=== PATIENT | male | born 1950 | race Caucasian/White ===

== ENCOUNTER 2017-10-16 08:56 | Inpatient (IN) | payer OTHER ==
[2017-10-16 10:03] VITALS: BMI 25.4
[2017-10-16 11:00] LABS: Absolute Monocytes 0.5 K/uL (0.1-1.3); Absolute Neutrophil 3.1 K/uL (1.8-8.0); Basophils % 0.5 % (0-1.3); Hematocrit 41.9 % (39.6-49.0); MCH 30.3 pg (27.0-35.0); MCV 94.4 fL (80-100); MPV 9.1 fL (7.6-11.3); Monocytes % 8.6 % (3.3-12.3); RBC Red Blood Cell Count 4.44 M/uL (4.33-5.43)
[2017-10-16 11:20] LABS: Potassium 3.4 mmol/L (3.5-5.1)
[2017-10-16] MEDS: ETHAMBUTOL HCL 400 MG TAB PO SCH ×3 (13:00→21:00)
[2017-10-16] MEDS ORDERED: PREGABALIN 50 MG CAP PO SCH (14:00)
[2017-10-16] MEDS: LYRICA 100 MG PO SCH ×2 (14:00→21:00)
[2017-10-16] MEDS: SOTALOL HCL 80 MG TAB PO SCH (17:00)
[2017-10-16] MEDS ORDERED: RIVAROXABAN 20 MG TABLET PO SCH (17:00)
[2017-10-16] MEDS: XARELTO 20 MG TABLET PO SCH (17:01)
--- NOTE | 2017-10-16 17:25 | EKG ---
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
[2017-10-16] MEDS: MONTELUKAST 10 MG TAB PO SCH (20:56)
[2017-10-16] MEDS: PREZISTA 600 MG PO SCH (20:57)
[2017-10-16] MEDS: ROZEREM 8 MG PO SCH (21:00)
--- NOTE | 2017-10-17 02:52 | HP ---
Date of Admission: 10/16/2017 History Of Present Illness: Mr. Espinoza is 67 and he is admitted to the hospital because of atrial fi brillation. Our plan is to have him start drug therapy with Betapace and then see if we can anticoag ulate him using Xarelto, and in a couple days if he is still in AFib, do a cardioversion. Mr. Espinoza has not had atrial fibrillation before. He has underlying heart disease. He has cardiomyopathy and he has severe pulmonary hypertension. 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 He has managed to do well with that. He is on erapy with multiple antiviral antibiotics. He also takes montelukast and Xarelto. His Xarelto dose is 20 mg daily. He has a drug allergy to abacavir and sulfa antibiotics. He uses no tobacco, no ill egal drugs. Physical Examination: General: He is 6 feet 3 inches, 203 pounds. HEENT: Unremarkable. Lungs: Clear. Heart: Irregularly irregular. No significant murmur. Abdomen: Soft. Extremities: Within normal limits. Abdomen: Normal. Genital: Not done. Rectal: Not done. Plan: My plan is for him to continue to take Xarelto, continue to take all of his home antibiotics, and will start therapy with Betapace 80 mg twice a day and plan on cardioversion on October 18 if he is still in AFib. HONG/GARY Voice ID: [id number]
[2017-10-17] MEDS: SOTALOL HCL 80 MG TAB PO SCH ×2 (05:47→17:23)
[2017-10-17] MEDS: GENVOYA PO SCH (08:00)
[2017-10-17] MEDS: TORSEMIDE 20 MG TABLET PO SCH (08:32)
[2017-10-17] MEDS: LETAIRIS 10 MG TABLET PO SCH (08:32)
[2017-10-17] MEDS: PREZISTA 600 MG PO SCH ×2 (08:33→21:00)
[2017-10-17] MEDS: ETHAMBUTOL HCL 400 MG TAB PO SCH ×4 (08:34→21:00)
[2017-10-17] MEDS ORDERED: TORSEMIDE 20 MG TAB PO SCH (09:00)
[2017-10-17] MEDS: LYRICA 100 MG PO SCH ×3 (09:00→21:00)
--- NOTE | 2017-10-17 13:49 | PN ---
Mr. Espinoza remains in AFib. He is tolerating Betapace. If he is in AFib tomorrow, we will do a card ioversion, remain on Xarelto. HONG/GARY Voice ID: [id number] Report ID: [id number]
[2017-10-17] MEDS ORDERED: RIVAROXABAN 20 MG TABLET PO SCH ×2 (17:00)
[2017-10-17] MEDS: XARELTO 20 MG TABLET PO SCH (17:24)
[2017-10-17] MEDS: ROZEREM 8 MG PO SCH (21:00)
[2017-10-17] MEDS: MONTELUKAST 10 MG TAB PO SCH (21:00)
[2017-10-18] MEDS: SOTALOL HCL 80 MG TAB PO SCH (05:49)
[2017-10-18] MEDS: GENVOYA PO SCH (08:00)
[2017-10-18] MEDS: PREZISTA 600 MG PO SCH (08:01)
[2017-10-18] MEDS: TORSEMIDE 20 MG TABLET PO SCH (08:02)
[2017-10-18] MEDS: LETAIRIS 10 MG TABLET PO SCH (08:02)
[2017-10-18] MEDS: LYRICA 100 MG PO SCH (08:02)
[2017-10-18] MEDS: ETHAMBUTOL HCL 400 MG TAB PO SCH (08:02)
[2017-10-18] MEDS ORDERED: MIDAZOLAM HCL 2 MG/2 ML INJ ONE (09:51)
[2017-10-18] MEDS ORDERED: FLUMAZENIL 0.1 MG/ML (5 mL VIAL) IV ONE (09:53)
[2017-10-18 10:15] VITALS: TEMP 98
[2017-10-18 12:19] VITALS: O2SAT 98
[2017-10-18 12:50] VITALS: BP 107/77
--- NOTE | 2017-10-18 16:03 | EKG ---
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: ROD MEASUREMENT RESULTS: Intervals: Rate: 45 [place]: 210 QRSD: 136 QT: 596 QTc: 515 [place]: P: 69 [place]: 210 QRS: -84 T: -84 INTERPRETIVE STATEMENTS: Marked sinus bradycardia with 1st degree AV block with premature atrial complexes Possible Left atrial enlargement Left axis deviation Right bundle branch block Inferior infarct, age undetermined Anteroseptal infarct, age undetermined T wave abnormality, consider lateral ischemia Abnormal ECG Compared to ECG 10/16/2017 10:46:22 Atrial premature complex(es) now present First degree AV block now present Atrial fibrillation no longer present Myocardial infarct finding still present Electronically Signed On 10-18-17 16:03:04 CDT by Osmin Bowen
--- NOTE | 2017-10-18 20:49 | OP ---
Surgeon: Osmin Bowen MD Procedure: Direct current cardioversion. Indication: Atrial fibrillation. Procedure In Detail: The patient was brought to the ICU fasting. He had been anticoagulated with Xa relto, loaded with Betapace 80 b.i.d., sedated with Versed. Anterior-posterior paddles were applied. A single 200 joule shock was delivered and synchronized with a QRS complex. He emerged from this r hythm in sinus bradycardia. No complications. He will be discharged from the hospital later today, taking Betapace 40 mg twice a day and Xarelto 20 mg once a day. HONG/GARY Voice ID: [id number] Report ID: [id number]
--- NOTE | 2017-10-19 06:34 | EKG ---
Test Date: 2017-10-18 Test Time: 20:55:33 Science Consultant: ARPIT MEASUREMENT RESULTS: Intervals: Rate: 54 AR: 192 QRSD: 134 QT: 530 QTc: 502 [place]: P: 68 AR: 192 QRS: -87 T: -26 INTERPRETIVE STATEMENTS: Sinus bradycardia Possible Left atrial enlargement Left axis deviation Right bundle branch block Inferior infarct, age undetermined Abnormal ECG Compared to ECG 10/18/2017 10:40:24 Atrial premature complex(es) no longer present First degree AV block no longer present Electronically Signed On 10-19-17 06:33:24 CDT by Osmin Bowen
--- NOTE | 2017-10-23 07:52 | DS ---
Date of Discharge: 10/18/2017 Discharge Diagnosis: Atrial fibrillation, resolved. Procedures In The Hospital: Direct current cardioversion loading with Betapace. The cardioversion w as on October 18, the day of discharge. Discharge Medications: He is on a list of medicines to treat HIV, ambrisentan. He will continue elv itegravir and valacyclovir and darunavir, all of which he will continue. He will continue Lyrica 100 t.i.d., torsemide 20. He will continue rivaroxaban 20 once a day, and in addition, he will be on Be tapace 80 mg twice a day. History Of Present Illness: Mr. Espinoza has longstanding paroxysmal atrial fib. He went into atrial fibrillation. We wanted to re-establish sinus rhythm if possible. He had been anticoagulated long e nough, so he was admitted to the hospital to initiate therapy with Betapace, seemed to tolerate it ok ay with minimal prolongation of QT. Establish sinus rhythm after cardioversion, and at the time of d ischarge, seemed to be stable. We will have followup with me in a week or if he feels like he is hav ing trouble, he will call us sooner. HONG/GARY Voice ID: [id number] Report ID: [id number]
== END 2017-10-18 12:55 | disposition home or self-care (01) | DRG 308 ==
LOC: 2ND 09:29 → 3RD-ICU 10-18 09:54
PROVIDERS: ADMIT Internal Medicine; ATTEND Internal Medicine
PROC: 5A2204Z Restoration of Cardiac Rhythm, Single (ICD-10-PCS; principal; 2017-10-18)
DX: I48.0 Paroxysmal atrial fibrillation (principal); B20 Human immunodeficiency virus [HIV] disease; I43 Cardiomyopathy in diseases classified elsewhere; I27.20 Pulmonary hypertension, unspecified
CPT/HCPCS: 36415; 80048; 85025; 93005; J2250

== ENCOUNTER 2017-10-18 20:46 | Emergency (ER) | payer OTHER ==
[2017-10-18 21:17] LABS: Absolute Lymphocytes (CBC) 2.1 K/uL (0.7-4.9); Absolute Monocytes 0.9 K/uL (0.1-1.3); Absolute Neutrophil 5.5 K/uL (1.8-8.0); Basophils % 0.6 % (0-1.3); Eosinophils % 1.2 % (0-4.4); Hematocrit 46.4 % (39.6-49.0); Lymphocytes % 24.4 % (15.3-44.8); MCH 31.7 pg (27.0-35.0); MPV 10.4 fL (7.6-11.3); Monocytes % 10.1 % (3.3-12.3); RBC Red Blood Cell Count 4.93 M/uL (4.33-5.43)
[2017-10-18 21:41] LABS: Protime INR 1.76
[2017-10-18 21:56] LABS: Albumin 3.5 g/dL (3.4-5.0); Bilirubin Direct 0.4 mg/dL (0-0.2); Bilirubin Total 0.8 mg/dL (0.2-1.0); CKMB Creatine Kinase MB 3.3 ng/mL (0.3-3.6); Magnesium 2.6 mg/dL (1.8-2.4); Protein, Total 6.9 g/dL (6.4-8.2)
--- NOTE | 2017-10-19 00:03 | EDPHYS ---
Physician Documentation [facility] Name: Arsen Espinoza Age: 67 yrs Sex: Male : 1950 Arrival Date: 10/18/2017 Time: 20:49 Bed 15 Private MD: Vikram Krueger R ED Physician Ok Casey HPI: 10/18 22:36 This 67 yrs old Male presents to ER via Ambulatory with complaints of jr8 Dizziness. 22:36 The patient presents with dizziness. Onset: The symptoms/episode began/occurred jr8 acutely, today. Context: occurred at home. Associated signs and symptoms: Pertinent positives: chest pain. Severity of symptoms: At their worst the symptoms were moderate in the emergency department the symptoms have improved mildly. Patient's baseline: Neuro: alert and fully oriented, Motor: no deficits, Ambulation: walks without assistance, Speech: normal. The patient has not experienced similar symptoms in the past. The patient has been recently seen by a physician:. Patient discharged from hospital today after having cardioversion procedure for atrial fibrillation. Had been started on Betapace and xarelto on Thursday prior to procedure. Stated that a while after he got home today started to have lightheaded feeling, weakness, and chest tightness . Historical: - Allergies: 21:06 ABACAVIR; ao 21:06 Sulfa (Sulfonamide Antibiotics); ao - Home Meds: 21:06 acyclovir 400 mg Oral tab 1 tab as needed [Active]; Genvoya [phone] mg Oral tab ao 1 tab once daily [Active]; Letairis 10 mg Oral tab 1 tab once daily [Active]; Lyrica Oral 1 cap 3 times per day [Active]; Prezista 800 mg Oral tab 1 tab once daily [Active]; Singulair 10 mg Oral tab 1 tab once daily [Active]; torsemide 20 mg Oral tab 1 tab once daily [Active]; Xarelto 20 mg Oral tab 1 tab once daily [Active]; valacyclovir 1 gram Oral tab 1 tab once daily [Active]; Betapace oral oral [Active]; - PMHx: 21:06 Atrial Fib; HIV; PULMONARY HYPERTENSION; ao - PSHx: 21:06 None; ao - Immunization history:: Adult Immunizations up to date, Last tetanus immunization: up to date. - Social history:: Smoking status: Patient/guardian denies using tobacco, Patient/guardian denies using alcohol, street drugs. - Ebola Screening: : Patient negative for fever greater than or equal to 101.5 degrees Fahrenheit, and additional compatible Ebola Virus Disease symptoms Patient denies exposure to infectious person Patient denies travel to an Ebola-affected area in the 21 days before illness onset. ROS: 22:36 Eyes: Negative for injury, pain, redness, and discharge, ENT: Negative for injury, jr8 pain, and discharge, Neck: Negative for injury, pain, and swelling, Respiratory: Negative for shortness of breath, cough, wheezing, and pleuritic chest pain, Abdomen/GI: Negative for abdominal pain, nausea, vomiting, diarrhea, and constipation, Back: Negative for injury and pain, MS/Extremity: Negative for injury and deformity, Skin: Negative for injury, rash, and discoloration. 22:36 Cardiovascular: Positive for chest pain, Negative for edema, orthopnea, palpitations, paroxysmal nocturnal dyspnea. 22:36 Neuro: Positive for dizziness, weakness. Exam: 22:36 Eyes: Pupils equal round and reactive to light, extra-ocular motions intact. Lids and jr8 lashes normal. Conjunctiva and sclera are non-icteric and not injected. Cornea within normal limits. Periorbital areas with no swelling, redness, or edema. ENT: Nares patent. No nasal discharge, no septal abnormalities noted. Tympanic membranes are normal and external auditory canals are clear. Oropharynx with no redness, swelling, or masses, exudates, or evidence of obstruction, uvula midline. Mucous membranes moist. Neck: Trachea midline, no thyromegaly or masses palpated, and no cervical lymphadenopathy. Supple, full range of motion without nuchal rigidity, or vertebral point tenderness. No Meningismus. Cardiovascular: Regular rate and rhythm with a normal S1 and S2. No gallops, murmurs, or rubs. Normal PMI, no JVD. No pulse deficits. Respiratory: Lungs have equal breath sounds bilaterally, clear to auscultation and percussion. No rales, rhonchi or wheezes noted. No increased work of breathing, no retractions or nasal flaring. Abdomen/GI: Soft, non-tender, with normal bowel sounds. No distension or tympany. No guarding or rebound. No evidence of tenderness throughout. Back: No spinal tenderness. No costovertebral tenderness. Full range of motion. Skin: Warm, dry with normal turgor. Normal color with no rashes, no lesions, and no evidence of cellulitis. MS/ Extremity: Pulses equal, no cyanosis. Neurovascular intact. Full, normal range of motion. Neuro: Awake and alert, GCS 15, oriented to person, place, time, and situation. Cranial nerves II-XII grossly intact. Motor strength 5/5 in all extremities. Sensory grossly intact. Cerebellar exam normal. Normal gait. Vital Signs: 21:02 BP 109 / 74; Pulse 54; Resp 18; Temp 97.6(T); Pulse Ox 97% on R/A; Weight 92.08 kg (R); ao Height 6 ft. 3 in. (190.50 cm) (R); Pain 0/10; 22:18 BP 100 / 62; Pulse 57; Resp 12; Pulse Ox 96% ; Pain 0/10; ao 22:35 BP 108 / 81 Supine; Pulse 51; ao 22:35 BP 99 / 75 Sitting; Pulse 60; ao 22:36 BP 112 / 80 Standing; Pulse 61; ao 23:19 BP 125 / 88; Pulse 56; Resp 18; Pulse Ox 97% on R/A; Pain 0/10; ao 10/19 00:20 BP 117 / 90; Pulse 62; Resp 18; Pulse Ox 98% ; ao 10/18 21:02 Body Mass Index 25.37 (92.08 kg, 190.50 cm) ao MDM: 10/18 21:11 Patient medically screened. [facility] 22:52 Data reviewed: vital signs, nurses notes, lab test result(s), EKG, radiologic studies, jr8 plain films. Data interpreted: Pulse oximetry: on room air is 96 %. Interpretation: normal. Counseling: I had a detailed discussion with the patient and/or guardian regarding: the historical points, exam findings, and any diagnostic results supporting the discharge/admit diagnosis, lab results, radiology results, the need for outpatient follow up, a space physicist, a family practitioner, to return to the emergency department if symptoms worsen or persist or if there are any questions or concerns that arise at home. ED course: Consulted Dr. Bowen. Wants patient to stop Betapace. To have him f/u in clinic. Patient good with this. Will draw another troponin. If negative will go home . 10/18 21:06 Order name: Basic Metabolic Panel; Complete Time: 22:10 [facility] 10/18 21:06 Order name: CBC with Diff; Complete Time: 21:20 nh10/18 21:06 Order name: Ckmb; Complete Time: 22:10 nh10/18 21:06 Order name: CPK; Complete Time: 22:10 [facility] 10/18 21:06 Order name: LFT's; Complete Time: 22:10 nh10/18 21:06 Order name: Magnesium; Complete Time: 22:10 nh10/18 21:06 Order name: NT PRO-BNP; Complete Time: 22:10 nh10/18 21:06 Order name: PT-INR; Complete Time: 21:52 nh10/18 21:06 Order name: Ptt, Activated; Complete Time: 21:52 [facility] 10/18 21:06 Order name: Troponin (emerg Dept Use Only); Complete Time: 22:10 nh10/18 21:06 Order name: XRAY Chest (1 view) 10/18 21:06 Order name: Cardiac monitoring; Complete Time: 21:14 nh10/18 22:54 Order name: Troponin (emerg Dept Use Only); Complete Time: 23:59 jr8 10/18 21:06 Order name: EKG - Nurse/Tech; Complete Time: 21:14 nh10/18 21:06 Order name: IV Saline Lock; Complete Time: 21:14 nh10/18 21:06 Order name: Labs collected and sent; Complete Time: 21:15 nh10/18 21:06 Order name: O2 Per Protocol; Complete Time: 21:15 nh10/18 21:06 Order name: O2 Sat Monitoring; Complete Time: 21:15 nh10/18 21:34 Order name: Orthostatics; Complete Time: 22:37 jr8 Administered Medications: No medications were administered Disposition: 10/19 08:55 Co-signature as Attending Physician, Ok Casey MD I agree with the assessment and jerilyn plan of care. Disposition: 10/19/17 00:02 Discharged to Home. Impression: Adverse effect of cardiac medication . - Condition is Stable. - Discharge Instructions: Atrial Fibrillation, Chest Pain Observation. - Medication Reconciliation Form, Thank You Letter, Antibiotic Education, Prescription Opioid Use form. - Follow up: Osmin Bowen MD; When: Tomorrow; Reason: Recheck today's complaints, Continuance of care, Re-evaluation by your physician. - Problem is new. - Symptoms have improved. Signatures: Dispatcher [employer] EDDC Ok Casey MD MD cha Roszak, Josh, PA PA jr8 Dottie Cook RN RN ak1 Margarito Ricks RN RN ao Corrections: (The following items were deleted from the chart) 00:21 00:02 10/19/2017 00:02 Discharged to Home. Impression: Adverse effect of cardiac ao medication . Condition is Stable. Forms are Medication Reconciliation Form, Thank You Letter, Antibiotic Education, Prescription Opioid Use. Follow up: Osmin Bowen; When: Tomorrow; Reason: Recheck today's complaints, Continuance of care, Re-evaluation by your physician. Problem is new. Symptoms have improved. jr8
--- NOTE | 2017-10-19 00:03 | ER ---
Nurse's Notes [facility] Name: Arsen Espinoza Age: 67 yrs Sex: Male : 1950 Arrival Date: 10/18/2017 Time: 20:49 Bed 15 Private MD: Vikram Krueger R Diagnosis: Adverse effect of cardiac medication Presentation: 10/18 20:59 Presenting complaint: Patient states: "This morning I had a cardioversion by Dr Andrés mary and this evening I been having this chest heaviness. I also feel lightheaded and dizzy. Patient denies pain and states it just the chest heaviness. Transition of care: patient was not received from another setting of care. Onset of symptoms was October 18, 2017 at 12:00. Risk Assessment: Do you want to hurt yourself or someone else? Patient reports no desire to harm self or others. Initial Sepsis Screen: Does the patient meet any 2 criteria? No. Patient's initial sepsis screen is negative. Does the patient have a suspected source of infection? No. Patient's initial sepsis screen is negative. Care prior to arrival: None. 20:59 Method Of Arrival: Ambulatory ao 20:59 Acuity: JAZMIN 2 ao Historical: - Allergies: 21:06 ABACAVIR; ao 21:06 Sulfa (Sulfonamide Antibiotics); ao - Home Meds: 21:06 acyclovir 400 mg Oral tab 1 tab as needed [Active]; Genvoya [phone] mg Oral tab ao 1 tab once daily [Active]; Letairis 10 mg Oral tab 1 tab once daily [Active]; Lyrica Oral 1 cap 3 times per day [Active]; Prezista 800 mg Oral tab 1 tab once daily [Active]; Singulair 10 mg Oral tab 1 tab once daily [Active]; torsemide 20 mg Oral tab 1 tab once daily [Active]; Xarelto 20 mg Oral tab 1 tab once daily [Active]; valacyclovir 1 gram Oral tab 1 tab once daily [Active]; Betapace oral oral [Active]; - PMHx: 21:06 Atrial Fib; HIV; PULMONARY HYPERTENSION; ao - PSHx: 21:06 None; ao - Immunization history:: Adult Immunizations up to date, Last tetanus immunization: up to date. - Social history:: Smoking status: Patient/guardian denies using tobacco, Patient/guardian denies using alcohol, street drugs. - Ebola Screening: : Patient negative for fever greater than or equal to 101.5 degrees Fahrenheit, and additional compatible Ebola Virus Disease symptoms Patient denies exposure to infectious person Patient denies travel to an Ebola-affected area in the 21 days before illness onset. Screenin:14 Abuse screen: Denies threats or abuse. Denies injuries from another. Nutritional ao screening: No deficits noted. Tuberculosis screening: No symptoms or risk factors identified. Fall Risk None identified. Assessment: 21:08 General: Appears in no apparent distress. comfortable, Behavior is calm, cooperative, ao appropriate for age. Pain: Complains of pain in chest pressure Pain does not radiate. Neuro: Level of Consciousness is awake, alert, obeys commands, Oriented to person, place, time, situation, Appropriate for age Moves all extremities. Speech is normal, Facial symmetry appears normal, Pupils are PERRLA. Cardiovascular: Heart tones S1 S2 Capillary refill < 3 seconds Patient's skin is warm and dry. Respiratory: Airway is patent Respiratory effort is even, unlabored, Respiratory pattern is regular, symmetrical. GI: Abdomen is non-distended. : No signs and/or symptoms were reported regarding the genitourinary system. EENT: No signs and/or symptoms were reported regarding the EENT system. Derm: Skin is pink, warm \\T\\ dry. Skin temperature is warm. Musculoskeletal: Circulation, motion, and sensation intact. Range of motion: intact in all extremities. 22:18 Reassessment: Patient appears in no apparent distress at this time. Patient and/or ao family updated on plan of care and expected duration. Pain level reassessed. Patient is alert, oriented x 3, equal unlabored respirations, skin warm/dry/pink. ANDREEA Rhodes at bedside talking to patient. 23:19 Reassessment: Patient appears in no apparent distress at this time. Patient and/or ao family updated on plan of care and expected duration. Pain level reassessed. Patient is alert, oriented x 3, equal unlabored respirations, skin warm/dry/pink. Waiting for second troponin. 10/19 00:19 Reassessment: Dc instructions given to patient. Patient agree with the POC and to ao follow up with DR Bowen this morning. Vital Signs: 10/18 21:02 BP 109 / 74; Pulse 54; Resp 18; Temp 97.6(T); Pulse Ox 97% on R/A; Weight 92.08 kg (R); ao Height 6 ft. 3 in. (190.50 cm) (R); Pain 0/10; 22:18 BP 100 / 62; Pulse 57; Resp 12; Pulse Ox 96% ; Pain 0/10; ao 22:35 BP 108 / 81 Supine; Pulse 51; ao 22:35 BP 99 / 75 Sitting; Pulse 60; ao 22:36 BP 112 / 80 Standing; Pulse 61; ao 23:19 BP 125 / 88; Pulse 56; Resp 18; Pulse Ox 97% on R/A; Pain 0/10; ao 10/19 00:20 BP 117 / 90; Pulse 62; Resp 18; Pulse Ox 98% ; ao 10/18 21:02 Body Mass Index 25.37 (92.08 kg, 190.50 cm) ao ED Course: 10/18 20:49 Patient arrived in ED. es 20:50 Vikram Krueger MD is Private Physician. es 20:59 Margarito Ricks RN is Primary Nurse. ao 21:02 Triage completed. ao 21:03 Arm band placed on right wrist. Patient placed in an exam room, on a stretcher, on ao oxygen, on equipment monitor phototypesetting, on pulse oximetry, Patient notified of wait time. 21:05 EKG done, by ED staff. jp3 21:07 Inserted saline lock: 20 gauge in right antecubital area, using aseptic technique. ao ,using aseptic technique. By CAMILO Sinclair Blood collected. 21:11 Carmelo Peralta PA is PHCP. jr8 21:11 Ok Casey MD is Attending Physician. jr8 21:14 Patient has correct armband on for positive identification. school lunch monitor on. Pulse ao ox on. NIBP on. 22:00 XRAY Chest (1 view) In Process Unspecified. EDMS 10/19 00:02 Osmin Bowen MD is Referral Physician. jr8 00:19 No provider procedures requiring assistance completed. IV discontinued, intact, ao bleeding controlled, No redness/swelling at site. Pressure dressing applied. Administered Medications: No medications were administered Outcome: 00:02 Discharge ordered by . jr8 00:19 Discharged to home ambulatory. ao 00:19 Condition: stable 00:19 Discharge instructions given to patient, Instructed on discharge instructions, follow up and referral plans. Demonstrated understanding of instructions, follow-up care, medications. 00:21 Patient left the ED. ao Signatures: Dispatcher [employer] Rocio Garcia Josh, PA PA jr8 Margarito Ricks, RN RN Jules Corcoran jp3
[2017-10-19 00:25] VITALS: TEMP 97.6
[2017-10-19 00:31] VITALS: BP 117/90; O2SAT 98
--- NOTE | 2017-10-19 06:43 | RAD REPORT ---
EXAM DESCRIPTION: RAD - Chest Single View - 10/18/2017 10:00 pm CLINICAL HISTORY: Chest pain, chest heaviness, recent cardioversion COMPARISON: May 31 TECHNIQUE: AP portable chest image was obtained 2155 hours . FINDINGS: Cardiomegaly is present. Enlarged pulmonary arteries are noted. Upper lobe vasculature is increased over the prior study. Patient has a mild baseline interstitial prominence that is accentuat ed by a slightly more shallow inspiration. Trachea is midline. Mild cardiac decompensation or volume overload can be masked. No measurable pleural effusion and no pneumothorax. No gross bony abnormality seen. No acute aortic findings suspected. IMPRESSION: Cardiomegaly similar or slightly increased from May examination. Stable bilateral hilar fullness believed to be pulmonary artery enlargement. Vasculature and lung markings are slightly increased. This is minimal change but could indicate earli est stages of cardiac decompensation or volume overload.
== END 2017-10-19 00:21 | disposition home or self-care (01) ==
LOC: ER 20:46
DX: R07.89 Other chest pain (principal); T44.7X5A Adverse effect of beta-adrenoreceptor antagonists, initial encounter; I48.91 Unspecified atrial fibrillation; I27.20 Pulmonary hypertension, unspecified; Z79.01 Long term (current) use of anticoagulants; Z21 Asymptomatic human immunodeficiency virus [HIV] infection status; Z88.2 Allergy status to sulfonamides; Z88.8 Allergy status to other drugs, medicaments and biological substances
CPT/HCPCS: 36415; 71045; 80048; 80076; 82550; 82553; 83735; 83880; 84484; 85025; 85610; 85730; 99285

== ENCOUNTER 2018-12-28 13:01 | Day surgery (SDC) | payer OTHER ==
--- OUTSIDE RECORDS SUMMARY | 2018-12-28 13:30 | XMS REPORT | Continuity of Care Document ---
:1950 Author Organization [employer] Care Team Providers Name Role Phone [facility] [employer] Unavailable Unavailable Problems Problem Status Onset Classification Date Comments Source Date Reported Persistent atrial 12/13/19 06/20/2018 [facility] fibrillation [address] [place] [address] ATRIAL FIB, Active 11/21/19 [facility] PALPATIONS [address] [place] [address] Chest pain Active 06/01/19 Finding 06/02/[address] [facility] Unstable angina Active 08/16/19 Finding 06/02/[address] [facility] Atrial fibrillation Active 08/16/19 Finding 06/02/[address] [facility] HIV Active 08/16/19 Finding 06/02/[address] [facility] Hypertension Active 08/16/19 Finding 06/02/[address] 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 [facility] virus [HIV] [place] infection status Herpesviral 06/20/2018 [facility] infection, Medical unspecified Center Allergic rhinitis, [facility] Polyneuropathy, 06/20/2018 [facility] Paroxysmal atrial 06/20/2018 [facility] fibrillation [facility] Medications Medication Details Route Status Patient Ordering Order Source Instructions Provider Date dofetilide 125 125 Active [facility] mcg oral capsule microgram=1 2017 Medical cap, PO, Q12H, Center # 60 cap, 2 Refill(s) dofetilide 125 125 Active [facility] mcg oral capsule microgram=1 2017 Medical cap, PO, BID, Center # 14 cap, 0 Refill(s) Ibuprofen 400 mg, 1 tab, No [facility] Route: PO, Longer 2017 Medical Drug form: Active Center TAB, ONCE, Dosing Weight 88.648, kg, PRN Headache 1-5, Start date: 11/30/17 18:02:00 CDTNotes: (Same as: Motrin) "Do Not Crush" Give with food. dofetilide 125 microgram, No [place] 1 cap, Route: Longer 2017 Medical PO, Drug form: Active Center CAP, Q12H, Dosing Weight 88.648, kg, Priority: STAT, Start date: 11/29/17 11:07:00 CDT, Duration: 30 day, Stop date: 12/29/17 9:00:00 CDTNotes: (Same as: Tikosyn) Providers should enter the orders via the "Dofetilide Initiation Orders MPP" to ensure compliance with the REMS program. Tylenol 650 mg, 2 tab, No [place] Route: PO, Longer 2017 Medical Drug form: Active Center TAB, Q6H, Dosing Weight 88.648, kg, PRN Pain Score 1-3, Start date: 11/28/17 21:33:00 CDT, Duration: 30 day, Stop date: 12/28/17 21:32:00 CDTNotes: Do not exceed 4 gm/day. (Same as: Tylenol) dofetilide 125 microgram, No [place] 1 cap, Route: Longer 2017 Medical PO, Drug form: Active Center CAP, Q12H, Dosing Weight 88.648, kg, Start date: 11/28/17 21:00:00 CDT, Duration: 30 day, Stop date: 12/28/17 9:00:00 CDTNotes: (Same as: Tikosyn) Providers should enter the orders via the "Dofetilide Initiation Orders MPP" to ensure compliance with the REMS program. ambrisentan 10 10 mg, 1 tab, No [place] MG Oral Tablet Route: PO, Longer 2017 Medical [Letairis] Drug form: Active Center TAB, Daily, Dosing Weight 88.648, kg, Start date: 11/28/17 9:00:00 CDT, Duration: 30 day, Stop date: 12/27/17 9:00:00 CDT Prezista 800 mg, 1 tab, No [place] Route: PO, Longer 2017 Medical Drug form: Active Center TAB, Daily, Dosing Weight 88.648, kg, Start date: 11/28/17 9:00:00 CDT, Duration: 30 day, Stop date: 12/27/17 9:00:00 CDTNotes: Same as: Prezista cobicistat 150 1 tab, Route: No [place] MG / PO, Drug Form: 2017 Medical elvitegravir 150 TAB, Dosing Active Center MG / Weight 88.648, emtricitabine kg, Daily, 200 MG / Start date: tenofovir 11/28/17 alafenamide 10 9:00:00 CDT, MG Oral Tablet Duration: 30 [Genvoya] day, Stop date: 12/27/17 9:00:00 CDTNotes: (Same as: Genvoya) - cobicistat/elv itegravir/emtr icitabine/teno fovir ALAFENAMIDE [phone] TAB Non-formulary torsemide 20 mg, 2 tab, No [place] Route: PO, Longer 2017 Medical Drug form: Active Center TAB, Daily, Dosing Weight 88.648, kg, Start date: 11/28/17 9:00:00 CDT, Duration: 30 day, Stop date: 12/27/17 9:00:00 CDTNotes: (Same As: Demadex) Acyclovir 400 mg, 1 tab, No [place] Route: PO, 2017 Medical Drug form: Active Center TAB, Q12H, Dosing Weight 88.648, kg, Start date: 11/27/17 21:00:00 CDT, Duration: 30 day, Stop date: 12/27/17 9:00:00 CDTNotes: (Same as: Zovirax) Lyrica 100 mg, 1 cap, No [place] Route: PO, Longer 2017 Medical Drug form: Active Center CAP, Q12H, Dosing Weight 88.648, kg, Start date: 11/27/17 21:00:00 CDT, Duration: 30 day, Stop date: 12/27/17 9:00:00 CDTNotes: (Same as: Lyrica) dofetilide 500 microgram, No [place] 1 cap, Route: Longer 2017 Medical PO, Drug form: Active Center CAP, Q12H, Dosing Weight 88.648, kg, Start date: 11/27/17 19:00:00 CDT, Duration: 30 day, Stop date: 12/27/17 9:00:00 CDTNotes: (Same as: Tikosyn) Providers should enter the orders via the "Dofetilide Initiation Orders MPP" to ensure compliance with the REMS program. Singulair 10 mg, 1 tab, No [place] Route: PO, 2017 Medical Drug form: Active Center TAB, QPM, Dosing Weight 88.648, kg, Start date: 11/27/17 17:00:00 CDT, Duration: 30 day, Stop date: 12/26/17 17:00:00 CDTNotes: (Same as:Singulair) Xarelto 20 mg, 1 tab, No [place] Route: PO, 2017 Medical Drug form: Active Center TAB, QPM, Dosing Weight 88.648, kg, Start date: 11/27/17 17:00:00 CDT, Duration: 30 day, Stop date: 12/26/17 17:00:00 CDTNotes: (Same as: Xarelto) Administer with food Calcium 2 gm, 20 mL, No [place] Gluconate Route: IVPB, 2017 Medical PRN, Dosing Active Center Weight 88.648, kg, PRN Abnormal Lab Result, For NON-ICU Patients Only., Start date: 11/27/17 17:00:00 CDT, Duration: 30 day, Stop date: 12/27/17 16:59:00 CDTNotes: WASTE: F/P - Sink; E - Municipal Trash Bin Potassium 20 mEq, 15 mL, No [place] Chloride Route: [place], 2017 Medical Drug form: Active Center LIQ, PRN, Dosing Weight 88.648, kg, PRN Abnormal Lab Result, For NON-ICU Patients Only, Start date: 11/27/17 17:00:00 CDT, Duration: 30 day, Stop date: 12/27/17 16:59:00 CDTNotes: (Same as: Potassium Chloride) potassium 2 pkt, Route: No [place] phosphate-sodium PO, Drug Form: 2017 Medical phosphate 250 PDR/REC, Active Center mg-280 mg-160 mg Dosing Weight oral powder for 88.648, kg, reconstitution PRN, PRN Abnormal Lab Result, For NON-ICU Patients Only, Start date: 11/27/17 17:00:00 CDT, Duration: 30 day, Stop date: 12/27/17 16:59:00 CDTNotes: (Same as: Phos-NaK) Each 1.5 gm pkt has 250mg phosphorous. Mix w/2.5oz water and stir. potassium 30 mmol, 10 No [place] phosphate mL, Route: Longer 2017 Medical IVPB, PRN, Active Center Dosing Weight 88.648, kg, PRN Abnormal Lab Result, For NON-ICU Patients Only., Start date: 11/27/17 17:00:00 CDT, Duration: 30 day, Stop date: 12/27/17 16:59:00 CDTNotes: (Same as: K Phosphate.) Do not infuse phosphorous concurrently in the same line as TPN or IVF that contains calcium. For double lumen central lines, phosphorous may be infused in a separate lumen from TPN. 1 mMol phoshate has 1.47 mEq potassium Infuse over 4 hours sodium phosphate 15 mmol, 5 mL, No [place] Route: IVPB, 2017 Medical PRN, Dosing Active Center Weight 88.648, kg, PRN Abnormal Lab Result, For NON-ICU Patients Only., Start date: 11/27/17 17:00:00 CDT, Duration: 30 day, Stop date: 12/27/17 16:59:00 CDTNotes: Infuse over 4 hour. Do not infuse phosphorous concurrently in the same line as TPN or IVF that contains calcium. For double lumen central lines, phosphorous may be infused in a separate lumen from TPN. Magnesium 1 gm, 100 mL, No [place] Sulfate Route: IVPB, 2017 Medical Drug form: Active Center INJ, PRN, Dosing Weight 88.648, kg, PRN Abnormal Lab Result, For NON-ICU Patients Only., Start date: 11/27/17 17:00:00 CDT, Duration: 30 day, Stop date: 12/27/17 16:59:00 CDTNotes: WASTE: F/P - Sink; E - Municipal Trash Bin Magnesium Oxide 800 mg, 2 tab, No [place] Route: PO, Longer 2018 Medical Drug form: Active Center TAB, PRN, Dosing Weight 88.648, kg, PRN Abnormal Lab Result, For NON-ICU Patients Only., Start date: 11/27/17 17:00:00 CDT, Duration: 30 day, Stop date: 12/27/17 16:59:00 CDTNotes: (Same as: Mag-Ox 400) Magnesium oxide [id number] elemental magnesium Dose=____mg magnesium oxide (___mg elemental magnesium) cobicistat 150 1 tab, PO, Active [place] MG / Daily, # 90 2018 Medical elvitegravir 150 tab, 0 Center MG / Refill(s) emtricitabine 200 MG / tenofovir alafenamide 10 MG Oral Tablet [Genvoya] rivaroxaban 20 20 mg=1 tab, Active [place] MG Oral Tablet PO, QPM, # 30 2018 Medical [Xarelto] tab, 3 Center Refill(s) ambrisentan 10 10 mg=1 tab, Active [facility] MG Oral Tablet PO, Daily, # 2018 Medical [Letairis] 30 tab, 0 Center Refill(s) darunavir 800 MG 800 mg=1 tab, Active [facility] Oral Tablet PO, Daily, 0 2018 Medical [Prezista] Refill(s) Center montelukast 10 10 mg=1 tab, Active [facility] MG Oral Tablet PO, Bedtime, # 2018 Medical [Singulair] 30 tab, 1 Center Refill(s) torsemide 20 mg 20 mg=1 tab, Active [facility] oral tablet PO, Daily, # 2018 Medical 30 tab, 1 Center Refill(s) pregabalin 100 100 mg=1 cap, Active [facility] MG Oral Capsule PO, BID, # 90 2018 Medical [Lyrica] cap, 1 Center Refill(s) acyclovir 400 mg 400 mg=1 tab, Active [place] oral tablet PO, Q12H, # 28 2018 Medical tab, 0 Center Refill(s) Darunavir DAILY Active St[facility] Ethanolate 2018 [facility] Torsemide DAILY Active [facility] 2018 [facility] Elviteg/Cob/Emtr DAILY Active St. i/Tenof Alafen 2018 [facility] Rivaroxaban DAILY Active [facility] 2018 [facility] Valacyclovir Hcl DAILY Active [facility] 2018 [facility] Acyclovir THREE TIMES Active [facility] DAILY 2015 [facility] NEEDED PRN For [place] outbreak Ambrisentan DAILY Active [facility] 2014 [facility] Pregabalin THREE TIMES A Active St. DAY 2014 [facility] Montelukast DAILY Active St. Sodium 2015 [facility] Allergies, Adverse Reactions, Alerts Substance Category Reaction Severity Reaction Status Date Comments Source type Reported abacavir Anaphylaxis Allergy to Active [facility] St[facility] Substance 8 [facility] Sulfa Hives Allergy to Active [facility] St. (Sulfonamid Substance 8 [facility] [place] Antibiotics t ) sulfa drugs Assertion Drug Active [facility] metoprolol Assertion Drug Active [facility] Betapace Assertion Drug Active [facility] Bactrim Assertion Drug Active [facility] Immunizations No Data Provided for This Section Results Order Name Results Value Reference Date Interpretation Comments Source Range CHEM PANEL Magnesium 2.5 1.8 - 2.4 12/01 [facility] CHEM PANEL Phosphorus 3.3 2.5 - 4.5 12/01 [facility] ELECTROLYT AGAP 13.2 10.0 - 12/01 [facility] ES 20.0 [facility] ELECTROLYT eGFR 64 12/01 Result [facility] Comment: The Medical eGFR is Center calculated using the CKD-EPI formula. In most young, healthy individuals the eGFR will be >90 mL/min/1.73m2 . The eGFR declines with age. An eGFR of 60-89 may be normal in some populations, particularly the elderly, for whom the CKD-EPI formula has not been extensively validated. Use of the eGFR is not recommended in the following populations:< br/>
Elodia viduals with unstable creatinine concentration s, including patients and those with serious co-morbid conditions.<b r/>
Patie nts with extremes in muscle mass or diet.

The data above are obtained from the National Kidney Disease Education Program (NKDEP) which additionally recommends that when the eGFR is used in patients with extremes of body mass index for purposes of drug dosing, the eGFR should be multiplied by the estimated BMI. ELECTROLYT Chloride Lvl 108 95 - 109 12/01 [facility] ELECTROLYT Potassium 4.2 3.5 - 5.1 12/01 [facility] Lvl [facility] ELECTROLYT Glucose Lvl 100 70 - 99 12/[address] ELECTROLYT Sodium Lvl 141 135 - 145 12/[address] ELECTROLYT Creatinine 1.16 0.50 - 12/01 [facility] Lvl 1.40 /2017 [facility] ELECTROLYT BUN 22 7 - 22 12/[address] ELECTROLYT Calcium Lvl 8.8 8.5 - 10.5 12/[address] ELECTROLYT CO2 24 24 - 32 12/[address] HEMATOLOGY MPV 8.8 7.4 - 10.4 12/[address] HEMATOLOGY RDW 16.2 11.5 - 12/01 14.5 [facility] HEMATOLOGY Platelet 147 133 - 450 12/[address] HEMATOLOGY Hgb 14.3 14.0 - 12/01 [place] 18.0 [facility] HEMATOLOGY RBC 4.36 4.70 - 12/01 [place] 6.10 [facility] HEMATOLOGY WBC 5.9 3.7 - 10.4 12/[address] HEMATOLOGY MCH 32.9 27.0 - 12/01 [place] 31.0 [facility] HEMATOLOGY MCHC 35.3 32.0 - 12/01 [place] 36.0 [facility] HEMATOLOGY MCV 93.3 80.0 - 12/01 [facility] 94.0 [facility] HEMATOLOGY Hct 40.7 42.0 - 12/01 [place] 54.0 [facility] HEMATOLOGY Monocytes 10.0 2.0 - 12.0 12/[address] HEMATOLOGY Monocytes # 0.6 0.0 - 0.8 12/[address] HEMATOLOGY Lymphocytes 2.3 1.0 - 5.5 12/01 [facility]2017 [facility] HEMATOLOGY Neutrophils 2.8 1.5 - 8.1 12/[address] HEMATOLOGY Basophils 0.7 0.0 - 1.0 12/[address] HEMATOLOGY Eosinophils 2.8 0.0 - 4.0 12/[address] HEMATOLOGY Eosinophils 0.2 0.0 - 0.5 12/01 [facility]2017 [facility] HEMATOLOGY Segs 47.1 45.0 - 12/01 [place] 75.0 [facility] HEMATOLOGY Lymphocytes 39.4 20.0 - 12/01 [facility] 40.0 [facility] CHEM PANEL Phosphorus 3.0 2.5 - 4.5 11/[address] CHEM PANEL Magnesium 2.3 1.8 - 2.4 11/29 [facility] CHEM PANEL BUN 19 7 - 22 11/[address] CHEM PANEL Glucose Lvl 103 70 - 99 11/[address] CHEM PANEL Sodium Lvl 143 135 - 145 11/[address] CHEM PANEL Creatinine 1.08 0.50 - 11/29 [facility] 1.40 [facility] CHEM PANEL AGAP 12.5 10.0 - 11/29 [facility] 20.0 [facility] CHEM PANEL Calcium Lvl 8.3 8.5 - 10.5 11/[address] CHEM PANEL Potassium 3.5 3.5 - 5.1 11/29 [facility] CHEM PANEL CO2 25 24 - 32 11/[address] CHEM PANEL Chloride Lvl 109 95 - 109 11/[address] CHEM PANEL eGFR 70 11/29 [facility] Comment: The Medical eGFR is Center calculated using the CKD-EPI formula. In most young, healthy individuals the eGFR will be >90 mL/min/1.73m2 . The eGFR declines with age. An eGFR of 60-89 may be normal in some populations, particularly the elderly, for whom the CKD-EPI formula has not been extensively validated. Use of the eGFR is not recommended in the following populations:< br/>
Elodia viduals with unstable creatinine concentration s, including patients and those with serious co-morbid conditions.<b r/>
Patie nts with extremes in muscle mass or diet.

The data above are obtained from the National Kidney Disease Education Program (NKDEP) which additionally recommends that when the eGFR is used in patients with extremes of body mass index for purposes of drug dosing, the eGFR should be multiplied by the estimated BMI. CHEM PANEL Magnesium 2.2 1.8 - 2.4 11/28 [facility] CHEM PANEL Phosphorus 3.3 2.5 - 4.5 11/28 [facility] CHEM PANEL Calcium Lvl 8.3 8.5 - 10.5 11/28 [facility] CHEM PANEL AGAP 12.4 10.0 - 11/28 [facility] 20.0 [facility] CHEM PANEL eGFR 79 11/28 [facility] Comment: The Medical eGFR is Center calculated using the CKD-EPI formula. In most young, healthy individuals the eGFR will be >90 mL/min/1.73m2 . The eGFR declines with age. An eGFR of 60-89 may be normal in some populations, particularly the elderly, for whom the CKD-EPI formula has not been extensively validated. Use of the eGFR is not recommended in the following populations:< br/>
Elodia viduals with unstable creatinine concentration s, including patients and those with serious co-morbid conditions.<b r/>
Patie nts with extremes in muscle mass or diet.

The data above are obtained from the National Kidney Disease Education Program (NKDEP) which additionally recommends that when the eGFR is used in patients with extremes of body mass index for purposes of drug dosing, the eGFR should be multiplied by the estimated BMI. CHEM PANEL CO2 24 24 - 32 11/28 [facility] CHEM PANEL Creatinine 0.97 0.50 - 11/28 [facility] 1.40 [facility] CHEM PANEL Sodium Lvl 141 135 - 145 11/28 [facility] CHEM PANEL Potassium 4.4 3.5 - 5.1 11/28 [facility] CHEM PANEL Chloride Lvl 109 95 - 109 11/28 [facility] /2018 Medical Center CHEM PANEL Glucose Lvl 114 70 - 99 11/28 [place] /2017 [facility] CHEM PANEL BUN 20 7 - 22 11/28 /2017 [facility] IMMUNOLOGY H/S Ratio 0.40 0.90 - 11/28 [place] 2.30 [facility] [place] IMMUNOLOGY Tot Lymph # 2241 11/28 [place] /2017 [facility] IMMUNOLOGY CD4 T [place] 525 410 - 1590 11/28 [place] # /2017 [facility] IMMUNOLOGY CD4 [place] % 23 31 - 61 11/28 [place] /2018 Medical Center IMMUNOLOGY CD19 B Cell 244 90 - 660 11/28 [place] # /2018 [facility] IMMUNOLOGY CD19 B Cell 11 6 - 25 11/28 [place] % /2017 Medical Center IMMUNOLOGY CD 16 56 NK 99 90 - 590 11/28 [facility] # /2017 [facility] IMMUNOLOGY CD16 56 NK % 4 5 - 27 11/28 [place] /2017 [facility] IMMUNOLOGY CD3 T Cell # 1877 810 - 3822 11/28 [place] /2017 [facility] IMMUNOLOGY CD3 T Cell % 83 55 - 84 11/28 /2017 [facility] IMMUNOLOGY CD8 Suppress 1329 190 - 1140 11/28 [place] # /2017 [facility] IMMUNOLOGY CD8 Suppress 58 13 - 41 11/28 /2017 [facility] ANEMIA TIBC 378 228 - 428 11/27 [facility] STUDY /2018 [facility] ANEMIA [place] 112 45 - 160 11/27 [facility] STUDY /2018 [facility] ANEMIA % [place] 30 12 - 57 11/27 [facility] STUDY /2018 [facility] ANEMIA UIBC 266 110 - 370 11/27 [facility] STUDY /2018 [facility] ANEMIA Ferritin Lvl 106 22 - 275 11/27 [facility] STUDY /2018 [facility] CHEM PANEL Albumin Lvl 4.2 3.5 - 5.0 11/27 [place] /2018 [facility] CHEM PANEL AST 44 0 - 37 11/27 [place] /2017 [facility] CHEM PANEL ALT 33 0 - 65 11/27 [place] /2018 [facility] CHEM PANEL Bili Total 0.8 0.2 - 1.3 11/27 [place] /2018 [facility] CHEM PANEL Alk Phos 76 39 - 136 11/27 [place] /2018 [facility] CHEM PANEL Bili Direct 0.1 0.0 - 0.3 11/27 [place] /2018 [facility] CHEM PANEL Bili 0.7 0.0 - 1.0 11/27 [place] Indirect /2017 [facility] CHEM PANEL Total 8.0 6.4 - 8.4 /10 [place] Protein /2017 [facility] CHEM PANEL A/G Ratio 1.1 0.7 - 1.6 / [place] /2018 [facility] CHEM PANEL Globulin 3.8 2.7 - 4.2 /10 [place] /2018 [facility] HEMATOLOGY PTT 39.2 22.9 - 08/10 [place] 35.8 /2018 [facility] HEMATOLOGY INR 1.31 0.85 - 10 [place] 1.17 /2017 [facility] HEMATOLOGY PT 16.4 12.0 - 0810 [place] 14.7 /2018 [facility] HEMATOLOGY MPV 9.5 7.4 - 10.4 / [place] /2017 [facility] HEMATOLOGY Platelet 164 133 - 450 /10 [place] /2017 [facility] HEMATOLOGY MCHC 34.0 32.0 - 0810 [place] 36.0 /2017 [facility] HEMATOLOGY RDW 16.4 11.5 - 08 [place] 14.5 /2018 [facility] HEMATOLOGY WBC 6.4 3.7 - 10.4 11/27 [place] /2017 [facility] HEMATOLOGY MCV 94.5 80.0 - 10 [place] 94.0 /2018 [facility] HEMATOLOGY Hct 45.8 42.0 - 0810 [place] 54.0 /2018 [facility] HEMATOLOGY MCH 32.1 27.0 - 0810 [place] 31.0 /2018 [facility] HEMATOLOGY RBC 4.85 4.70 - 10 [place] 6.10 /2018 [facility] HEMATOLOGY Hgb 15.6 14.0 - 10 [place] 18.0 /2018 [facility] HEMATOLOGY Monocytes # 0.4 0.0 - 0.8 /10 [place] /2018 [facility] HEMATOLOGY Eosinophils 0.2 0.0 - 0.5 /10 [place] # /2018 [facility] HEMATOLOGY Eosinophils 3.2 0.0 - 4.0 /10 [place] /2018 [facility] HEMATOLOGY Neutrophils 3.1 1.5 - 8.1 /10 [place] # /2018 [facility] HEMATOLOGY Basophils 0.7 0.0 - 1.0 /10 [place] /2018 [facility] HEMATOLOGY Lymphocytes 40.4 20.0 - 0810 [place] 40.0 /2018 [facility] HEMATOLOGY Segs 49.3 45.0 - 0810 [place] 75.0 /2018 [facility] HEMATOLOGY Monocytes 6.4 2.0 - 12.0 11/27 [facility] [place] /2018 [facility] HEMATOLOGY Lymphocytes 2.6 1.0 - 5.5 11/27 [facility] # [facility] HEMATOLOGY Retic Auto 1.6 0.5 - 1.5 11/27 [facility]2017 [facility] LIPIDS Trig 279 <=149 11/27 [facility] mg/dL [facility] LIPIDS HDL 35 >=61 mg/dL 11/27 [facility] [address] [place] [address] LIPIDS LDL 71 <=99 mg/dL 11/27 [facility] (Calculated) [facility] LIPIDS VLDL 56 11/27 [facility] LIPIDS Chol 162 <=199 11/27 [facility] mg/dL [facility] LIPIDS CHD Risk 4.63 4.00 - 11/27 [facility] 7.30 [facility] PARATHYROI Ca Ion WB 1.07 1.05 - 11/27 [facility] D PROFILE 1. [facility] PARATHYROI Ca Norm WB 1.03 1.05 - 11/27 [facility] D PROFILE 1. [facility] SPECIAL Hgb A1C 6.1 <=5.6 % 11/27 [facility] CHEMISTRY [facility] Laboratory Sodium Level 143 135 - 145 06/[address] [facility] [address] Studies /2018 [facility] Laboratory Potassium 3.9 3.6 - 5.0 06/[address] [facility] [address] Studies Level 2018 [facility] [place] Laboratory Glucose 118 65 - 120 06/[address] [facility] [address] Studies Level 2018 [facility] Laboratory Estimat 69 90 06/[address] [facility] [address] Studies Glomerular [facility] [place] Rate Laboratory Creatinine 1.06 0.61 - 06/[address] [facility] [address] Studies 1. [facility] [place] [facility] Chloride 111 101 - 111 06/[address] [facility] [address] Studies Level 2018 [facility] [place] Laboratory Carbon 27 21 - 31 06/[address] [facility] [address] Studies Dioxide [facility] [place] [facility] Calcium 10.1 8.5 - 10.5 06/[address] [facility] [address] Studies Level 2018 [facility] Laboratory Blood Urea 24 6 - 20 06/[address] [facility] [address] Studies Nitrogen [facility] [place] White Blood 8.2 4.3 - 10.9 06/[address] [facility] [address] Studies Count /2017 [facility] Red Cell 13.7 12.1 - [address] [facility] [address] Studies Distribution 15.2 /2017 [facility] Width [place] [facility] Red Blood 4.69 4.33 - 06/[address] [facility] [address] Studies Count 5.43 /2017 [facility] [place] Platelet 215 152 - 406 06/[address] [facility] [address] Studies Count /2017 [facility] [place] Neutrophils 48.1 41.7 - 06/[address] [facility] [address] Studies % 73.7 /2017 [facility] [place] Monocytes % 8.1 3.3 - 12.3 06/[address] [facility] [address] Studies /2017 [facility] [place] Mean 9.8 7.6 - 11.3 06/01 [facility] Studies Platelet /2017 [facility] [place] [facility] Mean 98.6 80 - 100 06/[address] [facility] [address] Studies Corpuscular /2017 [facility] [place] [facility] Mean 34.1 32.0 - 06/01 [facility] Studies Corpuscular 36.0 /2017 [facility] Hemoglobin [place] [facility] Mean 33.6 27.0 - 06/01 [facility] Studies Corpuscular 35.0 /2017 [facility] Hemoglobin [place] [facility] Lymphocytes 41.2 15.3 - 06/[address] [facility] [address] Studies % 44.8 /2017 [facility] [place] Hemoglobin 15.8 13.6 - 06/[address] [facility] [address] Studies 17.9 /2017 [facility] [place] Hematocrit 46.2 39.6 - 06/[address] [facility] [address] Studies 49.0 /2017 [facility] Eosinophils 2.0 0 - 4.4 06/[address] [facility] [address] Studies % /2017 [facility] Basophils % 0.6 0 - 1.3 06/[address] [facility] [address] Studies /2018 [facility] [place] Absolute 4.0 1.8 - 8.0 06/[address] [facility] [address] Studies Neutrophil /2017 [facility] [place] Absolute 0.7 0.1 - 1.3 06/[address] [facility] [address] Studies Monocytes /2017 [facility] (CBC[facility] [place] [facility] Absolute 3.4 0.7 - 4.9 06/[address] [facility] [address] Studies Lymphocytes /2017 [facility] (CBC[facility] [place] [facility] Absolute 0.2 0 - 0.5 06/[address] [facility] [address] Studies Eosinophils /2017 [facility] (CBC[facility] [place] [facility] Absolute 0.0 0 - 0.5 06/01 [facility] Studies Basophils /2017 [facility] (CBC[facility] [place] [facility] Troponin I 0.16 05/[address] [facility] [address] Studies /2017 [facility] [place] Urine pH 6.5 05/31 [facility] Studies /2017 [facility] [place] [facility] Urine Total Urine 05/31 [facility] Studies Protein Total /2017 [facility] Protein [place] [facility] Urine 1.015 05/31 [facility] Studies Specific /2017 [facility] [place] [facility] Urine Urine 05/31 [facility] Studies Nitrite Nitrite /2017 [facility] [place] Urine Urine 05/31 [facility] Studies Leukocyte Leukocyte /2017 [facility] Esterase Esterase [place] [facility] Urine Urine 05/31 [facility] Studies Ketones Ketones /2017 [facility] [place] [facility] Urine Urine 05/31 [facility] Studies Glucose Glucose /2017 [facility] [place] Urine Blood Urine 05/31 [facility] Studies Blood /2017 [facility] Total 1.0 0.3 - 1.2 05/31 [facility] Studies Bilirubin /2017 [facility] Serum Total 7.4 6.0 - 8.3 05/31 [facility] Studies Protein /2017 [facility] [place] [facility] Magnesium 2.3 1.8 - 2.5 05/31 [facility] Studies Level /2017 [facility] [place] Globulin 3.0 2.3 - 3.5 05/31 [facility] Studies /2017 [facility] [place] [facility] Direct 0.1 0 - 0.2 05/31 [facility] Studies Bilirubin /2017 [facility] [place] Creatine 6.1 0.3 - 4.0 05/31 [facility] Studies Kinase MB /2017 [facility] Creatine 187 22 - 269 05/31 [facility] Studies Kinase /2018 [facility] [place] [facility] Aspartate 30 10 - 42 05/31 [facility] Studies Amino Transf /2017 [facility] (AST/SGOT) [place] [facility] Alkaline 55 42 - 121 05/31 [facility] Studies Phosphatase /2017 [facility] [place] [facility] Albumin/Glob 1.5 1.1 - 1.8 05/31 [facility] Studies ulin Ratio /2017 [facility] [place] [facility] Albumin 4.4 3.2 - 5.5 05/[address] [facility] [address] Studies [facility] [place] [facility] Alanine 23 10 - 60 05/[address] [facility] [address] Studies Aminotransfe [facility] rase [place] (ALT/SGPT) Laboratory B-Type 238 05/[address] [facility] [address] Studies Natriuretic [facility] Peptide [place] [facility] Rapid 0.03 05/[address] [facility] [address] Studies Troponin I [facility] Prothrombin 17.8 9.5 - 12.5 05/[address] [facility] [address] Studies Time [facility] [place] [facility] INR 1.50 05/[address] [facility] [address] Studies Internationa [facility] l Normalized [place] Ratio Laboratory Activated 36.7 24.3 - 05/[address] [facility] [address] Studies Partial 36.9 2018 [facility] Thromboplast [place] Time Pathology Reports No Data Provided for This Section Diagnostic Reports No Data Provided for This Section Consultation Notes No Data Provided for This Section Discharge Summaries No Data Provided for This Section History and Physicals No Data Provided for This Section Vital Signs Vital Sign Value Date Comments Source Systolic (mm Hg) 120 12/01/2017 [facility] Diastolic (mm Hg) 69 12/01/2017 [facility] Temperature Oral (F) 97.8 F 12/01/2017 [facility] Respitory Rate 20 12/01/2017 [facility] Heart Rate 63 12/01/2017 [facility] Temperature Oral (F) 98 F 12/01/2017 [facility] Heart Rate 65 12/01/2017 [facility] Respitory Rate 18 12/01/2017 [facility] Systolic (mm Hg) 154 12/01/2017 [facility] Diastolic (mm Hg) 83 12/01/2017 [facility] Temperature Oral (F) 97.7 F 12/01/2017 [facility] Heart Rate 67 12/01/2017 [facility] Respitory Rate 18 12/01/2017 [facility] Systolic (mm Hg) 139 12/01/2017 [facility] Diastolic (mm Hg) 79 12/01/2017 [facility] BMI Calculated 24.43 11/27/2017 [facility] Weight 88.648 11/27/2017 [facility] Height 190.5 cm 11/27/2017 [facility] Temperature Oral (F) 98.1 F 06/01/2017 [facility] [place] Heart Rate 74 06/01/2017 [facility] [place] Respitory Rate 18 06/01/2017 [facility] [place] Systolic (mm Hg) 109 06/01/2017 [facility] [place] Diastolic (mm Hg) 88 06/01/2017 [facility] Height 75 05/31/2017 [facility] Weight 205.00 05/31/2017 [facility] [place] Encounters Location Location Encounter Encounter Reason Attending ADM DC Status Source Details Type Number For Provider Date Date Visit [facility] Registered [id number] 03/[address] [facility] Referred /2016 [facility] [place] [facility] St. Discharged [id number] 05/31 06/[address] [facility]patient [facility]2017 [facility] [place] [facility] Inpatient [id number] [place] 11/27 12/01 [facility] Kev /2017 [facility] Outpatient [id number] Kurtis 12/22 [facility] /2018 [place] [facility] [id number] Kurt[facility] 12/22 [facility] /2018 [facility] Procedures Procedure Code Date Perfomer Comments Source Chest Single [id number] 05/31/2017 [facility] Hip Right W Con [id number] 03/23/[address] [facility] [address] [facility] Alarcont Drainage<sup>1</ [id number] Drainage of [facility], sup> Right Knee [facility] Assessment and Plan Assessment and Plan Date Source Extracted from:Title: Electrophysiology Discharge Summary 12/01/2017 [facility] Author: Mack Gaitan MD Date: 12/08/17 Discharge Plan Follow-up with Dr. Angulo in 4 weeks after discharge. Extracted from:Title: Electrophysiology Progress Note Author: Mack Gaitan MD Date: 12/01/17 Basic Information Patient is a 67 year old male with PMH of atrial fibrillation (persistent), pulmonary hypertension, HIV here for Tikosyn initiation started on 11/27/2017. Subjective No acute events overnight. Health Status Allergies: Allergic Reactions (Selected) Severity Not Documented Bactrim- No reactions were documented. Betapace- No reactions were documented. Metoprolol- No reactions were documented. Sulfa drugs- No reactions were documented. Objective Meds Scheduled Meds (9):acyclovir, ambrisentan (Letairis 10 mg oral tablet), cobicistat/elvitegravir/emtricitabine/tenofov (Genvoya 150 mg-150 mg-200 mg-10 mg oral tablet), darunavir (Prezista), dofetilide, montelukast (Singulair), pregabalin (Lyrica), rivaroxaban (Xarelto), torsemide Unscheduled Meds: None PRN Meds (14):acetaminophen (Tylenol), calcium gluconate + Sodium Chloride 0.9 % IV 120 mL, calcium gluconate + Sodium Chloride 0.9% IV 80 mL, magnesium oxide , magnesium sulfate, magnesium sulfate, potas sium chloride, potassium chloride, potassium chloride, potassium phosphate + Sodium Chloride 0.9% IV 250 mL, potassium phosphate + Sodium Chloride 0.9% IV 250 mL, potassium phosphate-sodium phosphate (p otassium phosphate-sodium phosphate 250 mg-280 mg-160 mg oral powder for reconstitution), sodium phosphate + Sodium Chloride 0.9% IV 250 mL, sodium phosphate + Sodium Chloride 0.9% IV 250 mL One Time Meds: None Continuous Infusions: None I&O Input/Output Record In Out Bal 11/30 24hr Tot 725 0 725 11/29 24hr Tot 400 0 400 VS/Measurements Measurements from flowsheet : Measurements 12/01/2017 04:54 Weight Collection Method Measured Current Weight 90.455 kg Weight Difference Percent 0.442 % 11/30/2017 04:53 Weight Collection Method Measured Current Weight 90.057 kg Weight Difference Percent 1.02 % , Vital Signs (last 24 hrs) Last Charted Temp Oral L 87.8DegF (DEC 01 05:) Heart Rate Peripheral 67 bpm (DEC 01 05:03) Resp Rate 20 BRMIN (DEC 01:) SBP 115 mmHg (DEC 01:) DBP 62 mmHg (DEC 01 05:) SpO2 98 % (DEC 01:) General: Alert and oriented, No acute distress. Eye: Pupils are equal, round and reactive to light. HENT: Normocephalic. Neck: No jugular venous distention. Respiratory: Lungs are clear to auscultation. Cardiovascular: Normal rate, regular rhythm, Good pulses equal in all extremities, No edema. Gastrointestinal: Soft, Normal bowel sounds. Musculoskeletal Normal range of motion. Integumentary: Warm, Dry, Intact. Neurologic: No focal deficits. Cognition and Speech: Speech clear and coherent. Psychiatric: Cooperative. Review / Management Results review: Labs (Last four charted values) WBC 5.9 (DEC 01) 6.4 (NOV 27) Hgb 14.3 (DEC 01) 15.6 (NOV 27) Hct L 40.7 (DEC 01) 45.8 (NOV 27) Plt 147 (DEC 01) 164 (NOV 27) Na 141 (DEC 01) 143 (NOV 29) 141 (NOV 28) 141 (NOV 27) K 4.2 (DEC 01) 3.5 (NOV 29) 4.4 (NOV 28) 3.6 (NOV 27) CO2 24 (DEC 01) 25 (NOV 29) 24 (NOV 28) L 23 (NOV 27) Cl 108 (DEC 01) 109 (NOV 29) 109 (NOV 28) 107 (NOV 27) Cr 1.16 (DEC 01) 1.08 (NOV 29) 0.97 (NOV 28 ) 1.05 (NOV 27) BUN 22 (DEC 01) 19 (NOV 29) 20 (NOV 28) 14 (NOV 27) Glucose Random H 100 (DEC 01) H 103 (NOV 29) H 114 ( NOV 28) H 103 (NOV 27) Mg H 2.5 (DEC 01) 2.3 (NOV 29) 2.2 (NOV 28 ) 2.4 (NOV 27) Phos 3.3 (DEC 01) 3.0 (NOV 29) 3.3 (NOV 28) 2.9 (NOV 27) Ca 8.8 (DEC 01) L 8.3 (NOV 29) L 8.3 (NOV 28) 9.0 (NOV 27) PT H 16.4 (NOV 27) INR H 1.31 (NOV 27) PTT H 39.2 (NOV 27) . Impression and Plan 1. Paroxysmal atrial fibrillation - CHADS2-Vasc score of 3 - in NSR at this time - QTc stable around 510-520 (baseline) - on Tikosyn at 125 mcg PO q12 hours - continue Xarelto 20 mg PO daily 2. HIV - continue HAART therapy 3. HSV - continue Acyclovir 400 mg PO q12 hours 4. Pulmonary hypertension - continue Letairis 10 mg PO daily - continue Torsemide 20 mg PO daily 5. Allergic rhinitis - continue Singulair 10 mg PO daily 6. Neuropathy - continue Lyrica 100 mg PO q12 hours # Dispo: DC pending Tikosyn dosing; likely this morning Addendum by Indira Mcrae MD on 12/01/2017 18:56 ATTENDING NOTE The patient was seen and examined by me with the fellow at 1400 and I agree with the History/Exam documented. Stable QTc on this dose of tikosyn. May d/c to home with followup by Dr. Angulo in 3 weeks Indira Mcrae MD Extracted from:Title: Electrophysiology History and Physical Author: Mack Gaitan MD Date: 11/27/17 Basic Information Source of history: Self. History limitation: None. Chief Complaint Initiation of Tikosyn History of Present Illness Patient is a 67 year old male with PMH of atrial fibrillation (persistent), pulmonary hypertension, HIV here for Tikosyn initiation. He has no complaints of chest pain, orthopnea, PND, syncope, shortnes s of breath, palpitations, or lower extremity edema. Review of Systems Constitutional: No weakness. Eye: No blurring. Ear/Nose/Mouth/Throat: No sore throat. Respiratory: No shortness of breath. Cardiovascular: No chest pain, No palpitations, No peripheral edema, No syncope. Gastrointestinal: No nausea, No vomiting, No abdominal pain. Genitourinary: No dysuria. Hematology/Lymphatics: No bruising tendency. Endocrine: No excessive thirst. Immunologic: Immunocompromised. Musculoskeletal: No muscle pain. Integumentary: No rash. Neurologic: No numbness, No tingling. Psychiatric: No depression. Health Status Allergies: Allergic Reactions (Selected) Severity Not Documented Bactrim- No reactions were documented. Betapace- No reactions were documented. Metoprolol- No reactions were documented. Sulfa drugs- No reactions were documented. Current medications: Medications (8) Active Scheduled: (8) acyclovir 400 mg TAB 400 mg 1 tab, PO, Q12H ambrisentan 10 mg TAB 10 mg 1 tab, PO, Daily cobicistat/elvitegravir/emtricitabine/tenofov 1 tab, PO, Daily darunavir 800 mg tab 800 mg 1 tab, PO, Daily montelukast 10 mg TAB 10 mg 1 tab, PO, QPM pregabalin 100mg cap 100 mg 1 cap, PO, Q12H rivaroxaban 20 mg, PO, QPM torsemide 10 mg TAB 20 mg 2 tab, PO, Daily Continuous: (0) PRN: (0) Histories Past Medical History: No active or resolved past medical history items have been selected or recorded. Family History: Cancer Mother Myeloma Brother Stroke (CVA) Mother Procedure history: Drainage ([id number]). Comments: 11/27/2017 11:21 Bianca Stanford RN Drainage of Right Knee Social History Social and Psychosocial Habits Alcohol 11/27/2017 Use: Past Type: Beer Comment: "used to drink years ago very little; not anymore" - 11/27/2017 11: 22 - Bianca Solano RN Substance Abuse 11/27/2017 Use: None Tobacco 11/27/2017 Use: Never smoker Exposure to Tobacco Smoke None Cigarette Smoking Last 365 Days No Reg Smoking Cessation Counseling No . Physical Examination VS/Measurements Measurements from flowsheet : Measurements 11/27/2017 11:27 Heparin Dosing Weight (kg) 88.65 11/27/2017 11:26 Height 190.5 cm Height Collection Method Stated Weight 88.648 kg Dosing Weight Collection Method Measured Body Surface Area 2.1659 m2 Body Mass Index 24.43 m2 , Vital Signs (last 24 hrs) Last Charted Temp Oral 97.7 DegF (NOV 27:) Heart Rate Peripheral 64 bpm (NOV 27:) Resp Rate 19 BRMIN (NOV 27) SBP 139 mmHg (NOV 27) DBP 84 mmHg (NOV 27) SpO2 97 % (NOV 27) Weight 88.648 kg (NOV 27) Height 190.5 cm (NOV 27) BMI 24.43 (NOV 27) General: Alert and oriented, No acute distress. Eye: Pupils are equal, round and reactive to light. HENT: Normocephalic. Neck: No jugular venous distention. Respiratory: Lungs are clear to auscultation. Cardiovascular: Normal rate, Good pulses equal in all extremities, No edema, irregular rhythm. Gastrointestinal: Soft, Normal bowel sounds. Musculoskeletal Normal range of motion. Integumentary: Warm, Dry, Intact. Neurologic: No focal deficits. Cognition and Speech: Speech clear and coherent. Psychiatric: Cooperative. Review / Management Results review: No qualifying data available. Impression and Plan 1. Persistent atrial fibrillation - CHADS2-Vasc score of 3 - rate -controlled at this time - plan for Tikosyn initiation - continue Xarelto 20 mg PO daily 2. HIV - continue HAART therapy - obtain CD4 count and possible viral load 3. HSV - continue Acyclovir 400 mg PO q12 hours 4. Pulmonary hypertension - continue Letairis 10 mg PO daily - continue Torsemide 20 mg PO daily - obtain 2D TTE 5. Allergic rhinitis - continue Singulair 10 mg PO daily 6. Neuropathy - continue Lyrica 100 mg PO q12 hours Addendum by HematpoSobia bermudez MD on 11/30/2017 18:26 I personally saw and examined the patient with Dr Zimmerman on 11-27-17 and I agree with the above. Paroxysmal afib which is symptomatic but not a good candidate for PVI due to severe pulmonary HTN. Will st art Tikosyn as inpatinet and titrate dosage according to QTc. Will continue to follow. Plan of Care Plan of Care Date Source Instructions 06/02/[address] [facility] [place] [facility] for Atrial Fibrillation DI for Chest Pain PROBLEM: recurrent chest pain, known pulmonary hypertension, known HIV disease , chronic Atrial fibrillation on GOAL: Clear understanding of disease process INSTRUCTIONS:follow up with Dr Krueger in 1-[address] Bowen in 1 week call 4th floor for any questions or concerns @ [phone] Diet: heart healthy Instructions 06/02/[address] [facility] [place] DI for Atrial Fibrillation DI for Chest Pain PROBLEM: recurrent chest pain, known pulmonary hypertension, known HIV disease , chronic Atrial fibrillation on GOAL: Clear understanding of disease process INSTRUCTIONS:follow up with Dr Krueger in 1-[address] Bowen in 1 week call 4th floor for any questions or concerns @ [phone] Diet: heart healthy Social History Social History Date Source Social History TypeResponse 11/27/2017 [facility] Substance Abuse Use: None. Alcohol Past, Type Beer.1 Smoking Status Never smoker; Exposure to Tobacco Smoke None; Cigarette Smoking Last 365 Days No; Reg Smoking Cessation Counseling No entered on: 11/27/17 1"used to drink years ago very little; not anymore" Social History TypeResponse 11/27/2017 [facility] Alcohol Past, Type Beer.1 Substance Abuse Use: None. Smoking Status Never smoker; Exposure to Tobacco Smoke None; Cigarette Smoking Last 365 Days No; Reg Smoking Cessation Counseling No entered on: 11/27/17 1"used to drink years ago very little; not anymore" Query Response Date Recorded Comment 06/02/2017 [facility] Alcohol Use? No May 31, 2017 2:06am CD- Drugs? No May 31, 2017 2:06am Query Response Start Date Stop Date Smoking Status Never smoker Family History No Data Provided for This Section Advance Directives Order Name Results Value Date Source Advance Directives Advance Directives Advance Directive Response Recorded Date/Time 06/02/2017 [facility] - Does Patient Have Living Will [place] No June 01, 2017 6:00am Durable Power of Pig Handler for Health Care No May 31, 2017 2:06am Would you like additional information No May 31, 2017 2:06am Functional Status No Data Provided for This Section
[2018-12-28] MEDS ORDERED: Ringers Lactate 1,000 ML IV ONE (13:31)
--- OUTSIDE RECORDS SUMMARY | 2018-12-28 13:31 | XMS REPORT | Summary of Care ---
:1950 Author Organization [facility] Address [address] [place] [address] Care Team Providers Name Role Phone Toni Bhakta Unavailable Vikram Turner MD Primary Care Provider Reason for Referral Radiology Services (Routine) Status Reason Specialty Diagnoses / Referred By Referred To Procedures Contact Contact New Request Diagnostic Diagnoses Right hand pain Saulo Gary, Radiology Procedures XR HAND 3+ VW RIGHT MD [address] [place] [address] Encounter Details Date Type Department Care Team Description 11/21/2018 Abstract [facility] Clare Gomez, Right hand pain Orthopaedic Surgery- MD (Primary Dx) [address] [place] [address] 1.211 [address] [place], [place] [phone] [address] [phone] Allergies Active Allergy Reactions Severity Noted Date Comments Abacavir Palpitations High 02/01/2009 Ciprofloxacin Rash 05/17/2005 Sulfa (Sulfonamide Antibiotics) Rash 05/12/2005 documented as of this encounter (statuses as of 11/21/2018) Medications Medication Sig Dispensed Refills Start Date End Date Status darunavir (PREZISTA) Take 1 Tab by 60 Tab 5 04/05/2014 Active 600 mg tablet mouth 2 (two) times daily. montelukast TAKE ONE TABLET BY 30 Tab 3 09/18/2014 Active (SINGULAIR) 10 mg MOUTH ONCE A DAY tablet acyclovir (ZOVIRAX) TAKE ONE TABLET BY 90 Tab 11 01/22/2015 Active 400 mg tablet MOUTH THREE TIMES A DAY NEEDED FOR OUTBREAK LYRICA 100 mg capsule TAKE ONE CAPSULE 90 Cap 2 06/12/2015 Active BY MOUTH THREE TIMES A DAY NEEDED torsemide (DEMADEX) 20 Take 2 tablets by 60 tablet 3 09/26/2015 Active mg tablet mouth daily. GENVOYA [phone] 05/30/2016 Active mg per tablet rivaroxaban 20 mg Take 1 tablet by 0 07/23/2016 Active tablet mouth daily. valACYclovir 1 gram Take 1 g by mouth 0 Active tablet daily. 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 Diagnosis Term Instructor Pilot Utility Osteomyelitis 07/22/2006 Overview: ICD10 Diagnosis Term Instructor Pilot Utility HIV/AIDS 07/22/2006 documented as of this encounter (statuses as of 11/21/2018) Resolved Problems Problem Noted Date Resolved Date Other bone involvement in diseases classified elsewhere 09/10/2006 01/10/2011 Other dyspnea and respiratory abnormality 05/12/2005 07/22/2006 documented as of this encounter (statuses as of 11/21/2018) Immunizations Name Administration Dates Next Due HEPATITIS A 01/28/2010, 07/26/2009 Hep B, Adol or Pedi Dosage 01/28/2010, 12/27/2009, 07/26/2009 Influenza High Dose 01/17/2014 Influenza Virus Vaccine 05/04/2013, 01/23/2012, 01/09/2011, 04/18/2010, 02/01/2009 Influenza Virus Vaccine - Whole 01/19/2016 PPD (TB) 01/23/2012, 01/09/2011, 07/26/2009 Pneumococcal 7 Conjugate, PCV7 01/17/2014 (Prevnar7) Pneumococcal Polysaccharide, PPSV23 07/26/2009 (PNEUMOVAX) TDAP (ADACEL) VACCINE 01/09/2011 Typhoid 07/11/2011 documented as of this encounter Social History Tobacco Use Types Packs/Day Years Used Date Never Smoker Smokeless Tobacco: Never Used Alcohol Use Drinks/Week oz/Week Comments No 0 Standard drinks or equivalent 0.0 Sex Assigned at Date Recorded Not on file Job Start Date Occupation Industry Not on file Not on file Not on file Travel History Travel Start Travel End No recent travel history available. documented as of this encounter Last Filed Vital Signs Not on filedocumented in this encounter Plan of Treatment Date Type Specialty Care Team Description 11/21/2018 Appointment Radiology Saulo Gary MD [address] [place], [place] [address] 11/24/2018 Office Visit Orthopedic Surgery Saulo Gary MD [address] [place], [place] [id number] 01/20/2019 Office Visit Pulmonary Disease Toni Bhakta [id number] [place], [place] [id number] Name Type Priority Associated Diagnoses Order Schedule XR HAND 3+ VW RIGHT IMAGING Routine Right hand pain Expected: 11/24/2018, Expires: 11/22/2019 Health Maintenance Due Date Last Done Comments COLONOSCOPY 1998 Zoster Recombinant Vaccine 1998 (SHINGRIX) (1 of 2) Medicare Wellness Visit 2013 PNEUMOCOCCAL VACCINES 65+ (1 of 2 2013 07/26/2009 - PCV13) INFLUENZA VACCINE 12/19/2018 01/19/2016, 01/17/2014, 05/04/2013, Additional history exists DTaP,Tdap,and Td Vaccines (2 - Td) 01/09/2021 01/09/2011 HEPATITIS C (HCV) SCREEN Completed 07/12/2009 documented as of this encounter Results Not on filedocumented in this encounter Visit Diagnoses Diagnosis Right hand pain - Primary Pain in limb documented in this encounter Insurance Payer Benefit Plan / Subscriber ID Effective Dates Phone Address Type Group BRITTANY YOUSIF [id number] 2018-Pres Medicare Adv PLUS PLUS t HMO CLASSIC/VALUE documented as of this encounter Advance Directives Type Date Recorded Patient Inside Wireman Explanation Advance Directives and Living Will Power of Flying Shear Operator 07/23/2016 8:14 AM
--- OUTSIDE RECORDS SUMMARY | 2018-12-28 13:31 | XMS REPORT | Summary of Care ---
:1950 Author Organization [facility] Address [address] [place] [address] Care Team Providers Name Role Phone Toni Bhakta Unavailable Vikram Turner MD Primary Care Provider Reason for Visit Radiology Services (Routine) Status Reason Specialty Diagnoses / Referred By Referred To Procedures Contact Contact New Request Diagnostic Diagnoses Right hand pain Clare Gomez Radiology Procedures XR HAND 3+ VW BILATERAL XR HAND 3+ VW RIGHT MD Dyana [address] [place] [address]. [place] [address] Encounter Details Date Type Department Care Team Description 11/24/2018 Hospital Encounter [facility] Saulo Gary MD Arrived [facility] [address] [address] [phone] Allergies Active Allergy Reactions Severity Noted Date Comments Abacavir Palpitations High 02/01/2009 Ciprofloxacin Rash 05/17/2005 Sulfa (Sulfonamide Antibiotics) Rash 05/12/2005 documented as of this encounter (statuses as of 11/25/2018) Medications Medication Sig Dispensed Refills Start Date [...] 09/26/2015 Active mg tablet mouth daily. GENVOYA [phone] 05/30/2016 Active mg per tablet rivaroxaban 20 mg Take 1 tablet by 0 07/23/2016 Active tablet mouth daily. valACYclovir 1 gram Take 1 g by mouth 0 Active tablet daily. 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 Term Garnett Mechanic Utility Osteomyelitis 07/22/2006 Overview: ICD10 Diagnosis Term Garnett Mechanic Utility HIV/AIDS 07/22/2006 documented as of this encounter (statuses as of 11/25/2018) Resolved Problems Problem Noted Date Resolved Date Other bone involvement in diseases classified elsewhere 09/10/2006 01/10/2011 Other dyspnea and respiratory abnormality 05/12/2005 07/22/2006 documented as of this encounter (statuses as of 11/25/2018) Immunizations Name Administration Dates Next Due HEPATITIS [...] Treatment Date Type Specialty Care Team Description 01/12/2019 Office Visit Orthopedic Surgery Saulo Gary MD [address] [place], [place] [phone] 01/20/2019 Office Visit Pulmonary Disease Toni Bhakta Rodríguez [id number] [place], [place] [address] Health Maintenance Due Date Last Done Comments COLONOSCOPY 1998 Zoster Recombinant Vaccine 1998 (SHINGRIX) (1 of 2) Medicare Wellness Visit 2013 PNEUMOCOCCAL VACCINES 65+ (1 of 2 2013 07/26/2009 - PCV13) INFLUENZA VACCINE 12/19/2018 01/19/2016, 01/17/2014, 05/04/2013, Additional history exists DTaP,Tdap,and Td Vaccines (2 - Td) 01/09/2021 01/09/2011 HEPATITIS C (HCV) SCREEN Completed 07/12/2009 documented as of this encounter Procedures Procedure Name Priority Date/Time Associated Diagnosis Comments XR HAND 3+ VW Routine 11/24/2018 11:07 AM Right hand pain Results for this BILATERAL CDT procedure are in the results section. documented in this encounter Results XR HAND 3+ VW BILATERAL (11/24/2018 11:07 AM CDT) Specimen Impressions Performed At PACS/VR/DOSE Osteoarthritic changes with no acute osseous abnormalities. No erosions or subluxations. Narrative Performed At EXAM: PACS/VR/DOSE XR HAND 3+ VW BILATERAL HISTORY: right hand pain COMPARISON: None FINDINGS: Imaging of the left and right hand demonstrates bilateral type II lunate morphology. Scattered interphalangeal joint space loss, subchondral sclerosis with marginal osteophyte formation is seen. Similar changes are noted about the bilateral STT and thumb CMC joints. Degenerative appearing cystic changes noted at the level of the left ulnar styloid and bilateral metacarpal heads. There are no acute bony abnormalities. A subcentimeter focus of crystalline deposition versus a remote bony avulsion is seen adjacent to the right long finger DIP joint. Procedure Note [facility], Radiant Results Inft User - 11/24/2018 11:52 AM CDT EXAM: XR HAND 3+ VW BILATERAL HISTORY: right hand pain COMPARISON: None FINDINGS: Imaging of the left and right hand demonstrates bilateral type II lunate morphology. Scattered interphalangeal joint space loss, subchondral sclerosis with marginal osteophyte formation is seen. Similar changes are noted about the bilateral STT and thumb CMC joints. Degenerative appearing cystic changes noted at the level of the left ulnar styloid and bilateral metacarpal heads. There are no acute bony abnormalities. A subcentimeter focus of crystalline deposition versus a remote bony avulsion is seen adjacent to the right long finger DIP joint. IMPRESSION Osteoarthritic changes with no acute osseous abnormalities. No erosions or subluxations. 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
--- OUTSIDE RECORDS SUMMARY | 2018-12-28 13:31 | XMS REPORT ---
:1950 [facility] Address [facility] [address] [place] [address] Care Team Providers Name Role Phone Unavailable Unavailable Unavailable Problems This patient has no known problems. Allergies, Adverse Reactions, Alerts This patient has no known allergies or adverse reactions. Medications This patient has no known medications.
--- OUTSIDE RECORDS SUMMARY | 2018-12-28 13:31 | XMS REPORT | Summary of Care ---
:1950 Author Organization [facility] - Health Address [address] [place] [address] Care Team Providers Name Role Phone Toni Bhakta Unavailable Vikram Turner MD Primary Care Provider Encounter Details Date Type Department Care Team Description 11/24/2018 Orders Only [facility] Doctor Unassigned, No [address] [facility] Name [place] [phone] Allergies Active Allergy Reactions Severity Noted Date Comments Abacavir Palpitations High 02/01/2009 Ciprofloxacin Rash 05/17/2005 Sulfa (Sulfonamide Antibiotics) Rash 05/12/2005 documented as of this encounter (statuses as of 11/24/2018) Medications Medication Sig Dispensed Refills Start Date [...] 09/26/2015 Active mg tablet mouth daily. GENVOYA [phone] 05/30/2016 Active mg per tablet rivaroxaban 20 mg Take 1 tablet by 0 07/23/2016 Active tablet mouth daily. valACYclovir 1 gram Take 1 g by mouth 0 Active tablet daily. 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 Utility HIV/AIDS 07/22/2006 documented as of this encounter (statuses as of 11/24/2018) Resolved Problems Problem Noted Date Resolved Date Other bone involvement in diseases classified elsewhere 09/10/2006 01/10/2011 Other dyspnea and respiratory abnormality 05/12/2005 07/22/2006 documented as of this encounter (statuses as of 11/24/2018) Immunizations Name Administration Dates Next Due HEPATITIS [...] Treatment Date Type Specialty Care Team Description 11/24/2018 Office Visit Orthopedic Surgery Saulo Gary MD [address] [place] [address] [phone] 01/20/2019 Office Visit Pulmonary Disease BhaktaToni suarez [id number] [place] [address] [phone] Health Maintenance Due Date Last Done Comments [...] Procedure Name Priority Date/Time Associated Diagnosis Comments CONSENT/REFUSAL FOR Routine 11/24/2018 10:09 AM CDT DIAGNOSIS AND TREATMENT documented in this encounter Results Not on filedocumented in this encounter Insurance Payer Benefit Plan / Subscriber ID Effective Dates Phone Address Type Group BRITTANY YOUSIF [id number] 2018-Presen Medicare Adv PLUS PLUS t HMO CLASSIC/VALUE documented as of this encounter Advance Directives Type Date Recorded Patient Memory Care Director Explanation Advance Directives and Living Will Power of Field Crop I Farmworker 07/23/2016 8:14 AM
--- OUTSIDE RECORDS SUMMARY | 2018-12-28 13:31 | XMS REPORT | Summary of Care ---
:1950 Author Organization [facility] Address [address] [place] [address] Care Team Providers Name Role Phone Toni Bhakta Unavailable Vikram Turner MD Primary Care Provider Encounter Details Date Type Department Care Team Description 11/11/2018 Orders Only [facility] Unassigned, No [address] [facility] Name [place] [phone] Allergies Active Allergy Reactions Severity Noted Date Comments Abacavir Palpitations High 02/01/2009 Ciprofloxacin Rash 05/17/2005 Sulfa (Sulfonamide Antibiotics) Rash 05/12/2005 documented as of this encounter (statuses as of 11/16/2018) Medications Medication Sig Dispensed Refills Start Date [...] 09/26/2015 Active mg tablet mouth daily. GENVOYA [phone] 05/30/2016 Active mg per tablet rivaroxaban 20 mg Take 1 tablet by 0 07/23/2016 Active tablet mouth daily. valACYclovir 1 gram Take 1 g by mouth 0 Active tablet daily. 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 Diagnosis Term Barkeep Utility Osteomyelitis 07/22/2006 Overview: ICD10 Diagnosis Term Barkeep Utility HIV/AIDS 07/22/2006 documented as of this encounter (statuses as of 11/16/2018) Resolved Problems Problem Noted Date Resolved Date Other bone involvement in diseases classified elsewhere 09/10/2006 01/10/2011 Other dyspnea and respiratory abnormality 05/12/2005 07/22/2006 documented as of this encounter (statuses as of 11/16/2018) Immunizations Name Administration Dates Next Due HEPATITIS [...] Visit Orthopedic Surgery Saulo Gary MD [address] [place] [address] [phone] 01/20/2019 Office Visit Pulmonary Disease BhaktaToni Rodríguez [id number] [place] [address] [phone] Health Maintenance Due Date Last Done Comments [...] Procedure Name Priority Date/Time Associated Diagnosis Comments MEDICATION CORRESPONDENCE Routine 11/11/2018 12:01 AM CDT documented in this encounter Results Not on filedocumented in this encounter Insurance Payer Benefit Plan / Subscriber ID Effective Phone Address Type Group Dates WELLCARE WELLCARE [id number] 2018-Pres Medicare Adv MEDICARE NON MEDICARE NON ent PPO CONTRACTED CONTRACTED documented as of this encounter Advance Directives Type Date Recorded Patient Neonatal Nurse Explanation Advance Directives and Living Will Power of Director Ship 07/23/2016 8:14 AM
--- OUTSIDE RECORDS SUMMARY | 2018-12-28 13:31 | XMS REPORT | Summary of Care ---
:1950 Author Organization [facility] [place] Address [address] [place] [address]- Encounter HQ Bradleyntr_kristy(FIN) [id number] Date(s): 12/22/18 - 12/22/18 [facility] [address] [place], [place] [address]- [phone] Discharge Disposition: Home or Self Care Attending Physician: Kurtis Hansen MD Referring Physician: Zuhair Dias MD Vital Signs No data available for this section Problem List No data available for this section Allergies, Adverse Reactions, Alerts Substance Reaction Severity Status sulfa drugs Active metoprolol Active Betapace Active Bactrim Active Medications No data available for this section Results No data available for this section Immunizations No data available for this section Procedures Procedure Date Related Diagnosis Body Site Status Drainage1 Completed 1Drainage of Right Knee Social History Social History Type Response Alcohol Past, Type Beer.1 Substance Abuse Use: None. Smoking Status Never smoker; Exposure to Tobacco Smoke None; Cigarette Smoking Last 365 Days No; Reg Smoking Cessation Counseling No entered on: 11/27/17 1"used to drink years ago very little; not anymore" Assessment and Plan No data available for this section
--- OUTSIDE RECORDS SUMMARY | 2018-12-28 13:31 | XMS REPORT | Summary of Care ---
:1950 Author Organization [facility] Address [address] [place] [id number] Encounter HQ [place](FIN) [id number] Date(s): 11/27/17 - 12/01/[address] Professional Services provided by [facility] [place] [address]- Encounter Diagnosis Illness, unspecified (Final) - Persistent atrial fibrillation (Final) - 12/11/17 Pulmonary hypertension, unspecified (Final) - Bifascicular block (Final) - Asymptomatic human immunodeficiency virus [HIV] infection status (Final) - Herpesviral infection, unspecified (Final) - Allergic rhinitis, unspecified (Final) - Polyneuropathy, unspecified (Final) - Paroxysmal atrial fibrillation (Final) - Discharge Disposition: Home or Self Care Attending Physician: Sobia Angulo MD Admitting Physician: Sobia Angulo MD Vital Signs Most recent to oldest 1 2 3 [Reference Range]: Height 190.5 cm (11/27/17 11:26 AM) Current Weight 90.455 kg 90.057 kg 89.148 kg (12/01/17 4:54 AM) (11/30/17 4:53 AM) (11/29/17 4:03 AM) Temperature Oral [96.4-99.1 97.8 DegF 1 98 DegF 97.7 DegF DegF] (12/01/17 4:05 PM) (12/01/17 12:08 PM) (12/01/17 8:00 AM) Blood Pressure [90-140/60-90 120/69 mmHg 154/83 mmHg 139/79 mmHg mmHg] (12/01/17 4:05 PM) *HI* (12/01/17 8:00 AM) (12/01/17 12:08 PM) Respiratory Rate [14-20 20 BRMIN 18 BRMIN 18 BRMIN BRMIN] (12/01/17 4:05 PM) (12/01/17 12:08 PM) (12/01/17 8:00 AM) Peripheral Pulse Rate [60-100 63 bpm 65 bpm 67 bpm bpm] (12/01/17 4:05 PM) (12/01/17 12:08 PM) (12/01/17 8:00 AM) Weight 88.648 kg (11/27/17 11:26 AM) Body Mass Index 24.43 m2 (11/27/17 11:26 AM) 1Result Comment: DC VS Problem List No data available for this section Allergies, Adverse Reactions, Alerts Substance Reaction Severity Status sulfa drugs Active metoprolol Active Betapace Active Bactrim Active Medications acyclovir 400 mg, 1 tab, Route: PO, Drug form: TAB, Q12H, Dosing Weight 88.648, kg, Start date: 11/27/17 21:00:00 CDT, Duration: 30 day, Stop date: 12/27/17 9:00:00 CDT Notes: (Same as: Zovirax) Start Date: 11/27/17 Stop Date: 12/01/17 Status: Discontinuedacyclovir 400 mg oral tablet 400 mg=1 tab, PO, Q12H, # 28 tab, 0 Refill(s) Start Date: 11/27/17 Stop Date: 12/11/17 Status: Orderedcalcium gluconate + Sodium Chloride 0.9% IV 120 mL 3 gm, 30 mL, Route: IVPB, PRN, Dosing Weight 88.648, kg, PRN Abnormal Lab Result , For NON-ICU Patients Only., Start date: 11/27/17 17:00:00 CDT, Duration: 30 day, Stop date: 12/27/17 16:59:00 CDT Notes: WASTE: F/P - Sink; E - Municipal Trash Bin Start Date: 11/27/17 Stop Date: 12/01/17 Status: Discontinuedcalcium gluconate + Sodium Chloride 0.9% IV 80 mL 2 gm, 20 mL, Route: IVPB, PRN, Dosing Weight 88.648, kg, PRN Abnormal Lab Result , For NON-ICU Patients Only., Start date: 11/27/17 17:00:00 CDT, Duration: 30 day, Stop date: 12/27/17 16:59:00 CDT Notes: WASTE: F/P - Sink; E - Municipal Trash Bin Start Date: 11/27/17 Stop Date: 12/01/17 Status: Discontinueddofetilide 125 microgram, 1 cap, Route: PO, Drug form: CAP, Q12H, Dosing Weight 88.648, kg , Priority: STAT, Start date: 11/29/17 11:07:00 CDT, Duration: 30 day, Stop date : 12/29/17 9:00:00 CDT Notes: (Same as: Tikosyn)Providers should enter the orders via the "Dofetilide Initiation Orders MPP" to ensure compliance with the REMS program. Start Date: 11/29/17 Stop Date: 12/01/17 Status: Discontinueddofetilide 125 microgram, 1 cap, Route: PO, Drug form: CAP, Q12H, Dosing Weight 88.648, kg , Start date: 11/28/17 21:00:00 CDT, Duration: 30 day, Stop date: 12/28/17 9:00: 00 CDT Notes: (Same as: Tikosyn)Providers should enter the orders via the "Dofetilide Initiation Orders MPP" to ensure compliance with the REMS program. Start Date: 11/28/17 Stop Date: 11/29/17 Status: Discontinueddofetilide 500 microgram, 1 cap, Route: PO, Drug form: CAP, Q12H, Dosing Weight 88.648, kg , Start date: 11/27/17 19:00:00 CDT, Duration: 30 day, Stop date: 12/27/17 9:00: 00 CDT Notes: (Same as: Tikosyn)Providers should enter the orders via the "Dofetilide Initiation Orders MPP" to ensure compliance with the REMS program. Start Date: 11/27/17 Stop Date: 11/28/17 Status: Discontinueddofetilide 125 mcg oral capsule 125 microgram=1 cap, PO, BID, # 14 cap, 0 Refill(s) Start Date: 12/01/17 Stop Date: 12/08/17 Status: Ordereddofetilide 125 mcg oral capsule 125 microgram=1 cap, PO, Q12H, # 60 cap, 2 Refill(s) Start Date: 12/09/17 Status: OrderedGenvoya 150 mg-150 mg-200 mg-10 mg oral tablet 1 tab, Route: PO, Drug Form: TAB, Dosing Weight 88.648, kg, Daily, Start date: 11/28/17 9:00:00 CDT,Duration: 30 day, Stop date: 12/27/17 9:00:00 CDT Notes: (Same as: Genvoya) - cobicistat/elvitegravir/emtricitabine/tenofovir ALAFENAMIDE [phone] TABNon-formulary Start Date: 11/28/17 Stop Date: 12/01/17 Status: DiscontinuedGenvoya 150 mg-150 mg-200 mg-10 mg oral tablet 1 tab, PO, Daily, # 90 tab, 0 Refill(s) Start Date: 11/27/17 Status: Orderedibuprofen 400 mg, 1 tab, Route: PO, Drug form: TAB, ONCE, Dosing Weight 88.648, kg, PRN Headache 1-5, Start date: 11/30/17 18:02:00 CDT Notes: (Same as: Maddy)"Do Not Crush" Give with food. Start Date: 11/30/17 Stop Date: 12/01/17 Status: DiscontinuedLetairis 10 mg oral tablet 10 mg, 1 tab, Route: PO, Drug form: TAB, Daily, Dosing Weight 88.648, kg, Start date: 11/28/17 9:00:00 CDT, Duration: 30 day, Stop date: 12/27/17 9:00:00 CDT Start Date: 11/28/17 Stop Date: 12/01/17 Status: DiscontinuedLetairis 10 mg oral tablet 10 mg=1 tab, PO, Daily, # 30 tab, 0 Refill(s) Start Date: 11/27/17 Status: OrderedLyrica 100 mg, 1 cap, Route: PO, Drug form: CAP, Q12H, Dosing Weight 88.648, kg, Start date: 11/27/17 21:00:00 CDT, Duration: 30 day, Stop date: 12/27/17 9:00:00 CDT Notes: (Same as: Lyrica) Start Date: 11/27/17 Stop Date: 12/01/17 Status: DiscontinuedLyrica 100 mg oral capsule 100 mg=1 cap, PO, BID, # 90 cap, 1 Refill(s) Start Date: 11/27/17 Status: Orderedmagnesium oxide 800 mg, 2 tab, Route: PO, Drug form: TAB, PRN, Dosing Weight 88.648, kg, PRN Abnormal Lab Result, For NON-ICU Patients Only., Start date: 11/27/17 17:00:00 CDT, Duration: 30 day, Stop date: 12/27/17 16:59:00 CDT Notes: (Same as: Mag-Ox 400)Magnesium oxide [id number] elemental magnesiumDose= ____mg magnesium oxide (___mg elemental magnesium) Start Date: 11/27/17 Stop Date: 12/01/17 Status: Discontinuedmagnesium sulfate 1 gm, 100 mL, Route: IVPB, Drug form: INJ, PRN, Dosing Weight 88.648, kg, PRN Abnormal Lab Result, For NON-ICU Patients Only., Start date: 11/27/17 17:00:00 CDT, Duration: 30 day, Stop date: 12/27/17 16:59:00 CDT Notes: WASTE: F/P - Sink; E - Municipal Trash Bin Start Date: 11/27/17 Stop Date: 12/01/17 Status: Discontinuedmagnesium sulfate 2 gm, 50 mL, Route: IVPB, Drug form: INJ, PRN, Dosing Weight 88.648, kg, PRN Abnormal Lab Result, For NON-ICU Patients Only., Start date: 11/27/17 17:00:00 CDT, Duration: 30 day, Stop date: 12/27/17 16:59:00 CDT Notes: WASTE: F/P - Sink; E - Municipal Trash Bin Start Date: 11/27/17 Stop Date: 12/01/17 Status: Discontinuedpotassium chloride 20 mEq, 15 mL, Route: NJ, Drug form: LIQ, PRN, Dosing Weight 88.648, kg, PRN Abnormal Lab Result, For NON-ICU Patients Only, Start date: 11/27/17 17:00:00 CDT, Duration: 30 day, Stop date: 12/27/17 16:59:00 CDT Notes: (Same as: Potassium Chloride) Start Date: 11/27/17 Stop Date: 12/01/17 Status: Discontinuedpotassium chloride 10 mEq, 50 mL, Route: IVPB, Drug form: INJ, PRN, Dosing Weight 88.648, kg, PRN Abnormal Lab Result, For NON-ICU Patients Only, Start date: 11/27/17 17:00:00 CDT, Duration: 30 day, Stop date: 12/27/17 16:59:00 CDT Notes: (Same as: KCL) Infuse over 2 hours. Start Date: 11/27/17 Stop Date: 12/01/17 Status: Discontinuedpotassium chloride 20 mEq, 1 tab, Route: PO, Drug form: ERTAB, PRN, Dosing Weight 88.648, kg, PRN Abnormal Lab Result, For NON-ICU Patients Only, Start date: 11/27/17 17:00:00 CDT, Duration: 30 day, Stop date: 12/27/17 16:59:00 CDT Notes: (Same as: K-Dur 20)"Do Not Crush"For patients unable to swallow tablet, dissolve in one half glass of water. Allow about 2 minutes for the tablets to disintegrate. Stir before giving to prepare slurry and administer.Please exclude Patients with feeding tube less than 14 Italian (Dobhoff, J-tube etc) and pediatric and patients. With food and full glass of water Start Date: 11/27/17 Stop Date: 12/01/17 Status: Discontinuedpotassium phosphate + Sodium Chloride 0.9% IV 250 mL 30 mmol, 10 mL, Route: IVPB, PRN, Dosing Weight 88.648, kg, PRN Abnormal Lab Result, For NON-ICU Patients Only., Start date: 11/27/17 17:00:00 CDT, Duration : 30 day, Stop date: 12/27/17 16:59:00 CDT Notes: (Same as: K Phosphate.)Do not infuse phosphorous concurrently in the same line as TPN or IVF that contains calcium. For double lumen central lines, phosphorous may be infused in a separate lumenfrom TPN. 1 mMol phoshate has 1.47 mEq potassium Infuse over 4 hours Start Date: 11/27/17 Stop Date: 12/01/17 Status: Discontinuedpotassium phosphate + Sodium Chloride 0.9% IV 250 mL 15 mmol, 5 mL, Route: IVPB, PRN, Dosing Weight 88.648, kg, PRN Abnormal Lab Result, For NON-ICU Patients Only., Start date: 11/27/17 17:00:00 CDT, Duration : 30 day, Stop date: 12/27/17 16:59:00 CDT Notes: (Same as: K Phosphate.)Do not infuse phosphorous concurrently in the same line as TPN or IVF that contains calcium. For double lumen central lines, phosphorous may be infused in a separate lumenfrom TPN. 1 mMol phoshate has 1.47 mEq potassium Infuse over 4 hours Start Date: 11/27/17 Stop Date: 12/01/17 Status: Discontinuedpotassium phosphate-sodium phosphate 250 mg-280 mg-160 mg oral powder for reconstitution 2 pkt, Route: PO, Drug Form: PDR/REC, Dosing Weight 88.648, kg, PRN, PRN Abnormal Lab Result, For NON-ICU Patients Only, Start date: 11/27/17 17:00:00 CDT, Duration: 30 day, Stop date: 12/27/17 16:59:00 CDT Notes: (Same as: Phos-NaK) Each 1.5 gm pkt has 250mg phosphorous. Mix w/2.5oz water and stir. Start Date: 11/27/17 Stop Date: 12/01/17 Status: DiscontinuedPrezista 800 mg, 1 tab, Route: PO, Drug form: TAB, Daily, Dosing Weight 88.648, kg, Start date: 11/28/17 9:00:00 CDT, Duration: 30 day, Stop date: 12/27/17 9:00:00 CDT Notes: Same as: Prezista Start Date: 11/28/17 Stop Date: 12/01/17 Status: DiscontinuedPrezista 800 mg oral tablet 800 mg=1 tab, PO, Daily, 0 Refill(s) Start Date: 11/27/17 Status: OrderedSingulair 10 mg, 1 tab, Route: PO, Drug form: TAB, QPM, Dosing Weight 88.648, kg, Start date: 11/27/17 17:00:00 CDT, Duration: 30 day, Stop date: 12/26/17 17:00:00 CDT Notes: (Same as:Singulair) Start Date: 11/27/17 Stop Date: 12/01/17 Status: DiscontinuedSingulair 10 mg oral tablet 10 mg=1 tab, PO, Bedtime, # 30 tab, 1 Refill(s) Start Date: 11/27/17 Status: Orderedsodium phosphate + Sodium Chloride 0.9% IV 250 mL 15 mmol, 5 mL, Route: IVPB, PRN, Dosing Weight 88.648, kg, PRN Abnormal Lab Result, For NON-ICU Patients Only., Start date: 11/27/17 17:00:00 CDT, Duration : 30 day, Stop date: 12/27/17 16:59:00 CDT Notes: Infuse over 4 hour. Do not infuse phosphorous concurrently in the same line as TPN or IVF that contains calcium. For double lumen central lines, phosphorous may be infused in a separate lumen from TPN. Start Date: 11/27/17 Stop Date: 12/01/17 Status: Discontinuedsodium phosphate + Sodium Chloride 0.9% IV 250 mL 30 mmol, 10 mL, Route: IVPB, PRN, Dosing Weight 88.648, kg, PRN Abnormal Lab Result, For NON-ICU Patients Only., Start date: 11/27/17 17:00:00 CDT, Duration : 30 day, Stop date: 12/27/17 16:59:00 CDT Notes: Infuse over 4 hour. Do not infuse phosphorous concurrently in the same line as TPN or IVF that contains calcium. For double lumen central lines, phosphorous may be infused in a separate lumen from TPN. Start Date: 11/27/17 Stop Date: 12/01/17 Status: Discontinuedtorsemide 20 mg, 2 tab, Route: PO, Drug form: TAB, Daily, Dosing Weight 88.648, kg, Start date: 11/28/17 9:00:00 CDT, Duration: 30 day, Stop date: 12/27/17 9:00:00 CDT Notes: (Same As: Demadex) Start Date: 11/28/17 Stop Date: 12/01/17 Status: Discontinuedtorsemide 20 mg oral tablet 20 mg=1 tab, PO, Daily, # 30 tab, 1 Refill(s) Start Date: 11/27/17 Stop Date: 12/27/17 Status: OrderedTylenol 650 mg, 2 tab, Route: PO, Drug form: TAB, Q6H, Dosing Weight 88.648, kg, PRN Pain Score 1-3, Start date: 11/28/17 21:33:00 CDT, Duration: 30 day, Stop date: 12/28/17 21:32:00 CDT Notes: Do not exceed 4 gm/day. (Same as: Tylenol) Start Date: 11/28/17 Stop Date: 12/01/17 Status: DiscontinuedXarelto 20 mg, 1 tab, Route: PO, Drug form: TAB, QPM, Dosing Weight 88.648, kg, Start date: 11/27/17 17:00:00 CDT, Duration: 30 day, Stop date: 12/26/17 17:00:00 CDT Notes: (Same as: Xarelto)Administer with food Start Date: 11/27/17 Stop Date: 12/01/17 Status: DiscontinuedXarelto 20 mg oral tablet 20 mg=1 tab, PO, QPM, # 30 tab, 3 Refill(s) Start Date: 11/27/17 Status: Ordered Results ELECTROLYTES Most recent to oldest 1 2 3 [Reference Range]: Sodium Lvl [135-145 mEq/L] 141 mEq/L 143 mEq/L 141 mEq/L (12/01/17 4:42 AM) (11/29/17 4:54 AM) (11/28/17 3:45 AM) Potassium Lvl [3.5-5.1 4.2 mEq/L 3.5 mEq/L 4.4 mEq/L mEq/L] (12/01/17 4:42 AM) (11/29/17 4:54 AM) (11/28/17 3:45 AM) Chloride Lvl [95-109 mEq/L] 108 mEq/L 109 mEq/L 109 mEq/L (12/01/17 4:42 AM) (11/29/17 4:54 AM) (11/28/17 3:45 AM) CO2 [24-32 mEq/L] 24 mEq/L 25 mEq/L 24 mEq/L (12/01/17 4:42 AM) (11/29/17 4:54 AM) (11/28/17 3:45 AM) AGAP [10.0-20.0 mEq/L] 13.2 mEq/L 12.5 mEq/L 12.4 mEq/L (12/01/17 4:42 AM) (11/29/17 4:54 AM) (11/28/17 3:45 AM) CHEM PANEL Most recent to oldest 1 2 3 [Reference Range]: Creatinine Lvl [0.50-1.40 1.16 mg/dL 1.08 mg/dL 0.97 mg/dL mg/dL] (12/01/17 4:42 AM) (11/29/17 4:54 AM) (11/28/17 3:45 AM) eGFR 64 mL/min/1.73m2 1 70 mL/min/1.73m2 2 79 mL/min/1.73m2 3 *NA* *NA* *NA* (12/01/17 4:42 AM) (11/29/17 4:54 AM) (11/28/17 3:45 AM) BUN [7-22 mg/dL] 22 mg/dL 19 mg/dL 20 mg/dL (12/01/17 4:42 AM) (11/29/17 4:54 AM) (11/28/17 3:45 AM) Glucose Lvl [70-99 mg/dL] 100 mg/dL 103 mg/dL 114 mg/dL *HI* *HI* *HI* (12/01/17 4:42 AM) (11/29/17 4:54 AM) (11/28/17 3:45 AM) Total Protein [6.4-8.4 g/dL] 8.0 g/dL (11/27/17 3:57 PM) Albumin Lvl [3.5-5.0 g/dL] 4.2 g/dL (11/27/17 3:57 PM) Globulin [2.7-4.2 g/dL] 3.8 g/dL (11/27/17 3:57 PM) A/G Ratio [0.7-1.6] 1.1 (11/27/17 3:57 PM) Calcium Lvl [8.5-10.5 mg/dL] 8.8 mg/dL 8.3 mg/dL 8.3 mg/dL (12/01/17 4:42 AM) *LOW* *LOW* (11/29/17 4:54 AM) (11/28/17 3:45 AM) Phosphorus [2.5-4.5 mg/dL] 3.3 mg/dL 3.0 mg/dL 3.3 mg/dL (12/01/17 4:42 AM) (11/29/17 4:54 AM) (11/28/17 3:45 AM) Magnesium Lvl [1.8-2.4 2.5 mg/dL 2.3 mg/dL 2.2 mg/dL mg/dL] *HI* (11/29/17 4:54 AM) (11/28/17 3:45 AM) (12/01/17 4:42 AM) ALT [0-65 unit/L] 33 unit/L (11/27/17 3:57 PM) AST [0-37 unit/L] 44 unit/L *HI* (11/27/17 3:57 PM) Alk Phos [39-136 unit/L] 76 unit/L (11/27/17 3:57 PM) Bili Total [0.2-1.3 mg/dL] 0.8 mg/dL (11/27/17 3:57 PM) Bili Direct [0.0-0.3 mg/dL] 0.1 mg/dL (11/27/17 3:57 PM) Bili Indirect [0.0-1.0 0.7 mg/dL mg/dL] (11/27/17 3:57 PM) 1Result Comment: The eGFR is calculated using the CKD-EPI formula. In most young , healthy individualsthe eGFR will be >90 mL/min/1.73m2. The eGFR declines with age. An eGFR of 60-89 may be normal insome populations, particularly the elderly, for whom the CKD-EPI formula has not been extensively validated. Use of the eGFR is not recommended in the following populations: Individuals with unstable creatinine concentrations, including patients and those with serious co-morbid conditions. Patients with extremes in muscle mass or diet. The data above are obtained from the National Kidney Disease Education Program ( NKDEP) which additionally recommends that when the eGFR is used in patients with extremes of body mass index for purposesof drug dosing, the eGFR should be multiplied by the estimated BMI.2Result Comment: The eGFR is calculated using the CKD-EPI formula. In most young, healthy individualsthe eGFR will be >90 mL/min/1.73m2. The eGFR declines with age. An eGFR of 60-89 may be normal insome populations, particularly the elderly, for whom the CKD-EPI formula has not been extensively validated. Use of the eGFR is not recommended in the following populations: Individuals with unstable creatinine concentrations, including patients and those with serious co-morbid conditions. Patients with extremes in muscle mass or diet. The data above are obtained from the National Kidney Disease Education Program ( NKDEP) which additionally recommends that when the eGFR is used in patients with extremes of body mass index for purposesof drug dosing, the eGFR should be multiplied by the estimated BMI.3Result Comment: The eGFR is calculated using the CKD-EPI formula. In most young, healthy individualsthe eGFR will be >90 mL/min/1.73m2. The eGFR declines with age. An eGFR of 60-89 may be normal insome populations, particularly the elderly, for whom the CKD-EPI formula has not been extensively validated. Use of the eGFR is not recommended in the following populations: Individuals with unstable creatinine concentrations, including patients and those with serious co-morbid conditions. Patients with extremes in muscle mass or diet. The data above are obtained from the National Kidney Disease Education Program ( NKDEP) which additionally recommends that when the eGFR is used in patients with extremes of body mass index for purposesof drug dosing, the eGFR should be multiplied by the estimated BMI.LIPIDS Most recent to oldest [Reference Range]: 1 2 3 CHD Risk [4.00-7.30] 4.63 (11/27/17 3:57 PM) Chol [<=199 mg/dL] 162 mg/dL (11/27/17 3:57 PM) Trig [<=149 mg/dL] 279 mg/dL *HI* (11/27/17 3:57 PM) HDL [>=61 mg/dL] 35 mg/dL *LOW* (11/27/17 3:57 PM) LDL (Calculated) [<=99 mg/dL] 71 mg/dL (11/27/17 3:57 PM) VLDL 56 *NA* (11/27/17 3:57 PM) SPECIAL CHEMISTRY Most recent to oldest [Reference Range]: 1 2 3 Hgb A1C [<=5.6 %] 6.1 % *HI* (11/27/17 3:57 PM) ANEMIA STUDY Most recent to oldest [Reference Range]: 1 2 3 Iron [45-160 ug/dl] 112 ug/dl (11/27/17 3:57 PM) Ferritin Lvl [22-275 ng/mL] 106 ng/mL (11/27/17 3:57 PM) % Satur Fe [12-57 %] 30 % (11/27/17 3:57 PM) UIBC [110-370 ug/dl] 266 ug/dl (11/27/17 3:57 PM) TIBC [228-428 ug/dl] 378 ug/dl (11/27/17 3:57 PM) PARATHYROID PROFILE Most recent to oldest [Reference Range]: 1 2 3 Ca Ion WB [1.05-1.25 mMol/L] 1.07 mMol/L (11/27/17 3:57 PM) Ca Norm WB [1.05-1.25 mMol/L] 1.03 mMol/L *LOW* (11/27/17 3:57 PM) IMMUNOLOGY Most recent to oldest [Reference Range]: 1 2 3 Tot Lymph # 2241 Cells/uL *NA* (11/28/17 3:45 AM) CD3 T Cell % [55-84 %] 83 % (11/28/17 3:45 AM) CD3 T Cell # [690-2540 Cells/uL] 1873 Cells/uL (11/28/17 3:45 AM) CD4 [place] % [31-61 %] 23 % *LOW* (11/28/17 3:45 AM) CD4 T [place] # [410-1590 Cells/uL] 525 Cells/uL (11/28/17 3:45 AM) CD8 Suppress % [13-41 %] 58 % *HI* (11/28/17 3:45 AM) CD8 Suppress # [190-1140 Cells/uL] 1329 Cells/uL *HI* (11/28/17 3:45 AM) H/S Ratio [0.90-2.30] 0.40 *LOW* (11/28/17 3:45 AM) CD16 56 NK % [5-27 %] 4 % *LOW* (11/28/17 3:45 AM) CD 16 56 NK # [90-590 Cells/uL] 99 Cells/uL (11/28/17 3:45 AM) CD19 B Cell % [6-25 %] 11 % (11/28/17 3:45 AM) CD19 B Cell # [90-660 Cells/uL] 244 Cells/uL (11/28/17 3:45 AM) HEMATOLOGY Most recent to oldest [Reference Range]: 1 2 3 WBC [3.7-10.4 K/CMM] 5.9 K/CMM 6.4 K/CMM (12/01/17 4:42 AM) (11/27/17 3:57 PM) RBC [4.70-6.10 M/CMM] 4.36 M/CMM 4.85 M/CMM *LOW* (11/27/17 3:57 PM) (12/01/17 4:42 AM) Hgb [14.0-18.0 g/dL] 14.3 g/dL 15.6 g/dL (12/01/17 4:42 AM) (11/27/17 3:57 PM) Hct [42.0-54.0 %] 40.7 % 45.8 % *LOW* (11/27/17 3:57 PM) (12/01/17 4:42 AM) MCV [80.0-94.0 fL] 93.3 fL 94.5 fL (12/01/17 4:42 AM) *HI* (11/27/17 3:57 PM) MCH [27.0-31.0 pg] 32.9 pg 32.1 pg *HI* *HI* (12/01/17 4:42 AM) (11/27/17 3:57 PM) MCHC [32.0-36.0 g/dL] 35.3 g/dL 34.0 g/dL (12/01/17 4:42 AM) (11/27/17 3:57 PM) RDW [11.5-14.5 %] 16.2 % 16.4 % *HI* *HI* (12/01/17 4:42 AM) (11/27/17 3:57 PM) MPV [7.4-10.4 fL] 8.8 fL 9.5 fL (12/01/17 4:42 AM) (11/27/17 3:57 PM) Platelet [133-450 K/CMM] 147 K/CMM 164 K/CMM (12/01/17 4:42 AM) (11/27/17 3:57 PM) Segs [45.0-75.0 %] 47.1 % 49.3 % (12/01/17 4:42 AM) (11/27/17 3:57 PM) Lymphocytes [20.0-40.0 %] 39.4 % 40.4 % (12/01/17 4:42 AM) *HI* (11/27/17 3:57 PM) Monocytes [2.0-12.0 %] 10.0 % 6.4 % (12/01/17 4:42 AM) (11/27/17 3:57 PM) Eosinophils [0.0-4.0 %] 2.8 % 3.2 % (12/01/17 4:42 AM) (11/27/17 3:57 PM) Basophils [0.0-1.0 %] 0.7 % 0.7 % (12/01/17 4:42 AM) (11/27/17 3:57 PM) Neutrophils # [1.5-8.1 K/CMM] 2.8 K/CMM 3.1 K/CMM (12/01/17 4:42 AM) (11/27/17 3:57 PM) Lymphocytes # [1.0-5.5 K/CMM] 2.3 K/CMM 2.6 K/CMM (12/01/17 4:42 AM) (11/27/17 3:57 PM) Monocytes # [0.0-0.8 K/CMM] 0.6 K/CMM 0.4 K/CMM (12/01/17 4:42 AM) (11/27/17 3:57 PM) Eosinophils # [0.0-0.5 K/CMM] 0.2 K/CMM 0.2 K/CMM (12/01/17 4:42 AM) (11/27/17 3:57 PM) Retic Auto [0.5-1.5 %] 1.6 % *HI* (11/27/17 3:57 PM) PT [12.0-14.7 seconds] 16.4 seconds *HI* (11/27/17 3:57 PM) INR [0.85-1.17] 1.31 *HI* (11/27/17 3:57 PM) PTT [22.9-35.8 seconds] 39.2 seconds *HI* (11/27/17 3:57 PM) Immunizations No data available for this section Procedures Procedure Date Related Diagnosis Body Site Status Drainage1 Completed 1Drainage of Right Knee Social History Social History Type Response Substance Abuse Use: None. Alcohol Past, Type Beer.1 Smoking Status Never smoker; Exposure to Tobacco Smoke None; Cigarette Smoking Last 365 Days No; Reg Smoking Cessation Counseling No entered on: 11/27/17 1"used to drink years ago very little; not anymore" Assessment and Plan Extracted from: Title: Electrophysiology Discharge Author: Mack Gaitan Date: Summary MD Discharge Plan Follow-up with Dr. Angulo in 4 weeks after discharge. Extracted from: Title: Electrophysiology Progress Note Author: Mack Gaitan MD Date : 12/01/17 Basic Information Patient is a 67 [...] Charted Temp Oral L 87.8DegF (DEC 01 05:03) Heart Rate Peripheral 67 bpm (DEC 01 05:03) Resp Rate 20 BRMIN (DEC 01 05:) SBP 115 mmHg (DEC 01 05:03) DBP 62 mmHg (DEC 01 05:03) SpO2 98 % (DEC 01 05:03) General: Alert and oriented, No acute distress. [...] (DEC 01) 1.08 (NOV 29) 0.97 (NOV 28) 1.05 (NOV 27) BUN 22 (DEC 01) 19 (NOV 29) 20 (NOV 28) 14 (NOV 27) Glucose Random H 100 (DEC 01) H 103 (NOV 29) H 114 (NOV 28) H 103 (NOV 27 ) Mg H 2.5 (DEC 01) 2.3 (NOV 29) 2.2 (NOV 28) 2.4 (NOV 27) Phos 3.3 (DEC 01) [...] morning Addendum by Indira Mcrae MD on ATTENDING NOTE 12/01/2017 18:56 The patient was seen and examined by me with the fellow at 1400 and I agree with the History/Exam documented. Stable QTc on this dose of tikosyn. May d/c to home with followup by Dr. Angulo in 3 weeks Indira Mcrae MD Extracted from: Title: Electrophysiology History and Author: Gaitan Mack Rivero Date: 11/27 Physical MD Basic Information Source of history: Self. History [...] Brother Stroke (CVA) Mother Procedure history: Drainage ([id number]). Comments: 11/27/2017 11:21 - Bianca Solano RN Drainage of Right Knee Social History Social & Psychosocial Habits Alcohol 11/27/2017 Use: Past Type: [...] Last Charted Temp Oral 97.7 DegF (NOV 27) Heart Rate Peripheral 64 bpm (NOV 27) Resp Rate 19 BRMIN (NOV 27) SBP [...] 100 mg PO q12 hours Addendum by HematpourSobia MD on I personally saw and examined the patient 11/30/2017 18:[address] Zimmerman on 11-27-17 and I agree with the above. Paroxysmal afib which is symptomatic but not a good candidate for PVI due to severe pulmonary HTN. Will start Tikosyn as inpatinet and titrate dosage according to QTc. Will continue to follow.
--- OUTSIDE RECORDS SUMMARY | 2018-12-28 13:32 | XMS REPORT | Summary of Care ---
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 Cookie Turner John, SURGERY / Procedures CONSULT/REFERRAL ORTHOPAEDIC SURGERY NEW VISIT (FIRST TIME) Vikram Alfaro MD MD Orthopedic Surgery [address] [place] [phone] Phone: Fax: Encounter Details Date Type Department Care Team Description 11/24/2018 Office Visit [facility] Saulo Gary, Carpal tunnel syndrome , bilateral (Primary Dx); Orthopaedic Surgery- Dupuytren's contracture of both hands; [address] Primary osteoarthritis of both hands [address] [place] [address] [address] [place], [place] [phone] Allergies Active Allergy Reactions Severity Noted Date [...] 09/26/2015 Active mg tablet mouth daily. GENVOYA [phone] 05/30/2016 Active mg per tablet rivaroxaban 20 mg Take 1 tablet by 0 07/23/2016 Active tablet mouth daily. valACYclovir 1 gram Take 1 g by mouth 0 Active tablet daily. 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 PAH (pulmonary artery hypertension) 05/02/2011 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 Diagnosis Term 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 Osteomyelitis 07/22/2006 Overview: ICD10 Diagnosis Term 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 HIV/AIDS 07/22/2006 documented as of this [...] of this encounter Last Filed Vital Signs Vital Sign Reading Time Taken Comments Blood Pressure 133/67 11/24/2018 10:33 AM CDT Pulse 64 11/24/2018 10:33 AM CDT Temperature 36.8 C (98.2 F) 11/24/2018 10:33 AM CDT Respiratory Rate - - Oxygen Saturation - - Inhaled Oxygen Concentration - - Weight 95.7 kg (211 lb) 11/24/2018 10:33 AM CDT Height 190.5 cm (6' 3") 11/24/2018 10:33 AM CDT Body Mass Index 26.37 11/24/2018 10:33 AM CDT documented in this encounter Progress Notes Saulo Gary MD - 11/24/2018 10:30 AM CDT Hand Clinic Note 11/24/2018 11:54 Chief complaint: bilateral hand numbness and tingling and lumps in his palms History of Present Illness Arsen Espinoza is a 68 year old male who presents with bilateral hand numbness and tingling in the median nerve distribution of the hand. The symptoms are worse at night. Prior treatment: splint on theleft. He also has some pain with gripping, worse with the R hand while driving or using tools. Wakes regularly from sleep with hands tingling. Past Medical History: Diagnosis Date Atrial fibrillation 1997 secondary to HIV study medication BCC (basal cell carcinoma of skin) 03/24/08 CAP (community acquired pneumonia) 04/25 multi-lobar Desensitization to allergens Bactrim desensitization Genital herpes Herpes zoster 12/28/05 left arm HIV (human immunodeficiency virus infection) 1993 Lipodystrophy atrophy and abd fat accumulation Osteomyelitis 07/18/06 right calcaneus & cuboid bone secondary to MAC (IRIS event), tx rifabutin - 09/22/06, elan/EMB 08/17/06 - 09/05/08, recurrent 12/29, Azithro/EMB started 03/11/11 PAH (pulmonary artery hypertension) with HIV infection PCP (pneumocystis jiroveci pneumonia) Peripheral neuropathy Pulmonary hypertension 08/21 severe PAH, treated with Bosentan 125 mg BID x 09/21, dose decreased to 62.5 mg daily on 03/11/11, brief < 1 month Revatio due to cost, switched to ambrisentan 5 mg/day to avoid monthly LFTs Rheumatoid arthritis(714.0) 2002 including IRIS flares Past Surgical History: Procedure Laterality Date KNEE ARTHROSCOPY Medications: Current Outpatient Medications: ambrisentan (LETAIRIS) 10 mg tablet, TAKE 1 TABLET BY MOUTH ONCE DAILY, Disp: 30 tablet, Rfl: 10 valACYclovir 1 gram tablet, Take 1 g by mouth daily., Disp: , Rfl: GENVOYA [phone] mg per tablet, , Disp: , Rfl: rivaroxaban 20 mg tablet, Take 1 tablet by mouth daily., Disp: , Rfl: torsemide (DEMADEX) 20 mg tablet, Take 2 tablets by mouth daily., Disp: 60 tablet, Rfl: 3 LYRICA 100 mg capsule, TAKE ONE CAPSULE BY MOUTH THREE TIMES A DAY NEEDED, Disp: 90 Cap, Rfl: 2 acyclovir (ZOVIRAX) 400 mg tablet, TAKE ONE TABLET BY MOUTH THREE TIMES A DAY NEEDED FOR OUTBREAK, Disp: 90 Tab, Rfl: 11 montelukast (SINGULAIR) 10 mg tablet, TAKE ONE TABLET BY MOUTH ONCE A DAY, Disp: 30 Tab, Rfl: 3 darunavir (PREZISTA) 600 mg tablet, Take 1 Tab by mouth 2 (two) times daily., Disp: 60 Tab, Rfl: 5 Allergies: Allergies Allergen Reactions Abacavir Palpitations Cipro [Ciprofloxacin] Rash Sulfa (Sulfonamide Antibiotics) Rash Social History: Social History Socioeconomic History Marital status: Spouse name: Not on file Number of children: Not on file Years of education: Not on file Highest education level: Not on file Occupational History Not on file Social Needs Financial resource strain: Not on file Food insecurity: Worry: Not on file Inability: Not on file Transportation needs: Medical: Not on file Non-medical: Not on file Tobacco Use Smoking status: Never Smoker Smokeless tobacco: Never Used Substance and Sexual Activity Alcohol use: No Alcohol/week: 0.0 oz Drug use: No Sexual activity: Yes Partners: Female Comment: HIV negative Lifestyle Physical activity: Days per week: Not on file Minutes per session: Not on file Stress: Not on file Relationships Social connections: Talks on phone: Not on file Gets together: Not on file Attends latter-day service: Not on file Active member of club or organization: Not on file Attends meetings of clubs or organizations: Not on file Relationship status: Not on file Intimate partner violence: Fear of current or ex partner: Not on file Emotionally abused: Not on file Physically abused: Not on file Forced sexual activity: Not on file Other Topics Concern Not on file Social History Narrative Lives in [place] with . Has disability. Medicare and [place] ADAP and SPAP. Very supportive and family. 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 [facility] . FAx - [phone] (he fills Letairis through this pharmacy). [facility] Enhanced PDP Prescription Drug plan RxBIN: [id number] RxPCN: [id number] RxGRP: [id number] Review of Systems: Constitutional: (-) fever, (-) chills Mouth/Throat: (-) facial droop Cardiovascular: (-) chest pain, (-) palpitations Respiratory: (-) cough, (-) shortness of breath, (-) dyspnea on exertion Gastrointestinal: (-) weight loss, (-) abdominal pain, (-) nausea, (-) vomiting Musculoskeletal/Neuro: See HPI All other review of systems negative. Physical Examination: BP 133/67 | Pulse 64 | Temp 36.8 C (98.2 F) (Temporal Artery) | Ht 1.905 m (6' 3") | Wt 95.7kg (211 lb) | BMI 26.37 kg/m No fever General: NAD, pleasant and cooperative Skin: No rashes, no discoloration Resp: Breathing comfortably on RA Cardiology: Regular rate EXT: B UE Positive Durkins Positive Tinel's at the wrists Negative Adair's Negative CMC grind Motor grossly intact M/AIN/U/R/PIN SILT M/U/R distributions Palpable radial pulse Palpable cords in palms on 4th ray bilaterally. R is much larger and longer over MC head/neck Imaging: Xr Hand 3+ Vw Bilateral Result Date: 11/24/2018 Osteoarthritic changes with no acute osseous abnormalities. No erosions or subluxations. EMG: None done ASSESSMENT: Arsen Espinoza is a 68 year old male with Bilateral carpal tunnel syndrome and 4th ray Dupuytren's contracture. PLAN: I have discussed the patient's physical exam and reviewed their x-rays and imaging with them in detail. All questions have been answered. We have talked about all the treatment options and have agreed upon: - Bilateral CT injections today, observation for the Dupy for now. - Activity modification to minimize pain - NSAIDs prn for pain - Heat therapy prn for muscular pain before exercise - Follow up 6 weeks - Condition and plans were discussed with patient, who expressed understanding and is agreeable to the plan. - All questions were answered, concerns addressed; risks and benefits were discussed. - Patient was instructed to schedule earlier appointment if symptoms worsen. -After full disclosure of risks and benefits, injection therapy performed. Kenalog 20mg, lidocaine 0.5cc, marcaine 0.5cc injection into bilateral carpal tunnel utilizing standard sterile technique by me. 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 documented in this encounter Administered Medications Medication Order MAR Action Action Date Dose Rate Site triamcinolone acetonide Given by Provider 11/25/2018 7:19 AM 40 mg (KENALOG) injection 40 mg CDT 40 mg, Intrasynovial, ONCE, 1 dose, Natacha 11/25/18 at 0830, Routine documented in this encounter Insurance Payer Benefit Plan / Subscriber ID Effective Dates Phone Address Type Group [facility]JA [id number] 2018-Presen Medicare Adv PLUS PLUS t HMO CLASSIC/VALUE documented as of this encounter Advance Directives Type Date 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
--- OUTSIDE RECORDS SUMMARY | 2018-12-28 13:32 | XMS REPORT | Summary of Care ---
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 Cookie Turner John, SURGERY / Procedures CONSULT/REFERRAL ORTHOPAEDIC SURGERY NEW VISIT (FIRST TIME) Vikram Alfaro MD MD Orthopedic Surgery [address] [place] [phone] Phone: Fax: Encounter Details Date Type Department Care Team Description 11/24/2018 Office Visit [facility] Saulo Gary, Carpal tunnel syndrome , bilateral (Primary Dx); Orthopaedic Surgery- Dupuytren's contracture of both hands; [address] Primary osteoarthritis of both hands [address] [place] [address] [address] [place], [place] [phone] Allergies Active Allergy Reactions Severity Noted [...] 09/26/2015 Active mg tablet mouth daily. 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 Has disability. Medicare and [place] ADAP and SPAP. Very supportive and family. 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 [facility] . FAx - [phone] (he fills Letairis through this pharmacy). [facility] Enhanced PDP Prescription Drug plan RxBIN: [id number] RxPCN: [id number] RxGRP: [id number] Review of Systems: Constitutional: (-) [...] Office Visit Orthopedic Surgery Saulo Gary MD [address] [place] [address] [phone] 01/20/2019 Office Visit Pulmonary Disease Toni Bhakta [id number] [place], [place] [id number] Health Maintenance Due Date Last Done Comments [...] Action Date Dose Rate Site triamcinolone acetonide (KENALOG) Given 11/25/2018 7:19 AM CDT 40 mg injection 40 mg 40 mg, Intrasynovial, ONCE, 1 dose, Natacha 11/25/18 at 0830, Routine documented in this encounter Insurance Payer Benefit Plan / Subscriber ID Effective Dates Phone Address Type Group [facility] BENJA [id number] 2018-Presen Medicare Adv PLUS PLUS t HMO CLASSIC/VALUE documented as of this encounter Advance Directives Type Date 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
--- OUTSIDE RECORDS SUMMARY | 2018-12-28 13:32 | XMS REPORT | Summary of Care ---
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 Cookie Turner John, SURGERY / Procedures CONSULT/REFERRAL ORTHOPAEDIC SURGERY NEW VISIT (FIRST TIME) Vikram Alfaro MD MD Orthopedic Surgery [address] [place] [phone] Phone: Fax: Encounter Details Date Type Department Care Team Description 11/24/2018 Office Visit [facility] Saulo Gary, Carpal tunnel syndrome , bilateral (Primary Dx); Orthopaedic Surgery- Dupuytren's contracture of both hands; [address] Primary osteoarthritis of both hands [address] [place] [address] [address] [place], [place] [phone] Allergies Active Allergy Reactions Severity Noted [...] 09/26/2015 Active mg tablet mouth daily. 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 Has disability. Medicare and [place] ADAP and SPAP. Very supportive and family. Active in Latter-Day (plays the piano and organ). [facility] . FAx - [phone] (he fills Letairis through this pharmacy). [facility] Enhanced PDP Prescription Drug plan RxBIN: [id number] RxPCN: [id number] RxGRP: [id number] Review of Systems: Constitutional: (-) [...] Office Visit Orthopedic Surgery Saulo Gary MD [address] [place] [address] [phone] 01/20/2019 Office Visit Pulmonary Disease Toni Bhakta [address] [place], [place] [address] Health Maintenance Due Date Last Done Comments [...] ID Effective Dates Phone Address Type [facility] BENJA [id number] 2018-Presen Medicare Adv PLUS PLUS t HMO CLASSIC/VALUE documented as of this encounter Advance Directives Type Date 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
[2018-12-28] MEDS ORDERED: PROPOFOL 200 MG/20 ML VIAL IV ONE (14:26)
[2018-12-28] MEDS ORDERED: LIDOCAINE 1% MPF 5 ML VIAL ONE (14:26)
[2018-12-28] MEDS ORDERED: NS 0.9% VIAL 10 ML ONE (14:49)
[2018-12-28] MEDS ORDERED: Phenylephrine HCl 10 MG/ML 1 ML VIAL ONE (14:49)
[2018-12-28] MEDS ORDERED: ETOMIDATE 20 MG/10 ML VIAL IV ONE (14:49)
[2018-12-28 16:04] VITALS: TEMP 98.2; O2SAT 98
[2018-12-28 16:15] VITALS: BP 163/78
--- NOTE | 2019-01-04 00:24 | OP ---
Surgeon: Gopi Nowak MD Procedure To Be Performed: Colonoscopy. Performing Physician: Gopi Nowak MD Indication For Procedure: Screening high-risk, history of polyps. Plan For Anesthesia: Monitored anesthesia care. Also, patient on Xarelto, which has been temporaril y held for the procedure. Technique: After obtaining informed consent from the patient and explaining risks and complications which include, but are not limited to bleeding, infection, perforation, and anesthesia complication, patient was placed in the left lateral position and sedation was given. A digital rectal exam was pe rformed. Subsequently, the scope was inserted into the rectum and carefully guided up until the cecu m. Subsequently, the scope was gradually withdrawn while carefully examining the mucosa. Jackson pre p score was 6 x 9. Scope withdrawal time was 17 minutes. Findings: Scattered diverticulosis seen in the colon, primarily in the sigmoid. In the descending c olon, a 5 mm sessile polyp was seen; this was removed with hot biopsy polypectomy. In the transverse colon, diminutive polyp was seen, this was removed with cold forceps. In the ascending colon, multi ple polyps were seen. These polyps ranged in size from [address] to 1.2 cm. All of these wer e resected with snare polypectomy. One of the larger polyps did have some mild oozing at the site. Due to patient being started on anticoagulation soon, prophylactic clips were placed to prevent any b leeding that may happen later. Also, in the cecum area, single angiodysplasia was seen. This was ab lated. Complications: None. Tolerance To Anesthesia: Excellent. Postoperative Diagnoses: Multiple polyps, diverticulosis, and colonic arteriovenous malformation. Plan: 1.Await pathology results. 2.Start Xarelto in 2 days. 3.Repeat colonoscopy in 1 year due to multiple polyps. 4.Follow up in the GI clinic in 2 weeks. US/MODL Voice ID: [id number] Report ID: [id number]
== END 2018-12-28 16:24 | disposition home or self-care (01) ==
LOC: DS 13:01
PROVIDERS: ATTEND Internal Medicine Gastroenterology
PROC: 0DBL8ZX Excision of Transverse Colon, Via Natural or Artificial Opening Endoscopic, Diagnostic (ICD-10-PCS; 2018-12-28)
PROC: 0DBK8ZX Excision of Ascending Colon, Via Natural or Artificial Opening Endoscopic, Diagnostic (ICD-10-PCS; 2018-12-28)
PROC: 0W3P8ZZ Control Bleeding in Gastrointestinal Tract, Via Natural or Artificial Opening Endoscopic (ICD-10-PCS; 2018-12-28)
PROC: 0DBM8ZX Excision of Descending Colon, Via Natural or Artificial Opening Endoscopic, Diagnostic (ICD-10-PCS; principal; 2018-12-28 14:30)
DX: Z12.11 Encounter for screening for malignant neoplasm of colon (principal); D12.2 Benign neoplasm of ascending colon; D12.4 Benign neoplasm of descending colon; D12.3 Benign neoplasm of transverse colon; Q27.33 Arteriovenous malformation of digestive system vessel; K57.90 Diverticulosis of intestine, part unspecified, without perforation or abscess without bleeding; I27.20 Pulmonary hypertension, unspecified; I48.91 Unspecified atrial fibrillation; G62.9 Polyneuropathy, unspecified; Z79.01 Long term (current) use of anticoagulants; Z88.2 Allergy status to sulfonamides; Z88.8 Allergy status to other drugs, medicaments and biological substances
CPT/HCPCS: 45384; 45380; 45385; 45382; J2704; J2370; 88305

== ENCOUNTER 2019-09-26 08:40 | Day surgery (SDC) | payer OTHER ==
[2019-09-23 15:31] LABS: Absolute Lymphocytes (CBC) 2.6 K/uL (0.7-4.9); Basophils % 0.5 % (0-1.3); Hematocrit 41.6 % (39.6-49.0); Lymphocytes % 37.4 % (15.3-44.8); MPV 9.2 fL (7.6-11.3); RBC Red Blood Cell Count 4.35 M/uL (4.33-5.43)
[2019-09-23 15:33] LABS: Protime INR 1.28
--- NOTE | 2019-09-23 15:52 | RAD REPORT ---
EXAM DESCRIPTION: Evangelista Torrez And Vimal (2 Views)09/23/2019 3:28 pm CLINICAL HISTORY: Chest pain COMPARISON: 2018 FINDINGS: Prominence of the central pulmonary arteries Lungs appear clear of acute infiltrate Heart is mildly enlarged IMPRESSION: Prominence of the central pulmonary arteries compatible with pulmonary arterial hyperten brad
[2019-09-23 16:09] LABS: Potassium 3.8 mmol/L (3.5-5.1)
[2019-09-26] MEDS ORDERED: NA CHLORIDE 0.9% 500 ML ONE (08:50)
[2019-09-26] MEDS ORDERED: HEPA 1000U/500MLS 2,000 UNIT/1,000 ML BAG IV ONE (08:56)
[2019-09-26] MEDS ORDERED: HEPARIN 5000 UNIT/ML 1 ML VIAL ONE ×2 (09:23→09:34)
[2019-09-26] MEDS ORDERED: MIDAZOLAM HCL 2 MG/2 ML INJ ONE (09:23)
[2019-09-26] MEDS ORDERED: FENTANYL CITR 100 MCG/2 ML ONE (09:24)
[2019-09-26] MEDS ORDERED: NITROGLYCERIN 100 MCG/ML SYR (for cath lab use only) IV ONE (09:25)
[2019-09-26] MEDS ORDERED: ATROPINE SULF 1 MG/10 ML SYR IV ONE (09:25)
[2019-09-26] MEDS ORDERED: NITROGLYCERIN/D5W 25 MG/250 ML BTL IV ONE (09:25)
[2019-09-26] MEDS ORDERED: NICARDIPINE HCL 25 MG/10 ML IV ONE (09:25)
[2019-09-26] MEDS ORDERED: TICAGRELOR 90 MG TABLET PO ONE ×2 (10:10→22:03)
[2019-09-26] MEDS ORDERED: HEPA 1000U/500MLS 1,000 UNIT/500 ML BAG IV ONE (10:11)
[2019-09-26] MEDS ORDERED: ACETYLCYST 20% 4 ML VIAL IH ONE (10:36)
--- OUTSIDE RECORDS SUMMARY | 2019-09-26 11:25 | XMS REPORT | Continuity of Care Document ---
:1950 Author Organization [employer] Care Team Providers Name Role Phone [employer] Unavailable Un available Problems Problem Status Onset Classification Date Comments Sourc e Date Reported Persistent atrial 12/13/19 06/20/2018 [facility] ATRIAL FIB, Active 11/21/19 [facility] PALPATIONS 18 Medical Center Illness, 06/20/2018 [facility] unspecified Medical Center Pulmonary 06/20/2018 [facility] hypertension, Medica l unspecified Center Bifascicular block 06/20/2018 [facility] Asymptomatic human 06/20/2018 [facility] immunodeficiency [facility] ical virus [HIV] Center infection status Herpesviral 06/20/2018 [facility] infection, Medical unspecified Center Allergic rhinitis, 06/20/2018 [facility] Polyneuropathy, 06/20/2018 [facility]oxysmal atrial 06/20/2018 [facility] Medical Center ILLNESS, Active [facility] Medical Center Medications Medication Details Route Status Patient Ordering Order Source Instructions Provider Date dofetilide 125 125 microgram Active [facility] mcg oral capsule = 1 cap, PO, 018 Me dical Q12H, # 60 Center cap, 2 Refill(s) dofetilide 125 125 microgram Active [facility] mcg oral capsule = 1 cap, PO, 018 Me dical BID, # 14 cap, Center 0 Refill(s) Ibuprofen Notes: (Same No [facility] as: Motrin) Longer 018 Medical "Do Not Crush" Active [place] Give with food. dofetilide Notes: (Same No [facility] as: Tikosyn) Longer 018 Medical Providers [facility] should enter the orders via the "Dofetilide Initiation Orders MPP" to ensure compliance with the REMS program. Tylenol Notes: Do not No [facility] exceed 4 Longer 018 Medical gm/day. (Same Active Center as: Tylenol) dofetilide Notes: (Same No [facility] as: Tikosyn) Longer 018 Medical Providers Active Center should enter the orders via the "Dofetilide Initiation Orders MPP" to ensure compliance with the REMS program. ambrisentan 10 10 mg, 1 tab, No [place] MG Oral Tablet Route: PO, Longer 018 Medica l [Letairis] Drug form: Active Center TAB, Daily, Dosing Weight 88.648, kg, Start date: 11/28/17 9:00:00 CDT, Duration: 30 day, Stop date: 12/27/17 9:00:00 CDT Prezista Notes: Same No [facility] as: Prezista Long[place] 018 Medical Active Center cobicistat 150 Notes: (Same No [facility] [place] MG / as: Genvoya) - Longer 018 [facility] elvitegravir 150 cobicistat/elv Active Center MG / itegravir/emtr emtricitabine icitabine/teno 200 MG / fovir tenofovir ALAFENAMIDE alafenamide 10 308-208-662-10 MG Oral Tablet TAB [Genvoya] Non-formulary torsemide Notes: (Same No [facility] As: Demadex) Longer 018 Medical Active Center Acyclovir Notes: (Same No [facility] as: Zovirax) Longer 018 Medical Active Center Lyrica Notes: (Same No [facility] as: Lyrica) Longer 018 Medical Active Center dofetilide Notes: (Same No [facility] as: Tikosyn) Longer 018 Medical Providers Active Center should enter the orders via the "Dofetilide Initiation Orders MPP" to ensure compliance with the REMS program. Singulair Notes: (Same No [facility] as:Singulair) Longer 018 Medical Active Center Xarelto Notes: (Same No [facility] as: Xarelto) Longer 018 Medical [facility] Active Center with food Calcium Notes: WASTE: No [facility] Gluconate F/P - Sink; E Longer 018 Medical [facility] Active Center Trash Bin Potassium Notes: (Same No [facility] Chloride as: Potassium Longer 018 [facility] Chloride) Active Center potassium Notes: (Same No [facility] phosphate-sodium as: Phos-NaK) Longer 018 edical phosphate 250 Each 1.5 gm Active Center mg-280 mg-160 mg pkt has 250mg oral powder for phosphorous. reconstitution Mix w/2.5oz water and stir. potassium Notes: (Same No [facility] phosphate as: [place] [id number] Medical Phosphate.) Active Center Do not infuse phosphorous concurrently in the same line as TPN or IVF that contains calcium. For double lumen central lines, phosphorous may be infused in a separate lumen from TPN. 1 mMol phoshate has 1.47 mEq potassium Infuse over 4 hours sodium phosphate Notes: Infuse No H [place] over [address] Do not infuse Active Center phosphorous concurrently in the same line as TPN or IVF that contains calcium. For double lumen central lines, phosphorous may be infused in a separate lumen from TPN. Magnesium Notes: WASTE: No [facility] Sulfate F/P - Sink; E [address] Active Center Trash Bin Magnesium Oxide Notes: (Same No [facility] as: Mag-Ox [address] 400) Magnesium Active Center oxide [id number] elemental magnesium Dose=____mg magnesium oxide (___mg elemental magnesium) cobicistat 150 1 tab, PO, Active [place] as MG / Daily, # 90 018 [facility] elvitegravir 150 tab, 0 Center MG / Refill(s) emtricitabine 200 MG / tenofovir alafenamide 10 MG Oral Tablet [Genvoya] rivaroxaban 20 20 mg = 1 tab, Active [place] MG Oral Tablet PO, QPM, # 30 018 Med ical [Xarelto] tab, 3 Center Refill(s) ambrisentan 10 10 mg = 1 tab, Active [place] MG Oral Tablet PO, Daily, # 018 Medi shital [Letairis] 30 tab, 0 Center Refill(s) darunavir 800 MG 800 mg = 1 Active [place] Oral Tablet tab, PO, 018 Medical [Prezista] Daily, 0 Center Refill(s) montelukast 10 10 mg = 1 tab, Active [place] MG Oral Tablet PO, Bedtime, # 018 Me dical [Singulair] 30 tab, 1 Center Refill(s) torsemide 20 mg 20 mg = 1 tab, Active H [place] oral tablet PO, Daily, # 018 Medical 30 tab, 1 Center Refill(s) pregabalin 100 100 mg = 1 Active [place] MG Oral Capsule cap, PO, BID, 018 Me dical [Lyrica] # 90 cap, 1 Center Refill(s) acyclovir 400 mg 400 mg = 1 Active [place] oral tablet tab, PO, Q12H, 018 Medic al # 28 tab, 0 Center Refill(s) Allergies, Adverse Reactions, Alerts Substance Category Reaction Severity Reaction Status Date Comments S ource type Reported sulfa drugs Assertion Drug Active Mi [place] allergy Neuro metoprolol Assertion Drug Active Mis kym allergy Neuro Betapace Assertion Drug Active Misch er allergy Neuro Bactrim Assertion Drug Active Mische r allergy Neuro Immunizations No Data Provided for This Section Results Order Name Results Value Reference Date Interpretation Comments Brenna rce Range CHEM PANEL Magnesium Lvl 2.5 1.8 - 2.4 12/01 [place] [facility] CHEM PANEL Phosphorus 3.3 2.5 - 4.5 12/01 [facility] ELECTROLYTES AGAP 13.2 10.0 - 12/01 [facility] 20.0 [facility] ELECTROLYTES eGFR 64 12/01 Result Comment: The [facility] eGFR is Center calculated using the CKD-EPI [...] should be multiplied by the estimated BMI. ELECTROLYTES Chloride Lvl 108 95 - 109 12/01 [facility] ELECTROLYTES Potassium Lvl 4.2 3.5 - 5.1 12/01 [facility]2017 [facility] ELECTROLYTES Glucose Lvl 100 70 - 99 12/01 [facility] ELECTROLYTES Sodium Lvl 141 135 - 145 12/01 as [facility] ELECTROLYTES Creatinine 1.16 0.50 - 12/01 [place] Lvl 1.40 [facility] ELECTROLYTES BUN 22 7 - 22 12/[address] ELECTROLYTES Calcium Lvl 8.8 8.5 - 10.5 12/01 [place] [facility] ELECTROLYTES CO2 24 24 - 32 12/[address] HEMATOLOGY MPV 8.8 7.4 - 10.4 12/01 [facility]2017 [facility] HEMATOLOGY RDW 16.2 11.5 - 12/01 [facility] 14.5 [facility] HEMATOLOGY Platelet 147 133 - 450 12/01 2017 [facility] HEMATOLOGY Hgb 14.3 14.0 - 12/01 [facility] 18.0 [facility] HEMATOLOGY RBC 4.36 4.70 - 12/01 [place] 6.10 [facility] HEMATOLOGY WBC 5.9 3.7 - 10.4 12/01 [facility]2017 [facility] HEMATOLOGY MCH 32.9 27.0 - 12/01 [place] 31.0 [facility] HEMATOLOGY MCHC 35.3 32.0 - 12/01 [place] 36.0 [facility] HEMATOLOGY MCV 93.3 80.0 - 12/01 [place] 94.0 [facility] HEMATOLOGY Hct 40.7 42.0 - 12/01 [place] 54.0 [facility] HEMATOLOGY Monocytes 10.0 2.0 - 12.0 12/[address] HEMATOLOGY Monocytes # 0.6 0.0 - 0.8 12/01 [facility] HEMATOLOGY Lymphocytes # 2.3 1.0 - 5.5 12/01 [facility] HEMATOLOGY Neutrophils # 2.8 1.5 - 8.1 12/01 [facility] HEMATOLOGY Basophils 0.7 0.0 - 1.0 12/01 2017 [facility] HEMATOLOGY Eosinophils 2.8 0.0 - 4.0 12/01 [facility] HEMATOLOGY Eosinophils # 0.2 0.0 - 0.5 12/01 [facility] HEMATOLOGY Segs 47.1 45.0 - 12/01 [facility] 75.0 [facility] HEMATOLOGY Lymphocytes 39.4 20.0 - 12/01 [facility] 40.0 [facility] CHEM PANEL Phosphorus 3.0 2.5 - 4.5 11/29 [facility]2017 [facility] CHEM PANEL Magnesium Lvl 2.3 1.8 - 2.4 11/29 [facility] CHEM PANEL BUN 19 7 - 22 11/29 [facility] CHEM PANEL Glucose Lvl 103 70 - 99 11/29 [facility]2017 [facility] CHEM PANEL Sodium Lvl 143 135 - 145 11/29 [facility]2017 [facility] CHEM PANEL Creatinine 1.08 0.50 - 11/29 [facility] Lvl 1.40 [facility] CHEM PANEL AGAP 12.5 10.0 - 11/29 [facility] 20.0 [facility] CHEM PANEL Calcium Lvl 8.3 8.5 - 10.5 11/29 [facility] CHEM PANEL Potassium Lvl 3.5 3.5 - 5.1 11/29 [facility] CHEM PANEL CO2 25 24 - 32 11/29 [facility]2017 [facility] CHEM PANEL Chloride Lvl 109 95 - 109 11/29 [facility] CHEM PANEL eGFR 70 11/29 [facility] Comment: The Medical eGFR is Center [...] by the estimated BMI. CHEM PANEL Magnesium Lvl 2.2 1.8 - 2.4 11/28 [facility] CHEM PANEL Phosphorus 3.3 2.5 - 4.5 11/28 [facility] CHEM PANEL Calcium Lvl 8.3 8.5 - 10.5 11/28 [facility] CHEM PANEL AGAP 12.4 10.0 - 11/28 20.0 [facility] CHEM PANEL eGFR 79 11/28 Result Comment: The [facility] eGFR is Center calculated using the CKD-EPI [...] PANEL CO2 24 24 - 32 11/28 [facility] CHEM PANEL Creatinine 0.97 0.50 - 11/28 [facility] Lvl 1.40 [facility] CHEM PANEL Sodium Lvl 141 135 - 145 11/28 [facility] CHEM PANEL Potassium Lvl 4.4 3.5 - 5.1 11/28 [facility] CHEM PANEL Chloride Lvl 109 95 - 109 11/28 [facility] CHEM PANEL Glucose Lvl 114 70 - 99 11/28 2017 [facility] CHEM PANEL BUN 20 7 - 22 11/28 2017 [facility] IMMUNOLOGY H/S Ratio 0.40 0.90 - 11/28 2.30 [facility] IMMUNOLOGY Tot Lymph # 2241 11/28 2017 [facility] IMMUNOLOGY CD4 T [place] 525 410 - 1590 11/28 [place] [facility] IMMUNOLOGY CD4 [place] % 23 31 - 61 11/28 [facility] IMMUNOLOGY CD19 B Cell # 244 90 660 11/28 [place] [facility] IMMUNOLOGY CD19 B Cell % 11 6 - 25 11/28 [place] [facility] IMMUNOLOGY CD 16 56 NK # 99 90 - 590 11/28 [place] [facility] IMMUNOLOGY CD16 56 NK % 4 5 - 27 11/28 [facility] IMMUNOLOGY CD3 T Cell # 8732 283 - 9781 11/28 [facility] [place] [facility] IMMUNOLOGY CD3 T Cell % 83 55 - 84 11/28 [facility] /2017 [facility] IMMUNOLOGY CD8 Suppress 1329 190 - 1140 11/28 [facility] [place] [facility] IMMUNOLOGY CD8 Suppress 58 13 - 41 11/28 [facility] /2017 [facility] ANEMIA STUDY TIBC 378 228 - 428 11/27 [facility]2017 [facility] ANEMIA STUDY [place] 112 45 - 160 11/27 [facility] ANEMIA STUDY % [place] 30 12 - 57 11/27 [facility]2017 [facility] ANEMIA STUDY UIBC 266 110 - 370 11/27 [facility]2017 [facility] ANEMIA STUDY Ferritin Lvl 106 22 - 275 11/27 [facility] CHEM PANEL Albumin Lvl 4.2 3.5 - 5.0 11/27 [facility] CHEM PANEL AST 44 0 - 37 11/[address] CHEM PANEL ALT 33 0 - 65 11/27 [facility]2017 [facility] CHEM PANEL Bili Total 0.8 0.2 - 1.3 11/27 [facility]2017 [facility] CHEM PANEL Alk Phos 76 39 - 136 11/27 [facility]2017 [facility] CHEM PANEL Bili Direct 0.1 0.0 - 0.3 11/27 [facility] CHEM PANEL Bili Indirect 0.7 0.0 - 1.0 11/27 [facility] CHEM PANEL Total Protein 8.0 6.4 - 8.4 11/27 [facility] CHEM PANEL A/G Ratio 1.1 0.7 - 1.6 11/27 [facility] CHEM PANEL Globulin 3.8 2.7 - 4.2 11/27 [facility] HEMATOLOGY PTT 39.2 22.9 - 08/10 [place] 35.8 /2017 Medical Center HEMATOLOGY INR 1.31 0.85 - 08 [place] 1.17 /2017 [facility] Center HEMATOLOGY PT 16.4 12.0 - 0810 [place] 14.7 [facility] HEMATOLOGY MPV 9.5 7.4 - 10.4 08 [facility] HEMATOLOGY Platelet 164 133 - 450 11/27 [facility] HEMATOLOGY MCHC 34.0 32.0 - 0810 [place] 36.0 [facility] Center HEMATOLOGY RDW 16.4 11.5 - 08 [place] 14.5 /2017 [facility] HEMATOLOGY WBC 6.4 3.7 - 10.4 11/27 [facility] HEMATOLOGY MCV 94.5 80.0 - 11/27 [place] 94.0 [facility] HEMATOLOGY Hct 45.8 42.0 - 11/27 [place] 54.0 /2017 [facility] HEMATOLOGY MCH 32.1 27.0 - 08 [place] 31.0 [facility] HEMATOLOGY RBC 4.85 4.70 - 11/27 [place] 6.10 [facility] HEMATOLOGY Hgb 15.6 14.0 - 08 [place] 18.0 [facility] HEMATOLOGY Monocytes # 0.4 0.0 - 0.8 11/27 [facility] HEMATOLOGY Eosinophils # 0.2 0.0 - 0.5 11/27 [facility] HEMATOLOGY Eosinophils 3.2 0.0 - 4.0 11/27 [facility] HEMATOLOGY Neutrophils # 3.1 1.5 - 8.1 11/27 [facility] HEMATOLOGY Basophils 0.7 0.0 - 1.0 11/27 [facility] HEMATOLOGY Lymphocytes 40.4 20.0 - 0810 [place] 40.0 [facility] HEMATOLOGY Segs 49.3 45.0 - 0810 [place] 75.0 [facility] HEMATOLOGY Monocytes 6.4 2.0 - 12.0 11/27 2017 [facility] HEMATOLOGY Lymphocytes # 2.6 1.0 - 5.5 11/27 [facility] HEMATOLOGY Retic Auto 1.6 0.5 - 1.5 11/27 [facility] LIPIDS Trig 279 <=149 0810 [facility] mg/dL [facility] LIPIDS HDL 35 >=61 mg/dL 11/27 [facility] LIPIDS LDL 71 <=99 mg/dL 11/27 [facility] (Calculated) [facility] LIPIDS VLDL 56 11/27 [facility] LIPIDS Chol 162 <=199 11/27 [facility] mg/dL [facility] LIPIDS CHD Risk 4.63 4.00 - 11/27 [facility] 7.30 [facility] PARATHYROID Ca Ion WB 1.07 1.05 - 11/27 [facility] PROFILE 1. [facility] PARATHYROID Ca Norm WB 1.03 1.05 - 11/27 [facility] PROFILE 1. [facility] SPECIAL Hgb A1C 6.1 <=5.6 % 11/27 [facility] CHEMISTRY [facility] Pathology Reports No Data Provided for This Section Diagnostic Reports No Data Provided for This Section Consultation Notes No Data Provided for This Section Discharge Summaries No Data Provided for This Section History and Physicals No Data Provided for This Section Vital Signs Vital Sign Value Date Comments Source Systolic (mm Hg) 120 12/01/2017 [facility] Diastolic (mm Hg) 69 12/01/2017 [facility] Temperature Oral (F) 97.8 F 12/01/2017 [facility] Respitory Rate 20 12/01/2017 [facility] Heart Rate 63 12/01/2017 [facility] Temperature Oral (F) 98 F 12/01/2017 [facility] Heart Rate 65 12/01/2017 [facility] Respitory Rate 18 12/01/2017 [facility] Systolic (mm Hg) 154 12/01/2017 [facility] Diastolic (mm Hg) 83 12/01/2017 [facility] Temperature Oral (F) 97.7 F 12/01/2017 [facility] Heart Rate 67 12/01/2017 [facility] Respitory Rate 18 12/01/2017 [facility] Systolic (mm Hg) 139 12/01/2017 [facility] Diastolic (mm Hg) 79 12/01/2017 [facility] BMI Calculated 24.43 11/27/2017 [facility] Weight 88.648 11/27/2017 [facility] Height 190.5 cm 11/27/2017 [facility] Encounters Location Location Encounter Encounter Reason Attending ADM DC Stat us Source Details Type Number For Provider Date Date Visit [facility] [id number] [place] 11/27 12/01 [facility] [id number] [place] 12/22 Active [facility] [facility] Out[facility] [id number] [place] 12/22 12/23 [facility]2018 [facility] [place] [facility] Outside [id number] 12/29 12/31 [facility] Medical /2018 [facility] [place] Records Procedures Procedure Code Date Perfomer Comments Source Drainage<sup>1</ [id number] Drainage of [facility] sup> Right Knee Neuro,[facility] Assessment and Plan Assessment and Plan Date Source Extracted from:Title: Electrophysiology Discharge Summary [facility] Author: Mack Gaitan MD Date: 12/08/17 Discharge Plan Follow-up with Dr. Angulo in 4 weeks after discharge. Extracted from:Title: Electrophysiology Progress Note Author: Mack Gaitan MD Date: 12/01/17 Basic Information Patient is a 67 year old male with PMH o f atrial fibrillation (persistent), pulmonary hypertension, HIV here for Tikosyn initiation started on 11/27/2017. Subjective No acute events overnight. Health Status Allergies: Allergic Reactions (Selected) Severity Not Documented Bactrim- No reactions were documented. Betapace- No reactions were documented. Metoprolol- No reactions were documented. Sulfa drugs- No reactions were documented. Objective Meds Scheduled Meds (9):acyclovir, ambrisenta n (Letairis 10 mg oral tablet), cobicistat/elvitegravir/emtricitabine/tenofov (Genvoya 150 mg-150 mg-200 mg-10 mg oral tablet), darunavir (Prezista), dofetilide, montelukast (Singulair), pregabalin (Lyrica), rivaroxaban (X arelto), torsemide Unscheduled Meds: None PRN Meds (14):acetaminophen (Tylenol), c alcium gluconate + Sodium Chloride 0.9% IV 120 mL, calcium gluconate + Sodium Chloride 0.9% IV 80 mL, magnesium oxide, magnesium sulfate, magnesium sulfate, potas sium chloride, potassium chloride, potas sium chloride, potassium phosphate + Sodium Chloride 0.9% [...] Vital Signs (last 24 hrs) Last Charted _ Temp Oral L 87.8DegF (DEC 01 05:03) Heart Rate Peripheral 67 bpm (DEC 01 05:03) Resp Rate 20 BRMIN (DEC 01 05:03) SBP 115 mmHg (DEC 01 05:03) DBP 62 mmHg (DEC 01 05:03) SpO2 98 % (DEC 01 05:03) General: Alert and oriented, No acute distress. Eye: Pupils are equal, round and reactive to light. HENT: Normocephalic. Neck: No jugular venous distention. Respiratory: Lungs are clear to auscultation. Cardiovascular: Normal rate, regular rh ythm, Good pulses equal in all extremities, No [...] Hct L 40.7 (DEC 01) 45.8 (NOV 18 0) Plt 147 (DEC 01) 164 (NOV 27) [...] (NOV 27) Glucose Random H 100 (DEC 01 ) H 103 (NOV 29) H 114 (NOV 28) H 103 (NOV 27) Mg H 2.5 (DEC 01 ) 2.3 (NOV 29) 2.2 (NOV 28) 2.4 [...] a 67 year old male with PMH o f atrial fibrillation (persistent), pulmonary hypertension, HIV here for Tikosyn initiation. He has no complaints of chest pain, orthopnea, PND, syncope, shortnes s of breath, palpitations, or lower extremity edema. Review of Systems Constitutional: No weakness. Eye: No blurring. Ear/Nose/Mouth/Throat: No sore throat. Respiratory: No shortness of breath. Cardiovascular: No chest pain, No palpi tations, No peripheral edema, No syncope. Gastrointestinal: No nausea, No vomiting, No abdominal pain . Genitourinary: No dysuria. Hematology/Lymphatics: No bruising tendency. [...] tab, PO, Daily cobicistat/elvitegravir/emtricitabine/tenofov 1 tab, PO, Da alonso darunavir 800 mg tab 800 mg 1 tab, PO, Daily montelukast 10 mg TAB 10 mg 1 tab, PO, QPM pregabalin 100mg cap 100 mg 1 cap, PO, Q12H rivaroxaban 20 mg, PO, QPM torsemide 10 mg TAB 20 mg 2 tab, PO, Daily Continuous: (0) PRN: (0) Histories Past Medical History: No active or resolved past medical histo ry items have been selected or recorded. Family History: Cancer Mother Myeloma Brother Stroke (CVA) Mother Procedure history: Drainage ([id number]). Comments: 11/27/2017 11:21 - Bianca Solano RN Drainage of Right Knee Social History Social and Psychosocial Habits Alcohol 11/27/2017 Use: Past Type: Beer Comment: "used to drink years ago very little; not anymore" - 11/27/2017 11:22 - Bianca Solano RN Substance Abuse 11/27/2017 [...] Vital Signs (last 24 hrs) Last Charted _ Temp Oral 97.7 DegF (NOV 27:) Heart Rate Peripheral 64 bpm (NOV 27) [...] clear to auscultation. Cardiovascular: Normal rate, Good pulse s equal in all extremities, No edema, irregular [...] 100 mg PO q12 hours Addendum by Sobia Angulo MD on 11/30/2017 18:26 I personally saw and examined the patien t with Dr Zimmerman on 11-27-17 and I agree with the above. Paroxysmal afib which is symptomatic but not a good candidate for PVI due to severe pulmonary HTN. Will st art Tikosyn as inpatinet and titrate dos age according to QTc. Will continue to follow. Plan of Care No Data Provided for This Section Social History Social History Date Source Social History TypeResponse 11/27/2017 [facility] Substance Abuse Use: None. Alcohol Past, Type Beer.1 Smoking Status Never smoker; Exposure to Tobacco Smoke None; Cigarette Smoking Last 365 Days No; Reg Smoking Cessation Counseling No entered on: 11/27/17 1"used to drink years ago very little; not anymore" Social History TypeResponse 11/27/2017 [facility] Alcohol Past, Type Beer.1 Substance Abuse Use: None. Smoking Status Never smoker; Exposure to Tobacco Smoke None; Cigarette Smoking Last 365 Days No; Reg Smoking Cessation Counseling No entered on: 11/27/17 1"used to drink years ago very little; not anymore" Family History No Data Provided for This Section Advance Directives No Data Provided for This Section Functional Status No Data Provided for This Section
--- OUTSIDE RECORDS SUMMARY | 2019-09-26 11:28 | XMS REPORT | Continuity of Care Document ---
:1950 Author Organization [facility] t Address [address] [place] [address] Care Team Providers Name Role Phone Rodríguez Bhakta MD Attending Clinician Katherin Hansen Attending Clinician Hematpour Attending Clinician Hematpour Admitting Clinician Problems Condition Condition Condition Status Onset Resolution Last Treating Co mments Source Name Details Category Date Date Treatment Clinician Date ATRIAL Diagnosis Active 2017-11-30 Mem oria FIB, 8- 15:17:00 l PALPATIONS ATRIAL 00:00: Herm marlon FIB, 00 PALPATIONS Active 11/20/2017 [facility] Illness, Problem 2018-06-20 Mem oria unspecifie 13:26:24 l d IllnessMaxim n unspecifie d 06/20/2018 [facility] Pulmonary Problem 2018-06-20 Me moria hypertensi 13:26:24 l onUgo unspecifie Pulmonary d hypertensi on, unspecifie d 06/20/2018 [facility] Bifascicul Problem 2018-06-20 M emoria ar block 13:26:24 l [place] Bifascicul ar block 06/20/2018 [facility] Asymptomat Problem 2018-06-20 M emoria ic human 13:26:24 l immunodefi Maxim n ciency 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 [HIV] infection status 06/20/2018 [facility] Herpesvira Problem 2018-06-20 M emoria l 13:26:24 l infection, Maxim n unspecifie Herpesvira d l infection, unspecifie d 06/20/2018 [facility] Allergic Problem 2018-06-20 Mem oria rhinitis, 13:26:24 l unspecifie Allergic He rmann d rhinitis, unspecifie d 06/20/2018 [facility] Polyneurop Problem 2018-06-20 M emoria athy, 13:26:24 l unspecifie Maxim n d Polyneurop athy, unspecifie d 06/20/2018 [facility] Paroxysmal Problem 2018-06-20 M emoria atrial 13:26:24 l fibrillati Maxim n on Paroxysmal atrial fibrillati on 06/20/2018 [facility] ILLNESS, Diagnosis Active 2017-11-30 M emoria UNSPECIFIE 15:17:00 l D ILLNESS, Maxim n UNSPECIFIE D Active [facility] Persistent Problem 2017-2018-06-20 2018-06-20 Memoria atrial 12-12 13:26:24 13:26:24 l fibrillati 03:29: Maxim hayward on Persistent 53 atrial fibrillati on 12/12/2017 06/20/2018 [facility] Allergies, Adverse Reactions, Alerts Allergy Allergy Status Severity Reaction(s) Onset Inactive Treating Comm ents Source Name Type Date Date Clinician sulfa sulfa Active Memoria drugs drugs l Ugo metoprol metoprol Active Memori a ol ol l U[place] Betapace Betapace Active Memori a l [place] Bactrim Bactrim Active Memoria l [place] Social History Social Habit Start Date Stop Date Quantity Comments Source Social History 2017-11-27 2017-11-27 [facility] Yu reyes 16:22:59 16:22:59 Medications Ordered Filled Start Stop Current Ordering Indication Dosage Frequency Signature Comments Components Source Medication Medication Date Date Medication? Clinician (SIG) Name Name dofetilide Yes 125 Memoria 125 mcg 8-22 microgram l oral 14:00: = 1 cap, Ugo capsule 00 PO, Q12H, # 60 cap, 2 Refill(s) dofetilide Yes 125 Memoria 125 mcg 8-15 microgram l oral 02:00: = 1 cap, [place] capsule 00 PO, BID, # 14 cap, 0 Refill(s) Ibuprofen No Notes: Memori a 8-13 (Same as: l 23:02: Motrin) "Do Not Crush" Give with food. dofetilide No Notes: Memor ia 8-12 (Same as: l 16:07: Tikosyn) Providers should enter the orders via the "Dofetilid e Initiation Orders MPP" to ensure compliance with the REMS program. Tylenol No Notes: Do Memor ia 8-12 not exceed l 02:33: 4 gm/day. (Same as: Tylenol) dofetilide No Notes: Memor ia 8-12 (Same as: l 02:00: Tikosyn) Providers should enter the orders via the "Dofetilid e Initiation Orders MPP" to ensure compliance with the REMS program. ambrisentan No 10 mg, 1 Me moria 10 MG Oral 8-11 tab, l Tablet 14:00: Route: PO, Carmen nn [Letairis] 00 Drug form: TAB, Daily, Dosing Weight 88.648, kg, Start date: 11/28/17 9:00:00 CDT, Duration: 30 day, Stop date: 12/27/17 9:00:00 CDT Prezista No Notes: Memoria 811 Same as: l 14:00: Prezista cobicistat No Notes: Memor ia 150 MG / 8-11 (Same as: l elvitegravi 14:00: Genvoya) - [place] r 150 MG / 00 cobicistat emtricitabi /elvitegra ne 200 MG / vir/emtric tenofovir itabine/te alafenamide nofovir 10 MG Oral ALAFENAMID Tablet E [Genvoya] 150-150-20 0-10 TAB Non-formul demetri torsemide No Notes: Memori a 8-11 (Same As: l 14:00: Demadex) Acyclovir No Notes: Memori a 8-11 (Same as: l 02:00: Zovirax) Lyrica No Notes: Memoria 8-11 (Same as: l 02:00: Lyrica) dofetilide No Notes: Memor ia 8-11 (Same as: l 00:00: Tikosyn) Providers should enter the orders via the "Dofetilid e Initiation Orders MPP" to ensure compliance with the REMS program. Singulair No Notes: Memori a 8-10 (Same l 22:00: as:Singula ir) Xarelto No Notes: Memoria 8-10 (Same as: l 22:00: Xarelto) Administer with food Calcium No Notes: Memoria Gluconate 8-10 WASTE: F/P l 22:00: - Sink; E - Municipal Trash Bin Potassium No Notes: Memori a Chloride 8-10 (Same as: l 22:00: Potassium Chloride) potassium No Notes: Memori a phosphate-s 8-10 (Same as: l odium 22:00: Phos-NaK) phosphate 00 Each 1.5 250 mg-280 gm pkt has mg-160 mg 250mg oral powder phosphorou for s. Mix reconstitut w/2.5oz ion water and stir. potassium No Notes: Memori a phosphate 8-10 (Same as: l 22:00: K Phosphate. ) Do not infuse phosphorou s concurrent ly in the same line as TPN or IVF that contains calcium. For double lumen central lines, phosphorou s may be infused in a separate lumen from TPN. 1 mMol phoshate has 1.47 mEq potassium Infuse over 4 hours sodium No Notes: Memoria phosphate 8-10 Infuse l 22:00: over 4 [place] 00 hour. Do not infuse phosphorou s concurrent ly in the same line as TPN or IVF that contains calcium. For double lumen central lines, phosphorou s may be infused in a separate lumen from TPN. Magnesium No Notes: Memori a Sulfate 8-10 WASTE: F/P l 22:00: - Sink; E - Municipal Trash Bin Magnesium No Notes: Memori a Oxide 8-10 (Same as: l 22:00: Mag-Ox 400) Magnesium oxide 115zy=632r g elemental magnesium Dose=____m g magnesium oxide (___mg elemental magnesium) cobicistat 2018-0 Yes 1 tab, PO, M emoria 150 MG / 8-10 Daily, # l elvitegravi 19:19: 90 tab, 0 H ermann r 150 MG / 00 Refill(s) emtricitabi ne 200 MG / tenofovir alafenamide 10 MG Oral Tablet [Genvoya] rivaroxaban 2018-0 Yes 20 mg = 1 M emoria 20 MG Oral 8-10 tab, PO, l Tablet 19:19: QPM, # 30 Maxim n [Xarelto] 00 tab, 3 Refill(s) ambrisentan 2018-0 Yes 10 mg = 1 M emoria 10 MG Oral 8-10 tab, PO, l Tablet 19:19: Daily, # Ugo [Letairis] 00 30 tab, 0 Refill(s) darunavir 2018-0 Yes 800 mg = 1 Me moria 800 MG Oral 8-10 tab, PO, l Tablet 19:19: Daily, 0 Ugo [Prezista] 00 Refill(s) montelukast 2018-0 Yes 10 mg = 1 M emoria 10 MG Oral 8-10 tab, PO, l Tablet 19:19: Bedtime, # Carmen nn [Singulair] 00 30 tab, 1 Refill(s) torsemide 2018-0 Yes 20 mg = 1 Mem oria 20 mg oral 8-10 tab, PO, l tablet 19:19: Daily, # Ugo 00 30 tab, 1 Refill(s) pregabalin 2018-0 Yes 100 mg = 1 M emoria 100 MG Oral 8-10 cap, PO, l Capsule 19:19: BID, # 90 Carmen nn [Lyrica] 00 cap, 1 Refill(s) acyclovir 2018-0 Yes 400 mg = 1 Me moria 400 mg oral 8-10 tab, PO, l tablet 19:19: Q12H, # 28 Carmen nn 00 tab, 0 Refill(s) Vital Signs Vital Name Observation Time Observation Value Comments Source Systolic (mm Hg) 2017-12-01 21:05:00 Raheem fito Arizmendi Diastolic (mm Hg) 2017-12-01 21:05:00 Mem orial [place] Temperature Oral (F) 2017-12-01 21:05:00 97.8 F [facility] [place] Respitory Rate 2017-12-01 21:05:00 Memori al [place] Heart Rate 2017-12-01 21:05:00 Memorial [place] Temperature Oral (F) 2017-12-01 17:08:00 98 F Memorial [place] Heart Rate 2017-12-01 17:08:00 [facility] [place] Respitory Rate 2017-12-01 17:08:00 Memori al [place] Systolic (mm Hg) 2017-12-01 17:08:00 Raheem rial U[place] Diastolic (mm Hg) 2017-12-01 17:08:00 Mem orial [place] Temperature Oral (F) 2017-12-01 13:00:00 97.7 F Memorial [place] Heart Rate 2017-12-01 13:00:00 [facility] [place] Respitory Rate 2017-12-01 13:00:00 Memori al [place] Systolic (mm Hg) 2017-12-01 13:00:00 Raheem rial Ugo Diastolic (mm Hg) 2017-12-01 13:00:00 Mem orial Ugo BMI Calculated 2017-11-27 16:26:00 Memori al [place] Weight 2017-11-27 16:26:00 Memorial [place] Height 2017-11-27 16:26:00 190.5 cm [facility] U[facility] Procedures Procedure Date / Time Performed Performing Clinician Sour e Drainage<sup>1</sup> Memorial He rmann Encounters Start End Encounter Admission Attending Care Care Encounter Source Date/Time Date/Time Type Type Clinicians Facility Department ID 2019-07-27 2019-07-27 Telemedici Yony [facility] [id number] 07:40:14 13:41:36 ne Visit Toni Arreguin MARGARET [id number] IALTY [id number] [place] [id number] [facility] 2018-12-29 2018-12-30 Outpatient MHMISCHER MHMISCHER [id number] 15:08:24 23:59:59 00 2018-12-22 2018-12-22 Outpatient FELIPE HansenSCHER MHMISCHER [id number] 15:15:00 23:59:59 Kurtis 00 Katherin 2017-11-27 2017-12-01 Outpatient Hematvasile [facility] [id number] 10:34:00 16:20:00 Sobia 15 Results Test Description Test Time Test Comments Results Result Comments Source CHEM PANEL 2017-12-01 2.5 [facility] Carmen nn 09:42:00 CHEM PANEL 2017-12-01 3.3 [facility] Carmen nn 09:42:00 ELECTROLYTES 2017-12-01 13.2 Memorial Her richard 09:42:00 ELECTROLYTES 2017-12-01 64 [facility] Her richard 09:42:00 ELECTROLYTES 2017-12-01 108 [facility] Her richard 09:42:00 ELECTROLYTES 2017-12-01 4.2 [facility] Her richard 09:42:00 ELECTROLYTES 2017-12-01 100 [facility] Her richard 09:42:00 ELECTROLYTES 2017-12-01 141 [facility] Her richard 09:42:00 ELECTROLYTES 2017-12-01 1.16 [facility] Her richard 09:42:00 ELECTROLYTES 2017-12-01 22 [facility] Her richard 09:42:00 ELECTROLYTES 2017-12-01 8.8 [facility] Her richard 09:42:00 ELECTROLYTES 2017-12-01 24 Memorial Her richard 09:42:00 HEMATOLOGY 2017-12-01 8.8 [facility] Carmen nn 09:42:00 HEMATOLOGY 2017-12-01 16.2 [facility] Carmen nn 09:42:00 HEMATOLOGY 2017-12-01 147 Memorial Carmen nn 09:42:00 HEMATOLOGY 2017-12-01 14.3 [facility] Carmen nn 09:42:00 HEMATOLOGY 2017-12-01 4.36 [facility] Carmen nn 09:42:00 HEMATOLOGY 2017-12-01 5.9 [facility] Carmen nn 09:42:00 HEMATOLOGY 2017-12-01 09:42:00 Test Item Value Reference Range Interpretation Comme nts MCH (test code = MCH) 32.9 pg 27.0-31.0 Memorial XzxaqraAUBTLMWUAV1754-52-85 09:42:0035.3[facility] HermannHEMATOLOGY 2017-12-01 09:42:0093.3[facility] LtluawmNMOWBQTIGH9746-78-99 09:42:0040.7[facility] HtmerjkMQQLLLAEAY0730-44-43 09:42:0010.0[facility] DmzehvwKLCDLDPSWR1134-30-42 09:42:000.6[facility] KgjdjvwOJSAJBNNUN2864-84-50 09:42:002.3[facility] [address] RSKVUZEVDU0778-80-66 09:42:002.8[facility] RatjytdUPWKXAPCLQ1159-75-89 09:42:000.7 Memorial DbfsaggMKYXCSNQIL1877-11-01 09:42:002.8[facility] HermannHEMATOLOGY 2017-12-01 09:42:000.2[facility] HasohdpFOENZAANDJ7769-08-83 09:42:0047.1[facility] UkhwlgoBNXDCXXETV4488-33-07 09:42:0039.4[facility] HermannCHEM UZVNB9869-06-42 09:54:003.0[facility] HermannCHEM JIFDX6860-19-02 09:54:002.3[facility] HermannCHEM DDHBR1555-17-61 09:54:0019[facility] HermannCHEM PVMEA5713-49-82 09:54:65446 [facility] HermannCHEM CSUEB6683-59-93 09:54:48795Yqezbdnk HermannCHEM PANEL 2017-11-29 09:54:001.08[facility] HermannCHEM ZYHNK7616-97-99 09:54:0012.5[facility] HermannCHEM KGFCJ9531-67-61 09:54:008.3[facility] HermannCHEM PNLDQ4889-43-14 09:54:003.5[facility] HermannCHEM RAQGA6597-50-51 09:54:0025[facility] HermannCHEM PPEID7477-68-55 09:54:58066Jdmqfqcs HermannCHEM TYQHN7646-37-69 09:54:0070 [facility] HermannCHEM IOELL8750-32-02 08:45:002.2[facility] HermannCHEM PANEL 2017-11-28 08:45:003.3[facility] HermannCHEM QZQFR7012-14-16 08:45:008.3[facility] HermannCHEM MLVZL9845-50-25 08:45:0012.4[facility] HermannCHEM MLDAS1128-14-84 08:45:0079[facility] HermannCHEM THKTG3930-43-83 08:45:0024[facility] HermannCHEM MAJCS1337-16-43 08:45:000.97[facility] HermannCHEM NALPY8351-31-04 08:45:54658 [facility] HermannCHEM OBVZC7527-24-42 08:45:004.4[facility] HermannCHEM PANEL 2017-11-28 08:45:48019Uwjscefm HermannCHEM OKRSF3510-49-02 08:45:33126Lmaizpwo HermannCHEM AIQSX5887-70-10 08:45:0020[facility] XnyisswOTSSQVNIXB3420-53-34 08:45:00 Test Item Value Reference Range Interpretation Comments H/S Ratio (test code = H/S Ratio) 0.40 1 0.90-2.30 Memorial FtdfstqCYQYQXUDTA8031-43-69 08:45:816474Nlsjgknk HermannIMMUNOLOGY 2017-11-28 08:45:65451Wrosapcz VziouqdUJQYBZMBFN1080-78-96 08:45:0023[facility] WnagbsbKAVTLXUHKR5796-65-77 08:45:26522Bwhetdbq KtcfiraVJTGIWYAND0886-68-60 08:45:0011[facility] IjnccgoPJNRZDXMNT0768-66-69 08:45:0099[facility] [place] HNIIZJXQSU6947-43-80 08:45:004[facility] FnjpapgGADTATQYNZ6339-36-20 08:45:584385 Memorial PgfjeemDDJEHRMCEX8279-19-79 08:45:0083[facility] HermannIMMUNOLOGY 2017-11-28 08:45:794014Saaskpdv IppcaxkXJPOINFEEB2463-76-93 08:45:0058[facility] HermannANEMIA EBOYM5052-77-61 20:57:35210Opbubidg HermannANEMIA SADRZ1191-53-14 20:57:39769Mlmdkify HermannANEMIA OOCWI6830-80-76 20:57:0030[facility] [place] ANEMIA OXXFZ7039-99-34 20:57:67370Qzruwnaj HermannANEMIA NDAIV3408-63-77 20:57:07928Dhxesmez HermannCHEM CUMMX3562-61-27 20:57:004.2[facility] HermannCHEM PJJSR2765-08-01 20:57:0044[facility] HermannCHEM ZXTST9144-93-53 20:57:0033 [facility] HermannCHEM BIYKT6703-52-57 20:57:000.8[facility] HermannCHEM PANEL 2017-11-27 20:57:0076[facility] HermannCHEM HUROJ8796-16-26 20:57:000.1[facility] HermannCHEM UJITP3154-06-46 20:57:000.7[facility] HermannCHEM TAFQE9790-33-46 20:57:008.0[facility] HermannCHEM VABYZ4971-69-63 20:57:00 Test Item Value Reference Range Interpretation Comments A/G Ratio (test code = A/G Ratio) 1.1 1 0.7-1.6 [facility] HermannCHEM UKOLJ8508-34-90 20:57:003.8[facility] HermannHEMATOLOGY 2017-11-27 20:57:00 Test Item Value Reference Range Interpretation Comments PTT (test code = PTT) 39.2 s 22.9-35.8 [facility] PkzxwjcATFFAHUWFV4751-95-25 20:57:00 Test Item Value Reference Range Interpretation Comments INR (test code = INR) 1.31 1 0.85-1.17 [facility] EzmcnrwUPNRWFUOJN5523-28-25 20:57:00 Test Item Value Reference Range Interpretation Comments PT (test code = PT) 16.4 s 12.0-14.7 [facility] XzdboebDTFTSYUKZF8854-51-96 20:57:009.5[facility] HermannHEMATOLOGY 2017-11-27 20:57:76339Foeqetou MbafscxALADMLYATJ9300-15-26 20:57:0034.0[facility] LvbnsqrCMBMYBREMO8520-78-23 20:57:0016.4[facility] MpifrncHGWHMNPXXF0323-26-03 20:57:006.4[facility] DkhmymcNJGDOVATTR5825-58-11 20:57:0094.5[facility] [place] VDTRVXUVSM5061-16-24 20:57:0045.8[facility] DswwfpzJCJANPRZRH6236-48-80 20:57:00 Test Item Value Reference Range Interpretation Comments MCH (test code = MCH) 32.1 pg 27.0-31.0 [facility] FsvaighNTUUWPTEDY0423-97-25 20:57:004.85[facility] HermannHEMATOLOGY 2017-11-27 20:57:0015.6[facility] VblmnfdXOYXDOPKCV0932-03-20 20:57:000.4[facility] RlapqehHFPNKONUYD0502-37-28 20:57:000.2[facility] EzltprnSFCEFCIILR2857-42-57 20:57:003.2[facility] YlhvwkiXCDVGBSGOO9336-71-77 20:57:003.1[facility] VHCJZTCHQX9758-25-91 20:57:000.7[facility] WyxepquSSPNVTWABF2254-26-65 20:57:00 40.4[facility] GturcsvNBMCLCYZUG8658-15-79 20:57:0049.3[facility] HermannHEMATOLOGY 2017-11-27 20:57:006.4[facility] ItgfxmxVQKNKCZIVX1013-35-58 20:57:002.6[facility] UafldjuPUEJXJHBSV1211-06-51 20:57:001.6[facility] UasnyrhGCXVSY6413-92-45 20:57:00 279[facility] WzvcgclEAZSSN8673-32-46 20:57:0035[facility] MgzupqeNAOWIV8465-00-97 20:57:0071[facility] UjqilfuVQTRIF5314-60-49 20:57:00 Test Item Value Reference Range Interpretation Comments VLDL (test code = VLDL) 56 1 Memorial GlmhupxVMXKCU4474-62-05 20:57:14685Tnfqovot JrysjecHBQTYO8582-68-45 20:57:00 Test Item Value Reference Range Interpretation Comments CHD Risk (test code = CHD Risk) 4.63 1 4.00-7.30 [facility] HermannPARATHYROID YXSJGJF3031-91-67 20:57:001.07[facility] PARATHYROID VFWSLYJ7984-42-05 20:57:001.03[facility] HermannSPECIAL CHEMISTRY 2017-11-27 20:57:006.1[facility]
--- OUTSIDE RECORDS SUMMARY | 2019-09-26 11:28 | XMS REPORT | Summary of Care ---
:1950 Author Organization [facility] Address [address] [place] [id number] Care Team Providers Name Role Phone Toni Bhakta MD Unavailable Dominic Turner MD Primary Care Provider Reason for Visit Reason Comments Hand Pain (Routine) Status Reason Specialty Diagnoses / Referred By Referred To Procedures Contact Contact Authorized ORT-ORTHOPAEDIC Diagnoses 6WK BILAT HAND Saulo Gary Faillace, John, SURGERY / Procedures CONSULT/REFERRAL ORTHOPAEDIC SURGERY FOLLOW-UP VISIT MD [facility] [address] [place] [phone] Phone: Fax: Encounter Details Date Type Department Care Team Description 07/20/2019 Telemedicine Visit [facility] Saulo Gary, Carpal tunnel syndrome, bilateral (Primary Dx); Orthopaedic Surgery- Dupuytren's contracture of both hands [address] [place] [phone] Allergies Active Allergy Reactions Severity Noted Date Comments Abacavir Palpitations High 02/01/2009 Diphenhydramine Hcl Other - See comments 01/20/2019 It causes palpitations an d worsening of th e patients A-fib Ciprofloxacin Rash 05/17/2005 Sulfa (Sulfonamide Rash 05/12/2005 Antibiotics) documented as of this encounter (statuses as of 07/20/2019) Medications Medication Sig Dispensed Refills Start Date End Date Status montelukast TAKE ONE TABLET BY 30 Tab 3 09/18/2014 Active (SINGULAIR) 10 mg MOUTH ONCE A DAY tablet acyclovir (ZOVIRAX) TAKE ONE TABLET BY 90 Tab 11 01/22/2015 Active 400 mg tablet MOUTH THREE TIMES A DAY NEEDED FOR OUTBREAK LYRICA 100 mg capsule TAKE ONE CAPSULE 90 Cap 2 06/12/2015 Active BY MOUTH THREE TIMES A DAY NEEDED rivaroxaban 20 mg Take 1 tablet by 0 07/23/2016 Active tablet mouth daily. valACYclovir 1 gram Take 1 g by mouth 0 Active tablet daily. BIKTARVY 50-200-25 mg Take 1 tablet by 0 01/15/2019 Active tablet mouth daily. dofetilide 125 mcg Take 1 capsule by 0 01/15/2019 Active capsule mouth 2 (two) times daily. rivaroxaban 20 mg Take 1 tablet by 0 05/31/2017 Active tablet mouth daily. torsemide 20 mg Take 2 tablets by 60 tablet 6 01/20/2019 Active tabletIndications: PAH mouth daily. (pulmonary artery hypertension) ambrisentan (LETAIRIS) TAKE 1 TABLET BY 30 tablet 10 05/06/2019 Active 10 mg MOUTH ONCE DAILY tabletIndications: PAH (pulmonary artery hypertension) HYDROcodone-acetaminop Take 1 tablet by 10 tablet 0 05/06/2019 Active hen (NORCO) 10-325 mg mouth every 6 tabletIndications: (six) hours as Carpal tunnel syndrome needed for Pain on left (scale 4-6). 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 Diagnosis Term Process Engineer Utility Osteomyelitis 07/22/2006 Overview: ICD10 Diagnosis Term Process Engineer Utility HIV/AIDS 07/22/2006 documented as of this encounter (statuses as of 07/20/2019) Resolved Problems Problem Noted Date Resolved Date Other bone involvement in diseases classified elsewhere 08/1901/10/2011 Other dyspnea and respiratory abnormality 05/12/2005 07/22/2006 documented as of this encounter (statuses as of 07/20/2019) Immunizations Name Administration Dates Next Due HEPATITIS A 01/28/2010, 07/26/2009 Hep B, Adol or Pedi Dosage 01/28/2010, 12/27/2009, 0 Influenza High Dose 01/20/2019, 01/17/2014 Influenza Virus Vaccine 05/04/2013, 01/23/2012, 01/09/2011, 04/18/2010, 02/01/2009 Influenza Virus Vaccine - Whole 01/19/2016 PPD (TB) 01/23/2012, 01/09/2011, 07/26/2009 Pneumococcal 13 Conjugate, PCV13 01/20/2019 (Prevnar 13) Pneumococcal 7 Conjugate, PCV7 01/17/2014 (Prevnar7) Pneumococcal [...] Signs Not on filedocumented in this encounter Progress Notes Dayo Linton MD - 07/20/2019 2:50 PM [facility] Follow Up Note Procedure: L ECTR 05/06/19, R ECTR 01/27/19 07/20/2019 (Telehealth) S 69 year old male s/p above doing well Reports pre-op pain has improved significantly. Ocassionalyhas transient numbness in his fingertips. Also reports continued difficulty with right thumb extension with "tension in palm" PHYSICAL EXAMINATIONS Constitutional: alert and oriented x 3; no apparent distress, normal temperature Exam 05/18/19 MSK: Incision c/d/i Sensate in m/u/r distributions R thumb Palmar abduction 4/5 Faint cord palpable in first webspace Assessment Arsen Espinoza is a 69 year old male s/p B/L CTR progressing well. 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 Plan Continue activity as tolerated Instructed to call in >6 weeks to discuss appointment to assess contracture Dayo Linton PGY3 Orthopaedic Surgery 07/20/2019 2:03 PM documented in this encounter Plan of Treatment Date Type Specialty Care Team Description 07/27/2019 Telemedicine Visit Pulmonary Disease Ana Rosa Bhakta MD [address] [place], [place] [address] Health Maintenance Due Date Last Done Comments COLONOSCOPY 1998 Zoster Recombinant Vaccine 1998 (SHINGRIX) (1 of 2) Medicare Wellness Visit 2013 PNEUMOCOCCAL VACCINES 65+ (2 of 2 01/21/2020 01/20/2019, - PPSV23) DTaP,Tdap,and Td Vaccines (2 - Td) 01/09/2021 01/09/2011 HEPATITIS C (HCV) SCREEN Completed 07/12/2009 INFLUENZA VACCINE Completed 01/20/2019, 01/19/2016, 01/17/2014, Additional history exists documented as of this encounter Results Not on filedocumented in this encounter Visit Diagnoses Diagnosis Carpal tunnel syndrome, bilateral - Prim demetri Carpal tunnel syndrome Dupuytren's contracture of both hands Contracture of palmar fascia documented in this encounter Insurance Payer Benefit Plan / Subscriber ID Effective Dates Phone Addre ss Type Group [employer] [place] [employer] [place] [id number] 2018-Presen Medicare Adv PLUS PLUS t HMO CLASSIC/VALUE documented as of this encounter Advance Directives Type Date Recorded 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
--- OUTSIDE RECORDS SUMMARY | 2019-09-26 11:29 | XMS REPORT | Summary of Care ---
:1950 Author Organization [facility] - [facility] Address [address] [place], [place] [id number] Care Team Providers Name Role Phone Toni Bhakta MD Unavailable Dominic Turner MD Primary Care Provider Reason for Visit Reason Comments Follow-up Encounter Details Date Type Department Care Team Description 07/27/2019 Telemedicine Visit [facility] Yony, ELIEZER (pulm onary artery hypertension) with HIV infection (Primary Dx); Pulmonary- Chandu Swain Chronic atrial fibrillation [facility] [address] [place] [address] Ctr [id number] [id number] [place] [address] [phone] [id number] Allergies Active Allergy Reactions Severity Noted Date Comments Abacavir Palpitations High 02/01/2009 Diphenhydramine Hcl Other - See comments 01/20/2019 It causes palpitations an d worsening of th e patients A-fib Ciprofloxacin Rash 05/17/2005 Sulfa (Sulfonamide Rash 05/12/2005 Antibiotics) documented as of this encounter (statuses as of 07/27/2019) Medications Medication Sig Dispensed Refills Start Date [...] as of this encounter (statuses as of 07/27/2019) Active Problems Problem Noted Date Decreased range of motion of right thumb 03/08/2019 Decreased activities of daily living (ADL) 03/08/2019 Atrial fibrillation 01/21/2019 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 10/18/2013 PAH (pulmonary artery hypertension) 05/02/2011 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 Diagnosis Term 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 Osteomyelitis 07/22/2006 Overview: ICD10 Diagnosis Term 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 HIV/AIDS 07/22/2006 documented as of this encounter (statuses as of 07/27/2019) Resolved Problems Problem Noted Date Resolved Date Other bone involvement in diseases classified elsewhere 08/1901/10/2011 Other dyspnea and respiratory abnormality 05/12/2005 07/22/2006 documented as of this encounter (statuses as of 07/27/2019) Immunizations Name Administration Dates Next Due HEPATITIS [...] on filedocumented in this encounter Progress Notes Zuly Natarajan MD - 07/27/2019 8:30 AM CDT Pulmonary Medicine Televisit Note Verbal consent obtained from Patient: Arsen Espinoza for telehealth services provided below. Communication with patient was conducted via Telephone due to patient unable to obtain video call option. Location of Patient: Home Location of Provider: Clinic Date of Service: 07/27/2019 Reason for visit: follow up pulmonary arterial hypertension HPI: Arsen Espinoza is a 69 year old male here for follow up on his pulmonary arterial hypertension. PMHx of PAH 2/2 HIV diagnosed in 2003 on Letaris, h/o Rheumatoid arthritis, Chronic atrial fibrillation (on Xarelto & Dofetilide) Last office visit on 01/20/2019 at which time, Pt was FC II with good exercise tolerance: able to climb 17 stairs multiple times daily, push mow his lawn, trim the perimeter of his 1 acre land. Symptomatic only with carrying heavy objects over 80 pounds. He was advised to continue on his letairis 10mg/day, diuretic therapy (Torsemide 40mg alternating with 20mg every other day), dofetilide and xarelto. Today Pt states he is feeling well and no different from his last visit. He remains active around his house, but due to COVID19, is following all protocol to prevent any infection. He continues to havegood exercise tolerance with climbing stairs and yard work. Able to lift heavy objects in front of him is difficult, but able to carry things over his shoulders without issue. He says this is chronic in nature and unchanged since last visit. Pt is compliant with all his medications including ART, torsemide (alternativing 40mg/20mg), ambrisentan 10mg/day (generic), dofetilide and xarelto. He denies any significant symptoms with this medication regimen. Today, Pt denies any fevers, chills, chest pain, heart palpitations, hemoptysis, dizziness, lightheadedness, syncope, weight change or night sweats. Past Medical History Past Medical History: Diagnosis Date Atrial fibrillation [...] secondary to MAC (IRIS event), tx rifabutin 08/17/06 - 09/22/06, elan/EMB 08/17/06 - 09/05/08, recurrent [...] flares Past Surgical History: Procedure Laterality Date ENDOSCOPIC CARPAL TUNNEL RELEASE Right 01/27/2019 Surgeon: Saulo Gary MD; [facility] ENDOSCOPIC CARPAL TUNNEL RELEASE Left 05/06/2019 Surgeon: Saulo Gary MD; [facility] KNEE ARTHROSCOPY Family History Problem Relation Age of Onset Non-contributory Other Social History Socioeconomic History Marital status: Spouse [...] Sexual Activity Alcohol use: No Alcohol/week: 0.0 standard drinks Drug use: No Sexual activity: Yes Partners: Female Comment: HIV negative Lifestyle Physical activity: Days per week: Not on file Minutes per session: Not on file Stress: Not on file Relationships Social connections: Talks on phone: Not on file Gets together: Not on file Attends uatsdin service: Not on file Active member of [...] on file Social History Narrative Lives in [place] with . Has disability. Medicare and [place] ADAP and SPAP. Very supportive and family. 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 [facility] . FAx - [phone] (he fills Letairis through this pharmacy). [employer] Enhanced PDP Prescription Drug plan RxBIN: [id number] RxPCN: [id number] RxGRP: [id number] Allergies: Abacavir; Benadryl [diphenhydramine hcl]; Cipro [ciprofloxacin]; and Sulfa (sulfonamide antibiotics) Immunizations: Immunization History Administered Date(s) Administered HEPATITIS A 07/26/2009, 01/28/2010 Hep B, Adol or Pedi Dosage 07/26/2009, 12/27/2009, 01/28/2010 Influenza High Dose 01/17/2014, 01/20/2019 Influenza Virus Vaccine 02/01/2009, 04/18/2010, 01/09/2011, 01/23/2012, 05/04/2013 Influenza Virus Vaccine - Whole 01/19/2016 PPD (TB) 07/26/2009, 01/09/2011, 01/23/2012 Pneumococcal 13 Conjugate, PCV13 (Prevnar 13) 01/20/2019 Pneumococcal 7 Conjugate, PCV7 (Prevnar7) 01/17/2014 Pneumococcal Polysaccharide, PPSV23 (PNEUMOVAX) 07/26/2009 TDAP (ADACEL) VACCINE 01/09/2011 Typhoid 07/11/2011 Current Medications: Current Outpatient Medications Medication Sig Dispense Refill ambrisentan (LETAIRIS) 10 mg tablet TAKE 1 TABLET BY MOUTH ONCE DAILY 30 tablet 10 HYDROcodone-acetaminophen (NORCO) 10-325 mg tablet Take 1 tablet by mouth every 6 (six) hours asneeded for Pain (scale 4-6). 10 tablet 0 BIKTARVY 50-200-25 mg tablet Take 1 tablet by mouth daily. dofetilide 125 mcg capsule Take 1 capsule by mouth 2 (two) times daily. rivaroxaban 20 mg tablet Take 1 tablet by mouth daily. torsemide 20 mg tablet Take 2 tablets by mouth daily. 60 tablet 6 valACYclovir 1 gram tablet Take 1 g by mouth daily. rivaroxaban 20 mg tablet Take 1 tablet by mouth daily. LYRICA 100 mg capsule TAKE ONE CAPSULE BY MOUTH THREE TIMES A DAY NEEDED 90 Cap 2 acyclovir (ZOVIRAX) 400 mg tablet TAKE ONE TABLET BY MOUTH THREE TIMES A DAY NEEDED FOR OUTBREAK 90 Tab 11 montelukast (SINGULAIR) 10 mg tablet TAKE ONE TABLET BY MOUTH ONCE A DAY 30 Tab 3 No current facility-administered medications for this visit. Review of Systems: A 12 point review of systems was obtained and negative except for what was mentioned in the HPI Physical Exam and Objective Data A limited physical exam was able to be performed due to the telephone encounter Constitutional: Patient is alert and oriented x3 Respiratory: Patient is able to speak in full sentences with no signs of distress, no audible wheezing, hoarseness or cough heard during the conversation CBC BMP LFTs WBC x10^3 (/uL) Date Value 01/17/2014 5.4 WBC (10*3/L) Date Value 10/15/2017 7.29 NA Date Value 01/20/2019 142 mmol/L 06/21/2014 144 MMOL/L ALK PHOS (U/L) Date Value 01/17/2014 67 HGB Date Value 10/15/2017 14.0 g/dL 01/17/2014 15.1 G/DL K Date Value 01/20/2019 3.8 mmol/L 06/21/2014 3.9 MMOL/L ALT(SGPT) (U/L) Date Value 01/17/2014 29 HCT (%) Date Value 10/15/2017 42.6 01/17/2014 43.1 CALCIUM Date Value 01/20/2019 9.5 mg/dL 06/21/2014 9.2 MG/DL AST(SGOT) (U/L) Date Value 01/17/2014 30 PLT x10^3 (/uL) Date Value 01/17/2014 192 PLT (10*3/L) Date Value 10/15/2017 162 CL Date Value 01/20/2019 107 mmol/L 06/21/2014 105 MMOL/L RBC x10^6 (/uL) Date Value 01/17/2014 4.67 RBC (10*6/L) Date Value 10/15/2017 4.52 BUN Date Value 01/20/2019 20 mg/dL 06/21/2014 19 MG/DL Cardio CREATININE Date Value 01/20/2019 1.13 mg/dL 06/21/2014 1.11 MG/DL NT-proBNP (pg/mL) Date Value 01/20/2019 190 (H) 06/21/2014 548 (H) Thyroid TSH (uIU/mL) Date Value 07/07/2006 1.80 No components found for: GLUC Results Reviewed: 6 Minute walk test 09/2017 No exercise desaturation with ambulation of 1178 feet 6 Minute walk test 07/2018 No exercise desaturation with ambulation of 1150 feet 6 Minute walk test 01/20/2019 No exercise desaturation with ambulation of 1160 ft CXR 11/2018 significant for clear lung velazquez TTE 10/2015 is significant for preserved systolic function, impaired relaxation,elevated RVSP and RV enlargement Assessment & Plan Arsen Espinoza is a 69 year old male with //HIV with associated PAH, functional class II - No new bloodwork or 6MWT at this time, however Pt remains stable with respect to symptom burden. - Pt advised to continue Ambrisentan 10mg PO daily - Continue ART therapy, diuretic therapy (torsemide alternating 40mg/20mg), atrial fibrillation therapy (xarelto, dofetilide) - Continue to remain active - Plan for follow up in HIV clinic - Will plan for repeat bloodwork and 6MWT at next visit. - Discussed with the patient that due to their medical history they are at higher risk of complications from COVID-19 infection, hence we recommend the following: - Avoid exposure as much as possible by staying at home - Wash hands with soap and water for at least 20 seconds - Avoid touching eyes, nose and mouth with unwashed hands - Avoid close contact with people who are sick - Clean and disinfect frequently touched surfaces daily - Follow up visit in 6 months Plan was reviewed with Dr Bhakta and discussed with the patient. All concerns were addressed and allquestions answered. A total of 25 minutes was spent on the Telephone due to patient unable to obtain video call option with the patient. Romel Natarajan MD PhD PGY6 Fellow Pulmonary & Critical Care Medicine documented in this encounter Plan of Treatment Health Maintenance Due Date Last Done Comments [...] filedocumented in this encounter Visit Diagnoses Diagnosis PAH (pulmonary artery hypertension) with HIV infection - Primary Other chronic pulmonary heart diseases Chronic atrial fibrillation Atrial fibrillation documented in this encounter Insurance Payer Benefit Plan / Subscriber ID Effective Dates Phone Addre ss Type Group [employer] [id number] 2018-Presen Medicare Adv PLUS PLUS t HMO CLASSIC/VALUE documented as of this encounter Advance Directives Type Date Recorded Patient Manager Mall Explanati on Advance Directives and Living Will Power of Peace Officer 07/23/2016 8:14 AM
--- OUTSIDE RECORDS SUMMARY | 2019-09-26 11:30 | XMS REPORT | Summary of Care ---
:1950 Author Organization [facility] - [facility] Address [address] [place], [place] [id number] Care Team Providers Name Role Phone Toni Bhakta MD Unavailable Dominic Turner MD Primary Care Provider Reason for Visit Reason Comments Follow-up Encounter Details Date Type Department Care Team Description 07/27/2019 Telemedicine Visit [facility] Yony, ELIEZER (pulm onary artery hypertension) with HIV infection (Primary Dx); Pulmonary- Chandu Swain Chronic atrial fibrillation [facility] [address] [place] [address] Ctr [id number] [id number] [place] [address] [phone] Allergies Active Allergy Reactions Severity Noted [...] Overview: MAC-Mycobacterium avium complex ICD10 Diagnosis Term [employer] Utility Osteomyelitis 07/22/2006 Overview: ICD10 Diagnosis Term [employer] Utility HIV/AIDS 07/22/2006 documented as of this [...] on filedocumented in this encounter Progress Notes Toni Bhakta MD - 07/27/2019 8:30 AM CDTAfter discussion with Dr. Natarajan, I examined this patient with Dr. Natarajan. I agree with the fellow's note as written. Arsen Espinoza is a 69 year old male with pulmonary arterial hypertension (PAH) associated with HIV being treated with letairis 10 mg/day with sound response. Functional class 2. Remains active and adherent to treatment with 2 L/day fluid limitation. Atrial fibrillation rate controlled wit hout bleeding complications related to anticoagulation. Zuly Sue MD - 07/27/2019 8:30 AM CDT Pulmonary [...] mg/day to avoid monthly LFTs Rheumatoid arthritis(714.0) 2003 including IRIS flares Past Surgical History: Procedure Laterality Date ENDOSCOPIC CARPAL TUNNEL RELEASE Right 01/27/2019 Surgeon: Saulo Gary MD; [facility] ENDOSCOPIC CARPAL TUNNEL RELEASE Left 05/06/2019 Surgeon: Saulo Gary MD; Location: [facility] KNEE ARTHROSCOPY Family History Problem [...] file Gets together: Not on file Attends samaritan service: Not on file Active member of [...] on file Social History Narrative Lives in [place] with . Has disability. Medicare and [place] ADAP and SPAP. Very supportive and family. 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 [facility] . FAx - [phone] (he fills Letairis through this pharmacy). [employer] Enhanced PDP Prescription Drug plan RxBIN: [id number] RxPCN: [id number] RxGRP: [id number] Allergies: Abacavir; Benadryl [diphenhydramine hcl]; [...] Treatment Date Type Specialty Care Team Description 02/01/2020 Office Visit Pulmonary Disease Scotty Bhakta MD [address] [place], [place] [address] Health Maintenance Due Date [...] Effective Dates Phone Addre ss Type Group [facility] [id number] 2018-Presen Medicare Adv PLUS PLUS t HMO CLASSIC/VALUE documented as of this encounter Advance Directives Type Date Recorded Patient Evaporator Operator Molasses Explanati on Advance Directives and Living Will Power of Cnc Machine Setter 07/23/2016 8:14 AM
[2019-09-26] MEDS ORDERED: ACETAMINOPHEN 325 MG TABLET PO PRN (14:38)
[2019-09-26] MEDS ORDERED: NITROGLYCERIN 0.4 MG/TAB SL PRN (14:38)
[2019-09-26 15:02] VITALS: BMI 26.6
[2019-09-26] MEDS: PREGABALIN 50 MG CAP PO SCH (21:00)
[2019-09-26] MEDS: DOFETILIDE PO SCH (21:00)
[2019-09-26] MEDS ORDERED: FUROSEMIDE 40 MG/4 ML VIAL IV ONE (21:06)
[2019-09-26] MEDS: ALBUTEROL 2.5 MG/3 ML NEB SOL NEB PRN (21:20)
--- NOTE | 2019-09-26 22:06 | OP ---
Date of Procedure: 09/26/2019 Surgeon: YOEL MANRIQUEZ Procedure Performed: 1.Selective coronary angiogram. 2.Left heart catheterization. 3.Percutaneous coronary intervention of ostial severe diagonal branch stenosis using a 3.5 x 12 mm S ynergy drug-eluting stent. Access: Right radial artery 6-Citizen Of [place] closed with TR band. Nanofabrication Specialist: Adam Silvestre M.D. Secondary Manager Patient: Yoel Manriquez. Complications: None. Bleeding: Less than 10 mL. Indication For Procedure: Unstable angina. Total Sedation Time: 55 minutes. Procedure In Detail: After informed consent was obtained, patient was brought into the cardiac dell terization laboratory, prepped and draped in usual sterile fashion and the access right radial artery using the pediatric micropuncture kit and using incremental doses of Versed and fentanyl and adequat e moderate sedation was maintained throughout the procedure. We took a 6-[place]izen [place] Balm catheter over the J-wire into the aortic root and engaged the left main coronary artery and then the right coronary artery. We took the standard view pictures and found to have significant first diagonal branch 1 st enosis, which is a large vessel. Decided to proceed for PCI and we exchanged the Balm catheter into the 6-[place]izen [place] EBU 3.5 guide to engage the left main. Then, we took a 2 run-through wires, 1 was sent into the LAD for protection. The other one was used to wire the lesion of the diagonal branch and t hen we took 3-0 Vicryl mm Emerge compliant balloon, pre-dilated the lesion, and opened the vessel nikolay y well and we took a 3.5 x 12 mm Synergy drug-eluting stent across the lesion, stent was deployed suc cessfully and images post stent deployment showed significant improvement with the residual stenosis 0% and GILMAR-3 flow. Lesion length was 10 mm and there was GILMAR-3 flow before and after the procedure . The stenosis was 95% before PCI and 0% after PCI. At that time, all wires and catheters were omayra troy and applied a TR band at the sheath site with good hemostasis. The patient also was given 180 mg of Brilinta during the procedure in the cath able to be continued for dual anti-platelet therapy. Findings: Severe ostial diagonal 1 branch, which is a large vessel, status post PCI above was 0% res idual stenosis. Recommendations: 1.Aggressive medical management of coronary artery disease and cardiac risk factor modification. 2.Brilinta and aspirin. Brilinta for 1 year and aspirin for life and statin therapy. SR/MODL Voice ID: [id number] Report ID: [id number]
[2019-09-27] MEDS ORDERED: ALBUTEROL 2.5 MG/3 ML NEB SOL NEB SCH
[2019-09-27] MEDS: ALBUTEROL 2.5 MG/3 ML NEB SOL NEB PRN ×2 (04:30)
[2019-09-27] MEDS: PREGABALIN 50 MG CAP PO SCH (07:46)
[2019-09-27 07:48] VITALS: BP 162/74
[2019-09-27] MEDS: DOFETILIDE PO SCH (07:48)
[2019-09-27 07:52] VITALS: O2SAT 96
[2019-09-27 08:51] VITALS: TEMP 96.6
[2019-09-27] MEDS ORDERED: VALACYCLOVIR 500 MG TAB PO SCH ×4 (09:00→22:00)
[2019-09-27] MEDS ORDERED: AMBRISENTAN 10 MG PO SCH (09:00)
[2019-09-27] MEDS ORDERED: TORSEMIDE 20 MG TAB PO SCH (09:00)
[2019-09-27] MEDS ORDERED: MONTELUKAST 10 MG TAB PO SCH (09:00)
[2019-09-27] MEDS ORDERED: BIKTARVY PO SCH (09:00)
[2019-09-27] MEDS ORDERED: RIVAROXABAN 20 MG TABLET PO SCH (17:00)
--- NOTE | 2019-09-28 01:24 | PN ---
History Of Present Illness: Mr. Espinoza had a heart catheterization on 09/26/2019 with a large diagon al stenosis with a stent by Dr. Raymundo with 0% residual. Overnight, he had some issues with shortnes s of breath and wheezing. He received the nebulizer treatment every 4 hours. He got 1 dose of Lasix 40 mg IV push. He diuresed significantly. This morning, his vital signs were stable. He has 98% n jatin cannula O2. He has no symptoms. Denied any shortness of breath or chest pain. Physical Examination: Vital Signs: Stable. Chest: Clear. His right radial entry site was normal without any hematoma. He had good distal puls es in the radial area on the right. His chest was clear. Cardiac: Revealed no murmurs, gallops, or r ubs. He had a regular rhythm and rate. Extremities: Revealed no clubbing, cyanosis, or edema. Final Diagnoses: Status post a diagonal stent, chronic obstructive pulmonary disease exacerbation, p ossible acute on chronic diastolic congestive heart failure exacerbation. Plan: We will continue his present regimen. He can go home. Resume Xarelto. Start Plavix 75 mg da alonso. No aspirin and I will see him in the office in the next 2 weeks. BRENNAN/GARY Voice ID: [id number] Report ID: [id number]
== END 2019-09-27 09:54 | disposition home or self-care (01) ==
LOC: CCL 08:40 → 2ND 11:22 → CCL 09-27 09:54
DX: I25.110 Atherosclerotic heart disease of native coronary artery with unstable angina pectoris (principal); J44.1 Chronic obstructive pulmonary disease with (acute) exacerbation; I10 Essential (primary) hypertension; I48.0 Paroxysmal atrial fibrillation; I27.9 Pulmonary heart disease, unspecified; R00.2 Palpitations; Z21 Asymptomatic human immunodeficiency virus [HIV] infection status; Z88.2 Allergy status to sulfonamides; Z88.8 Allergy status to other drugs, medicaments and biological substances
CPT/HCPCS: 85025; 80048; 36415; 85610; 85347; 85730; 71046; 93458; 94640; C1893; C1725; C9600; J1940; J1644 ×2; J2250; J3010; J7040

== ENCOUNTER → 2021-05-22 | Day surgery (SDC) | payer OTHER ==
--- NOTE | 2021-05-22 11:19 | RAD REPORT ---
EXAM DESCRIPTION: US - Guided FNA Non Breast - 05/22/2021 10:36 am CLINICAL HISTORY: E04.1 COMPARISON: No comparisons FINDINGS: Preoperative diagnosis: Left thyroid nodule. Post operative diagnosis: Same. Conscious Sedation: None Fluoroscopy time: None Contrast used: None Estimated blood loss: Minimal Specimens:3 fine-needle aspirates were obtained The neck was prepped and draped in the usual sterile fashion. 1% lidocaine was infiltrated into the s ubcutaneous tissues for local anesthesia. Real time ultrasound scanning of the thyroid demonstrated t he suspicious left thyroid nodule. Several fine needle aspirates were obtained. There were no complic ations. IMPRESSION: Technically successful ultrasound-guided fine-needle aspiration of a suspicious left thy roid nodule.
== END ==
LOC: FNA 10:21
PROVIDERS: ATTEND Otolaryngology Facial Plastic Surgery
PROC: 0GJK3ZZ Inspection of Thyroid Gland, Percutaneous Approach (ICD-10-PCS; principal; 2021-05-22)
DX: E04.1 Nontoxic single thyroid nodule (principal)
CPT/HCPCS: 88162

== ENCOUNTER 2021-06-24 08:30 | Day surgery (SDC) | payer OTHER ==
[2021-06-21 13:23] VITALS: BMI 24.1
[2021-06-21 14:11] LABS: Absolute Lymphocytes (CBC) 2.3 K/uL (0.7-4.9); Hematocrit 23.3 % (39.6-49.0); Lymphocytes % 36.9 % (15.3-44.8); MPV 7.7 fL (7.6-11.3); RBC Red Blood Cell Count 3.09 M/uL (4.33-5.43)
[2021-06-21 14:14] LABS: Potassium 3.3 mmol/L (3.5-5.1)
[2021-06-21 14:32] LABS: Protime INR 1.53
--- NOTE | 2021-06-21 14:38 | RAD REPORT ---
EXAM DESCRIPTION: [place] Pa And Lat (2 Views)06/21/2021 1:44 pm CLINICAL HISTORY: Preop for cardiac catheterization. Atrial fibrillation COMPARISON: 2019 FINDINGS: Marked enlargement of central pulmonary arteries without significant change likely pulmona ry arterial hypertension Lungs appear clear. The heart is mildly to moderately enlarged
[2021-06-24] MEDS ORDERED: FENTANYL CITR 100 MCG/2 ML ONE (09:44)
[2021-06-24] MEDS ORDERED: MIDAZOLAM HCL 2 MG/2 ML INJ ONE (09:45)
--- NOTE | 2021-06-24 11:09 | OP ---
Date of Procedure: 06/24/2021 Surgeon: Adam Silvestre MD Video Game Creator: Ms. Zaida Adams. The patient will remain in the hospital for 2 hours of bedrest after his StarClose. He will go home. He will resume his Xarelto tomorrow. I will see him in the office in 2 weeks. Procedures: Left heart catheterization, selective coronary arteriogram. Indication: Unstable angina. History Of Present Illness: Mr. Espinoza is 71, brought to the biological lab technician today as an outpatient. He wa s prepped and draped in routine sterile fashion. Given Versed and fentanyl for sedation. A 6-[place] sheath introduced in the right common femoral artery successfully. Angiography there was normal. S tarClose was used to close the case. A 6-[place] Michael catheter left and right were used to cannula te the left main and right main respectively. There was found to have a patent stent and a very larg e diagonal. His left main, LAD, circumflex, and RCA were all normal. The patient tolerated the proc edure well. There were no complications. Blood loss was 5 cc. Final Diagnosis: Mild coronary artery disease, patent diagonal stent. Anesthesia: Total conscious sedation was 30 minutes. Plan: Plan is for medical therapy. BRENNAN/GARY Voice ID: [id number] Report ID: [id number]
[2021-06-24 12:10] VITALS: BP 130/65; O2SAT 94
== END 2021-06-24 12:00 | disposition home or self-care (01) ==
LOC: CCL 08:30
DX: I25.110 Atherosclerotic heart disease of native coronary artery with unstable angina pectoris (principal); I27.81 Cor pulmonale (chronic); I48.0 Paroxysmal atrial fibrillation; I10 Essential (primary) hypertension; I73.9 Peripheral vascular disease, unspecified; E04.1 Nontoxic single thyroid nodule; Z95.5 Presence of coronary angioplasty implant and graft; Z88.8 Allergy status to other drugs, medicaments and biological substances; Z88.2 Allergy status to sulfonamides; Z20.822 Contact with and (suspected) exposure to COVID-19
CPT/HCPCS: 85025; 80048; 85610; 85730; 71046; 93454; C1893; J2250; J3010

== ENCOUNTER 2022-09-03 11:15 | Inpatient (IN) | payer OTHER ==
--- OUTSIDE RECORDS SUMMARY | 2022-09-03 11:33 | XMS REPORT | Continuity of Care Document ---
:1950 Author Organization [facility] t Address [address] [place] [address] [address] [place] [address] Care Team Providers Name Role Phone Pcp, Patient Does Not Have A Primary Care Physician [phone] 00-0000 Yoel Raymundo Attending Clinician Unavailable FELIX ELISE Attending Clinician Unavailable July Attending Clinician Unavailable BABAR KEARNEY Attending Clinician Unavailable TONI BHAKTA Attending Clinician Unavailable VIDYAPOKACIE JENNINGS Attending Clinician Unavailable Doctor Unassigned, [place] Attending Clinician Unavailable Babar Best Attending Clinician [facility] Attending Clinician Unavailable Toni Bhakta MD Attending Clinician Pob, Adc Lab Main Attending Clinician Unavailable Willie Finn MD Attending Clinician WILLIE FINN Attending Clinician Unavailable Idc-Lab Attending Clinician Unavailable Frida DECK ENGINE OPERATOR, Estrada Attending Clinician Janey Messina PA-C Attending Clinician AMILCAR LIRA Attending Clinician Unavailable JANEY MESSINA Attending Clinician Unavailable Call, Clc Apa Phone Attending Clinician Unavailable Only, Adc Test Attending Clinician Unavailable Amilcar Lira MD Attending Clinician Nurse, Clc Echo Attending Clinician Unavailable JASON KUMARI Attending Clinician Unavailable Zohaib Ling MD Attending Clinician Felix Elise MD Attending Clinician Only, Deven Test Attending Clinician Unavailable Arsen Finn MD Attending Clinician Jason Kumari MD Attending Clinician Cathryn Culp RN Attending Clinician Unavailable UMESH CORONADO Attending Clinician Unavailable UMESH CORONADO Attending Clinician Unavailable Dave SPRAGUEJuly Attending Clinician Cliff BACA, Umesh Glasgow Attending Clinician Vls-Lab Attending Clinician Unavailable Test, Vtc Pulmonary Function Attending Clinician Unavailable Leobardo BACA, Suzi Attending Clinician Mick Jimenez RN Attending Clinician Unavailable MARINA JANSEN Attending Clinician Unavailable ARSEN SCHWARTZ Attending Clinician Unavailable Jame Florez MD Attending Clinician Ibikunterry OWUSU Folusho F Attending Clinician Andrews Beatty MD Attending Clinician Arsen Schwartz MD Attending Clinician Mami Watts MD Attending Clinician MAMI WATTS Attending Clinician Unavailable Reji Terrell DO Attending Clinician Therapy, [facility] Covid Infusion Attending Clinician Unavailable Lab, Adc Fam Pob I Attending Clinician Unavailable Leon Roman Attending Clinician LEON DELUNA Attending Clinician Unavailable Lety Erazo MD Attending Clinician LETY ERAZO Attending Clinician Unavailable Anat Oshea Attending Clinician ANAT MAN Attending Clinician Unavailable Rachel Hdz Attending Clinician Provider, [facility] Attending Clinician Unavailable RACHEL GORMAN Attending Clinician Unavailable Ajibade_O_AH Attending Clinician Unavailable Sherif Gary MD Attending Clinician SHERIF GARY Attending Clinician Unavailable Ige-[place]un[place]_J_AH Attending Clinician Unavailable Belinda Rosado MD Attending Clinician [place] MD Attending Clinician Kurtis Hansen Attending Clinician Clare Gomez MD Attending Clinician Kacie Angulo Attending Clinician Vikram Turner Admitting Clinician Unavailable FELIX ELISE Admitting Clinician Unavailable DAVEJuly Admitting Clinician Unavailable Yoel Raymundo Admitting Clinician Unavailable Felix Elise MD Admitting Clinician UMESH CORONADO Admitting Clinician Unavailable Umesh Coronado MD Admitting Clinician Arsen Schwartz MD Admitting Clinician ARSEN SCHWARTZ Admitting Clinician Unavailable Ajibade_O_AH Admitting Clinician Unavailable Ige-[place]unuga_J_AH Admitting Clinician Unavailable Sherif Gary MD Admitting Clinician Kacie Angulo Admitting Clinician Payers Payer Name Policy Type Policy Number Effective Date Expiration Date S ource HU[employer]NA [id number] 2021 HMO/HMOX/HMO 00:00:00 HUMANA [facility] [id number] 2021 HMO 00:00:00 [employer] [place] [id number] 2018 PLUS CLASSIC/VALUE 00:00:00 [place] - [id number] 2019 [place] 00:00:00 (MEDICARE REPLACEMENT/ADVANT AGE - HMO) Problems Condition Condition Condition Status Onset Resolution Last Treating Co mments Source Name Details Category Date Date Treatment Clinician Date Melena Melena Disease Active Univers 3-18 ity of 00:00: [address] Symptomati Symptomati Disease Active U nivers c anemia c anemia 3-16 ity of 00:00: [place] 00 Medical Branch Small Small Disease Active Univers bowel bowel 5-05 ity of obstruct[place] COVID-19 COVID-19 Disease Active Unive rs virus virus 5-05 ity of detected detected 00:00: [place] 00 Medical Branch Hemorrhagi Hemorrhagi Disease Active U nivers c necrosis c necrosis 5-05 it y of of of 00:00: [place] intestine intestine 00 [facility] Branch On On Disease Recurre Univers rivaroxaba rivaroxaba nce 5-05 it y of n therapy n therapy 00:[place] Atrial Atrial Disease Recurre 2018-04 Univers fibrillati fibrillati nce 0-04 it y of on on 00:00: [place] [facility] ATRIAL ATRIAL Diagnosis Active 2017-11-30 Me moria FIB, FIB, 11-20 15:17:00 l PALPATIONS PALPATIONS 00:00: [place] Active 00 11/20/2017 [facility] Hypertensi Hypertensi Disease Recurre Univers on on nce 4-28 ity of 00:00: [place] [facility] 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 nce 7-01 [place] of 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[place] 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 PAH PAH Disease Recurre Univers (pulmonary (pulmonary nce 1-13 it y of artery artery 00:00: [place] hypertensi hypertensi 00 Me dical on) on) Branch HIV HIV Disease Active Univers infection, infection, 4-04 it y of unspecifie unspecifie [place] d symptom 00 [facility] status status Branch Illness, Illness, Problem 2018-06-20 [facility] unspecifie unspecifie 13:26:24 l d d Ugo 06/20/2018 [facility] Pulmonary Pulmonary Problem 2018-06-20 [facility] hypertensi hypertensi 13:26:24 l on, on, Ugo unspecifie unspecifie d d 06/20/2018 [facility] Bifascicul Bifascicu Problem 2018-06-20 Memoria ar block lar block 13:26:24 l 06/20/2018 Maxim hayward [facility] Asymptomat Asymptoma Problem 2018-06-20 Memoria ic human tic human 13:26:24 l immunodefi immunodefi He rmann ciency ciency virus virus [HIV] [HIV] infection infection status status 06/20/2018 [facility] Herpesvira Problem 2018-06-20 M emoria l Herpesvira 13:26:24 l infection, l Maxim hayward unspecifie infection, d unspecifie d 06/20/2018 [facility] Allergic Allergic Problem 2018-06-20 Memoria rhinitis, rhinitis, 13:26:24 l unspecifie unspecifie He rmann d d 06/20/2018 [facility] 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, desire, 13:26:24 l unspecifie unspecifie He rmann d d 06/20/2018 [facility] Paroxysmal Problem 2018-06-20 M emoria atrial Paroxysmal 13:26:24 l fibrillati atrial Maxim hayward on fibrillati on 06/20/2018 [facility] ILLNESS, ILLNESS, Diagnosis Active 2017-11-30 Memoria UNSPECIFIE UNSPECIFIE 15:17:00 l D D Active Ugo [facility] History of Past Illness Condition Condition Condition Status Onset Resolution Last Treating Co mments Source Name Details Category Date Date Treatment Clinician Date Persistent Persisten Problem 2017-2018-06-20 2018-06-20 [facility]oria atrial t atrial 8 13:26:24 13:26:24 l fibrillati fibrillati 03:29: He rmann on on 53 12/12/2017 06/20/2018 [facility] Allergies, Adverse Reactions, Alerts Allergy Allergy Status Severity Reaction(s) Onset Inactive Treating Comm ents Source Name Type Date Date Clinician METOPROL DRUG Active Anaphylaxis Uni vers OL INGREDI 08-13 ity of 00:00: Medical Branch AMIODARO DRUG Active SOB Univers NE HCL INGREDI 08-13 ity of 00:00: 00 Medical Branch Amiodaro Propensi Active Shortness of Univers ne Hcl ty to Breath 08-13 ity of adverse 00:00: [place] reaction 00 Medical s Branch Metoprol Propensi Active Anaphylaxis U nivers ol ty to 4-26 ity of adverse 00:00: [place] reaction 00 [facility] iron DA Active SV IRON IV [facility] INFUSION- 4-03 Clear HOT FLASHES, 00:00: [place] RASH, 00 [facility] niacin DA Active SV REDNESS, [facility] DYSPNEA 4-03 Clear 00:00: [place] 00 [facility] NSAIDS DA Active U UNKNOWN [facility] (Non-Rowdy 2-06 Clear roidal 00:00: [place] Anti-Inf 00 [facility] lamma [facility] sotalol DA Active SV SHORTNESS OF [facility] BREATH 5-16 Clear 00:00: [place] 00 [facility] Sulfa DA Active SV RASH [facility] (Sulfona 5-16 Clear mide 00:00: [place] Antibiot 00 [facility] iron DA Active SV HOT FLASHES, [facility] RASH 5-16 Clear 00:00: [place] 00 [facility] diphenhy DA Active SV HEART [facility] dramine FLUTTERS 5-16 Clear 00:00: [place] 00 [facility] abacavir DA Active SV HEART [facility] PROBLEMS 5-16 Clear 00:00: [place] 00 [facility] metoprol DA Active SV SHORTNESS OF HC A ol BREATH 5-16 Clear 00:00: [place] 00 [facility] Iron Propensi Active Shortness of IV iron U nivers ty to Breath 3-29 ity of adverse 00:00: [place] reaction [facility] Niacin Propensi Active Other - See Turns red Univers ty to comments 3-29 and has ity of adverse 00:00: heat [place] reaction 00 flashes [facility] IRON DRUG Active ITCHING Univers INGREDI 3-29 ity of 00:00: [place] 00 [facility] NIACIN DRUG Active Other-Cmnt 0 Univer s INGREDI 3-29 ity of 00:00: [place] 00 [facility] ABACAVIR DRUG Active Anaphylaxis Uni vers HCL INGREDI 5-04 ity of 00:00: [place] 00 [facility] Abacavir Propensi Active Anaphylaxis 2020- U nivers Hcl ty to 5-04 ity of adverse 00:00: [place] reaction 00 Medical s Branch DIPHENHY DRUG Active Other-Cmnt 2018-04 Univ ers DRAMINE INGREDI 0-03 ity of HCL 00:00: [place] 00 Medical Branch Diphenhy Propensi Active Other - See 2018- It cause s Univers dramine ty to comments 0-03 palpitati ity of Hcl adverse 00:00: ons and [place] reaction 00 worsening Medic al s of the Branch patients A-fib ABACAVIR DRUG Active High Palpitations 2008-04 Un baldemar INGREDI 0-15 ity of 00:00: [place] 00 Medical Branch Abacavir Propensi Active Palpitations 2008-04 Univers ty to 0-15 ity of adverse 00:00: [place] reaction 00 Medical s to Branch drug CIPROFLO DRUG Active Rash 2005-0 Univers XACIN INGREDI 1-28 ity of 00:00: [place] 00 Medical Branch Ciproflo Propensi Active Rash 2005-0 Univer s xacin ty to 1-28 ity of adverse 00:00: [place] reaction 00 Medical s Branch Sulfa Propensi Active Rash 2005-0 Univers (Sulfona ty to 1-23 ity of mide adverse 00:00: [place] Antibiot reaction 00 Medica l ics) s Branch SULFA Drug Active Rash 2005-0 Univers (SULFONA Class 1-23 ity of MIDE 00:00: [place] ANTIBIOT 00 Medical ICS) Branch SULFAMET DRUG Active Rash 2005-0 Univers HOXAZOLE 1-23 ity of -TRIMETH 00:00: [place] OPRIM 00 Medical Branch Sulfamet Propensi Active Rash 2005-0 Univer s hoxazole ty to 1-23 ity of -Trimeth adverse 00:00: [place] oprim reaction 00 Medical s Branch sulfa sulfa Active Memoria drugs drugs l Ugo metoprol metoprol Active Memori a ol ol l Ugo Betapace Betapace Active Memori a l Ugo Bactrim Bactrim Active Memoria l [place] Social History Social Habit Start Date Stop Date Quantity Comments Source Exposure to 2022-08-03 2022-08-13 Not sure [facility] SARS-CoV-2 00:00:00 08:04:00 [facility] (event) [place] Alcohol intake 2022-08-13 2022-08-13 0 /d University of 00:00:00 00:00:00 [facility] Tobacco use and 2021-07-03 2021-07-03 Smokeless tobacco Un iversity of exposure 00:00:00 00:00:00 non-user [facility] Social History 2017-11-27 2017-11-27 [facility] Yu reyes 16:23:04 16:23:04 [birth year] Universit y of 00:00:00 00:00:00 [facility] Smoking Status Start Date Stop Date Source Never smoked tobacco [facility] [place] [facility] Medications Ordered Filled Start Stop Current Ordering Indication Dosage Frequency Signature Comments Components Source Medication Medication Date Date Medication? Clinician (SIG) Name Name FA/mv,Ca,ir 2022-0 Yes Take by Uni vers on,min/lyco 4-26 mouth. ity of pene/lut 08:12: [place] [address] Medical ORAL) Branch FA/mv,Ca,ir 2022-0 Yes Take by Uni vers on,min/lyco 4-26 mouth. ity of pene/lut 08:12: [place] ([place] [address] Medical ORAL) Branch FA/mv,Ca,ir 2022-0 Yes Take by Uni vers on,min/lyco 4-26 mouth. ity of pene/lut 08:12: [place] ([place] [address] Medical ORAL) Branch FA/mv,Ca,ir 2022-0 Yes Take by Uni vers on,min/lyco 4-26 mouth. ity of pene/lut 08:12: [place] ([place] [address] Medical ORAL) Branch FA/mv,Ca,ir 2022-0 Yes Take by Uni vers on,min/lyco 4-26 mouth. ity of pene/lut 08:12: [place] ([place] [address] Medical ORAL) Branch FA/mv,Ca,ir 2022-0 Yes Take by Uni vers on,min/lyco 4-26 mouth. ity of pene/lut 08:12: [place] ([place] [address] Medical ORAL) Branch cefdinir 2022-0 2022- No Univers 300 mg 07-29 ity of capsule 00:00: 00:00 [place] 00 :00 Medical Branch cefdinir 2022-0 2022- No Univers 300 mg 07-29 ity of capsule 00:00: 00:00 [place] 00 :00 Medical Branch amiodarone 2022- No Univer s 200 mg 07-23 ity of tablet 00:00: 00:00 [place] 00 :00 Medical Branch amiodarone 2022-0 2022- No Univer s 200 mg 07-23 ity of tablet 00:00: 00:00 [place] 00 :00 Medical Branch methocarbam 2022-2022- No Unive rs oL 500 mg 07-17 ity of tablet 00:00: 00:00 [place] 00 :00 Medical Branch methylPREDN 2022-0 2022- No Unive rs ISolone 4 07-17 ity of mg tablets 00:00: 00:00 [place] 00 :00 Medical Branch methocarbam 2022-2022- No Unive rs oL 500 mg 07-17 ity of tablet 00:00: 00:00 [place] 00 :00 Medical Branch methylPREDN 2022-0 2022- No Unive rs ISolone 4 07-17 ity of mg tablets 00:00: 00:00 [place] 00 :00 Medical Branch AMBRISENTAN 2022-0 Yes [id number] 10mg TAKE 1 Univers 10 mg 3-06 TABLET BY ity of tablet 00:00: MOUTH IN [place] 00 THE Medical MORNING. Branch AMBRISENTAN 2022-0 Yes [id number] 10mg TAKE 1 Univers 10 mg 3-06 TABLET BY ity of tablet 00:00: MOUTH IN [place] THE Medical MORNING. Branch AMBRISENTAN 2022-0 Yes [id number] 10mg TAKE 1 Univers 10 mg 3-06 TABLET BY ity of tablet 00:00: MOUTH IN [place] THE Medical MORNING. Branch AMBRISENTAN 2022-0 Yes [id number] 10mg TAKE 1 Univers 10 mg 3-06 TABLET BY ity of tablet 00:00: MOUTH IN [place] THE Medical MORNING. Branch AMBRISENTAN 2022-0 Yes [id number] 10mg TAKE 1 Univers 10 mg 3-06 TABLET BY ity of tablet 00:00: MOUTH IN [place] 00 THE Medical MORNING. Branch AMBRISENTAN 2022-0 Yes [id number] 10mg TAKE 1 Univers 10 mg 3-06 TABLET BY ity of tablet 00:00: MOUTH IN [place] 00 THE Medical MORNING. Branch digoxin 250 2022- No Unive rs mcg (0.25 2-04 -26 ity of mg) tablet 00:00: 00:00 [place] 00 :00 Medical Branch digoxin 250 2022- No Unive rs mcg (0.25 2-04 04-26 ity of mg) tablet 00:00: 00:00 [place] 00 :00 Medical Branch ambrisentan 2022-0 Yes [id number] 10mg Take 1 Univers (LETAIRIS) 1-17 tablet by ity of 10 mg 00:00: mouth in [place] tablet 00 the Medical morning. Branch ambrisentan 2022-0 Yes [id number] 10mg Take 1 Univers (LETAIRIS) 1-17 tablet by ity of 10 mg 00:00: mouth in [place] tablet 00 the Medical morning. Branch ambrisentan 2022-0 Yes [id number] 10mg Take 1 Univers (LETAIRIS) 1-17 tablet by ity of 10 mg 00:00: mouth in [place] tablet 00 the Medical morning. Branch ambrisentan 0 Yes [id number] 10mg Take 1 Univers (LETAIRIS) 1-17 tablet by ity of 10 mg 00:00: mouth in [place] tablet 00 the Medical morning. Branch ambrisentan 2022-0 Yes [id number] 10mg Take 1 Univers (LETAIRIS) 1-17 tablet by ity of 10 mg 00:00: mouth in [place] tablet 00 the Medical morning. Branch ambrisentan 0 Yes [id number] 10mg Take 1 Univers (LETAIRIS) 1-17 tablet by ity of 10 mg 00:00: mouth in [place] tablet 00 the Medical morning. Branch ambrisentan 2022- No [id number] 10mg Take 1 Univers (LETAIRIS) 1-17 03-06 tablet by ity of 10 mg 00:00: 00:00 mouth in [place] tablet 00 :00 the Medical morning. Branch pregabalin 2021-04- No 100mg Take 100 U nivers (LYRICA) 2-21 12-21 mg by ity of 100 mg 14:22: 00:00 mouth 3 [place] capsule 42 :00 (three) Medical times Branch daily. pregabalin 2021-04- No 100mg Take 100 U nivers (LYRICA) 2-21 12-21 mg by ity of 100 mg 14:22: 00:00 mouth 3 [place] capsule 42 :00 (three) Medical times Branch daily. pregabalin 2021-04 Yes [id number] 100mg Take 1 Univers (LYRICA) 2-21 capsule by ity o f 100 mg 00:00: mouth in [place] capsule 00 the Medical morning Branch and 1 capsule at noon and 1 capsule in the evening. pregabalin 2021-04 Yes [id number] 100mg Take 1 Univers (LYRICA) 2-21 capsule by ity o f 100 mg 00:00: mouth in [place] capsule 00 the Medical morning Branch and 1 capsule at noon and 1 capsule in the evening. pregabalin 2021-04 Yes [id number] 100mg Take 1 Univers (LYRICA) 2-21 capsule by ity o f 100 mg 00:00: mouth in [place] capsule 00 the Medical morning Branch and 1 capsule at noon and 1 capsule in the evening. pregabalin 2021-04 Yes [id number] 100mg Take 1 Univers (LYRICA) 2-21 capsule by ity o f 100 mg 00:00: mouth in [place] capsule 00 the Medical morning Branch and 1 capsule at noon and 1 capsule in the evening. pregabalin 2021-04 Yes [id number] 100mg Take 1 Univers (LYRICA) 2-21 capsule by ity o f 100 mg 00:00: mouth in [place] capsule 00 the Medical morning Branch and 1 capsule at noon and 1 capsule in the evening. pregabalin 2021-04 Yes [id number] 100mg Take 1 Univers (LYRICA) 2-21 capsule by ity o f 100 mg 00:00: mouth in [place] capsule 00 the Medical morning Branch and 1 capsule at noon and 1 capsule in the evening. pregabalin 2021-04 Yes [id number] 100mg Take 1 Univers (LYRICA) 2-21 capsule by ity o f 100 mg 00:00: mouth in [place] capsule 00 the Medical morning Branch and 1 capsule at noon and 1 capsule in the evening. pregabalin 2021-04 Yes [id number] 100mg Take 1 Univers (LYRICA) 2-21 capsule by ity o f 100 mg 00:00: mouth in [place] capsule 00 the Medical morning Branch and 1 capsule at noon and 1 capsule in the evening. pregabalin 2021-04 Yes [id number] 100mg Take 1 Univers (LYRICA) 2-21 capsule by ity o f 100 mg 00:00: mouth in [place] capsule 00 the Medical morning Branch and 1 capsule at noon and 1 capsule in the evening. pregabalin 2021-04 Yes [id number] 100mg Take 1 Univers (LYRICA) 2-21 capsule by ity o f 100 mg 00:00: mouth in [place] capsule 00 the Medical morning Branch and 1 capsule at noon and 1 capsule in the evening. pregabalin 2021-04 Yes [id number] 100mg Take 1 Univers (LYRICA) 2-21 capsule by ity o f 100 mg 00:00: mouth in [place] capsule 00 the Medical morning Branch and 1 capsule at noon and 1 capsule in the evening. pregabalin 2021-04 Yes [id number] 100mg Take 1 Univers (LYRICA) 2-21 capsule by ity o f 100 mg 00:00: mouth in [place] capsule 00 the Medical morning Branch and 1 capsule at noon and 1 capsule in the evening. pregabalin 2021-04 Yes [id number] 100mg Take 1 Univers (LYRICA) 2-21 capsule by ity o f 100 mg 00:00: mouth in [place] capsule 00 the Medical morning Branch and 1 capsule at noon and 1 capsule in the evening. pregabalin 2021-04 Yes [id number] 100mg Take 1 Univers (LYRICA) 2-21 capsule by ity o f 100 mg 00:00: mouth in [place] capsule 00 the Medical morning Branch and 1 capsule at noon and 1 capsule in the evening. pregabalin 2021-04 Yes [id number] 100mg Take 1 Univers (LYRICA) 2-21 capsule by ity o f 100 mg 00:00: mouth in [place] capsule 00 the Medical morning Branch and 1 capsule at noon and 1 capsule in the evening. valACYclovi 2021-04 1g Take 1 g U nivers r 1 gram 203-26 by mouth ity of tablet 13:52: 00:00 daily. [place] 56 :00 [facility] valACYclovi 2021-04- No 1g Take 1 g U nivers r 1 gram 05-27 by mouth ity of tablet 13:52: 00:00 daily. [place] 56 :00 Medical Branch valACYclovi 2021-04- No 1g Take 1 g U nivers r 1 gram 2-07 -07 by mouth ity of tablet 13:52: 00:00 daily. [place] 56 :00 Medical [place] valACYclovi 2021-04- No 1g Take 1 g U nivers r 1 gram 2-07 -07 by mouth ity of tablet 13:52: 00:00 daily. [place] 56 :00 [facility] valACYclovi 2021-04 Yes [id number] 1 po BID x Univers r 1 gram 2-07 10 days ity of tablet 00:00: then 1 po [place] 00 once daily Medical therafer Branch valACYclovi 2021-04 Yes [id number] 1 po BID x Univers r 1 gram 2-07 10 days ity of tablet 00:00: then 1 po [place] 00 once daily Medical therafer Branch valACYclovi 2021-04 Yes [id number] 1 po BID x Univers r 1 gram 2-07 10 days ity of tablet 00:00: then 1 po [place] 00 once daily Medical therafer Branch valACYclovi 2021-04 Yes [id number] 1 po BID x Univers r 1 gram 2-07 10 days ity of tablet 00:00: then 1 po [place] 00 once daily Medical therafer Branch valACYclovi 2021-04 Yes [id number] 1 po BID x Univers r 1 gram 2-07 10 days ity of tablet 00:00: then 1 po [place] 00 once daily Medical therafer Branch valACYclovi 2021-04 Yes [id number] 1 po BID x Univers r 1 gram 2-07 10 days ity of tablet 00:00: then 1 po [place] 00 once daily Medical therafer Branch valACYclovi 2021-04 Yes [id number] 1 po BID x Univers r 1 gram 2-07 10 days ity of tablet 00:00: then 1 po [place] 00 once daily Medical therafer Branch valACYclovi 2021-04 Yes [id number] 1 po BID x Univers r 1 gram 2-07 10 days ity of tablet 00:00: then 1 po [place] 00 once daily Medical therafer Branch valACYclovi 2021-04 Yes [id number] 1 po BID x Univers r 1 gram 2-07 10 days ity of tablet 00:00: then 1 po [place] 00 once daily Medical therafer Branch valACYclovi 2021-04 Yes [id number] 1 po BID x Univers r 1 gram 2-07 10 days ity of tablet 00:00: then 1 po [place] 00 once daily Medical therafer Branch valACYclovi 2021-04 Yes [id number] 1 po BID x Univers r 1 gram 2-07 10 days ity of tablet 00:00: then 1 po [place] 00 once daily Medical therafer Branch valACYclovi 2021-04 Yes [id number] 1 po BID x Univers r 1 gram 2-07 10 days ity of tablet 00:00: then 1 po [place] 00 once daily Medical therafer Branch valACYclovi 2021-04 Yes [id number] 1 po BID x Univers r 1 gram 2-07 10 days ity of tablet 00:00: then 1 po [place] 00 once daily Medical therafer Branch valACYclovi 2021-04 Yes [id number] 1 po BID x Univers r 1 gram 2-07 10 days ity of tablet 00:00: then 1 po [place] 00 once daily Medical therafer Branch valACYclovi 2021-04 Yes [id number] 1 po BID x Univers r 1 gram 2-07 10 days ity of tablet 00:00: then 1 po [place] 00 once daily Medical therafer Branch valACYclovi 2021-04 Yes [id number] 1 po BID x Univers r 1 gram 2-07 10 days ity of tablet 00:00: then 1 po [place] 00 once daily Medical therafer Branch AMBRISENTAN 2021-04 Yes [id number] TAKE 1 Univers 10 mg 1-11 TABLET BY ity of tablet 00:00: MOUTH [place] 00 DAILY. DO Medical NOT HANDLE Branch IF . DO NOT SPLIT, CRUSH, OR CHEW. AVOID INHALATION AND CONTACT WITH SKIN OR EYES. CALL [phone] FOR REFILLS. AMBRISENTAN 2021-04 Yes [id number] TAKE 1 Univers 10 mg 1-11 TABLET BY ity of tablet 00:00: MOUTH [place] 00 DAILY. DO Medical NOT HANDLE Branch IF . DO NOT SPLIT, CRUSH, OR CHEW. AVOID INHALATION AND CONTACT WITH SKIN OR EYES. CALL [phone] FOR REFILLS. AMBRISENTAN 2021-04 Yes [id number] TAKE 1 Univers 10 mg 1-11 TABLET BY ity of tablet 00:00: MOUTH [place] 00 DAILY. DO Medical NOT HANDLE Branch IF . DO NOT SPLIT, CRUSH, OR CHEW. AVOID INHALATION AND CONTACT WITH SKIN OR EYES. CALL FOR REFILLS. AMBRISENTAN 2021-04 Yes [id number] TAKE 1 Univers 10 mg 1-11 TABLET BY ity of tablet 00:00: MOUTH [place] 00 DAILY. DO Medical NOT HANDLE Branch IF . DO NOT SPLIT, CRUSH, OR CHEW. AVOID INHALATION AND CONTACT WITH SKIN OR EYES. CALL FOR REFILLS. AMBRISENTAN 2021-04- No [id number] TAKE 1 Univers 10 mg 1-11 01-17 TABLET BY ity of tablet 00:00: 00:00 MOUTH [place] 00 :00 DAILY. DO Medical NOT HANDLE Branch IF . DO NOT SPLIT, CRUSH, OR CHEW. AVOID INHALATION AND CONTACT WITH SKIN OR EYES. CALL FOR REFILLS. AMBRISENTAN 2021-04- No [id number] TAKE 1 Univers 10 mg 1-11 01-17 TABLET BY ity of tablet 00:00: 00:00 MOUTH [place] 00 :00 DAILY. DO Medical NOT HANDLE Branch IF . DO NOT SPLIT, CRUSH, OR CHEW. AVOID INHALATION AND CONTACT WITH SKIN OR EYES. CALL FOR REFILLS. AMBRISENTAN 2021-04- No [id number] TAKE 1 Univers 10 mg 1-11 -17 TABLET BY ity of tablet 00:00: 00:00 MOUTH [place] 00 :00 DAILY. DO Medical NOT HANDLE Branch IF . DO NOT SPLIT, CRUSH, OR CHEW. AVOID INHALATION AND CONTACT WITH SKIN OR EYES. CALL [phone] FOR REFILLS. torsemide 2021-04- No 20mg Take 20 mg U nivers 20 mg 0-05 10-05 by mouth. ity of tablet 10:39: 00:00 [place] 08 :00 Medical Branch torsemide 2021-2021- No 20mg Take 20 mg U nivers 20 mg 0-05 10-05 by mouth. ity of tablet 10:39: 00:00 [place] 08 :00 Medical Branch torsemide 2021-04- No 20mg Take 20 mg U nivers 20 mg 0-05 10-05 by mouth. ity of tablet 10:39: 00:00 [place] 08 :00 Medical Branch furosemide 2021-04 Yes 2 (two) [facility] ers 40 mg 0-03 times ity of tablet 00:00: daily. Medical Branch furosemide 2021-04 Yes 2 (two) [facility] ers 40 mg 0-03 times ity of tablet 00:00: daily. Medical Branch furosemide 2021-04 Yes 2 (two) Univ ers 40 mg 0-03 times ity of tablet 00:00: daily. Medical Branch furosemide 2021-04 Yes 2 (two) Univ ers 40 mg 0-03 times ity of tablet 00:00: daily. Medical Branch furosemide 2021-04 Yes 2 (two) Univ ers 40 mg 0-03 times ity of tablet 00:00: daily. Medical Branch furosemide 2021-04 Yes 2 (two) [facility] ers 40 mg 0-03 times ity of tablet 00:00: daily. Medical Branch furosemide 2021-04 Yes 2 (two) [facility] ers 40 mg 0-03 times ity of tablet 00:00: daily. Medical Branch furosemide 2021-04 Yes 2 (two) [facility] ers 40 mg 0-03 times ity of tablet 00:00: daily. [facility] Branch furosemide 2021-04 Yes 2 (two) [facility] ers 40 mg 0-03 times ity of tablet 00:00: daily. [facility] Branch furosemide 2021-04 Yes 2 (two) [facility] ers 40 mg 0-03 times ity of tablet 00:00: daily. [facility] Branch furosemide 2021-04 Yes 2 (two) [facility] ers 40 mg 0-03 times ity of tablet 00:00: daily. Medical Branch furosemide 2021-04 Yes 2 (two) [facility] ers 40 mg 0-03 times ity of tablet 00:00: daily. [facility] Branch furosemide 2021-04 Yes 2 (two) [facility] ers 40 mg 0-03 times ity of tablet 00:00: daily. Medical Branch furosemide 2021-04 Yes 2 (two) [facility] ers 40 mg 0-03 times ity of tablet 00:00: daily. Medical Branch furosemide 2021-04 Yes 2 (two) [facility] ers 40 mg 0-03 times ity of tablet 00:00: daily. Medical Branch furosemide 2021-04 Yes 2 (two) [facility] ers 40 mg 0-03 times ity of tablet 00:00: daily. Medical Branch furosemide 2021-04 Yes 2 (two) [facility] ers 40 mg 0-03 times ity of tablet 00:00: daily. [facility] Branch furosemide 2021-04 Yes 2 (two) [facility] ers 40 mg 0-03 times ity of tablet 00:00: daily. Medical Branch furosemide 2021-04 Yes 2 (two) [facility] ers 40 mg 0-03 times ity of tablet 00:00: daily. [facility] Branch furosemide 2021-04 Yes 2 (two) Univ ers 40 mg 0-03 times ity of tablet 00:00: daily. Medical Branch furosemide 2021-04 Yes 2 (two) [facility] ers 40 mg 0-03 times ity of tablet 00:00: daily. Medical Branch furosemide 2021-04 Yes 2 (two) [facility] ers 40 mg 0-03 times ity of tablet 00:00: daily. Medical Branch furosemide 2021-04 Yes 2 (two) [facility] ers 40 mg 0-03 times ity of tablet 00:00: daily. Medical Branch furosemide 2021-04 Yes 2 (two) [facility] ers 40 mg 0-03 times ity of tablet 00:00: daily. Medical Branch furosemide 2021-04 Yes 2 (two) [facility] ers 40 mg 0-03 times ity of tablet 00:00: daily. Medical Branch furosemide 2021-04 Yes 2 (two) Univ ers 40 mg 0-03 times ity of tablet 00:00: daily. [facility] PRADAXA 150 Yes 2 (two) Uni vers mg capsule 9-17 times ity of 00:00: daily. Medical Branch PRADAXA 150 2021-0 Yes 2 (two) Uni vers mg capsule 9-17 times ity of 00:00: daily. Medical Branch PRADAXA 150 2021-0 Yes 2 (two) Uni vers mg capsule 9-17 times ity of 00:00: daily. [facility] PRADAXA 150 2021-0 Yes 2 (two) Uni vers mg capsule 9-17 times ity of 00:00: daily. [facility] PRADAXA 150 2021-0 Yes 2 (two) Uni vers mg capsule 9-17 times ity of 00:00: daily. [facility] PRADAXA 150 2021-0 Yes 2 (two) Uni vers mg capsule 9-17 times ity of 00:00: daily. [facility] PRADAXA 150 2021-0 Yes 2 (two) Uni vers mg capsule 9-17 times ity of 00:00: daily. Medical Branch PRADAXA 150 2021-0 Yes 2 (two) Uni vers mg capsule 9-17 times ity of 00:00: daily. [facility] PRADAXA 150 2021-0 Yes 2 (two) Uni vers mg capsule 9-17 times ity of 00:00: daily. [facility] PRADAXA 150 2021-0 Yes 2 (two) Uni vers mg capsule 9-17 times ity of 00:00: daily. [facility] PRADAXA 150 2021-0 Yes 2 (two) Uni vers mg capsule 9-17 times ity of 00:00: daily. [place] [facility] PRADAXA 150 2021-0 Yes 2 (two) Uni vers mg capsule 9-17 times ity of 00:00: daily. [facility] PRADAXA 150 2021-0 Yes 2 (two) Uni vers mg capsule 9-17 times ity of 00:00: daily. [facility] PRADAXA 150 2021-0 Yes 2 (two) Uni vers mg capsule 9-17 times ity of 00:00: daily. [facility] PRADAXA 150 2021-0 Yes 2 (two) Uni vers mg capsule 9-17 times ity of 00:00: daily. [facility] PRADAXA 150 2021-0 Yes 2 (two) Uni vers mg capsule 9-17 times ity of 00:00: daily. [facility] PRADAXA 150 2021-0 Yes 2 (two) Uni vers mg capsule 9-17 times ity of 00:00: daily. [place] [facility] PRADAXA 150 2021-0 Yes 2 (two) Uni vers mg capsule 9-17 times ity of 00:00: daily. [facility] PRADAXA 150 2021-0 Yes 2 (two) Uni vers mg capsule 9-17 times ity of 00:00: daily. [place] [facility] PRADAXA 150 2021-0 Yes 2 (two) Uni vers mg capsule 9-17 times ity of 00:00: daily. [place] [facility] PRADAXA 150 2-0 Yes 2 (two) Uni vers mg capsule 9-17 times ity of 00:00: daily. [place] [facility] PRADAXA 150 2-0 Yes 2 (two) Uni vers mg capsule 9-17 times ity of 00:00: daily. [place] [facility] PRADAXA 150 2-0 Yes 2 (two) Uni vers mg capsule 9-17 times ity of 00:00: daily. [place] [facility] PRADAXA 150 2-0 Yes 2 (two) Uni vers mg capsule 9-17 times ity of 00:00: daily. [place] [facility] PRADAXA 150 2-0 Yes 2 (two) Uni vers mg capsule 9-17 times ity of 00:00: daily. [place] [facility] PRADAXA 150 2-0 Yes 2 (two) Uni vers mg capsule 9-17 times ity of 00:00: daily. [address] amiodarone 2-0 Yes [id number] 200mg Take 1 [facility] 200 mg 5-04 tablet by ity of tablet 00:00: mouth 2 [place] 00 (two) Medical times Branch daily. amiodarone 2022-0 2022- No [id number] 200mg Take 1 [facility] 200 mg 5-04 10-05 tablet by ity of tablet 00:00: 00:00 mouth 2 [place] 00 :00 (two) Medical times Branch daily. amiodarone 2022-0 2022- No [id number] 200mg Take 1 [facility] 200 mg 5-04 10-05 tablet by ity of tablet 00:00: 00:00 mouth 2 [place] 00 :00 (two) Medical times [place] daily. torsemide 2022-0 Yes 20mg Take 20 mg Un [facility] 20 mg 5-03 by mouth. ity of tablet 09:24: [address] torsemide 2022-0 Yes 20mg Take 20 mg [facility] 20 mg 5-03 by mouth. ity of tablet 09:24: [address] valACYclovi 2022-0 Yes 1g Take 1 g Un [facility] r 1 gram 5-03 by mouth ity of tablet 09:18: daily. [address] valACYclovi 2022-0 Yes 1g Take 1 g Un [facility] r 1 gram 5-03 by mouth ity of tablet 09:18: daily. [address] valACYclovi 2-0 Yes 1g Take 1 g Un [facility] r 1 gram 5-03 by mouth ity of tablet 09:18: daily. [address] valACYclovi 2021-0 Yes 1g Take 1 g [facility] r 1 gram 5-03 by mouth ity of tablet 09:18: daily. [address] valACYclovi 2021-0 Yes 1g Take 1 g [facility] r 1 gram 5-03 by mouth ity of tablet 09:18: daily. [address] valACYclovi 2021-0 Yes 1g Take 1 g [facility] r 1 gram 5-03 by mouth ity of tablet 09:18: daily. [address] valACYclovi 2021-0 Yes 1g Take 1 g [facility] r 1 gram 5-03 by mouth ity of tablet 09:18: daily. [address] valACYclovi 2021-0 Yes 1g Take 1 g [facility] r 1 gram 5-03 by mouth ity of tablet 09:18: daily. [address] valACYclovi 2021-0 Yes 1g Take 1 g Un [facility] r 1 gram 5-03 by mouth ity of tablet 09:18: daily. [address] valACYclovi 2021-0 Yes 1g Take 1 g Un [facility] r 1 gram 5-03 by mouth ity of tablet 09:18: daily. [address] FA/mv,Ca,ir 2021-0 Yes Take by Uni vers on,min/lyco 3-31 mouth. ity of pene/lut 15:26: [place] ([facility] 39 Medical ORAL) Branch pregabalin 2021-0 Yes 100mg Take 100 Un baldemar (LYRICA) 3-31 mg by ity of 100 mg 15:26: mouth 3 [place] capsule 39 (three) Medical times [place] daily. FA/mv,Ca,ir 2021-0 Yes Take by Uni vers on,min/lyco 3-31 mouth. ity of pene/lut 15:26: [place] ([facility] 39 Medical ORAL) Branch pregabalin 2021-0 Yes 100mg Take 100 Un [facility] (LYRICA) 3-31 mg by ity of 100 mg 15:26: mouth 3 [place] capsule 39 (three) Medical times [place] daily. FA/mv,Ca,ir 2021-0 Yes Take by Uni vers on,min/lyco 3-31 mouth. ity of pene/lut 15:26: [place] ([facility] 39 Medical ORAL) Branch pregabalin 2-0 Yes 100mg Take 100 Un [facility] (LYRICA) 3-31 mg by ity of 100 mg 15:26: mouth 3 [place] capsule 39 (three) Medical times Branch daily. FA/mv,Ca,ir 2021-0 Yes Take by Uni vers on,min/lyco 3-31 mouth. ity of pene/lut 15:26: [place] ([facility] 39 Medical ORAL) Branch pregabalin 2-0 Yes 100mg Take 100 Un [facility] (LYRICA) 3-31 mg by ity of 100 mg 15:26: mouth 3 [place] capsule 39 (three) Medical times Branch daily. FA/mv,Ca,ir 2021-0 Yes Take by Uni vers on,min/lyco 3-31 mouth. ity of pene/lut 15:26: [place] ([facility] 39 Medical ORAL) Branch pregabalin 2-0 Yes 100mg Take 100 Un [facility] (LYRICA) 3-31 mg by ity of 100 mg 15:26: mouth 3 [place] capsule 39 (three) Medical times Branch daily. FA/mv,Ca,ir 2021-0 Yes Take by Uni vers on,min/lyco 3-31 mouth. ity of pene/lut 15:26: [place] ([facility] 39 Medical ORAL) Branch pregabalin 2-0 Yes 100mg Take 100 Un [facility] (LYRICA) 3-31 mg by ity of 100 mg 15:26: mouth 3 [place] capsule 39 (three) Medical times Branch daily. FA/mv,Ca,ir 2021-0 Yes Take by Uni vers on,min/lyco 3-31 mouth. ity of pene/lut 15:26: [place] ([facility] 39 Medical ORAL) Branch pregabalin 2022-0 Yes 100mg Take 100 Un [facility] (LYRICA) 3-31 mg by ity of 100 mg 15:26: mouth 3 [place] capsule 39 (three) Medical times Branch daily. FA/mv,Ca,ir 2-0 Yes Take by Uni vers on,min/lyco 3-31 mouth. ity of pene/lut 15:26: [place] ([facility] 39 Medical ORAL) Branch pregabalin 2022-0 Yes 100mg Take 100 Un [facility] (LYRICA) 3-31 mg by ity of 100 mg 15:26: mouth 3 [place] capsule 39 (three) Medical times Branch daily. FA/mv,Ca,ir 2021-0 Yes Take by Uni vers on,min/lyco 3-31 mouth. ity of pene/lut 15:26: [place] ([facility] 39 Medical ORAL) Branch pregabalin 2022-0 Yes 100mg Take 100 Un [facility] (LYRICA) 3-31 mg by ity of 100 mg 15:26: mouth 3 [place] capsule 39 (three) Medical times Branch daily. FA/mv,Ca,ir 2021-0 Yes Take by Uni vers on,min/lyco 3-31 mouth. ity of pene/lut 15:26: [place] ([facility] 39 Medical ORAL) Branch pregabalin 2022-0 Yes 100mg Take 100 Un [facility] (LYRICA) 3-31 mg by ity of 100 mg 15:26: mouth 3 [place] capsule 39 (three) Medical times Branch daily. FA/mv,Ca,ir 2021-0 Yes Take by Uni vers on,min/lyco 3-31 mouth. ity of pene/lut 15:26: [place] ([facility] 39 Medical ORAL) Branch pregabalin 2022-0 Yes 100mg Take 100 Un [facility] (LYRICA) 3-31 mg by ity of 100 mg 15:26: mouth 3 [place] capsule 39 (three) Medical times Branch daily. FA/mv,Ca,ir 2021-0 Yes Take by Uni vers on,min/lyco 3-31 mouth. ity of pene/lut 15:26: [place] ([facility] 39 Medical ORAL) Branch pregabalin 2022-0 Yes 100mg Take 100 Un [facility] (LYRICA) 3-31 mg by ity of 100 mg 15:26: mouth 3 [place] capsule 39 (three) Medical times Branch daily. FA/mv,Ca,ir 2-0 Yes Take by Uni vers on,min/lyco 3-31 mouth. ity of pene/lut 15:26: [place] ([facility] 39 Medical ORAL) Branch pregabalin 2022-0 Yes 100mg Take 100 Un [facility] (LYRICA) 3-31 mg by ity of 100 mg 15:26: mouth 3 [place] capsule 39 (three) Medical times Branch daily. FA/mv,Ca,ir 2022-0 Yes Take by Uni vers on,min/lyco 3-31 mouth. ity of pene/lut 15:26: [place] ([facility] 39 Medical ORAL) Branch FA/mv,Ca,ir 2022-0 Yes Take by Uni vers on,min/lyco 3-31 mouth. ity of pene/lut 15:26: [place] ([facility] 39 Medical ORAL) Branch FA/mv,Ca,ir 2022-0 Yes Take by Uni vers on,min/lyco 3-31 mouth. ity of pene/lut 15:26: [place] ([facility] 39 Medical ORAL) Branch FA/mv,Ca,ir 2022-0 Yes Take by Uni vers on,min/lyco 3-31 mouth. ity of pene/lut 15:26: [place] ([facility] 39 Medical ORAL) Branch FA/mv,Ca,ir 2022-0 Yes Take by Uni vers on,min/lyco 3-31 mouth. ity of pene/lut 15:26: [place] ([facility] 39 Medical ORAL) Branch FA/mv,Ca,ir 2022-0 Yes Take by Uni vers on,min/lyco 3-31 mouth. ity of pene/lut 15:26: [place] ([facility] 39 Medical ORAL) Branch FA/mv,Ca,ir 2022-0 Yes Take by Uni vers on,min/lyco 3-31 mouth. ity of pene/lut 15:26: [place] ([facility] 39 Medical ORAL) Branch FA/mv,Ca,ir 2022-0 Yes Take by Uni vers on,min/lyco 3-31 mouth. ity of pene/lut 15:26: [place] ([facility] 39 Medical ORAL) Branch FA/mv,Ca,ir 2022-0 Yes Take by Uni vers on,min/lyco 3-31 mouth. ity of pene/lut 15:26: [place] ([facility] 39 Medical ORAL) Branch FA/mv,Ca,ir 2022-0 Yes Take by Uni vers on,min/lyco 3-31 mouth. ity of pene/lut 15:26: [place] ([facility] 39 Medical ORAL) Branch peg-electro 2022- No Take as Un [facility]dem[facility] lyte soln 07-11 Directed ity o f 236-22.74-6 00:00: 04:59 [place] .74 -5.86 00 :00 Medical gram Branch solution peg-electro 2022- No Take as Un [facility] lyte soln 07-11 Directed ity o f 236-22.74-6 00:00: 04:59 [place] .74 -5.86 00 :00 Medical gram Branch solution peg-electro 2022- No Take as Un [facility] lyte soln 07-11 Directed ity o f 236-22.74-6 00:00: 04:59 [place] .74 -5.86 00 :00 Medical gram Branch solution peg-electro 2022- No Take as Un [facility] lyte soln 07-11 Directed ity o f 236-22.74-6 00:00: 04:59 [place] .74 -5.86 00 :00 Medical gram Branch solution peg-electro 2022- No Take as Un [facility] lyte soln 07-11 Directed ity o f 236-22.74-6 00:00: 04:59 [place] .74 -5.86 00 :00 Medical gram Branch solution peg-electro 2022- No Take as Un [facility] lyte soln 07-11 Directed ity o f 236-22.74-6 00:00: 04:59 [place] .74 -5.86 00 :00 Medical gram Branch solution peg-electro 2022- No Take as Un [facility] lyte soln 07-11 Directed ity o f 236-22.74-6 00:00: 04:59 [place] .74 -5.86 00 :00 Medical gram Branch solution peg-electro 2022- No Take as Un [facility] lyte soln 07-11 Directed ity o f 236-22.74-6 00:00: 04:59 [place] .74 -5.86 00 :00 Medical gram Branch solution peg-electro 2022- No Take as Un [facility] lyte soln 07-11 Directed ity o f 236-22.74-6 00:00: 04:59 [place] .74 -5.86 00 :00 Medical gram Branch solution peg-electro 2022- No Take as Un [facility] lyte soln 07-11 Directed ity o f 236-22.74-6 00:00: 04:59 [place] .74 -5.86 00 :00 Medical gram Branch solution peg-electro 2022- No Take as Un [facility] lyte soln 07-11 Directed ity o f 236-22.74-6 00:00: 04:59 [place] .74 -5.86 00 :00 Medical gram Branch solution peg-electro 2022- No Take as Un [facility] lyte soln 07-11 Directed ity o f 236-22.74-6 00:00: 04:59 [place] .74 -5.86 00 :00 Medical gram Branch solution peg-electro 2022- No Take as Un [facility] lyte soln 07-11 Directed ity o f 236-22.74-6 00:00: 04:59 [place] .74 -5.86 00 :00 Medical gram Branch solution peg-electro 2022- No Take as Un [facility] lyte soln 07-11 Directed ity o f 236-22.74-6 00:00: 04:59 [place] .74 -5.86 00 :00 Medical gram Branch solution peg-electro 2022- No Take as Un [facility] lyte soln 07-11 Directed ity o f 236-22.74-6 00:00: 04:59 [place] .74 -5.86 00 :00 Medical gram Branch solution peg-electro 2022- No Take as Un [facility] lyte soln 07-11 Directed ity o f 236-22.74-6 00:00: 04:59 [place] .74 -5.86 00 :00 Medical gram Branch solution peg-electro 2022- No Take as Un [facility] lyte soln 07-11 Directed ity o f 236-22.74-6 00:00: 04:59 [place] .74 -5.86 00 :00 Medical gram Branch solution peg-electro 2022- No Take as Un [facility] lyte soln 07-11 Directed ity o f 236-.74-6 00:00: 04:59 [place] .74 -5.86 00 :00 Medical gram Branch solution peg-electro 2022- No Take as Un [facility] lyte soln 07-11 Directed ity o f 236-.74-6 00:00: 04:59 [place] .74 -5.86 00 :00 Medical gram Branch solution peg-electro 2022- No Take as Un [facility] lyte soln 07-11 Directed ity o f 236-.74-6 00:00: 04:59 [place] .74 -5.86 00 :00 Medical gram Branch solution peg-electro 2022- No Take as Un [facility] lyte soln 07-11 Directed ity o f 236-.74-6 00:00: 04:59 [place] .74 -5.86 00 :00 Medical gram Branch solution peg-electro 2022- No Take as Un [facility] lyte soln 07-11 Directed ity o f 236-.74-6 00:00: 04:59 [place] .74 -5.86 00 :00 Medical gram Branch solution peg-electro 2022- No Take as Un [facility] lyte soln 07-11 Directed ity o f 236-.74-6 00:00: 04:59 [place] .74 -5.86 00 :00 Medical gram Branch solution peg-electro 2022- No Take as Un [facility] lyte soln 07-11 Directed ity o f 236-.74-6 00:00: 04:59 [place] .74 -5.86 00 :00 Medical gram Branch solution ferrous Yes [id number] 325mg Take 1 Un [facility] sulfate 325 3-22 tablet by ity of mg (65 mg 00:00: mouth [place] iron) 00 every 48 Medical tablet (forty-eig Branch ht) hours. pantoprazol Yes [id number] 40mg Take 1 Univers e 40 mg EC 3-22 tablet by ity of tablet 00:00: mouth (two) Medical times Branch daily. KCL 20 mEq 0 Yes [id number] 20meq Take 1 [facility] tablet 3-22 tablet by ity of 00:00: mouth 00 daily. Medical Branch ferrous 0 Yes [id number] 325mg Take 1 [facility] sulfate 325 3-22 tablet by ity of mg (65 mg 00:00: mouth [place] iron) 00 every 48 Medical tablet (forty-ei Branch ht) hours. pantoprazol Yes [id number] 40mg Take 1 [facility] e 40 mg EC 3-22 tablet by ity of tablet 00:00: mouth (two) Medical times Branch daily. KCL 20 mEq Yes [id number] 20meq Take 1 [facility] tablet 3-22 tablet by ity of 00:00: mouth 00 daily. Medical Branch pantoprazol Yes [id number] 40mg Take 1 [facility] e 40 mg EC 3-22 tablet by ity of tablet 00:00: mouth (two) Medical times Branch daily. KCL 20 mEq Yes [id number] 20meq Take 1 [facility] tablet 3-22 tablet by ity of 00:00: mouth 00 daily. Medical Branch pantoprazol Yes [id number] 40mg Take 1 [facility] e 40 mg EC 3-22 tablet by ity of tablet 00:00: mouth (two) Medical times Branch daily. KCL 20 mEq 0 Yes [id number] 20meq Take 1 [facility] tablet 3-22 tablet by ity of 00:00: mouth 00 daily. Medical Branch pantoprazol Yes [id number] 40mg Take 1 Univers e 40 mg EC 3-22 tablet by ity of tablet 00:00: mouth (two) Medical times Branch daily. KCL 20 mEq 0 Yes [id number] 20meq Take 1 Univers tablet 3-22 tablet by ity of 00:00: mouth 00 daily. Medical Branch pantoprazol Yes [id number] 40mg Take 1 [facility] e 40 mg EC 3-22 tablet by ity of tablet 00:00: mouth (two) Medical times Branch daily. KCL 20 mEq 2021-0 Yes [id number] 20meq Take 1 [facility] tablet 3-22 tablet by ity of 00:00: mouth 00 daily. Medical Branch pantoprazol 2021-0 Yes [id number] 40mg Take 1 Univers e 40 mg EC 3-22 tablet by ity of tablet 00:00: mouth (two) Medical times Branch daily. KCL 20 mEq 2021-0 Yes [id number] 20meq Take 1 [facility] tablet 3-22 tablet by ity of 00:00: mouth 00 daily. Medical Branch pantoprazol 2021-0 Yes [id number] 40mg Take 1 [facility] e 40 mg EC 3-22 tablet by ity of tablet 00:00: mouth (two) Medical times Branch daily. KCL 20 mEq 2021-0 Yes [id number] 20meq Take 1 [facility] tablet 3-22 tablet by ity of 00:00: mouth 00 daily. Medical Branch pantoprazol 2021-0 Yes [id number] 40mg Take 1 [facility] e 40 mg EC 3-22 tablet by ity of tablet 00:00: mouth (two) Medical times Branch daily. KCL 20 mEq 2021-0 Yes [id number] 20meq Take 1 [facility] tablet 3-22 tablet by ity of 00:00: mouth 00 daily. Medical Branch pantoprazol 2021-0 Yes [id number] 40mg Take 1 [facility] e 40 mg EC 3-22 tablet by ity of tablet 00:00: mouth (two) Medical times Branch daily. KCL 20 mEq 2021-0 Yes [id number] 20meq Take 1 [facility] tablet 3-22 tablet by ity of 00:00: mouth 00 daily. Medical Branch pantoprazol 2021-0 Yes [id number] 40mg Take 1 [facility] e 40 mg EC 3-22 tablet by ity of tablet 00:00: mouth (two) Medical times Branch daily. KCL 20 mEq 2021-0 Yes [id number] 20meq Take 1 Univers tablet 3-22 tablet by ity of 00:00: mouth 00 daily. Medical Branch pantoprazol 2021-0 Yes [id number] 40mg Take 1 [facility] e 40 mg EC 3-22 tablet by ity of tablet 00:00: mouth 2 (two) Medical times Branch daily. KCL 20 mEq 2021-0 Yes [id number] 20meq Take 1 Univers tablet 3-22 tablet by ity of 00:00: mouth 00 daily. Medical Branch pantoprazol 2021-0 Yes [id number] 40mg Take 1 [facility] e 40 mg EC 3-22 tablet by ity of tablet 00:00: mouth 2 (two) Medical times Branch daily. KCL 20 mEq 2021-0 Yes [id number] 20meq Take 1 [facility] tablet 3-22 tablet by ity of 00:00: mouth [place] 00 daily. Medical Branch pantoprazol 2021-0 Yes [id number] 40mg Take 1 Univers e 40 mg EC 3-22 tablet by ity of tablet 00:00: mouth 2 (two) Medical times Branch daily. KCL 20 mEq 2021-0 Yes [id number] 20meq Take 1 Univers tablet 3-22 tablet by ity of 00:00: mouth 00 daily. Medical Branch pantoprazol 2021-0 Yes [id number] 40mg Take 1 [facility] e 40 mg EC 3-22 tablet by ity of tablet 00:00: mouth (two) Medical times Branch daily. KCL 20 mEq 2021-0 Yes [id number] 20meq Take 1 Univers tablet 3-22 tablet by ity of 00:00: mouth 00 daily. Medical Branch pantoprazol 2021-0 Yes [id number] 40mg Take 1 [facility] e 40 mg EC 3-22 tablet by ity of tablet 00:00: mouth 2 (two) Medical times Branch daily. KCL 20 mEq 2021-0 Yes [id number] 20meq Take 1 [facility] tablet 3-22 tablet by ity of 00:00: mouth 00 daily. Medical Branch pantoprazol 2021-0 Yes [id number] 40mg Take 1 [facility] e 40 mg EC 3-22 tablet by ity of tablet 00:00: mouth 2 (two) Medical times Branch daily. KCL 20 mEq 2021-0 Yes [id number] 20meq Take 1 [facility] tablet 3-22 tablet by ity of 00:00: mouth [place] 00 daily. Medical Branch pantoprazol 2021-0 Yes [id number] 40mg Take 1 [facility] e 40 mg EC 3-22 tablet by ity of tablet 00:00: mouth (two) Medical times Branch daily. KCL 20 mEq 2021-0 Yes [id number] 20meq Take 1 [facility] tablet 3-22 tablet by ity of 00:00: mouth 00 daily. Medical Branch pantoprazol 2021-0 Yes [id number] 40mg Take 1 [facility] e 40 mg EC 3-22 tablet by ity of tablet 00:00: mouth (two) Medical times Branch daily. KCL 20 mEq 2021-0 Yes [id number] 20meq Take 1 [facility] tablet 3-22 tablet by ity of 00:00: mouth 00 daily. Medical Branch pantoprazol 2021-0 Yes [id number] 40mg Take 1 [facility] e 40 mg EC 3-22 tablet by ity of tablet 00:00: mouth (two) Medical times Branch daily. KCL 20 mEq 2021-0 Yes [id number] 20meq Take 1 [facility] tablet 3-22 tablet by ity of 00:00: mouth 00 daily. Medical Branch pantoprazol 2021-0 Yes [id number] 40mg Take 1 [facility] e 40 mg EC 3-22 tablet by ity of tablet 00:00: mouth (two) Medical times Branch daily. KCL 20 mEq 2021-0 Yes [id number] 20meq Take 1 [facility] tablet 3-22 tablet by ity of 00:00: mouth 00 daily. Medical Branch pantoprazol 2021-0 Yes [id number] 40mg Take 1 [facility] e 40 mg EC 3-22 tablet by ity of tablet 00:00: mouth (two) Medical times Branch daily. KCL 20 mEq 2021-0 Yes [id number] 20meq Take 1 [facility] tablet 3-22 tablet by ity of 00:00: mouth 00 daily. Medical Branch pantoprazol 2021-0 Yes [id number] 40mg Take 1 [facility] e 40 mg EC 3-22 tablet by ity of tablet 00:00: mouth 2 (two) Medical times Branch daily. KCL 20 mEq 2021-0 Yes [id number] 20meq Take 1 [facility] tablet 3-22 tablet by ity of 00:00: mouth [place] 00 daily. Medical Branch pantoprazol 2021-0 2023- No [id number] 40mg Take 1 [facility] e 40 mg EC 3-22 04-26 tablet by ity of tablet 00:00: 00:00 mouth 2 [place] 00 :00 (two) Medical times Branch daily. KCL 20 mEq 2022- No [id number] 20meq Take 1 [facility] tablet 07-09- tablet by ity of 00:00: 00:00 mouth [place] 00 :00 daily. Medical Branch pantoprazol 2022- No [id number] 40mg Take 1 [facility] e 40 mg EC 07-09- tablet by ity of tablet 00:00: 00:00 mouth 2 [place] 00 :00 (two) Medical times Branch daily. KCL 20 mEq 2022- No [id number] 20meq Take 1 [facility] tablet 07-09- tablet by ity of 00:00: 00:00 mouth [place] 00 :00 daily. Medical Branch pantoprazol 2022- No [id number] 40mg Take 1 [facility] e 40 mg EC 07-09- tablet by ity of tablet 00:00: 00:00 mouth 2 [place] 00 :00 (two) Medical times Branch daily. KCL 20 mEq 2022- No [id number] 20meq Take 1 [facility] tablet 07-09- tablet by ity of 00:00: 00:00 mouth [place] 00 :00 daily. Medical Branch ferrous 2021- No [id number] 325mg Take 1 U nivers sulfate 325 3- 10-05 tablet by it y of mg (65 mg 00:00: 00:00 mouth [place] iron) 00 :00 every 48 Medical tablet ([facility]) hours. ferrous 2021- No [id number] 325mg Take 1 U nivers sulfate 325 3- 10-05 tablet by it y of mg (65 mg 00:00: 00:00 mouth [place] iron) 00 :00 every 48 Medical tablet ([facility]) hours. ferrous 2021- No [id number] 325mg Take 1 U nivers sulfate 325 3- 10-05 tablet by it y of mg (65 mg 00:00: 00:00 mouth [place] iron) 00 :00 every 48 Medical tablet ([facility]) hours. dabigatran 2022-0 2022- No 1358 150mg Take 1 Uni vers etexilate 3-22 05-22 capsule by ity of 150 mg 00:00: 04:59 mouth 2 [place] capsule 00 :00 (two) Medical times Branch daily for 60 days. Please Start only after the completion of your EGD/Colono scopy Indication s: atrial fibrillati on, Replacing Pt rivaroxaba n dabigatran 2021-0 2021- No 1358 150mg Take 1 Uni vers etexilate 3-22 05-22 capsule by ity of 150 mg 00:00: 04:59 mouth 2 [place] capsule 00 :00 (two) Medical times Branch daily for 60 days. Please Start only after the completion of your EGD/Colono scopy Indication s: atrial fibrillati on, Replacing Pt rivaroxaba n dabigatran 2021-0 2021- No 1358 150mg Take 1 Uni vers etexilate 3-22 05-22 capsule by ity of 150 mg 00:00: 04:59 mouth 2 [place] capsule 00 :00 (two) Medical times Branch daily for 60 days. Please Start only after the completion of your EGD/Colono scopy Indication s: atrial fibrillati on, Replacing Pt rivaroxaba n AMBRISENTAN 2021-0 Yes [id number] TAKE 1 Univers 10 mg 2-10 TABLET BY ity of tablet 00:00: MOUTH [place] 00 DAILY. DO Medical NOT HANDLE Branch IF . DO NOT SPLIT, CRUSH, OR CHEW. AVOID INHALATION AND CONTACT WITH SKIN OR EYES. CALL FOR REFILLS. AMBRISENTAN 2021-0 Yes [id number] TAKE 1 Univers 10 mg 2-10 TABLET BY ity of tablet 00:00: MOUTH [place] 00 DAILY. DO Medical NOT HANDLE Branch IF . DO NOT SPLIT, CRUSH, OR CHEW. AVOID INHALATION AND CONTACT WITH SKIN OR EYES. CALL FOR REFILLS. AMBRISENTAN 2021-0 Yes [id number] TAKE 1 Univers 10 mg 2-10 TABLET BY ity of tablet 00:00: MOUTH [place] 00 DAILY. DO Medical NOT HANDLE Branch IF . DO NOT SPLIT, CRUSH, OR CHEW. AVOID INHALATION AND CONTACT WITH SKIN OR EYES. CALL [phone] FOR REFILLS. AMBRISENTAN 2021-0 Yes [id number] TAKE 1 [facility] 10 mg 2-10 TABLET BY ity of tablet 00:00: MOUTH [place] 00 DAILY. DO Medical NOT HANDLE Branch IF . DO NOT SPLIT, CRUSH, OR CHEW. AVOID INHALATION AND CONTACT WITH SKIN OR EYES. CALL [phone] FOR REFILLS. AMBRISENTAN 2021-0 Yes [id number] TAKE 1 Univers 10 mg 2-10 TABLET BY ity of tablet 00:00: MOUTH [place] 00 DAILY. DO Medical NOT HANDLE Branch IF . DO NOT SPLIT, CRUSH, OR CHEW. AVOID INHALATION AND CONTACT WITH SKIN OR EYES. CALL FOR REFILLS. AMBRISENTAN 2021-0 Yes [id number] TAKE 1 [facility] 10 mg 2-10 TABLET BY ity of tablet 00:00: MOUTH [place] 00 DAILY. DO Medical NOT HANDLE Branch IF . DO NOT SPLIT, CRUSH, OR CHEW. AVOID INHALATION AND CONTACT WITH SKIN OR EYES. CALL FOR REFILLS. AMBRISENTAN 2021-0 Yes [id number] TAKE 1 [facility] 10 mg 2-10 TABLET BY ity of tablet 00:00: MOUTH [place] 00 DAILY. DO Medical NOT HANDLE Branch IF . DO NOT SPLIT, CRUSH, OR CHEW. AVOID INHALATION AND CONTACT WITH SKIN OR EYES. CALL FOR REFILLS. AMBRISENTAN 2021-0 Yes [id number] TAKE 1 Univers 10 mg 2-10 TABLET BY ity of tablet 00:00: MOUTH [place] 00 DAILY. DO Medical NOT HANDLE Branch IF . DO NOT SPLIT, CRUSH, OR CHEW. AVOID INHALATION AND CONTACT WITH SKIN OR EYES. CALL [phone] FOR REFILLS. AMBRISENTAN 2021-0 Yes [id number] TAKE 1 Univers 10 mg 2-10 TABLET BY ity of tablet 00:00: MOUTH [place] 00 DAILY. DO Medical NOT HANDLE Branch IF . DO NOT SPLIT, CRUSH, OR CHEW. AVOID INHALATION AND CONTACT WITH SKIN OR EYES. CALL FOR REFILLS. AMBRISENTAN 2021-0 2021- No [id number] TAKE 1 Univers 10 mg 2-10 11-11 TABLET BY ity of tablet 00:00: 00:00 MOUTH [place] 00 :00 DAILY. DO Medical NOT HANDLE Branch IF . DO NOT SPLIT, CRUSH, OR CHEW. AVOID INHALATION AND CONTACT WITH SKIN OR EYES. CALL [phone] FOR REFILLS. AMBRISENTAN 2021-2021- No [id number] TAKE 1 Univers 10 mg 2-10 11-11 TABLET BY ity of tablet 00:00: 00:00 MOUTH [place] 00 :00 DAILY. DO Medical NOT HANDLE Branch IF . DO NOT SPLIT, CRUSH, OR CHEW. AVOID INHALATION AND CONTACT WITH SKIN OR EYES. CALL [phone] FOR REFILLS. AMBRISENTAN 2021- No [id number] TAKE 1 Univers 10 mg 2-10 11-11 TABLET BY ity of tablet 00:00: 00:00 MOUTH [place] 00 :00 DAILY. DO Medical NOT HANDLE Branch IF . DO NOT SPLIT, CRUSH, OR CHEW. AVOID INHALATION AND CONTACT WITH SKIN OR EYES. CALL FOR REFILLS. AMBRISENTAN 2021- No [id number] TAKE 1 [facility] 10 mg 2-10 11-11 TABLET BY ity of tablet 00:00: 00:00 MOUTH [place] 00 :00 DAILY. DO Medical NOT HANDLE Branch IF . DO NOT SPLIT, CRUSH, OR CHEW. AVOID INHALATION AND CONTACT WITH SKIN OR EYES. CALL FOR REFILLS. darunavir-c 2020-[address] [facility] s obi-emtri-t 04-20 ity of enof ala 00:00: [place] [facility] Medical 800-150-200 Branch -10 mg Tab darunavir-c 2020-[address] [facility] s obi-emtri-t 04-20 ity of enof ala 00:00: [place] [facility] 00 Medical 800-150-200 Branch -10 mg Tab darunavir-c 2020-[address] [facility] s obi-emtri-t 04-20 ity of enof ala 00:00: [place] [facility] Medical 800-150-200 Branch -10 mg Tab darunavir-c 202-[address] [facility] s obi-emtri-t 04-20 ity of enof ala 00:00: [place] [facility] Medical 800-150-200 Branch -10 mg Tab darunavir-c 202-[address] [facility] s obi-emtri-t 04-20 ity of enof ala 00:00: [place] ([facility] 00 Medical 800-150-200 Branch -10 mg Tab darunavir-c 2021-0 Yes Univer s obi-emtri-t 04-20 ity of enof ala 00:00: [place] ([facility] 00 Medical 800-150-200 Branch -10 mg Tab darunavir-c 2021-0 Yes Univer s obi-emtri-t 04-20 ity of enof ala 00:00: [place] ([facility] 00 Medical 800-150-200 Branch -10 mg Tab darunavir-c 2021-0 Yes Univer s obi-emtri-t 04-20 ity of enof ala 00:00: [place] ([facility] 00 Medical 800-150-200 Branch -10 mg Tab darunavir-c 2021-0 Yes Univer s obi-emtri-t 04-20 ity of enof ala 00:00: [place] ([facility] 00 Medical 800-150-200 Branch -10 mg Tab darunavir-c 2021-0 Yes Univer s obi-emtri-t 04-20 ity of enof ala 00:00: [place] ([facility] 00 Medical 800-150-200 Branch -10 mg Tab darunavir-c 202-0 Yes Univer s obi-emtri-t 04-20 ity of enof ala 00:00: [place] ([facility] 00 Medical 800-150-200 Branch -10 mg Tab darunavir-c 2021-0 Yes Univer s obi-emtri-t 04-20 ity of enof ala 00:00: [place] ([facility] 00 Medical 800-150-200 Branch -10 mg Tab darunavir-c 2021-0 Yes Univer s obi-emtri-t 04-20 ity of enof ala 00:00: [place] ([facility] 00 Medical 800-150-200 Branch -10 mg Tab darunavir-c 2021-0 Yes Univer s obi-emtri-t 04-20 ity of enof ala 00:00: [place] ([facility] 00 Medical 800-150-200 Branch -10 mg Tab darunavir-c 202-0 Yes Univer s obi-emtri-t 04-20 ity of enof ala 00:00: [place] ([facility] 00 Medical 800-150-200 Branch -10 mg Tab darunavir-c 2021-0 Yes Univer s obi-emtri-t 04-20 ity of enof ala 00:00: [place] ([facility] 00 Medical 800-150-200 Branch -10 mg Tab darunavir-c 202-0 Yes Univer s obi-emtri-t 04-20 ity of enof ala 00:00: [place] ([facility] 00 Medical 800-150-200 Branch -10 mg Tab darunavir-c 2020-0 Yes Univer s obi-emtri-t 04-20 ity of enof ala 00:00: [place] ([facility] 00 Medical 800-150-200 Branch -10 mg Tab darunavir-c 202-0 Yes Univer s obi-emtri-t 04-20 ity of enof ala 00:00: [place] ([facility] 00 Medical 800-150-200 Branch -10 mg Tab darunavir-c 202-0 Yes Univer s obi-emtri-t 04-20 ity of enof ala 00:00: [place] ([facility] 00 Medical 800-150-200 Branch -10 mg Tab darunavir-c 2021-0 Yes Univer s obi-emtri-t 04-20 ity of enof ala 00:00: [place] ([facility] 00 Medical 800-150-200 Branch -10 mg Tab darunavir-c 202-0 Yes Univer s obi-emtri-t 04-20 ity of enof ala 00:00: [place] ([facility] 00 Medical 800-150-200 Branch -10 mg Tab darunavir-c 202-0 Yes Univer s obi-emtri-t 04-20 ity of enof ala 00:00: [place] ([facility] 00 Medical 800-150-200 Branch -10 mg Tab darunavir-c 2021-0 Yes Univer s obi-emtri-t 04-20 ity of enof ala 00:00: [place] ([facility] 00 Medical 800-150-200 Branch -10 mg Tab darunavir-c 202-0 Yes Univer s obi-emtri-t 04-20 ity of enof ala 00:00: [place] ([facility]) 00 Medical 800-150-200 Branch -10 mg Tab darunavir-c 2020-0 Yes Univer s obi-emtri-t 04-20 ity of enof ala 00:00: [place] ([facility]) 00 Medical 800-150-200 Branch -10 mg Tab darunavir-c 2020-0 Yes Univer s obi-emtri-t 04-20 ity of enof ala 00:00: [place] ([facility]) 00 Medical 800-150-200 Branch -10 mg Tab darunavir-c 2020-0 Yes Univer s obi-emtri-t 04-20 ity of enof ala 00:00: [place] ([facility]) 00 Medical 800-150-200 Branch -10 mg Tab darunavir-c 2020-0 Yes Univer s obi-emtri-t 04-20 ity of enof ala 00:00: [place] ([facility]) 00 Medical 800-150-200 Branch -10 mg Tab dofetilide 2019-0 Yes 1{capsu Take 1 Un baldemar 125 mcg 9-28 le} capsule by ity of capsule 00:00: mouth 2 (two) Medical times Branch daily. dofetilide 2019-0 Yes 1{capsu Take 1 Un baldemar 125 mcg 9-28 le} capsule by ity of capsule 00:00: mouth 2 (two) Medical times Branch daily. dofetilide 2019-0 Yes 1{capsu Take 1 Un baldemar 125 mcg 9-28 le} capsule by ity of capsule 00:00: mouth 2 (two) Medical times Branch daily. dofetilide 2019-0 Yes 1{capsu Take 1 Un baldemar 125 mcg 9-28 le} capsule by ity of capsule 00:00: mouth 2 (two) Medical times Branch daily. dofetilide 2019-0 Yes 1{capsu Take 1 Un baldemar 125 mcg 9-28 le} capsule by ity of capsule 00:00: mouth 2 (two) Medical times Branch daily. dofetilide Yes 1{capsu Take 1 Un baldemar 125 mcg 9-28 le} capsule by ity of capsule 00:00: mouth (two) Medical times Branch daily. dofetilide Yes 1{capsu Take 1 Un baldemar 125 mcg 9-28 le} capsule by ity of capsule 00:00: mouth (two) Medical times Branch daily. dofetilide Yes 1{capsu Take 1 Un baldemar 125 mcg 9-28 le} capsule by ity of capsule 00:00: mouth (two) Medical times Branch daily. dofetilide Yes 1{capsu Take 1 Un baldemar 125 mcg 9-28 le} capsule by ity of capsule 00:00: mouth (two) Medical times Branch daily. dofetilide Yes 1{capsu Take 1 Un baldemar 125 mcg 9-28 le} capsule by ity of capsule 00:00: mouth (two) Medical times Branch daily. dofetilide Yes 1{capsu Take 1 Un baldemar 125 mcg 9-28 le} capsule by ity of capsule 00:00: mouth (two) Medical times Branch daily. dofetilide Yes 1{capsu Take 1 Un baldemar 125 mcg 9-28 le} capsule by ity of capsule 00:00: mouth (two) Medical times Branch daily. dofetilide Yes 1{capsu Take 1 Un baldemar 125 mcg 9-28 le} capsule by ity of capsule 00:00: mouth (two) Medical times Branch daily. dofetilide Yes 1{capsu Take 1 Un baldemar 125 mcg 9-28 le} capsule by ity of capsule 00:00: mouth (two) Medical times Branch daily. dofetilide Yes 1{capsu Take 1 Un baldemar 125 mcg 9-28 le} capsule by ity of capsule 00:00: mouth (two) Medical times Branch daily. dofetilide Yes 1{capsu Take 1 Un baldemar 125 mcg 9-28 le} capsule by ity of capsule 00:00: mouth (two) Medical times Branch daily. dofetilide Yes 1{capsu Take 1 Un baldemar 125 mcg 9-28 le} capsule by ity of capsule 00:00: mouth 2 00 (two) Medical times Branch daily. dofetilide Yes 1{capsu Take 1 Un baldemar 125 mcg 9-28 le} capsule by ity of capsule 00:00: mouth 2 00 (two) Medical times Branch daily. dofetilide Yes 1{capsu Take 1 Un baldemar 125 mcg 9-28 le} capsule by ity of capsule 00:00: mouth 2 [place] 00 (two) Medical times Branch daily. dofetilide Yes 1{capsu Take 1 Un baldemar 125 mcg 9-28 le} capsule by ity of capsule 00:00: mouth 2 [place] 00 (two) Medical times Branch daily. dofetilide Yes 1{capsu Take 1 Un baldemar 125 mcg 9-28 le} capsule by ity of capsule 00:00: mouth 2 [place] (two) Medical times Branch daily. dofetilide Yes 1{capsu Take 1 Un baldemar 125 mcg 9-28 le} capsule by ity of capsule 00:00: mouth 2 [place] (two) Medical times Branch daily. dofetilide Yes 1{capsu Take 1 Un baldemar 125 mcg 9-28 le} capsule by ity of capsule 00:00: mouth 2 [place] 00 (two) Medical times Branch daily. dofetilide 2022- No 1{capsu Take 1 U nivers 125 mcg 9-28 04-26 le} capsule by ity o f capsule 00:00: 00:00 mouth 2 [place] 00 :00 (two) Medical times Branch daily. dofetilide 2022- No 1{capsu Take 1 U nivers 125 mcg 9-28 04-26 le} capsule by ity o f capsule 00:00: 00:00 mouth 2 [place] 00 :00 (two) Medical times Branch daily. dofetilide 2022- No 1{capsu Take 1 U nivers 125 mcg 9-28 04-26 le} capsule by ity o f capsule 00:00: 00:00 mouth 2 [place] 00 :00 (two) Medical times Branch daily. dofetilide Yes 125 Memoria 125 mcg 8-22 microgram l oral 14:00: = 1 cap, [place] capsule 00 PO, Q12H, # 60 cap, 2 Refill(s) dofetilide Yes 125 [facility] 125 mcg 8-22 microgram l oral 14:00: = 1 cap, [place] capsule 00 PO, Q12H, # 60 cap, 2 Refill(s) dofetilide Yes 125 [facility] 125 mcg 8-22 microgram l oral 14:00: = 1 cap, [place] capsule 00 PO, Q12H, # 60 cap, 2 Refill(s) dofetilide Yes 125 [facility] 125 mcg 8-22 microgram l oral 14:00: = 1 cap, [place] capsule 00 PO, Q12H, # 60 cap, 2 Refill(s) dofetilide Yes 125 [facility] 125 mcg 8-22 microgram l oral 14:00: = 1 cap, [place] capsule 00 PO, Q12H, # 60 cap, 2 Refill(s) dofetilide Yes 125 [facility] 125 mcg 8-22 microgram l oral 14:00: = 1 cap, [place] capsule 00 PO, Q12H, # 60 cap, 2 Refill(s) dofetilide Yes 125 [facility] 125 mcg 8-22 microgram l oral 14:00: = 1 cap, [place] capsule 00 PO, Q12H, # 60 cap, 2 Refill(s) dofetilide Yes 125 [facility] 125 mcg 8-22 microgram l oral 14:00: = 1 cap, [place] capsule 00 PO, Q12H, # 60 cap, 2 Refill(s) dofetilide Yes 125 [facility] 125 mcg 8-15 microgram l oral 02:00: = 1 cap, [place] capsule 00 PO, BID, # 14 cap, 0 Refill(s) dofetilide Yes 125 [facility] 125 mcg 8-15 microgram l oral 02:00: = 1 cap, [place] capsule 00 PO, BID, # 14 cap, 0 Refill(s) dofetilide Yes 125 [facility] 125 mcg 8-15 microgram l oral 02:00: = 1 cap, [place] capsule 00 PO, BID, # 14 cap, 0 Refill(s) dofetilide Yes 125 [facility] 125 mcg 8-15 microgram l oral 02:00: = 1 cap, [place] capsule 00 PO, BID, # 14 cap, 0 Refill(s) dofetilide 0 Yes 125 [facility] 125 mcg 8-15 microgram l oral 02:00: = 1 cap, [place] capsule 00 PO, BID, # 14 cap, 0 Refill(s) dofetilide Yes 125 [facility] 125 mcg 8-15 microgram l oral 02:00: = 1 cap, [place] capsule 00 PO, BID, # 14 cap, 0 Refill(s) dofetilide Yes 125 [facility] 125 mcg 8-15 microgram l oral 02:00: = 1 cap, [place] capsule 00 PO, BID, # 14 cap, 0 Refill(s) dofetilide Yes 125 [facility] 125 mcg 8-15 microgram l oral 02:00: = 1 cap, [place] capsule 00 PO, BID, # 14 cap, 0 Refill(s) Ibuprofen No Notes: Memori a 8-13 (Same as: l 23:02: Motrin) [place] 00 "Do Not Crush" Give with food. Ibuprofen No Notes: [facility] a 8-13 (Same as: l 23:02: Motrin) [place] 00 "Do Not Crush" Give with food. Ibuprofen No Notes: Memori a 8-13 (Same as: l 23:02: Motrin) [place] 00 "Do Not Crush" Give with food. Ibuprofen No Notes: Memori a 8-13 (Same as: l 23:02: Motrin) [place] 00 "Do Not Crush" Give with food. Ibuprofen No Notes: Memori a 8-13 (Same as: l 23:02: Motrin) [place] 00 "Do Not Crush" Give with food. Ibuprofen No Notes: Memori a 8-13 (Same as: l 23:02: Motrin) [place] 00 "Do Not Crush" Give with food. Ibuprofen No Notes: Memori a 8-13 (Same as: l 23:02: Motrin) [place] 00 "Do Not Crush" Give with food. Ibuprofen No Notes: Memori a 8-13 (Same as: l 23:02: Motrin) [place] "Do Not Crush" Give with food. dofetilide No Notes: Memor ia 8-12 (Same as: l 16:07: Tikosyn) [place] Providers should enter the orders via the "Dofetilid e Initiation Orders MPP" to ensure compliance with the [employer] program. dofetilide No Notes: Memor ia 8-12 (Same as: l 16:07: Tikosyn) [place] Providers should enter the orders via the "Dofetilid e Initiation Orders MPP" to ensure compliance with the REMS program. dofetilide No Notes: Memor ia 8-12 (Same as: l 16:07: Tikosyn) [place] Providers should enter the orders via the "Dofetilid e Initiation Orders MPP" to ensure compliance with the REMS program. dofetilide No Notes: Memor ia 8-12 (Same as: l 16:07: Tikosyn) [place] Providers should enter the orders via the "Dofetilid e Initiation Orders MPP" to ensure compliance with the REMS program. dofetilide No Notes: Memor ia 8-12 (Same as: l 16:07: Tikosyn) [place] Providers should enter the orders via the "Dofetilid e Initiation Orders MPP" to ensure compliance with the REMS program. dofetilide No Notes: Memor ia 8-12 (Same as: l 16:07: Tikosyn) [place] 00 Providers should enter the orders via the "Dofetilid e Initiation Orders MPP" to ensure compliance with the REMS program. dofetilide No Notes: Memor ia 8-12 (Same as: l 16:07: Tikosyn) [place] 00 Providers should enter the orders via the "Dofetilid e Initiation Orders MPP" to ensure compliance with the REMS program. dofetilide No Notes: Memor ia 8-12 (Same as: l 16:07: Tikosyn) [place] 00 Providers should enter the orders via the "Dofetilid e Initiation Orders MPP" to ensure compliance with the REMS program. Tylenol No Notes: Do Memor ia 8-12 not exceed l 02:33: 4 gm/day. (Same as: Tylenol) Tylenol No Notes: Do Memor ia 8-12 not exceed l 02:33: 4 gm/day. (Same as: Tylenol) Tylenol No Notes: Do Memor ia 8-12 not exceed l 02:33: 4 gm/day. (Same as: Tylenol) Tylenol No Notes: Do Memor ia 8-12 not exceed l 02:33: 4 gm/day. (Same as: Tylenol) Tylenol No Notes: Do Memor ia 8-12 not exceed l 02:33: 4 gm/day. (Same as: Tylenol) Tylenol No Notes: Do Memor ia 8-12 not exceed l 02:33: 4 gm/day. (Same as: Tylenol) Tylenol No Notes: Do Memor ia 8-12 not exceed l 02:33: 4 gm/day. (Same as: Tylenol) Tylenol No Notes: Do Memor ia 8-12 not exceed l 02:33: 4 gm/day. (Same as: Tylenol) dofetilide No Notes: Memor ia 8-12 (Same as: l 02:00: Tikosyn) Providers should enter the orders via the "Dofetilid e Initiation Orders MPP" to ensure compliance with the REMS program. dofetilide No Notes: Memor ia 8-12 (Same as: l 02:00: Tikosyn) Providers should enter the orders via the "Dofetilid e Initiation Orders MPP" to ensure compliance with the REMS program. dofetilide No Notes: Memor ia 8-12 (Same as: l 02:00: Tikosyn) Providers should enter the orders via the "Dofetilid e Initiation Orders MPP" to ensure compliance with the REMS program. dofetilide No Notes: Memor ia 8-12 (Same as: l 02:00: Tikosyn) [place] Providers should enter the orders via the "Dofetilid e Initiation Orders MPP" to ensure compliance with the REMS program. dofetilide No Notes: Memor ia 8-12 (Same as: l 02:00: Tikosyn) [place] Providers should enter the orders via the "Dofetilid e Initiation Orders MPP" to ensure compliance with the REMS program. dofetilide No Notes: Memor ia 8-12 (Same as: l 02:00: Tikosyn) [place] Providers should enter the orders via the "Dofetilid e Initiation Orders MPP" to ensure compliance with the REMS program. dofetilide No Notes: Memor ia 8-12 (Same as: l 02:00: Tikosyn) [place] 00 Providers should enter the orders via the "Dofetilid e Initiation Orders MPP" to ensure compliance with the REMS program. dofetilide No Notes: Memor ia 8-12 (Same as: l 02:00: Tikosyn) [place] 00 Providers should enter the orders via the [...] 12/27/17 9:00:00 CDT Prezista No Notes: Memoria 8-11 Same as: l 14:00: Prezista 00 cobicistat No Notes: Memor ia 150 MG / 8-11 (Same as: l elvitegravi 14:00: Genvoya) - [place] r 150 MG / 00 cobicistat emtricitabi /elvitegra ne 200 MG / vir/emtric tenofovir itabine/te alafenamide nofovir 10 MG Oral ALAFENAMID Tablet E [Genvoya] 150-150-20 0-10 TAB Non-formul demetri torsemide No Notes: Memori a 8-11 (Same As: l 14:00: Demadex) ambrisentan 20180 No 10 mg, 1 Me moria 10 MG Oral 8-11 tab, l Tablet 14:00: Route: PO, Carmen nn [Letairis] 00 Drug form: TAB, Daily, Dosing Weight 88.648, kg, Start date: 11/28/17 9:00:00 CDT, Duration: 30 day, Stop date: 12/27/17 9:00:00 CDT Prezista No Notes: Memoria 8-11 Same as: l 14:00: Prezist cobicistat No Notes: Memor ia 150 MG / 8-11 (Same as: l elvitegravi 14:00: Genvoya) - [place] r 150 MG / 00 cobicistat emtricitabi /elvitegra ne 200 MG / vir/emtric tenofovir itabine/te alafenamide nofovir 10 MG Oral ALAFENAMID Tablet E [Genvoya] 150-150-20 0-10 TAB Non-formul demetri torsemide No Notes: Memori a 8-11 (Same As: l 14:00: Demadex) ambrisentan 0 No 10 mg, 1 Me moria 10 MG Oral 8-11 tab, l Tablet 14:00: Route: PO, Carmen nn [Letairis] 00 Drug form: TAB, Daily, Dosing Weight 88.648, kg, Start date: 11/28/17 9:00:00 CDT, Duration: 30 day, Stop date: 12/27/17 9:00:00 CDT Prezista No Notes: Memoria 8-11 Same as: l 14:00: Prezist cobicistat No Notes: Memor ia 150 MG / 8-11 (Same as: l elvitegravi 14:00: Genvoya) - [place] r 150 MG / 00 cobicistat emtricitabi /elvitegra ne 200 MG / vir/emtric tenofovir itabine/te alafenamide nofovir 10 MG Oral ALAFENAMID Tablet E [Genvoya] 150-150-20 0-10 TAB Non-formul demetri torsemide No Notes: Memori a 8-11 (Same As: l 14:00: Demadex) ambrisentan 0 No 10 mg, 1 Me moria 10 MG Oral 8-11 tab, l Tablet 14:00: Route: PO, Carmen nn [Letairis] 00 Drug form: TAB, Daily, Dosing Weight 88.648, kg, Start date: 11/28/17 9:00:00 CDT, Duration: 30 day, Stop date: 12/27/17 9:00:00 CDT Prezista No Notes: Memoria 8- Same as: l 14:00: Prest cobicistat No Notes: Memor ia 150 MG / 8 (Same as: l elvitegravi 14:00: Genvoya) - [place] r 150 MG / 00 cobicistat emtricitabi /elvitegra ne 200 MG / vir/emtric tenofovir itabine/te alafenamide nofovir 10 MG Oral ALAFENAMID Tablet E [Genvoya] 150-150-20 0-10 TAB Non-formul demetri torsemide No Notes: Memori a - (Same As: l 14:00: Eko) ambrisentan 0 No 10 mg, 1 Me moria 10 MG Oral 8-11 tab, l Tablet 14:00: Route: PO, Carmen nn [Letairis] 00 Drug form: TAB, Daily, Dosing Weight 88.648, kg, Start date: 11/28/17 9:00:00 CDT, Duration: 30 day, Stop date: 12/27/17 9:00:00 CDT Prezista No Notes: Memoria 8- Same as: l 14:00: Prezist cobicistat No Notes: Memor ia 150 MG / 811 (Same as: l elvitegravi 14:00: Genvoya) - [place] r 150 MG / 00 cobicistat emtricitabi /elvitegra ne 200 MG / vir/emtric tenofovir itabine/te alafenamide nofovir 10 MG Oral ALAFENAMID Tablet E [Genvoya] 150-150-20 0-10 TAB Non-formul demetri torsemide No Notes: Memori a - (Same As: l 14:00: Demadex) ambrisentan No 10 mg, 1 Me moria 10 MG Oral 8-11 tab, l Tablet 14:00: Route: PO, Carmen nn [Letairis] Drug form: TAB, Daily, Dosing Weight 88.648, kg, Start date: 11/28/17 9:00:00 CDT, Duration: 30 day, Stop date: 12/27/17 9:00:00 CDT Prezista No Notes: Memoria 11-28 Same as: l 14:00: Prezist cobicistat No Notes: Memor ia 150 MG / 8 (Same as: l elvitegravi 14:00: Genvoya) - [place] r 150 MG / 00 cobicistat emtricitabi /elvitegra ne 200 MG / vir/emtric tenofovir itabine/te alafenamide nofovir 10 MG Oral ALAFENAMID Tablet E [Genvoya] 150-150-20 0-10 TAB Non-formul demetri torsemide No Notes: Memori a 11-28 (Same As: l 14:00: Demadex) ambrisentan No 10 mg, 1 Me moria 10 MG Oral 8-11 tab, l Tablet 14:00: Route: PO, Carmen nn [Letairis] 00 Drug form: TAB, Daily, Dosing Weight 88.648, kg, Start date: 11/28/17 9:00:00 CDT, Duration: 30 day, Stop date: 12/27/17 9:00:00 CDT Prezista No Notes: Memoria 11-28 Same as: l 14:00: Prezist cobicistat No Notes: Memor ia 150 MG / 811 (Same as: l elvitegravi 14:00: Genvoya) - [place] r 150 MG / 00 cobicistat emtricitabi /elvitegra ne 200 MG / vir/emtric tenofovir itabine/te alafenamide nofovir 10 MG Oral ALAFENAMID Tablet E [Genvoya] 150-150-20 0-10 TAB Non-formul demetri torsemide No Notes: Memori a 8-11 (Same As: l 14:00: Demadex) ambrisentan No 10 mg, 1 Me moria 10 MG Oral 8-11 tab, l Tablet 14:00: Route: PO, Carmen nn [Letairis] 00 Drug form: TAB, Daily, Dosing Weight 88.648, kg, Start date: 11/28/17 9:00:00 CDT, Duration: 30 day, Stop date: 12/27/17 9:00:00 CDT Prezista No Notes: Memoria 8- Same as: l 14:00: Prezista cobicistat No Notes: Memor ia 150 MG / 11-28 (Same as: l elvitegravi 14:00: Genvoya) - [place] r 150 MG / 00 cobicistat emtricitabi /elvitegra ne 200 MG / vir/emtric tenofovir itabine/te alafenamide nofovir 10 MG Oral ALAFENAMID Tablet E [Genvoya] 150-150-20 0-10 TAB Non-formul demetri torsemide No Notes: Memori a 8-11 (Same As: l 14:00: Demadex) Acyclovir No Notes: Memori a 8-11 (Same as: l 02:00: Zovirax) Lyrica No Notes: Memoria 8-11 (Same as: l 02:00: Lyrica) Acyclovir No Notes: Memori a 8-11 (Same as: l 02:00: Zovirax) [place] No Notes: Memoria 8-11 (Same as: l 02:00: Lyrica) Acyclovir No Notes: Memori a 8-11 (Same as: l 02:00: Zovirax) [place] No Notes: Memoria 8-11 (Same as: l 02:00: Lyrica) Acyclovir No Notes: Memori a 8-11 (Same as: l 02:00: Zovirax) [place] 00 Lyrica No Notes: Memoria 8-11 (Same as: l 02:00: Lyrica) [place] 00 Acyclovir No Notes: Memori a 8-11 (Same as: l 02:00: Zovirax) [place] 00 Lyrica No Notes: Memoria 8-11 (Same as: l 02:00: Lyrica) Acyclovir No Notes: Memori a 8-11 (Same as: l 02:00: Zovirax) [place] No Notes: Memoria 8-11 (Same as: l 02:00: Lyrica) Acyclovir No Notes: Memori a 8-11 (Same as: l 02:00: Zovirax) [place] No Notes: Memoria 8-11 (Same as: l 02:00: Lyrica) Acyclovir No Notes: Memori a 8-11 (Same as: l 02:00: Zovirax) [place] No Notes: Memoria 8-11 (Same as: l 02:00: Lyrica) dofetilide No Notes: Memor ia 8-11 (Same as: l 00:00: Tikosyn) [place] 00 Providers should enter the orders via the "Dofetilid e Initiation Orders MPP" to ensure compliance with the [employer] program. dofetilide No Notes: Memor ia 8-11 (Same as: l 00:00: Tikosyn) [place] 00 Providers should enter the orders via the "Dofetilid e Initiation Orders MPP" to ensure compliance with the [employer] program. dofetilide No Notes: Memor ia 8-11 (Same as: l 00:00: Tikosyn) [place] 00 Providers should enter the orders via the "Dofetilid e Initiation Orders MPP" to ensure compliance with the [employer]S program. dofetilide No Notes: Memor ia 8-11 (Same as: l 00:00: Tikosyn) [place] Providers should enter the orders via the "Dofetilid e Initiation Orders MPP" to ensure compliance with the [employer]S program. dofetilide No Notes: Memor ia 8-11 (Same as: l 00:00: Tikosyn) [place] Providers should enter the orders via the "Dofetilid e Initiation Orders MPP" to ensure compliance with the [employer] program. dofetilide No Notes: Memor ia 8-11 (Same as: l 00:00: Tikosyn) [place] Providers should enter the orders via the "Dofetilid e Initiation Orders MPP" to ensure compliance with the [employer]S program. dofetilide No Notes: Memor ia 8-11 (Same as: l 00:00: Tikosyn) [place] Providers should enter the orders via the "Dofetilid e Initiation Orders MPP" to ensure compliance with the [employer]S program. dofetilide No Notes: Memor ia 8-11 (Same as: l 00:00: Tikosyn) [place] Providers should enter the orders via the "Dofetilid e Initiation Orders MPP" to ensure compliance with the [employer]S program. Singulair No Notes: Memori a 8-10 (Same l 22:00: as:Singula ir) Xarelto No Notes: Memoria 8-10 (Same as: l 22:00: Xarelto) Administer with food Calcium No Notes: [facility] Gluconate -10 WASTE: F/P l 22:00: - Sink; E [...] phosphate 8-10 (Same as: l 22:00: K [place] 00 Phosphate. ) Do not infuse phosphorou s concurrent ly in the same line as TPN or IVF that contains calcium. For double lumen central lines, phosphorou s may be infused in a separate lumen from TPN. 1 mMol phoshate has 1.47 mEq potassium Infuse over 4 hours sodium No Notes: Memoria phosphate 8-10 Infuse l 22:00: over 4 [place] 00 hour. Do not infuse phosphorou s concurrent ly in the same line as TPN or IVF that contains calcium. For double lumen central lines, phosphorou s may be infused in a separate lumen from TPN. Magnesium No Notes: Memori a Sulfate 8-10 WASTE: F/P l 22:00: - Sink; E [place] - Municipal Trash Bin Magnesium No Notes: Memori a Oxide 8-10 (Same as: l 22:00: Mag-Ox [place] 400) Magnesium oxide 145tp=183n g elemental magnesium Dose=____m g magnesium oxide (___mg elemental magnesium) Singulair No Notes: Memori a 8-10 (Same l 22:00: as:Singula [place] 00 ir) Xarelto No Notes: Memoria 8-10 (Same as: l 22:00: Xarelto) [place] Administer with food Calcium No Notes: [facility] Gluconate 8-10 WASTE: F/P l 22:00: - Sink; E [place] 00 - [facility] Trash Bin Potassium No Notes: Memori a Chloride 8-10 (Same as: l 22:00: Potassium [place] 00 Chloride) potassium No Notes: Memori a phosphate-s 8-10 (Same as: l odium 22:00: Phos-NaK) [place] phosphate 00 Each 1.5 250 mg-280 gm pkt has mg-160 mg 250mg oral powder phosphorou for s. Mix reconstitut w/2.5oz ion water and stir. potassium No Notes: Memori a phosphate 8-10 (Same as: l 22:00: K [place] 00 Phosphate. ) Do not infuse phosphorou s concurrent ly in the same line as TPN or IVF that contains calcium. For double lumen central lines, phosphorou s may be infused in a separate lumen from TPN. 1 mMol phoshate has 1.47 mEq potassium Infuse over 4 hours sodium No Notes: [facility] phosphate 8-10 Infuse l 22:00: over 4 [place] 00 hour. Do not infuse phosphorou s concurrent ly in the same line as TPN or IVF that contains calcium. For double lumen central lines, phosphorou s may be infused in a separate lumen from TPN. Magnesium No Notes: Memori a Sulfate 8-10 WASTE: F/P l 22:00: - Sink; E [place] - [facility] Trash Bin Magnesium No Notes: Memori a Oxide 8-10 (Same as: l 22:00: Mag-Ox [place] 400) Magnesium oxide 863eb=452r g elemental magnesium Dose=____m g magnesium oxide (___mg elemental magnesium) Singulair No Notes: Memori a 8-10 (Same l 22:00: as:Singula [place] 00 ir) Xarelto No Notes: Memoria 8-10 (Same as: l 22:00: Xarelto) [place] Administer with food Calcium No Notes: [facility] Gluconate 8-10 WASTE: F/P l 22:00: - Sink; E [place] 00 - [facility] Trash Bin Potassium No Notes: Mem[facility] a Chloride 8-10 (Same as: l 22:00: Potassium [place] 00 Chloride) potassium No Notes: Memori a phosphate-s 8-10 (Same as: l odium 22:00: Phos-NaK) [place] phosphate 00 Each 1.5 250 mg-280 gm pkt has mg-160 mg 250mg oral powder phosphorou for s. Mix reconstitut w/2.5oz ion water and stir. potassium No Notes: Memori a phosphate 8-10 (Same as: l 22:00: K [place] 00 Phosphate. ) Do not infuse phosphorou s concurrent ly in the same line as TPN or IVF that contains calcium. For double lumen central lines, phosphorou s may be infused in a separate lumen from TPN. 1 mMol phoshate has 1.47 mEq potassium Infuse over 4 hours sodium No Notes: [facility] phosphate 8-10 Infuse l 22:00: over 4 [place] 00 hour. Do not infuse phosphorou s concurrent ly in the same line as TPN or IVF that contains calcium. For double lumen central lines, phosphorou s may be infused in a separate lumen from TPN. Magnesium No Notes: Memori a Sulfate 8-10 WASTE: F/P l 22:00: - Sink; E [place] 00 - [facility] Trash Bin Magnesium No Notes: Memori a Oxide 8-10 (Same as: l 22:00: Mag-Ox [place] 400) Magnesium oxide [id number] g elemental magnesium Dose=____m g magnesium oxide (___mg elemental magnesium) Singulair No Notes: Memori a 8-10 (Same [...] 8-10 (Same as: l odium 22:00: Phos-NaK) [place] phosphate 00 Each 1.5 250 mg-280 gm [...] phosphate 8-10 Infuse l 22:00: over 4 [place] 00 hour. Do not infuse phosphorou s concurrent ly in the same line as TPN or IVF that contains calcium. For double lumen central lines, phosphorou s may be infused in a separate lumen from TPN. Magnesium No Notes: Memori a Sulfate 8-10 WASTE: F/P l 22:00: - Sink; E [place] - [facility] Trash Bin Magnesium No Notes: Memori a Oxide 8-10 (Same as: l 22:00: Mag-Ox [place] 00 400) Magnesium oxide 640rx=875j g elemental magnesium Dose=____m g magnesium oxide (___mg elemental magnesium) Singulair No Notes: Memori a 8-10 (Same l 22:00: as:Singula ir) Xarelto No Notes: Memoria 8-10 (Same as: l 22:00: Xarelto) Administer with food Calcium No Notes: [facility] Gluconate 8-10 WASTE: F/P l 22:00: - Sink; E [place] - [facility] Trash [facility] Potassium No Notes: [...] phosphate 8-10 Infuse l 22:00: over 4 [place] 00 hour. Do not infuse phosphorou s concurrent ly in the same line as TPN or IVF that contains calcium. For double lumen central lines, phosphorou s may be infused in a separate lumen from TPN. Magnesium No Notes: Memori a Sulfate 8-10 WASTE: F/P l 22:00: - Sink; E [place] - [facility] Trash [facility] Magnesium No Notes: Memori a Oxide 8-10 (Same as: l 22:00: Mag-Ox [place] 400) Magnesium oxide 491dl=994j g elemental magnesium Dose=____m g magnesium oxide (___mg elemental magnesium) Singulair No Notes: Memori a 8-10 (Same l 22:00: as:Singula [place] ir) Xarelto No Notes: [facility]oria 8-10 (Same as: l 22:00: Xarelto) [place] 00 Administer with food Calcium No Notes: [facility] Gluconate 8-10 WASTE: F/P l 22:00: - Sink; E - [facility] Trash Bin Potassium No Notes: Memori a Chloride 8-10 (Same as: l 22:00: Potassium Chloride) potassium No Notes: Memori a phosphate-s 8-10 (Same as: l odium 22:00: Phos-NaK) [place] phosphate 00 Each 1.5 250 mg-280 gm pkt has mg-160 mg 250mg oral powder phosphorou for s. Mix reconstitut w/2.5oz ion water and stir. potassium No Notes: Memori a phosphate 8-10 (Same as: l 22:00: K [place] 00 Phosphate. ) Do not infuse phosphorou s concurrent ly in the same line as TPN or IVF that contains calcium. For double lumen central lines, phosphorou s may be infused in a separate lumen from TPN. 1 mMol phoshate has 1.47 mEq potassium Infuse over 4 hours sodium No Notes: [facility] phosphate 8-10 Infuse l 22:00: over 4 [place] 00 hour. Do not infuse phosphorou s [...] Oxide 8-10 (Same as: l 22:00: Mag-Ox [place] 400) Magnesium oxide 728vp=904d g elemental magnesium Dose=____m g magnesium oxide (___mg elemental magnesium) Singulair No Notes: Memori a 8-10 (Same l 22:00: as:Singula ir) Xarelto No Notes: Memoria 8-10 (Same as: l 22:00: Xarelto) Administer with food Calcium No Notes: [facility] Gluconate 8-10 WASTE: F/P l 22:00: - Sink; E [place] 00 - [facility] Trash Bin Potassium No Notes: [...] phosphate 8-10 Infuse l 22:00: over 4 [place] 00 hour. Do not infuse phosphorou s [...] as: l 22:00: Mag-Ox 400) Magnesium oxide 318qg=990c g elemental magnesium Dose=____m g magnesium oxide (___mg elemental magnesium) Singulair No Notes: Memori a 8-10 (Same l 22:00: as:Singula [place] 00 ir) Xarelto No Notes: Memoria 8-10 (Same as: l 22:00: Xarelto) Administer with food Calcium No Notes: [facility] Gluconate 8-10 WASTE: F/P l 22:00: - Sink; E - [facility] Trash Bin Potassium No Notes: Memori a Chloride 8-10 (Same as: l 22:00: Potassium Chloride) potassium No Notes: Memori a phosphate-s 8-10 (Same as: l odium 22:00: Phos-NaK) [place] phosphate 00 Each 1.5 250 mg-280 gm [...] phosphate 8-10 Infuse l 22:00: over 4 00 hour. Do not infuse phosphorou s [...] as: l 22:00: Mag-Ox 400) Magnesium oxide 330ru=969i g elemental magnesium Dose=____m g magnesium oxide (___mg elemental magnesium) cobicistat Yes 1 tab, PO, M emoria 150 [...] 28 [place] 00 tab, 0 Refill(s) cobicistat 2018-0 Yes 1 tab, PO, M [...] tab, PO, l Tablet 19:19: Daily, 0 [place] [Prezista] 00 Refill(s) montelukast 2018-0 Yes 10 [...] 28 [place] 00 tab, 0 Refill(s) cobicistat 2018-0 Yes 1 tab, PO, M [...] tab, PO, l tablet 19:19: Daily, # [place] 00 30 tab, 1 Refill(s) pregabalin 2018-0 Yes 100 mg = 1 M emoria 100 MG Oral 8-10 cap, PO, l Capsule 19:19: BID, # 90 [place] [Lyrica] 00 cap, 1 Refill(s) acyclovir 2018-0 Yes 400 mg = 1 Me moria 400 mg oral 8-10 tab, PO, l tablet 19:19: Q12H, # 28 [place] 00 tab, 0 Refill(s) cobicistat 2018-0 Yes 1 tab, PO, M [...] 28 [place] 00 tab, 0 Refill(s) cobicistat 2018-0 Yes 1 tab, PO, M emoria 150 MG / 8-10 Daily, # l elvitegravi 19:19: 90 tab, 0 H ermann r 150 MG / 00 Refill(s) emtricitabi ne 200 MG / tenofovir alafenamide 10 MG Oral Tablet [Genvoya] rivaroxaban 2017-0 Yes 20 mg = 1 M emoria [...] 28 [place] 00 tab, 0 Refill(s) cobicistat 2018-0 Yes 1 tab, PO, M [...] tab, PO, l Tablet 19:19: Daily, # [place] [Letairis] 00 30 tab, 0 Refill(s) darunavir 2018-0 Yes 800 mg = 1 Me moria 800 MG Oral 8-10 tab, PO, l Tablet 19:19: Daily, 0 [place] [Prezista] 00 Refill(s) montelukast 2018-0 Yes 10 [...] 28 [place] 00 tab, 0 Refill(s) cobicistat 2018-0 Yes 1 tab, PO, M [...] 28 [place] 00 tab, 0 Refill(s) cobicistat 2018-0 Yes 1 tab, PO, M [...] 28 [place] 00 tab, 0 Refill(s) Immunizations Ordered Filled Immunization Date Status Comments [facility] e Immunization Name Name Influenza High Dose 2019-01-20 Completed Unive rsity of 00:00:00 [facility] Pneumococcal 13 2019-01-20 Completed Universit y of Conjugate, PCV13 00:00:00 [facility] dical (Prevnar 13) Branch Influenza High Dose 2019-01-20 Completed Unive rsity of 00:00:00 [facility] Pneumococcal 13 2019-01-20 Completed Universit [facility] of Conjugate, PCV13 00:00:00 [facility] dical (Prevnar 13) Branch Influenza High Dose 2019-01-20 Completed [facility]ive rsity of 00:00:00 [facility] Pneumococcal 13 2019-01-20 Completed Universit [facility] of Conjugate, PCV13 00:00:00 [facility] dical (Prevnar 13) Branch Influenza High Dose 2019-01-20 Completed [facility] 00:00:00 [facility] Pneumococcal 13 2019-01-20 Completed [facility] of Conjugate, PCV13 00:00:00 [place] [facility] (Prevnar 13) [facility] Influenza High Dose 2019-01-20 Completed [facility]ive rsity of 00:00:00 [facility] Pneumococcal 13 2019-01-20 Completed [facility]it [facility] of Conjugate, PCV13 00:00:00 [place] [facility] (Prevnar 13) Branch Influenza High Dose 2019-01-20 Completed [facility] of 00:00:00 [facility] Pneumococcal 13 2019-01-20 Completed Universit y of Conjugate, PCV13 00:00:00 [place] [facility] (Prevnar 13) Branch Influenza High Dose 2019-01-20 Completed [facility]ive rs[facility] of 00:00:00 [facility] Pneumococcal 13 2019-01-20 Completed Universit [facility] of Conjugate, PCV13 00:00:00 [place] [facility] (Prevnar 13) Branch Influenza High Dose 2019-01-20 Completed [facility]ive rsity of 00:00:00 [facility] Pneumococcal 13 2019-01-20 Completed Universit y of Conjugate, PCV13 00:00:00 [facility] dical (Prevnar 13) Branch Influenza High Dose 2019-01-20 Completed Unive rsity of 00:00:00 [facility] Pneumococcal 13 2019-01-20 Completed Universit y of Conjugate, PCV13 00:00:00 [place] [facility] (Prevnar 13) Branch Influenza High Dose 2019-01-20 Completed [facility]ive rsity of 00:00:00 [facility] Pneumococcal 13 2019-01-20 Completed Universit y of Conjugate, PCV13 00:00:00 [place] [facility] (Prevnar 13) Branch Influenza High Dose 2019-01-20 Completed [facility]ive rs[facility] of 00:00:00 [facility] Pneumococcal 13 2019-01-20 Completed Universit y of Conjugate, PCV13 00:00:00 [place] [facility] (Prevnar 13) Branch Influenza High Dose 2019-01-20 Completed [facility]ive rsity of 00:00:00 [facility] Pneumococcal 13 2019-01-20 Completed [facility]it y of Conjugate, PCV13 00:00:00 [place] [facility] (Prevnar 13) Branch Influenza High Dose 2019-01-20 Completed [facility]ive rsity of 00:00:00 [facility] Pneumococcal 13 2019-01-20 Completed [facility]it [facility] of Conjugate, PCV13 00:00:00 [place] [facility] (Prevnar 13) Branch Influenza High Dose 2019-01-20 Completed [facility]ive rs[facility] of 00:00:00 [facility] Pneumococcal 13 2019-01-20 Completed Universit y of Conjugate, PCV13 00:00:00 [place] [facility] (Prevnar 13) Branch Influenza High Dose 2019-01-20 Completed [facility]ive rs[facility] of 00:00:00 [facility] Pneumococcal 13 2019-01-20 Completed [facility]it [facility] of Conjugate, PCV13 00:00:00 [place] [facility] (Prevnar 13) Branch Influenza High Dose 2019-01-20 Completed [facility]ive [facility] of 00:00:00 [facility] Pneumococcal 13 2019-01-20 Completed Universit y of Conjugate, PCV13 00:00:00 [place] [facility] (Prevnar 13) Branch Influenza High Dose 2019-01-20 Completed [facility]ive rsity of 00:00:00 [facility] Pneumococcal 13 2019-01-20 Completed Universit y of Conjugate, PCV13 00:00:00 [place] [facility] (Prevnar 13) Branch Influenza High Dose 2019-01-20 Completed Unive rsity of 00:00:00 [facility] Pneumococcal 13 2019-01-20 Completed Universit y of Conjugate, PCV13 00:00:00 [place] [facility] (Prevnar 13) Branch Influenza High Dose 2019-01-20 Completed Unive rsity of 00:00:00 [facility] Pneumococcal 13 2019-01-20 Completed Universit y of Conjugate, PCV13 00:00:00 [place] [facility] (Prevnar 13) Branch Influenza High Dose 2019-01-20 Completed [facility]ive rsity of 00:00:00 [facility] Pneumococcal 13 2019-01-20 Completed Universit y of Conjugate, PCV13 00:00:00 [place] [facility] (Prevnar 13) Branch Influenza High Dose 2019-01-20 Completed [facility]ive rsity of 00:00:00 [facility] Pneumococcal 13 2019-01-20 Completed Universit y of Conjugate, PCV13 00:00:00 [place] [facility] (Prevnar 13) Branch Influenza High Dose 2019-01-20 Completed Unive rsity of 00:00:00 [facility] Pneumococcal 13 2019-01-20 Completed Universit y of Conjugate, PCV13 00:00:00 [place] [facility] (Prevnar 13) Branch Influenza High Dose 2019-01-20 Completed Unive rsity of 00:00:00 [facility] Pneumococcal 13 2019-01-20 Completed Universit y of Conjugate, PCV13 00:00:00 [facility] dical (Prevnar 13) Branch Influenza High Dose 2019-01-20 Completed Unive rsity of 00:00:00 [facility] Pneumococcal 13 2019-01-20 Completed Universit y of Conjugate, PCV13 00:00:00 [facility] dical (Prevnar 13) Branch Influenza High Dose 2019-01-20 Completed Unive rsity of 00:00:00 [facility] Pneumococcal 13 2019-01-20 Completed Universit y of Conjugate, PCV13 00:00:00 [facility] dical (Prevnar 13) Branch Influenza High Dose 2019-01-20 Completed Unive rsity of 00:00:00 [facility] Pneumococcal 13 2019-01-20 Completed Universit y of Conjugate, PCV13 00:00:00 [facility] dical (Prevnar 13) Branch Influenza High Dose 2019-01-20 Completed Unive rsity of 00:00:00 [facility] Pneumococcal 13 2019-01-20 Completed Universit y of Conjugate, PCV13 00:00:00 [facility] dical (Prevnar 13) Branch Influenza High Dose 2019-01-20 Completed Unive rsity of 00:00:00 [facility] Pneumococcal 13 2019-01-20 Completed Universit y of Conjugate, PCV13 00:00:00 [facility] dical (Prevnar 13) Branch Influenza High Dose 2019-01-20 Completed Unive rsity of 00:00:00 [facility] Pneumococcal 13 2019-01-20 Completed Universit y of Conjugate, PCV13 00:00:00 [facility] dical (Prevnar 13) Branch Influenza Virus 2016-01-19 Completed Universit y of Vaccine - Whole 00:00:00 [facility] Influenza Virus 2016-01-19 Completed Universit y of Vaccine - Whole 00:00:00 [facility] Influenza Virus 2016-01-19 Completed Universit y of Vaccine - Whole 00:00:00 [facility] Influenza Virus 2016-01-19 Completed Universit y of Vaccine - Whole 00:00:00 [facility] Influenza Virus 2016-01-19 Completed Universit y of Vaccine - Whole 00:00:00 [facility] Influenza Virus 2016-01-19 Completed Universit y of Vaccine - Whole 00:00:00 [facility] Influenza Virus 2016-01-19 Completed Universit y of Vaccine - Whole 00:00:00 [facility] Influenza Virus 2016-01-19 Completed Universit y of Vaccine - Whole 00:00:00 [facility] Influenza Virus 2016-01-19 Completed Universit y of Vaccine - Whole 00:00:00 [facility] Influenza Virus 2016-01-19 Completed Universit y of Vaccine - Whole 00:00:00 [facility] Influenza Virus 2016-01-19 Completed Universit y of Vaccine - Whole 00:00:00 [facility] Influenza Virus 2016-01-19 Completed Universit y of Vaccine - Whole 00:00:00 [facility] Influenza Virus 2016-01-19 Completed Universit y of Vaccine - Whole 00:00:00 [facility] Influenza Virus 2016-01-19 Completed Universit y of Vaccine - Whole 00:00:00 [facility] Influenza Virus 2016-01-19 Completed Universit y of Vaccine - Whole 00:00:00 [facility] Influenza Virus 2016-01-19 Completed Universit y of Vaccine - Whole 00:00:00 [facility] Influenza Virus 2016-01-19 Completed Universit y of Vaccine - Whole 00:00:00 [facility] Influenza Virus 2016-01-19 Completed Universit y of Vaccine - Whole 00:00:00 [facility] Influenza Virus 2016-01-19 Completed Universit y of Vaccine - Whole 00:00:00 [facility] Influenza Virus 2016-01-19 Completed Universit y of Vaccine - Whole 00:00:00 [facility] Influenza Virus 2016-01-19 Completed Universit y of Vaccine - Whole 00:00:00 [facility] Influenza Virus 2016-01-19 Completed Universit y of Vaccine - Whole 00:00:00 [facility] Influenza Virus 2016-01-19 Completed Universit y of Vaccine - Whole 00:00:00 [facility] Influenza Virus 2016-01-19 Completed Universit y of Vaccine - Whole 00:00:00 [facility] Influenza Virus 2016-01-19 Completed Universit y of Vaccine - Whole 00:00:00 [facility] Influenza Virus 2016-01-19 Completed Universit y of Vaccine - Whole 00:00:00 [facility] Influenza Virus 2016-01-19 Completed Universit y of Vaccine - Whole 00:00:00 [facility] Influenza Virus 2016-01-19 Completed Universit y of Vaccine - Whole 00:00:00 [facility] Influenza Virus 2016-01-19 Completed Universit y of Vaccine - Whole 00:00:00 [facility] Influenza High Dose 2014-01-17 Completed Unive rsity of 00:00:00 [facility] Pneumococcal 7 2014-01-17 Completed University of Conjugate, PCV7 00:00:00 [facility] (Prevnar7) [place] Influenza High Dose 2014-01-17 Completed Unive rsity of 00:00:00 [facility] Pneumococcal 7 2014-01-17 Completed University of Conjugate, PCV7 00:00:00 [facility] (Prevnar7) [place] Influenza High Dose 2014-01-17 Completed Unive rsity of 00:00:00 [facility] Pneumococcal 7 2014-01-17 Completed University of Conjugate, PCV7 00:00:00 [facility] (Prevnar7) [place] Influenza High Dose 2014-01-17 Completed Unive rsity of 00:00:00 [facility] Pneumococcal 7 2014-01-17 Completed University of Conjugate, PCV7 00:00:00 [facility] (Prevnar7) [place] Influenza High Dose 2014-01-17 Completed Unive rsity of 00:00:00 [facility] Pneumococcal 7 2014-01-17 Completed University of Conjugate, PCV7 00:00:00 [facility] (Prevnar7) [place] Influenza High Dose 2014-01-17 Completed Unive rsity of 00:00:00 [facility] Pneumococcal 7 2014-01-17 Completed University of Conjugate, PCV7 00:00:00 [facility] (Prevnar7) Branch Influenza High Dose 2014-01-17 Completed Unive rsity of 00:00:00 [facility] Pneumococcal 7 2014-01-17 Completed University of Conjugate, PCV7 00:00:00 [facility] (Prevnar7) Branch Influenza High Dose 2014-01-17 Completed Unive rsity of 00:00:00 [facility] Pneumococcal 7 2014-01-17 Completed University of Conjugate, PCV7 00:00:00 [facility] (Prevnar7) [place] Influenza High Dose 2014-01-17 Completed Unive rsity of 00:00:00 [facility] Pneumococcal 7 2014-01-17 Completed University of Conjugate, PCV7 00:00:00 [place] [facility] ([facility]) [facility] Influenza High Dose 2014-01-17 Completed Unive rsity of 00:00:00 [facility] Pneumococcal 7 2014-01-17 Completed University of Conjugate, PCV7 00:00:00 [place] [facility] (Prevnar[facility]) Branch Influenza High Dose 2014-01-17 Completed Unive rsity of 00:00:00 [facility] Pneumococcal 7 2014-01-17 Completed University of Conjugate, PCV7 00:00:00 [place] [facility] (Prevnar7) Branch Influenza High Dose 2014-01-17 Completed Unive rsity of 00:00:00 [facility] Pneumococcal 7 2014-01-17 Completed University of Conjugate, PCV7 00:00:00 [facility] (Prevn[facility]) [facility] Influenza High Dose 2014-01-17 Completed [facility]ive [facility]ity of 00:00:00 [facility] Pneumococcal 7 2014-01-17 Completed University of Conjugate, PCV7 00:00:00 [facility] (Pre[facility]) [facility] Influenza High Dose 2014-01-17 Completed [facility]ive [facility] of 00:00:00 [facility] Pneumococcal 7 2014-01-17 Completed [facility] of Conjugate, PCV7 00:00:00 [facility] (Prevnar7) [facility] Influenza High Dose 2014-01-17 Completed [facility]ive rsity of 00:00:00 [facility] Pneumococcal 7 2014-01-17 Completed [facility] of Conjugate, PCV7 00:00:00 [facility] (Prevnar7) [facility] Influenza High Dose 2014-01-17 Completed [facility]ive [facility] of 00:00:00 [facility] Pneumococcal 7 2014-01-17 Completed [facility] of Conjugate, PCV7 00:00:00 [facility] (Prevnar7) [facility] Influenza High Dose 2014-01-17 Completed [facility]ive [facility] of 00:00:00 [facility] Pneumococcal 7 2014-01-17 Completed [facility] of Conjugate, PCV7 00:00:00 [facility] (Prevnar7) [facility] Influenza High Dose 2014-01-17 Completed [facility]ive rsity of 00:00:00 [facility] Pneumococcal 7 2014-01-17 Completed [facility] of Conjugate, PCV7 00:00:00 [facility] (Prevnar7) [facility] Influenza High Dose 2014-01-17 Completed [facility] of 00:00:00 [facility] Pneumococcal 7 2014-01-17 Completed [facility] of Conjugate, PCV7 00:00:00 [facility] (Prevnar7) [facility] Influenza High Dose 2014-01-17 Completed [facility] of 00:00:00 [facility] Pneumococcal 7 2014-01-17 Completed [facility] of Conjugate, PCV7 00:00:00 [facility] (Prevnar7) [facility] Influenza High Dose 2014-01-17 Completed [facility]ive rs[facility] of 00:00:00 [facility] Pneumococcal 7 2014-01-17 Completed [facility] of Conjugate, PCV7 00:00:00 [facility] (Prevnar7) [facility] Influenza High Dose 2014-01-17 Completed [facility] rs[facility] of 00:00:00 [facility] Pneumococcal 7 2014-01-17 Completed [facility] of Conjugate, PCV7 00:00:00 [facility] (Prevnar[facility]) [facility] Influenza High Dose 2014-01-17 Completed [facility] of 00:00:00 [facility] Pneumococcal 7 2014-01-17 Completed [facility] of Conjugate, PCV7 00:00:00 [facility] (Prevnar7) [facility] Influenza High Dose 2014-01-17 Completed [facility] of 00:00:00 [facility] Pneumococcal 7 2014-01-17 Completed [facility] of Conjugate, PCV7 00:00:00 [facility] (Prevnar7) [facility] Influenza High Dose 2014-01-17 Completed [facility] of 00:00:00 [facility] Pneumococcal 7 2014-01-17 Completed [facility] of Conjugate, PCV7 00:00:00 [facility] (Prevnar7) [facility] Influenza High Dose 2014-01-17 Completed [facility] of 00:00:00 [facility] Pneumococcal 7 2014-01-17 Completed [facility] of Conjugate, PCV7 00:00:00 [facility] (Prevnar7) [facility] Influenza High Dose 2014-01-17 Completed [facility] of 00:00:00 [facility] Pneumococcal 7 2014-01-17 Completed [facility] of Conjugate, PCV7 00:00:00 [facility] (Prevnar7) [facility] Influenza High Dose 2014-01-17 Completed [facility]ive rs[facility] of 00:00:00 [facility] Pneumococcal 7 2014-01-17 Completed [facility] of Conjugate, PCV7 00:00:00 [facility] (Prevnar[facility]) [place] Influenza High Dose 2014-01-17 Completed [facility]ive rsity of 00:00:00 [facility] Pneumococcal 7 2014-01-17 Completed [facility] of Conjugate, PCV7 00:00:00 [facility] (Prevnar7) Branch Influenza Virus 2013-05-04 Completed Universit y of Vaccine 00:00:00 [facility] Influenza Virus 2013-05-04 Completed [facility]it y of Vaccine 00:00:00 [facility] Influenza Virus 2013-05-04 Completed [facility]it y of Vaccine 00:00:00 [facility] Influenza Virus 2013-05-04 Completed [facility]it y of Vaccine 00:00:00 [facility] Influenza Virus 2013-05-04 Completed [facility]it y of Vaccine 00:00:00 [facility] Influenza Virus 2013-05-04 Completed [facility]it y of Vaccine 00:00:00 [facility] Influenza Virus 2013-05-04 Completed [facility]it y of Vaccine 00:00:00 [facility] Influenza Virus 2013-05-04 Completed [facility]it y of Vaccine 00:00:00 [facility] Influenza Virus 2013-05-04 Completed [facility]it y of Vaccine 00:00:00 [facility] Influenza Virus 2013-05-04 Completed [facility]it y of Vaccine 00:00:00 [facility] Influenza Virus 2013-05-04 Completed [facility]it y of Vaccine 00:00:00 [facility] Influenza Virus 2013-05-04 Completed [facility]it y of Vaccine 00:00:00 [facility] Influenza Virus 2013-05-04 Completed [facility]it y of Vaccine 00:00:00 [facility] Influenza Virus 2013-05-04 Completed [facility]it y of Vaccine 00:00:00 [facility] Influenza Virus 2013-05-04 Completed [facility]it y of Vaccine 00:00:00 [facility] Influenza Virus 2013-05-04 Completed [facility]it y of Vaccine 00:00:00 [facility] Influenza Virus 2013-05-04 Completed [facility]it y of Vaccine 00:00:00 [facility] Influenza Virus 2013-05-04 Completed [facility]it y of Vaccine 00:00:00 [facility] Influenza Virus 2013-05-04 Completed [facility]it y of Vaccine 00:00:00 [facility] Influenza Virus 2013-05-04 Completed [facility]it y of Vaccine 00:00:00 [facility] Influenza Virus 2013-05-04 Completed [facility]it y of Vaccine 00:00:00 [facility] Influenza Virus 2013-05-04 Completed [facility]it y of Vaccine 00:00:00 [facility] Influenza Virus 2013-05-04 Completed [facility]it y of Vaccine 00:00:00 [facility] Influenza Virus 2013-05-04 Completed [facility]it y of Vaccine 00:00:00 [facility] Influenza Virus 2013-05-04 Completed [facility]it y of Vaccine 00:00:00 [facility] Influenza Virus 2013-05-04 Completed [facility]it y of Vaccine 00:00:00 [facility] Influenza Virus 2013-05-04 Completed [facility]it y of Vaccine 00:00:00 [facility] Influenza Virus 2013-05-04 Completed [facility]it y of Vaccine 00:00:00 [facility] Influenza Virus 2013-05-04 Completed [facility]it y of Vaccine 00:00:00 [facility] Influenza Virus 2012-01-23 Completed [facility]it y of Vaccine 00:00:00 [facility] PPD (TB) 2012-01-23 Completed University of 00:00:00 [facility] Influenza Virus 2012-01-23 Completed [facility]it y of Vaccine 00:00:00 [facility] PPD (TB) 2012-01-23 Completed [facility] of 00:00:00 [facility] Influenza Virus 2012-01-23 Completed [facility]it y of Vaccine 00:00:00 [facility] PPD (TB) 2012-01-23 Completed [facility] of 00:00:00 [facility] Influenza Virus 2012-01-23 Completed [facility]it y of Vaccine 00:00:00 [facility] PPD (TB) 2012-01-23 Completed [facility] of 00:00:00 [facility] Influenza Virus 2012-01-23 Completed [facility]it y of Vaccine 00:00:00 [facility] PPD (TB) 2012-01-23 Completed [facility] of 00:00:00 [facility] Influenza Virus 2012-01-23 Completed [facility]it y of Vaccine 00:00:00 [facility] PPD (TB) 2012-01-23 Completed [facility] of 00:00:00 [facility] Influenza Virus 2012-01-23 Completed [facility]it y of Vaccine 00:00:00 [facility] PPD (TB) 2012-01-23 Completed [facility] of 00:00:00 [facility] Influenza Virus 2012-01-23 Completed [facility]it y of Vaccine 00:00:00 [facility] PPD (TB) 2012-01-23 Completed [facility] of 00:00:00 [facility] Influenza Virus 2012-01-23 Completed [facility]it y of Vaccine 00:00:00 [facility] PPD (TB) 2012-01-23 Completed [facility] of 00:00:00 [facility] Influenza Virus 2012-01-23 Completed [facility]it y of Vaccine 00:00:00 [facility] PPD (TB) 2012-01-23 Completed [facility] of 00:00:00 [facility] Influenza Virus 2012-01-23 Completed [facility]it y of Vaccine 00:00:00 [facility] PPD (TB) 2012-01-23 Completed [facility] of 00:00:00 [facility] Influenza Virus 2012-01-23 Completed [facility]it y of Vaccine 00:00:00 [facility] PPD (TB) 2012-01-23 Completed [facility] of 00:00:00 [facility] Influenza Virus 2012-01-23 Completed [facility]it y of Vaccine 00:00:00 [facility] PPD (TB) 2012-01-23 Completed [facility] of 00:00:00 [facility] Influenza Virus 2012-01-23 Completed [facility]it y of Vaccine 00:00:00 [facility] PPD (TB) 2012-01-23 Completed [facility] of 00:00:00 [facility] Influenza Virus 2012-01-23 Completed [facility]it y of Vaccine 00:00:00 [facility] PPD (TB) 2012-01-23 Completed [facility] of 00:00:00 [facility] Influenza Virus 2012-01-23 Completed [facility]it y of Vaccine 00:00:00 [facility] PPD (TB) 2012-01-23 Completed [facility] of 00:00:00 [facility] Influenza Virus 2012-01-23 Completed [facility]it y of Vaccine 00:00:00 [facility] PPD (TB) 2012-01-23 Completed [facility] of 00:00:00 [facility] Influenza Virus 2012-01-23 Completed [facility]it y of Vaccine 00:00:00 [facility] PPD (TB) 2012-01-23 Completed [facility] of 00:00:00 [facility] Influenza Virus 2012-01-23 Completed [facility]it y of Vaccine 00:00:00 [facility] PPD (TB) 2012-01-23 Completed [facility] of 00:00:00 [facility] Influenza Virus 2012-01-23 Completed [facility]it y of Vaccine 00:00:00 [facility] PPD (TB) 2012-01-23 Completed [facility] of 00:00:00 [facility] Influenza Virus 2012-01-23 Completed [facility]it y of Vaccine 00:00:00 [facility] PPD (TB) 2012-01-23 Completed [facility] of 00:00:00 [facility] Influenza Virus 2012-01-23 Completed [facility]it y of Vaccine 00:00:00 [facility] PPD (TB) 2012-01-23 Completed [facility] of 00:00:00 [facility] Influenza Virus 2012-01-23 Completed Universit y of Vaccine 00:00:00 [facility] PPD (TB) 2012-01-23 Completed [facility] of 00:00:00 [facility] Influenza Virus 2012-01-23 Completed [facility]it y of Vaccine 00:00:00 [facility] PPD (TB) 2012-01-23 Completed [facility] of 00:00:00 [facility] Influenza Virus 2012-01-23 Completed [facility]it y of Vaccine 00:00:00 [facility] PPD (TB) 2012-01-23 Completed [facility] of 00:00:00 [facility] Influenza Virus 2012-01-23 Completed [facility]it y of Vaccine 00:00:00 [facility] PPD (TB) 2012-01-23 Completed [facility] of 00:00:00 [facility] Influenza Virus 2012-01-23 Completed [facility]it y of Vaccine 00:00:00 [facility] PPD (TB) 2012-01-23 Completed [facility] of 00:00:00 [facility] Influenza Virus 2012-01-23 Completed [facility]it y of Vaccine 00:00:00 [facility] PPD (TB) 2012-01-23 Completed [facility] of 00:00:00 [facility] Influenza Virus 2012-01-23 Completed [facility]it y of Vaccine 00:00:00 [facility] PPD (TB) 2012-01-23 Completed [facility] of 00:00:00 [facility] Typhoid, 2011-07-11 Completed University of Unspecified 00:00:00 [facility] Typhoid, 2011-07-11 Completed [facility] Unspecified 00:00:00 [facility] Typhoid, 2011-07-11 Completed [facility] Unspecified 00:00:00 [facility] Typhoid, 2011-07-11 Completed [facility] Unspecified 00:00:00 [facility] Typhoid, 2011-07-11 Completed [facility] Unspecified 00:00:00 [facility] Typhoid, 2011-07-11 Completed [facility] Unspecified 00:00:00 [facility] Typhoid, 2011-07-11 Completed [facility] Unspecified 00:00:00 [facility] Typhoid, 2011-07-11 Completed [facility] Unspecified 00:00:00 [facility] Typhoid, 2011-07-11 Completed [facility] Unspecified 00:00:00 [facility] Typhoid, 2011-07-11 Completed [facility] Unspecified 00:00:00 [facility] Typhoid, 2011-07-11 Completed [facility] Unspecified 00:00:00 [facility] Typhoid, 2011-07-11 Completed [facility] Unspecified 00:00:00 [facility] Typhoid, 2011-07-11 Completed [facility] Unspecified 00:00:00 [facility] Typhoid, 2011-07-11 Completed [facility] Unspecified 00:00:00 [facility] Typhoid, 2011-07-11 Completed [facility] Unspecified 00:00:00 [facility] Typhoid, 2011-07-11 Completed [facility] Unspecified 00:00:00 [facility] Typhoid, 2011-07-11 Completed [facility] Unspecified 00:00:00 [facility] Typhoid, 2011-07-11 Completed [facility] Unspecified 00:00:00 [facility] Typhoid, 2011-07-11 Completed [facility] Unspecified 00:00:00 [facility] Typhoid, 2011-07-11 Completed [facility] Unspecified 00:00:00 [facility] Typhoid, 2011-07-11 Completed [facility] Unspecified 00:00:00 [facility] Typhoid, 2011-07-11 Completed [facility] Unspecified 00:00:00 [facility] Typhoid, 2011-07-11 Completed [facility] Unspecified 00:00:00 [facility] Typhoid, 2011-07-11 Completed [facility] Unspecified 00:00:00 [facility] Typhoid, 2011-07-11 Completed [facility] Unspecified 00:00:00 [facility] Typhoid, 2011-07-11 Completed [facility] Unspecified 00:00:00 [facility] Typhoid, 2011-07-11 Completed [facility] Unspecified 00:00:00 [facility] Typhoid, 2011-07-11 Completed [facility] Unspecified 00:00:00 [facility] Typhoid, 2011-07-11 Completed [facility] Unspecified 00:00:00 [facility] PPD (TB) 2011-01-09 Completed [facility] 00:00:00 [facility] Influenza Virus 2011-01-09 Completed Universit y of Vaccine 00:00:00 [facility] TDAP (ADACEL) 2011-01-09 Completed [facility] of VACCINE 00:00:00 [facility] PPD (TB) 2011-01-09 Completed [facility] 00:00:00 [facility] Influenza Virus 2011-01-09 Completed Universit y of Vaccine 00:00:00 [facility] TDAP (ADACEL) 2011-01-09 Completed [facility] of VACCINE 00:00:00 [facility] PPD (TB) 2011-01-09 Completed [facility] 00:00:00 [facility] Influenza Virus 2011-01-09 Completed [facility]it y of Vaccine 00:00:00 [facility] TDAP (ADACEL) 2011-01-09 Completed [facility] of VACCINE 00:00:00 [facility] PPD (TB) 2011-01-09 Completed [facility] of 00:00:00 [facility] Influenza Virus 2011-01-09 Completed [facility] y of Vaccine 00:00:00 [facility] TDAP (ADACEL) 2011-01-09 Completed [facility] VACCINE 00:00:00 [facility] PPD (TB) 2011-01-09 Completed [facility] 00:00:00 [facility] Influenza Virus 2011-01-09 Completed [facility]it y of Vaccine 00:00:00 [facility] TDAP (ADACEL) 2011-01-09 Completed [facility] VACCINE 00:00:00 [facility] PPD (TB) 2011-01-09 Completed [facility] 00:00:00 [facility] Influenza Virus 2011-01-09 Completed [facility]it y of Vaccine 00:00:00 [facility] TDAP (ADACEL) 2011-01-09 Completed [facility] VACCINE 00:00:00 [facility] PPD (TB) 2011-01-09 Completed [facility] 00:00:00 [facility] Influenza Virus 2011-01-09 Completed Universit y of Vaccine 00:00:00 [facility] TDAP (ADACEL) 2011-01-09 Completed [facility] of VACCINE 00:00:00 [facility] PPD (TB) 2011-01-09 Completed [facility] of 00:00:00 [facility] Influenza Virus 2011-01-09 Completed [facility]it y of Vaccine 00:00:00 [facility] TDAP (ADACEL) 2011-01-09 Completed [facility] of VACCINE 00:00:00 [facility] PPD (TB) 2011-01-09 Completed [facility] 00:00:00 [facility] Influenza Virus 2011-01-09 Completed [facility] y of Vaccine 00:00:00 [facility] TDAP (ADACEL) 2011-01-09 Completed [facility] of VACCINE 00:00:00 [facility] PPD (TB) 2011-01-09 Completed [facility] 00:00:00 [facility] Influenza Virus 2011-01-09 Completed [facility]it y of Vaccine 00:00:00 [facility] TDAP (ADACEL) 2011-01-09 Completed [facility] of VACCINE 00:00:00 [facility] PPD (TB) 2011-01-09 Completed [facility] 00:00:00 [facility] Influenza Virus 2011-01-09 Completed [facility]it y of Vaccine 00:00:00 [facility] TDAP (ADACEL) 2011-01-09 Completed [facility] of VACCINE 00:00:00 [facility] PPD (TB) 2011-01-09 Completed [facility] 00:00:00 [facility] Influenza Virus 2011-01-09 Completed [facility]it y of Vaccine 00:00:00 [facility] TDAP (ADACEL) 2011-01-09 Completed [facility] of VACCINE 00:00:00 [facility] PPD (TB) 2011-01-09 Completed [facility] 00:00:00 [facility] Influenza Virus 2011-01-09 Completed [facility]it y of Vaccine 00:00:00 [facility] TDAP (ADACEL) 2011-01-09 Completed [facility] of VACCINE 00:00:00 [facility] PPD (TB) 2011-01-09 Completed [facility] 00:00:00 [facility] Influenza Virus 2011-01-09 Completed [facility]it y of Vaccine 00:00:00 [facility] TDAP (ADACEL) 2011-01-09 Completed [facility] of VACCINE 00:00:00 [facility] PPD (TB) 2011-01-09 Completed [facility] 00:00:00 [facility] Influenza Virus 2011-01-09 Completed [facility]it y of Vaccine 00:00:00 [facility] TDAP (ADACEL) 2011-01-09 Completed [facility] of VACCINE 00:00:00 [facility] PPD (TB) 2011-01-09 Completed [facility] of 00:00:00 [facility] Influenza Virus 2011-01-09 Completed [facility] y of Vaccine 00:00:00 [facility] TDAP (ADACEL) 2011-01-09 Completed [facility] of VACCINE 00:00:00 [facility] PPD (TB) 2011-01-09 Completed [facility] of 00:00:00 [facility] Influenza Virus 2011-01-09 Completed [facility]it y of Vaccine 00:00:00 [facility] TDAP (ADACEL) 2011-01-09 Completed [facility] of VACCINE 00:00:00 [facility] PPD (TB) 2011-01-09 Completed [facility] of 00:00:00 [facility] Influenza Virus 2011-01-09 Completed [facility]it y of Vaccine 00:00:00 [facility] TDAP (ADACEL) 2011-01-09 Completed [facility] of VACCINE 00:00:00 [facility] PPD (TB) 2011-01-09 Completed [facility] of 00:00:00 [facility] Influenza Virus 2011-01-09 Completed [facility]it y of Vaccine 00:00:00 [facility] TDAP (ADACEL) 2011-01-09 Completed [facility] of VACCINE 00:00:00 [facility] PPD (TB) 2011-01-09 Completed [facility] of 00:00:00 [facility] Influenza Virus 2011-01-09 Completed [facility]it y of Vaccine 00:00:00 [facility] TDAP (ADACEL) 2011-01-09 Completed [facility] of VACCINE 00:00:00 [facility] PPD (TB) 2011-01-09 Completed [facility] of 00:00:00 [facility] Influenza Virus 2011-01-09 Completed [facility]it y of Vaccine 00:00:00 [facility] TDAP (ADACEL) 2011-01-09 Completed [facility] of VACCINE 00:00:00 [facility] PPD (TB) 2011-01-09 Completed [facility] of 00:00:00 [facility] Influenza Virus 2011-01-09 Completed [facility]it y of Vaccine 00:00:00 [facility] TDAP (ADACEL) 2011-01-09 Completed [facility] of VACCINE 00:00:00 [facility] PPD (TB) 2011-01-09 Completed [facility] of 00:00:00 [facility] Influenza Virus 2011-01-09 Completed [facility] y of Vaccine 00:00:00 [facility] TDAP (ADACEL) 2011-01-09 Completed [facility] of VACCINE 00:00:00 [facility] PPD (TB) 2011-01-09 Completed [facility] of 00:00:00 [facility] Influenza Virus 2011-01-09 Completed [facility]it y of Vaccine 00:00:00 [facility] TDAP (ADACEL) 2011-01-09 Completed [facility] of VACCINE 00:00:00 [facility] PPD (TB) 2011-01-09 Completed [facility] of 00:00:00 [facility] Influenza Virus 2011-01-09 Completed [facility]it y of Vaccine 00:00:00 [facility] TDAP (ADACEL) 2011-01-09 Completed [facility] of VACCINE 00:00:00 [facility] PPD (TB) 2011-01-09 Completed [facility] of 00:00:00 [facility] Influenza Virus 2011-01-09 Completed [facility]it y of Vaccine 00:00:00 [facility] TDAP (ADACEL) 2011-01-09 Completed [facility] of VACCINE 00:00:00 [facility] PPD (TB) 2011-01-09 Completed [facility] of 00:00:00 [facility] Influenza Virus 2011-01-09 Completed [facility]it y of Vaccine 00:00:00 [facility] TDAP (ADACEL) 2011-01-09 Completed [facility] of VACCINE 00:00:00 [facility] PPD (TB) 2011-01-09 Completed [facility] of 00:00:00 [facility] Influenza Virus 2011-01-09 Completed [facility]it y of Vaccine 00:00:00 [facility] TDAP (ADACEL) 2011-01-09 Completed [facility] of VACCINE 00:00:00 [facility] PPD (TB) 2011-01-09 Completed [facility] of 00:00:00 [facility] Influenza Virus 2011-01-09 Completed [facility]it y of Vaccine 00:00:00 [facility] TDAP (ADACEL) 2011-01-09 Completed [facility] of VACCINE 00:00:00 [facility] Influenza Virus 2010-04-18 Completed [facility] y of Vaccine 00:00:00 [facility] Influenza Virus 2010-04-18 Completed [facility] y of Vaccine 00:00:00 [facility] Influenza Virus 2010-04-18 Completed [facility] y of Vaccine 00:00:00 [facility] Influenza Virus 2010-04-18 Completed [facility] y of Vaccine 00:00:00 [facility] Influenza Virus 2010-04-18 Completed [facility] y of Vaccine 00:00:00 [facility] Influenza Virus 2010-04-18 Completed [facility] y of Vaccine 00:00:00 [facility] Influenza Virus 2010-04-18 Completed [facility] y of Vaccine 00:00:00 [facility] Influenza Virus 2010-04-18 Completed [facility] y of Vaccine 00:00:00 [facility] Influenza Virus 2010-04-18 Completed [facility] y of Vaccine 00:00:00 [facility] Influenza Virus 2010-04-18 Completed [facility] y of Vaccine 00:00:00 [facility] Influenza Virus 2010-04-18 Completed [facility] y of Vaccine 00:00:00 [facility] Influenza Virus 2010-04-18 Completed [facility] y of Vaccine 00:00:00 [facility] Influenza Virus 2010-04-18 Completed [facility] y of Vaccine 00:00:00 [facility] Influenza Virus 2010-04-18 Completed [facility] y of Vaccine 00:00:00 [facility] Influenza Virus 2010-04-18 Completed [facility] 00:00:00 [facility] Influenza Virus 2010-04-18 Completed [facility]ine 00:00:00 [facility] Influenza Virus 2010-04-18 Completed [facility] Vaccine 00:00:00 [facility] Influenza Virus 2010-04-18 Completed [facility] Vaccine 00:00:00 [facility] Influenza Virus 2010-04-18 Completed [facility] Vaccine 00:00:00 [facility] Influenza Virus 2010-04-18 Completed [facility] Vaccine 00:00:00 [facility] Influenza Virus 2010-04-18 Completed [facility] Vaccine 00:00:00 [facility] Influenza Virus 2010-04-18 Completed [facility] Vaccine 00:00:00 [facility] Influenza Virus 2010-04-18 Completed [facility] Vaccine 00:00:00 [facility] Influenza Virus 2010-04-18 Completed [facility] Vaccine 00:00:00 [facility] Influenza Virus 2010-04-18 Completed [facility] Vaccine 00:00:00 [facility] Influenza Virus 2010-04-18 Completed [facility] Vaccine 00:00:00 [facility] Influenza Virus 2010-04-18 Completed [facility] Vaccine 00:00:00 [facility] Influenza Virus 2010-04-18 Completed [facility] Vaccine 00:00:00 [facility] Influenza Virus 2010-04-18 Completed [facility] Vaccine 00:00:00 [facility] HEPATITIS A 2010-01-28 Completed [facility] 00:00:00 [facility] Hep B, Adol or Pedi 2010-01-28 Completed [facility] Dosage 00:00:00 [facility] HEPATITIS A 2010-01-28 Completed [facility] 00:00:00 [facility] Hep B, Adol or Pedi 2010-01-28 Completed [facility] of Dosage 00:00:00 [facility] HEPATITIS A 2010-01-28 Completed [facility] 00:00:00 [facility] Hep B, Adol or Pedi 2010-01-28 Completed [facility] of Dosage 00:00:00 [facility] HEPATITIS A 2010-01-28 Completed [facility] 00:00:00 [facility] Hep B, Adol or Pedi 2010-01-28 Completed [facility] of Dosage 00:00:00 [facility] HEPATITIS A 2010-01-28 Completed [facility] 00:00:00 [facility] Hep B, Adol or Pedi 2010-01-28 Completed [facility] of Dosage 00:00:00 [facility] HEPATITIS A 2010-01-28 Completed [facility] 00:00:00 [facility] Hep B, Adol or Pedi 2010-01-28 Completed [facility] of Dosage 00:00:00 [facility] HEPATITIS A 2010-01-28 Completed [facility] 00:00:00 [facility] Hep B, Adol or Pedi 2010-01-28 Completed [facility] of Dosage 00:00:00 [facility] HEPATITIS A 2010-01-28 Completed [facility] 00:00:00 [facility] Hep B, Adol or Pedi 2010-01-28 Completed [facility] Dosage 00:00:00 [facility] HEPATITIS A 2010-01-28 Completed [facility] 00:00:00 [facility] Hep B, Adol or Pedi 2010-01-28 Completed [facility] of Dosage 00:00:00 [facility] HEPATITIS A 2010-01-28 Completed [facility] 00:00:00 [facility] Hep B, Adol or Pedi 2010-01-28 Completed [facility] of Dosage 00:00:00 [facility] HEPATITIS A 2010-01-28 Completed [facility] 00:00:00 [facility] Hep B, Adol or Pedi 2010-01-28 Completed [facility] of Dosage 00:00:00 [facility] HEPATITIS A 2010-01-28 Completed [facility] 00:00:00 [facility] Hep B, Adol or Pedi 2010-01-28 Completed [facility] of Dosage 00:00:00 [facility] HEPATITIS A 2010-01-28 Completed [facility] 00:00:00 [facility] Hep B, Adol or Pedi 2010-01-28 Completed [facility] rs[facility] of Dosage 00:00:00 [facility] HEPATITIS A 2010-01-28 Completed [facility] 00:00:00 [facility] Hep B, Adol or Pedi 2010-01-28 Completed [facility] of Dosage 00:00:00 [facility] HEPATITIS A 2010-01-28 Completed [facility] 00:00:00 [facility] Hep B, Adol or Pedi 2010-01-28 Completed [facility] of Dosage 00:00:00 [facility] HEPATITIS A 2010-01-28 Completed [facility] 00:00:00 [facility] Hep B, Adol or Pedi 2010-01-28 Completed [facility] of Dosage 00:00:00 [facility] HEPATITIS A 2010-01-28 Completed [facility] 00:00:00 [facility] Hep B, Adol or Pedi 2010-01-28 Completed [facility] of Dosage 00:00:00 [facility] HEPATITIS A 2010-01-28 Completed [facility] 00:00:00 [facility] Hep B, Adol or Pedi 2010-01-28 Completed [facility] of Dosage 00:00:00 [facility] HEPATITIS A 2010-01-28 Completed [facility] 00:00:00 [facility] Hep B, Adol or Pedi 2010-01-28 Completed [facility] of Dosage 00:00:00 [facility] HEPATITIS A 2010-01-28 Completed [facility] 00:00:00 [facility] Hep B, Adol or Pedi 2010-01-28 Completed [facility] of Dosage 00:00:00 [facility] HEPATITIS A 2010-01-28 Completed [facility] 00:00:00 [facility] Hep B, Adol or Pedi 2010-01-28 Completed [facility] of Dosage 00:00:00 [facility] HEPATITIS A 2010-01-28 Completed [facility] 00:00:00 [facility] Hep B, Adol or Pedi 2010-01-28 Completed [facility] of Dosage 00:00:00 [facility] HEPATITIS A 2010-01-28 Completed [facility] 00:00:00 [facility] Hep B, Adol or Pedi 2010-01-28 Completed [facility] of Dosage 00:00:00 [facility] HEPATITIS A 2010-01-28 Completed [facility] 00:00:00 [facility] Hep B, Adol or Pedi 2010-01-28 Completed [facility] of Dosage 00:00:00 [facility] HEPATITIS A 2010-01-28 Completed [facility] 00:00:00 [facility] Hep B, Adol or Pedi 2010-01-28 Completed [facility] of Dosage 00:00:00 [facility] HEPATITIS A 2010-01-28 Completed [facility] 00:00:00 [facility] Hep B, Adol or Pedi 2010-01-28 Completed [facility] of Dosage 00:00:00 [facility] HEPATITIS A 2010-01-28 Completed [facility] 00:00:00 [facility] Hep B, Adol or Pedi 2010-01-28 Completed [facility] of Dosage 00:00:00 [facility] HEPATITIS A 2010-01-28 Completed [facility] 00:00:00 [facility] Hep B, Adol or Pedi 2010-01-28 Completed [facility] of Dosage 00:00:00 [facility] HEPATITIS A 2010-01-28 Completed [facility] 00:00:00 [facility] Hep B, Adol or Pedi 2010-01-28 Completed [facility] of Dosage 00:00:00 [facility] Hep B, Adol or Pedi 2009-12-27 Completed [facility] of Dosage 00:00:00 [facility] Hep B, Adol or Pedi 2009-12-27 Completed [facility] of Dosage 00:00:00 [facility] Hep B, Adol or Pedi 2009-12-27 Completed [facility] of Dosage 00:00:00 [facility] Hep B, Adol or Pedi 2009-12-27 Completed [facility] of Dosage 00:00:00 [facility] Hep B, Adol or Pedi 2009-12-27 Completed [facility] of Dosage 00:00:00 [facility] Hep B, Adol or Pedi 2009-12-27 Completed [facility] of Dosage 00:00:00 [facility] Hep B, Adol or Pedi 2009-12-27 Completed [facility] of Dosage 00:00:00 [facility] Hep B, Adol or Pedi 2009-12-27 Completed [facility] of Dosage 00:00:00 [facility] Hep B, Adol or Pedi 2009-12-27 Completed [facility] of Dosage 00:00:00 [facility] Hep B, Adol or Pedi 2009-12-27 Completed [facility] of Dosage 00:00:00 [facility] Hep B, Adol or Pedi 2009-12-27 Completed [facility] of Dosage 00:00:00 [facility] Hep B, Adol or Pedi 2009-12-27 Completed [facility] of Dosage 00:00:00 [facility] Hep B, Adol or Pedi 2009-12-27 Completed [facility] of Dosage 00:00:00 [facility] Hep B, Adol or Pedi 2009-12-27 Completed [facility] of Dosage 00:00:00 [facility] Hep B, Adol or Pedi 2009-12-27 Completed [facility] of Dosage 00:00:00 [facility] Hep B, Adol or Pedi 2009-12-27 Completed [facility] of Dosage 00:00:00 [facility] Hep B, Adol or Pedi 2009-12-27 Completed [facility] of Dosage 00:00:00 [facility] Hep B, Adol or Pedi 2009-12-27 Completed [facility] of Dosage 00:00:00 [facility] Hep B, Adol or Pedi 2009-12-27 Completed [facility] rs[facility] of Dosage 00:00:00 [facility] Hep B, Adol or Pedi 2009-12-27 Completed [facility] of Dosage 00:00:00 [facility] Hep B, Adol or Pedi 2009-12-27 Completed [facility] of Dosage 00:00:00 [facility] Hep B, Adol or Pedi 2009-12-27 Completed [facility] of Dosage 00:00:00 [facility] Hep B, Adol or Pedi 2009-12-27 Completed [facility] of Dosage 00:00:00 [facility] Hep B, Adol or Pedi 2009-12-27 Completed [facility] of Dosage 00:00:00 [facility] Hep B, Adol or Pedi 2009-12-27 Completed [facility] of Dosage 00:00:00 [facility] Hep B, Adol or Pedi 2009-12-27 Completed [facility] rs[facility] of Dosage 00:00:00 [facility] Hep B, Adol or Pedi 2009-12-27 Completed [facility] rs[facility] of Dosage 00:00:00 [facility] Hep B, Adol or Pedi 2009-12-27 Completed [facility] rs[facility] of Dosage 00:00:00 [facility] Hep B, Adol or Pedi 2009-12-27 Completed [facility] rs[facility] of Dosage 00:00:00 [facility] HEPATITIS A 2009-07-26 Completed [facility] 00:00:00 [facility] Hep B, Adol or Pedi 2009-07-26 Completed [facility]ive rsity of Dosage 00:00:00 [facility] Pneumococcal 2009-07-26 Completed [facility] f Polysaccharide, 00:00:00 [facility] PPSV23 (PNEUMOVAX) [facility] PPD (TB) 2009-07-26 Completed [facility] 00:00:00 [facility] HEPATITIS A 2009-07-26 Completed [facility] 00:00:00 [facility] Hep B, Adol or Pedi 2009-07-26 Completed [facility] rs[facility] of Dosage 00:00:00 [facility] Pneumococcal 2009-07-26 Completed [facility] f Polysaccharide, 00:00:00 [facility] PPSV23 (PNEUMOVAX) [facility] PPD (TB) 2009-07-26 Completed [facility] 00:00:00 [facility] HEPATITIS A 2009-07-26 Completed [facility] 00:00:00 [facility] Hep B, Adol or Pedi 2009-07-26 Completed [facility] rsity of Dosage 00:00:00 [facility] Pneumococcal 2009-07-26 Completed [facility] f Polysaccharide, 00:00:00 [facility] PPSV23 (PNEUMOVAX) [facility] PPD (TB) 2009-07-26 Completed [facility] 00:00:00 [facility] HEPATITIS A 2009-07-26 Completed [facility] 00:00:00 [facility] Hep B, Adol or Pedi 2009-07-26 Completed [facility] rs[facility] of Dosage 00:00:00 [facility] Pneumococcal 2009-07-26 Completed [facility] f Polysaccharide, 00:00:00 [facility] PPSV23 (PNEUMOVAX) [facility] PPD (TB) 2009-07-26 Completed [facility] 00:00:00 [facility] HEPATITIS A 2009-07-26 Completed [facility] 00:00:00 [facility] Hep B, Adol or Pedi 2009-07-26 Completed [facility] rs[facility] of Dosage 00:00:00 [facility] Pneumococcal 2009-07-26 Completed [facility] f Polysaccharide, 00:00:00 [facility] PPSV23 (PNEUMOVAX) [facility] PPD (TB) 2009-07-26 Completed [facility] 00:00:00 [facility] HEPATITIS A 2009-07-26 Completed [facility] 00:00:00 [facility] Hep B, Adol or Pedi 2009-07-26 Completed [facility] rsity of Dosage 00:00:00 [facility] Pneumococcal 2009-07-26 Completed [facility] f Polysaccharide, 00:00:00 [facility] PPSV23 (PNEUMOVAX) [facility] PPD (TB) 2009-07-26 Completed [facility] 00:00:00 [facility] HEPATITIS A 2009-07-26 Completed [facility] 00:00:00 [facility] Hep B, Adol or Pedi 2009-07-26 Completed [facility] rs[facility] of Dosage 00:00:00 [facility] Pneumococcal 2009-07-26 Completed [facility] f Polysaccharide, 00:00:00 [facility] PPSV23 (PNEUMOVAX) [facility] PPD (TB) 2009-07-26 Completed [facility] 00:00:00 [facility] HEPATITIS A 2009-07-26 Completed [facility] 00:00:00 [facility] Hep B, Adol or Pedi 2009-07-26 Completed [facility] rsity of Dosage 00:00:00 [facility] Pneumococcal 2009-07-26 Completed [facility] f Polysaccharide, 00:00:00 [facility] PPSV23 (PNEUMOVAX) Branch PPD (TB) 2009-07-26 Completed [facility] 00:00:00 [facility] HEPATITIS A 2009-07-26 Completed [facility] 00:00:00 [facility] Hep B, Adol or Pedi 2009-07-26 Completed [facility] rsity of Dosage 00:00:00 [facility] Pneumococcal 2009-07-26 Completed [facility] f Polysaccharide, 00:00:00 [facility] PPSV23 (PNEUMOVAX) Branch PPD (TB) 2009-07-26 Completed [facility] 00:00:00 [facility] HEPATITIS A 2009-07-26 Completed [facility] 00:00:00 [facility] Hep B, Adol or Pedi 2009-07-26 Completed [facility] rsity of Dosage 00:00:00 [facility] Pneumococcal 2009-07-26 Completed [facility] f Polysaccharide, 00:00:00 [facility] PPSV23 (PNEUMOVAX) [facility] PPD (TB) 2009-07-26 Completed [facility] 00:00:00 [facility] HEPATITIS A 2009-07-26 Completed [facility] 00:00:00 [facility] Hep B, Adol or Pedi 2009-07-26 Completed [facility] rsity of Dosage 00:00:00 [facility] Pneumococcal 2009-07-26 Completed [facility] f Polysaccharide, 00:00:00 [facility] PPSV23 (PNEUMOVAX) [facility] PPD (TB) 2009-07-26 Completed [facility] 00:00:00 [facility] HEPATITIS A 2009-07-26 Completed [facility] 00:00:00 [facility] Hep B, Adol or Pedi 2009-07-26 Completed [facility] rsity of Dosage 00:00:00 [facility] Pneumococcal 2009-07-26 Completed [facility] f Polysaccharide, 00:00:00 [facility] PPSV23 (PNEUMOVAX) Branch PPD (TB) 2009-07-26 Completed [facility] 00:00:00 [facility] HEPATITIS A 2009-07-26 Completed [facility] 00:00:00 [facility] Hep B, Adol or Pedi 2009-07-26 Completed [facility] rs[facility] of Dosage 00:00:00 [facility] Pneumococcal 2009-07-26 Completed [facility] f Polysaccharide, 00:00:00 [facility] PPSV23 (PNEUMOVAX) [facility] PPD (TB) 2009-07-26 Completed [facility] 00:00:00 [facility] HEPATITIS A 2009-07-26 Completed [facility] 00:00:00 [facility] Hep B, Adol or Pedi 2009-07-26 Completed [facility] rsity of Dosage 00:00:00 [facility] Pneumococcal 2009-07-26 Completed [facility] f Polysaccharide, 00:00:00 [facility] PPSV23 (PNEUMOVAX) [facility] PPD (TB) 2009-07-26 Completed [facility] 00:00:00 [facility] HEPATITIS A 2009-07-26 Completed [facility] 00:00:00 [facility] Hep B, Adol or Pedi 2009-07-26 Completed [facility] rsity of Dosage 00:00:00 [facility] Pneumococcal 2009-07-26 Completed [facility] f Polysaccharide, 00:00:00 [facility] PPSV23 (PNEUMOVAX) [facility] PPD (TB) 2009-07-26 Completed [facility] 00:00:00 [facility] HEPATITIS A 2009-07-26 Completed [facility] 00:00:00 [facility] Hep B, Adol or Pedi 2009-07-26 Completed [facility] rsity of Dosage 00:00:00 [facility] Pneumococcal 2009-07-26 Completed [facility] f Polysaccharide, 00:00:00 [facility] PPSV23 (PNEUMOVAX) [facility] PPD (TB) 2009-07-26 Completed [facility] 00:00:00 [facility] HEPATITIS A 2009-07-26 Completed [facility] 00:00:00 [facility] Hep B, Adol or Pedi 2009-07-26 Completed [facility] rsity of Dosage 00:00:00 [facility] Pneumococcal 2009-07-26 Completed [facility] f Polysaccharide, 00:00:00 [facility] PPSV23 (PNEUMOVAX) [facility] PPD (TB) 2009-07-26 Completed [facility] 00:00:00 [facility] HEPATITIS A 2009-07-26 Completed [facility] 00:00:00 [facility] Hep B, Adol or Pedi 2009-07-26 Completed [facility] rs[facility] of Dosage 00:00:00 [facility] Pneumococcal 2009-07-26 Completed [facility] f Polysaccharide, 00:00:00 [facility] PPSV23 (PNEUMOVAX) [facility] PPD (TB) 2009-07-26 Completed [facility] 00:00:00 [facility] HEPATITIS A 2009-07-26 Completed [facility] 00:00:00 [facility] Hep B, Adol or Pedi 2009-07-26 Completed [facility] rsity of Dosage 00:00:00 [facility] Pneumococcal 2009-07-26 Completed [facility] f Polysaccharide, 00:00:00 [facility] PPSV23 (PNEUMOVAX) [facility] PPD (TB) 2009-07-26 Completed [facility] 00:00:00 [facility] HEPATITIS A 2009-07-26 Completed [facility] 00:00:00 [facility] Hep B, Adol or Pedi 2009-07-26 Completed [facility] rsity of Dosage 00:00:00 [facility] Pneumococcal 2009-07-26 Completed [facility] f Polysaccharide, 00:00:00 [facility] PPSV23 (PNEUMOVAX) [facility] PPD (TB) 2009-07-26 Completed [facility] 00:00:00 [facility] HEPATITIS A 2009-07-26 Completed [facility] 00:00:00 [facility] Hep B, Adol or Pedi 2009-07-26 Completed [facility] rsity of Dosage 00:00:00 [facility] Pneumococcal 2009-07-26 Completed [facility] f Polysaccharide, 00:00:00 [facility] PPSV23 (PNEUMOVAX) Branch PPD (TB) 2009-07-26 Completed [facility] 00:00:00 [facility] HEPATITIS A 2009-07-26 Completed [facility] 00:00:00 [facility] Hep B, Adol or Pedi 2009-07-26 Completed [facility] rsity of Dosage 00:00:00 [facility] Pneumococcal 2009-07-26 Completed [facility] f Polysaccharide, 00:00:00 [facility] PPSV23 (PNEUMOVAX) [facility] PPD (TB) 2009-07-26 Completed [facility] 00:00:00 [facility] HEPATITIS A 2009-07-26 Completed [facility] 00:00:00 [facility] Hep B, Adol or Pedi 2009-07-26 Completed [facility] rsity of Dosage 00:00:00 [facility] Pneumococcal 2009-07-26 Completed [facility] f Polysaccharide, 00:00:00 [facility] PPSV23 (PNEUMOVAX) [facility] PPD (TB) 2009-07-26 Completed [facility] 00:00:00 [facility] HEPATITIS A 2009-07-26 Completed [facility] 00:00:00 [facility] Hep B, Adol or Pedi 2009-07-26 Completed [facility] rsity of Dosage 00:00:00 [facility] Pneumococcal 2009-07-26 Completed [facility] f Polysaccharide, 00:00:00 [facility] PPSV23 (PNEUMOVAX) [facility] PPD (TB) 2009-07-26 Completed [facility] 00:00:00 [facility] HEPATITIS A 2009-07-26 Completed [facility] 00:00:00 [facility] Hep B, Adol or Pedi 2009-07-26 Completed [facility] rsity of Dosage 00:00:00 [facility] Pneumococcal 2009-07-26 Completed [facility] f Polysaccharide, 00:00:00 [facility] PPSV23 (PNEUMOVAX) [facility] PPD (TB) 2009-07-26 Completed [facility] 00:00:00 [facility] HEPATITIS A 2009-07-26 Completed [facility] 00:00:00 [facility] Hep B, Adol or Pedi 2009-07-26 Completed [facility] rsity of Dosage 00:00:00 [facility] Pneumococcal 2009-07-26 Completed [facility] f Polysaccharide, 00:00:00 [facility] PPSV23 (PNEUMOVAX) [facility] PPD (TB) 2009-07-26 Completed [facility] 00:00:00 [facility] HEPATITIS A 2009-07-26 Completed [facility] 00:00:00 [facility] Hep B, Adol or Pedi 2009-07-26 Completed [facility] rsity of Dosage 00:00:00 [facility] Pneumococcal 2009-07-26 Completed [facility] f Polysaccharide, 00:00:00 [facility] PPSV23 (PNEUMOVAX) [facility] PPD (TB) 2009-07-26 Completed [facility] 00:00:00 [facility] HEPATITIS A 2009-07-26 Completed [facility] 00:00:00 [facility] Hep B, Adol or Pedi 2009-07-26 Completed [facility] rs[facility] of Dosage 00:00:00 [facility] Pneumococcal 2009-07-26 Completed [facility] o f Polysaccharide, 00:00:00 [facility] PPSV23 (PNEUMOVAX) [facility] PPD (TB) 2009-07-26 Completed [facility] 00:00:00 [facility] HEPATITIS A 2009-07-26 Completed [facility] 00:00:00 [facility] Hep B, Adol or Pedi 2009-07-26 Completed [facility] rsity of Dosage 00:00:00 [facility] Pneumococcal 2009-07-26 Completed [facility] f Polysaccharide, 00:00:00 [facility] PPSV23 (PNEUMOVAX) [facility] PPD (TB) 2009-07-26 Completed [facility] 00:00:00 [facility] Influenza Virus 2009-02-01 Completed [facility] Vaccine 00:00:00 [facility] Influenza Virus 2009-02-01 Completed [facility] Vaccine 00:00:00 [facility] Influenza Virus 2009-02-01 Completed [facility] Vaccine 00:00:00 [facility] Influenza Virus 2009-02-01 Completed [facility] Vaccine 00:00:00 [facility] Influenza Virus 2009-02-01 Completed [facility] Vaccine 00:00:00 [facility] Influenza Virus 2009-02-01 Completed [facility] Vaccine 00:00:00 [facility] Influenza Virus 2009-02-01 Completed [facility] Vaccine 00:00:00 [facility] Influenza Virus 2009-02-01 Completed [facility] Vaccine 00:00:00 [facility] Influenza Virus 2009-02-01 Completed [facility] of Vaccine 00:00:00 [facility] Influenza Virus 2009-02-01 Completed [facility] Vaccine 00:00:00 [facility] Influenza Virus 2009-02-01 Completed [facility] Vaccine 00:00:00 [facility] Influenza Virus 2009-02-01 Completed [facility] Vaccine 00:00:00 [facility] Influenza Virus 2009-02-01 Completed [facility] Vaccine 00:00:00 [facility] Influenza Virus 2009-02-01 Completed [facility] Vaccine 00:00:00 [facility] Influenza Virus 2009-02-01 Completed [facility] Vaccine 00:00:00 [facility] Influenza Virus 2009-02-01 Completed [facility] Vaccine 00:00:00 [facility] Influenza Virus 2009-02-01 Completed [facility] Vaccine 00:00:00 [facility] Influenza Virus 2009-02-01 Completed [facility] Vaccine 00:00:00 [facility] Influenza Virus 2009-02-01 Completed [facility] Vaccine 00:00:00 [facility] Influenza Virus 2009-02-01 Completed [facility] Vaccine 00:00:00 [facility] Influenza Virus 2009-02-01 Completed [facility] Vaccine 00:00:00 [facility] Influenza Virus 2009-02-01 Completed [facility] Vaccine 00:00:00 [facility] Influenza Virus 2009-02-01 Completed [facility] Vaccine 00:00:00 [facility] Influenza Virus 2009-02-01 Completed [facility] Vaccine 00:00:00 [facility] Influenza Virus 2009-02-01 Completed [facility] Vaccine 00:00:00 [facility] Influenza Virus 2009-02-01 Completed [facility] Vaccine 00:00:00 [facility] Influenza Virus 2009-02-01 Completed [facility] Vaccine 00:00:00 [facility] Influenza Virus 2009-02-01 Completed [facility] Vaccine 00:00:00 [facility] Influenza Virus 2009-02-01 Completed [facility] Vaccine 00:00:00 [facility] Vital Signs Vital Name Observation Time Observation Value Comments Source Systolic blood 2022-08-13 13:17:00 151 mm[Hg] [facility] pressure [facility] Diastolic blood 2022-08-13 13:17:00 90 mm[Hg] [facility] pressure [facility] Heart rate 2022-08-13 13:17:00 75 /min [facility] Body temperature 2022-08-13 13:13:00 36.11 Bridget [facility] Respiratory rate 2022-08-13 13:13:00 18 /min [facility] Body height 2022-08-13 13:13:00 188 cm [facility] Body weight 2022-08-13 13:13:00 83.326 kg [facility] BMI 2022-08-13 13:13:00 23.59 kg/m2 [facility] Oxygen saturation in 2022-08-13 13:13:00 97 /min [facility] of Arterial blood by A Bit Lucky shital Pulse oximetry Branch Systolic blood 2022-01-24 20:38:00 122 mm[Hg] Univer sity of [facility] Diastolic blood 2022-01-24 20:38:00 64 mm[Hg] Unive rsity of pressure [facility] Heart rate 2022-01-24 20:35:00 67 /min [facility] Body temperature 2022-01-24 20:35:00 36.67 Bridget Univ ersity [facility] Respiratory rate 2022-01-24 20:35:00 17 /min Univ ers[facility] Body height 2022-01-24 20:35:00 190.5 cm [facility] Body weight 2022-01-24 20:35:00 90.719 kg [facility] BMI 2022-01-24 20:35:00 25.00 kg/m2 [facility] Oxygen saturation in 2022-01-24 20:35:00 94 /min University of Arterial blood by A [facility] shital Pulse oximetry Branch Systolic blood 2022-01-22 15:17:00 169 mm[Hg] Univer sity of pressure [facility] Diastolic blood 2022-01-22 15:17:00 52 mm[Hg] Unive rsity of [facility] [place] Heart rate 2022-01-22 15:17:00 57 /min [facility] [place] Body temperature 2022-01-22 15:15:00 36 Bridget Univ ers[facility] Respiratory rate 2022-01-22 15:15:00 16 /min [facility] Body height 2022-01-22 15:15:00 188 cm [facility] [place] Body weight 2022-01-22 15:15:00 90.13 kg Universi ty [facility] [place] BMI 2022-01-22 15:15:00 25.51 kg/m2 Universi ty [facility] Oxygen saturation in 2022-01-22 15:15:00 97 /min [facility] Arterial blood by [facility] Pulse oximetry Branch Body height 2021-08-20 13:36:00 190.5 cm Universi ty [facility] Body weight 2021-08-20 13:36:00 91.627 kg Universi ty [facility] BMI 2021-08-20 13:36:00 25.25 kg/m2 Universi ty [facility] Systolic (mm Hg) 2017-12-01 21:05:00 Raheem rial [place] Diastolic (mm Hg) 2017-12-01 21:05:00 Mem orial [facility] Temperature Oral (F) 2017-12-01 21:05:00 97.8 F [facility] Respitory Rate 2017-12-01 21:05:00 Memori al [place] Heart Rate 2017-12-01 21:05:00 [facility] [place] Temperature Oral (F) 2017-12-01 17:08:00 98 F [facility] [place] Heart Rate 2017-12-01 17:08:00 [facility] [place] Respitory Rate 2017-12-01 17:08:00 Memori al [facility] Systolic (mm Hg) 2017-12-01 17:08:00 Raheem rial [place] Diastolic (mm Hg) 2017-12-01 17:08:00 Mem orial [place] Temperature Oral (F) 2017-12-01 13:00:00 97.7 F [facility] [place] Heart Rate 2017-12-01 13:00:00 [facility] [place] Respitory Rate 2017-12-01 13:00:00 Memori al [facility] Systolic (mm Hg) 2017-12-01 13:00:00 Raheem Arizmendi Diastolic (mm Hg) 2017-12-01 13:00:00 Venkat Arizmendi BMI Calculated 2017-11-27 16:26:00 Abigail Alvarado Weight 2017-11-27 16:26:00 [facility] Height 2017-11-27 16:26:00 190.5 cm [facility] Procedures Procedure Date / Time Performing Clinician Source Performed EXTERNAL PROVIDER RECORDS 2022-08-22 05:01:00 Doctor Unassigned, [facility] [id number] 2022-07-23 00:00:00 IVONE Reynoso [facility] INSURANCE CORRESPONDENCE 2022-05-15 06:01:00 Doctor Unassigned, [facility] ASSIGNMENT OF BENEFITS 2022-01-28 14:42:38 Doctor Unassigned, [facility] Name Medical [place] CARDIOVERSION EXTERNAL 2021-08-21 16:00:00 Janey Messina [facility] EXTERNAL PROVIDER RECORDS 2021-08-21 05:01:00 Doctor Unassigned, [facility] Name Medical Branch Drainage<sup>1</sup> [facility] Encounters Start End Encounter Admission Attending Care Care Encounter Source Date/Time Date/Time Type Type Clinicians Facility Department ID 2022-08-19 Outpatient [facility] [id number] [place] 11:31:16 [id number] [facility] 2022-08-18 Outpatient [facility] [id number] [place] 15:30:20 [id number] [facility] 2022-08-15 Outpatient [facility] [id number] [place] 16:16:09 [id number] [facility] 2022-08-14 Outpatient [facility] [id number] [place] 13:25:17 [id number] [facility] 2021-09-11 Inpatient EMI Millan [facility] [id number] [facility] 14:30:00 Yoel 64 [facility] 2021-09-04 Inpatient EMI Millan [facility]AC[facility] [id number] [facility] 14:30:00 Yoel [id number] [facility] 2021-07-10 Outpatient JULIETA TURCIOS [facility] [id number] Univers 11:06:06 FELIX ity of [facility] 2021-07-03 Outpatient U DAVE, [facility] TALHA [id number] Univers 14:02:43 JULY ity [facility] 2021-02-17 Emergency X [facility] ERT [id number] Univers 17:06:57 ity of [facility] 2021-02-17 Emergency [facility] [id number] Univers 17:01:36 ity of [facility] 2022-09-11 2022-09-11 Outpatient HEMATPOUR, [facility] [id number] [place] 09:30:00 09:30:00 KACIE Heal 2022-08-22 2022-08-22 Orders Doctor SHERIF 1.2.840.114 [id number] Univers 00:00:00 00:00:00 Only Unassigned, BUDDY 350.1.13.10 ity of [place] [facility] 4.2.7.2.686 [place] [id number] [facility] 009 Branch 2022-08-15 2022-08-15 Telephone [facility] 1.2.840.114 [id number] Univers 00:00:00 00:00:00 [facility] 350.1.13.10 i ty of [place] [id number] [facility] 089 Branch 2022-08-13 2022-08-[address] [facility] 1.2.840.114 [id number] Univers 09:45:00 10:00:00 Visit [facility] 350.1.13.10 ity of CL[place]ICS [place] [id number] [facility] 316 Branch 2022-08-13 2022-08-13 Office [facility] 1.2.712.931 [id number] Univers 08:30:00 09:00:00 Visit [facility] 350.1.13.10 i ty of CL[place]ICS [place] [id number] [facility] 089 Branch 2022-08-13 2022-08-13 [facility] [id number] Univers 08:30:00 08:30:00 BABAR pinto [facility] 2022-07-25 2022-07-25 Outpatient Dominic CAIO [facility] [id number] Univers 09:00:00 09:00:00 BABAR pinto [facility] 2022-07-23 2022-07-23 Inpatient EMI Millan INTE.02 [id number] [facility] 07:32:00 20:30:00 Yoel 02 [facility] 2022-07-23 2022-07-23 Outpatient R YONY [facility] [id number] Univers 08:00:00 08:00:00 TONI pinto [facility] 2022-06-20 2022-06-20 [facility] 1.2.840.114 [id number] Univers 00:00:00 00:00:00 Toni Arreguin MULTISPEC 350.1.13.10 ity of IALTY 4.2.7.2.686 [facility] s [place] [id number] [address] [facility] 2022-06-17 2022-06-17 Telephone [facility] 1.2.174.380 [id number] Univers 00:00:00 00:00:00 Toni Arreguin MULTISPEC 350.1.13.10 ity of IALTY 4.2.7.2.686 [facility] [id number] [address] [facility] 2022-05-26 2022-05-26 Outpatient DENNY Raymundo EMI LABO [id number] [facility] 08:00:00 09:00:00 Yoel 23 [facility] 2022-05-19 2022-05-19 Telephone [facility] 1.2.880.469 [id number] Univers 00:00:00 00:00:00 Toni Arreguin MULTISPEC 350.1.13.10 ity of IALTY 4.2.7.2.686 [facility] s [place] [id number] [address] [facility] 2022-05-15 2022-05-15 Orders Doctor GORMAN 1.2.840.114 [id number] Univers 00:00:00 00:00:00 Only Unassigned, BUDDY 350.1.13.10 ity of [place] [facility] 4.2.7.2.686 [place] [id number] [facility] 009 Branch 2022-05-09 2022-05-09 Telephone [facility] 1.2.160.396 [id number] Univers 00:00:00 00:00:00 Toni Arreguin MULTISPEC 350.1.13.10 it[place] of [place] [id number] [facility] AND [address] DI[facility]ES [facility]IC 2022-05-06 2022-05-06 Telephone [facility] 1.2.132.403 [id number] Univers 00:00:00 00:00:00 Toni Arreguin MULTISPEC 350.1.13.10 it[place] of [place] [id number] [facility] AND [address] [facility]ES [facility]IC 2022-04-23 2022-04-23 Telephone [facility] 1.2.137.165 [id number] Univers 00:00:00 00:00:00 Toni Arreguin MULTISPEC 350.1.13.10 it[place] of [place].2.[place] [id number] [facility] AND [address] [facility] 2022-04-09 2022-04-09 Ref[facility] access hospital 1.2.287.923 [id number] Univers 00:00:00 00:00:00 [facility] 350.1.13.10 i ty of [place] [id number] [place] 242509 [place] 2022-03-26 2022-03-26 Telephone [facility] 1.2.840.114 [id number] Univers 00:00:00 00:00:00 [facility] 350.1.13.10 i ty [place] [id number] [address] 2022-02-27 2022-02-27 Refill [facility] 1.2.840.114 [id number] Univers 00:00:00 00:00:00 Toni Arreguin MULTISPEC 350.1.13.10 it[place] of [place] [id number] [facility] AND LEPE 085 Branch [facility] 2022-02-06 2022-02-06 Patient YAEL [place] 1.2.986.406 [id number] Univers 00:00:00 00:00:00 [facility] 350.1.13.10 it[place] of [place] [id number] [facility] 089 Branch 2022-01-28 2022-01-28 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 Main [facility] 1.2.8 40.114 [id number] Univers 09:45:00 10:00:00 Visit Willie Finn 350.1.13.10 ity of [place].2.7.2.686 [place] [facility] [id number] Wa dical [address] 2022-01-28 2022-01-28 Outpatient R WILLIE FINN [facility] [id number] Univers 09:45:00 09:45:00 ity of [facility] 2022-01-28 2022-01-28 Orders Doctor SHERIF 1.2.840.114 [id number] Univers 00:00:00 00:00:00 Only Unassigned, BUDDY 350.1.13.10 ity of [place] [facility] 4.2.7.2.686 [place] [id number] [facility] 009 Branch 2022-01-24 2022-01-[address] [facility] 1.2.840.114 [id number] Univers 16:45:00 17:00:00 Visit Caio [facility] 350.1.13.10 ity of CL[place]ICS [place] [id number] [facility] 316 Branch 2022-01-24 2022-01-24 Office [facility] 1.2.838.176 [id number] Univers 15:30:00 16:00:00 Visit [facility] 350.1.13.10 i ty of CL[place]ICS [place] [id number] [facility] 089 Branch 2022-01-24 2022-01-24 Outpatient R CAIO [facility] [id number] Univers 15:30:00 15:30:00 BABAR [facility] 2022-01-22 2022-01-22 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2.686 [facility] [place] [id number] [facility] AND WACO 085 [place] [facility] 2021-09-06 2021-09-06 Telephone Siddharth [facility] 1.2.779.368 [id number] Univers 00:00:00 00:00:00 Janey HEALTH 350.1.13.10 it y of CLEAR 4.2.7.2.686 [facility] [place] [id number] [place] [id number] [place] OFFICE BUILDING 2021-09-02 2021-09-02 Outpatient EMI Millan LABO [id number] [facility] 08:00:00 23:00:00 Yoel [facility] 2021-08-27 2021-08-27 Outpatient Dominic KEARNEY [facility] [id number] Univers 09:30:00 09:30:00 BABAR [facility] 2021-08-22 2021-08-22 Outpatient Dominic LIRA [facility] [id number] Univers 07:30:00 07:30:00 AMILCAR pinto [facility] 2021-08-22 2021-08-22 Outpatient Dominic LIRA [facility] [id number] Univers 07:30:00 07:30:00 AMILCAR ity [facility] 2021-08-21 2021-08-21 Outpatient R SIDDHARTH [facility] [id number] Univers 09:30:00 23:59:00 [facility] 2021-08-21 2021-08-21 Outpatient R SIDDHARTH [facility] [id number] Univers 08:30:00 23:59:00 [facility] 2021-08-21 2021-08-21 [facility] 1.2.840.114 [id number] Univers 08:11:39 23:59:[address] [facility] 350.1.13.10 ity [place] [id number] [address] ([facility]) 2021-08-21 2021-08-21 [facility] 1.2.840.114 [id number] Univers 08:11:15 23:59:[address] [facility] 350.1.13.10 ity [place] [id number] [address] ([facility]) 2021-08-21 2021-08-21 Outpatient Dominic [facility] [id number] Univers 08:30:00 08:30:00 [facility] 2021-08-20 2021-08-20 Pre-Anesth Call, [facility] 1.2.840.114 [id number] Univers 08:35:00 08:40:00 esia [facility] Phone HEALTH 350.1.13.10 ity of Evaluation [place] 4.2.7.2.686 [place] [id number] [address] ([facility]) 2021-08-19 2021-08-19 Laboratory Only, Adc Test [facility] 1.2.840. 114 [id number] Univers 08:15:00 08:30:00 Only Amilcar LiraTON 350.1.13.10 it[place] of [place].2.7.2.[place] [id number] [facility] 353 Branch 2021-08-19 2021-08-19 Outpatient Dominic LIRA [facility] [id number] Univers 08:15:00 08:15:00 AMILCAR ity [facility] 2021-08-19 2021-08-19 Outpatient Dominic LIRA [facility] [id number] Univers 08:15:00 08:15:00 AMILCAR ity [facility] 2021-08-19 2021-08-19 Telephone Nurse, [facility] 1.2.840.114 [id number] Univers 00:00:00 00:00:00 Echo HEALTH 350.1.13.10 it y of CLEAR 4.2.7.2.686 [facility] [place] [id number] [place] 025272 [place] ([facility]) 2021-08-15 2021-08-15 Outpatient Dominic QUOC [facility] [id number] Univers 15:30:00 15:30:00 JASON ity [facility] 2021-08-13 2021-08-13 Outpatient Dominic LIRA [facility] [id number] Univers 08:00:00 16:39:30 [facility]CAR [facility] 2021-08-13 2021-08-13 Office [facility] 1..840.114 [id number] Univers 08:00:00 16:39:30 Visit Amilcar HEALTH 350.1.13.10 it y of [place] 4.2.7.2.686 [place] [id number] [facility] 059 Branch OFFICE BUILDING 2021-08-13 2021-08-13 Outpatient Dominic LIRA [facility] [id number] Univers 08:00:00 16:39:30 AMILCAR ity [facility] 2021-08-05 2021-08-05 Telephone Zohaib Ling [facility] 1..840.114 9 [id number] Univers 00:00:00 00:00:00 PRIMARY 350.1.13.10 it y of [place].2.[place] [id number] [address] 2021-07-22 2021-07-22 Patient Gosia [facility] 1.2.840.114 [id number] Univers 00:00:00 00:00:00 Secure Msg Felix Howell SPECIALTY 350.1.13.10 it[place] of [place].2.[place] AT [id number] Wa paul Pkie2 [facility] 2021-07-18 2021-07-18 Outpatient R GOSIA [facility] GIE [id number] Univers 10:34:00 15:26:00 FELIX ity of [facility] 2021-07-18 2021-07-18 [facility] 1.2.840.114 [id number] Univers 10:34:00 15:26:00 Encounter Felix HERNANDEZ 350.1.13.10 ity of SCIENCES 4.2.7.2.686 [place] [id number] [address] 2021-07-18 2021-07-18 Surgery [facility] 1.2.300.978 [id number] Univers 11:45:00 12:45:00 Felix HERNANDEZ 350.1.13.10 ity of SCIENCES 4.2.7.2.686 [place] [id number] [facility] 020 [place] 2021-07-18 2021-07-18 Orders Doctor GORMAN 1.2.840.114 [id number] Univers 00:00:00 00:00:00 Only Unassigned, BUDDY 350.1.13.10 ity of [place] [facility] 4.2.7.2.686 [place] [id number] [facility] 009 [place] 2021-07-17 2021-07-17 Orders Doctor GORMAN 1.2.840.114 [id number] Univers 00:00:00 00:00:00 Only Unassigned, BUDDY 350.1.13.10 ity of [place] [facility] 4.2.7.2.686 [place] [id number] [address] 2021-07-15 2021-07-15 Laboratory Only, Deven Test [facility] 1.2.840. 114 [id number] Univers 08:15:00 08:30:00 Only Felix Elise [facility] 350.1.13.10 [place] of [place].2.686 [place] [facility] [id number] [facility] PRIMARY & [address] SPECIALTY CARE 2021-07-15 2021-07-15 Outpatient R GOSIA [facility] [id number] Univers 08:15:00 08:15:00 FELIX pinto [facility] 2021-07-11 2021-07-11 Outpatient R QUOC [facility] [id number] Univers 15:30:00 16:38:22 JASON pinto [facility] 2021-07-11 2021-07-11 Office Arsen Finn [facility] 1.2.840.114 [id number] Univers 15:30:00 16:38:22 Visit Jason Kumari SPECIALTY 350.1.13.10 ity of [facility] 4.2.7.2.686 [place] AT [phone] Wa paul [facility]University [facility]2 [facility] 2021-07-11 2021-07-11 Orders Doctor SHERIF 1.2.840.114 [id number] Univers 00:00:00 00:00:00 Only Unassigned, BUDDY 350.1.13.10 ity of [place] [facility] 4.2.7.2.686 [place] [id number] [facility] 009 Branch 2021-07-10 2021-07-10 Transition KAYLA Culp 1.2.840.114 [id number] Univers 00:00:00 00:00:00 of Care Cathryn TRAYLOR 350.1.13.10 it [place] of [place] [id number] [facility] [address] 2021-07-03 2021-07-09 Inpatient U UMESH CORONADO [facility] 1 [id number] Univers 16:33:00 16:00:00 UMESH CORONADO [facility] 2021-07-03 2021-07-09 [facility] 1.2.840.1 14 [id number] Univers 16:33:00 16:00:00 Encounter Umesh Coronado 350.1.13.10 ity of HOSPITAL 4.2.7.2.686 [place] [id number] [facility] 093 Branch 2021-07-032021-07-03 [facility] [id number] Univers 16:33:00 16:33:00 [facility]Y [facility] 2021-07-03 2021-07-03 Hospital [facility] 1.2.840.114 [id number] Univers 09:25:29 16:32:00 Encounter Toni Arreguin SPECIALTY 350.1.13.10 it[place] of C[place] AT [id number] Wa paul GUERRA 807 [facility] 2021-07-03 2021-07-03 Car Worker Helper Vls-Lab [facility] 1.2.840.114 [id number] Univers 10:15:00 10:30:00 Visit Toni Bhakta SPECIALTY 350.1.13 .10 ity of C[place]2.[place].2.[place] AT [id number] Wa paul GUERRA 353 [facility] 2021-07-03 2021-07-03 [facility] [id number] Univers 09:25:29 09:25:29 TONI [facility] 2021-07-03 2021-07-03 Car Worker Helper Test, Vtc Pulmonary Function [facility] 1.2.840.114 [id number] Univers 09:00:00 09:11:58 Visit Toni BhaktaPEC 350.1.13 .10 ity of [place].2.[place].2.[place] [id number] Neetu Lopez 083 [place] [facility] 2021-07-03 2021-07-03 Outpatient R YONY [facility] [id number] Univers 09:00:00 09:11:58 TONI [facility] 2021-07-03 2021-07-03 Office [facility] 1.2.840.114 [id number] Univers 08:00:00 08:53:07 Visit Toni ROBLES 350.1.13.10 ity of [place].2.[place].2.[place] [id number] Neetu isaacs AND SHERLEY 085 [place] [facility] 2021-07-03 2021-07-03 Outpatient R YONY, [facility] [id number] Univers 08:00:00 08:53:07 TONI pinto [facility] 2021-07-03 2021-07-03 Outpatient R YONY [facility] [id number] Univers 08:00:00 08:53:07 TONI pinto [facility] 2021-07-03 2021-07-03 Office [facility] 1.2.840.114 [id number] Univers 08:00:00 08:53:07 Visit Toni Rodríguez MULTISPEC 350.1.13.10 ity of [place]2.[place].2.[place] [id number] [facility] AND [place] [address] [facility]ES [facility] 2021-07-03 2021-07-03 Outpatient R YONY [facility] [id number] Univers 08:00:00 08:53:07 TONI pinto [facility] 2021-07-03 2021-07-03 Orders Doctor SHERIF 1.2.840.114 [id number] Univers 00:00:00 00:00:00 Only Unassigned, BUDDY 350.1.13.10 ity of [place] [facility] 4.2.7.2.686 [place] as [id number] [facility] 009 Branch 2021-07-03 2021-07-03 Telephone [facility] 1.2.840.114 [id number] Univers 00:00:00 00:00:00 Suzi Y HEALTH 350.1.13.10 ity of CLINICS [place]2.[place].2.[place] [id number] [facility] 084 Branch 2021-07-03 2021-07-03 Telephone [facility], [facility] 1.2.840.114 [id number] Univers 00:00:00 00:00:00 Babar Y HEALTH 350.1.13.10 i ty of CLINICS 4[place]2.[place].2.[place] [id number] [facility] 089 Branch 2021-07-01 2021-07-01 Case [facility] 1.2.840.114 [id number] Univers 00:00:00 00:00:00 Management Toni Arreguin MULTISPEC 350.1.13.10 ity of [place]2.[place].2.[place] C[place] [id number] [facility] AND [address] DIABETES CLINIC 2021-06-04 2021-06-04 Orders Doctor SHERIF 1.2.840.114 [id number] Univers 00:00:00 00:00:00 Only Unassigned, BUDDY 350.1.13.10 ity of [place] [facility] 4.2.7.2.686 [place] as [id number] [facility] 009 Branch 2021-05-30 2021-05-[address] [facility] 1.2.840.114 [id number] Univers 13:00:00 13:15:00 Visit [facility] 350.1.13.10 ity of CLINICS 4.2.[place].2.[place] [id number] [facility] [address] 2021-05-30 2021-05-30 Outpatient R [facility] [id number] Univers 13:00:00 13:00:00 [facility] 2021-05-30 2021-05-30 Office [facility] 1.2.719.727 [id number] Univers 11:00:00 12:00:00 Visit [facility] 350.1.13.10 i ty of CLINICS 4[place]2.[place].2.[place] [id number] [facility] [address] 2021-05-30 2021-05-30 Outpatient R [facility] [id number] Univers 11:00:00 11:00:00 [facility] 2021-05-30 2021-05-30 [facility] [id number] Univers 00:00:00 00:00:00 Toni Arreguin MULTISPEC 350.1.13.10 [place] [id number] [facility] [address] [facility] 2021-05-30 2021-05-30 [facility] [id number] Univers 00:00:00 00:00:00 Toni Arreguin MULTISPEC 350.1.13.10 [place] [id number] [address] [facility] 2021-05-22 2021-05-22 Orders Doctor SHERIF [id number] Univers 00:00:00 00:00:00 Only Unassigned, BUDDY 350.1.13.10 ity of [place] [facility] 4.2.7.2.686 [place] [id number] [facility] [address] 2021-05-21 2021-05-21 Telephone Tony [facility] 1.2.840.114 [id number] Univers 00:00:00 00:00:00 [facility] 350.1.13.10 [place] [id number] [facility] [address] 2021-05-21 2021-05-21 Telephone [facility] [id number] Univers 00:00:00 00:00:00 Toni Arreguin MULTISPEC 350.1.13.10 [place] [id number] [address] [facility] 2021-02-25 2021-02-25 Outpatient Dominic JANSEN [facility] [id number] Univers 08:45:00 08:45:00 [facility] ity of [facility] 2021-01-02 2021-01-02 Telephone [facility] [id number] Univers 00:00:00 00:00:00 Toni Arreguin MULTISPEC 350.1.13.10 [place] [id number] [address] [address] [facility] 2020-11-15 2020-11-15 Telephone [facility] [id number] Univers 00:00:00 00:00:00 Toni Arreguin MULTISPEC 350.1.13.10 it[place] of [place] [phone] [address] [facility] 2020-09-04 2020-09-04 Outpatient Dominic SCHWARTZ [facility] [id number] Univers 11:30:00 11:30:00 ARSEN pinto [facility] 2020-08-29 2020-08-29 Outpatient Dominic SCHWARTZ [facility] [id number] Univers 13:00:00 13:00:00 ARSEN pinto [facility] 2020-08-21 2020-08-27 [facility] Jame Florez 1.2.840.11 [id number] Univers 20:11:00 14:20:00 Encounter Gopal English 350.1.13 .10 ity of [facility] 4.2.7.2.686 Arsen Xiong [phone] [place] 832959 [place] 2020-08-22 2020-08-22 Surgery Olga Beatty 1.2.840.114 [id number] Univers 03:05:00 05:33:00 Andrews Camara 350.1.13.10 it y of [facility] 4.2.7.2.686 Deven as [phone] [facility] [address] 2020-08-21 2020-08-21 Emergency [facility] 1.2.937.924 [id number] Univers 13:23:00 18:48:00 Mami Celeste 350.1.13.10 i ty [facility] 4.2.7.2.686 [facility] [phone] [facility] [address] 2020-08-21 2020-08-21 Emergency X [facility] ERT [id number] Univers 13:23:00 18:48:00 MAMI pinto [facility] 2020-08-21 2020-08-21 Orders Doctor SHERIF 1.2.840.114 [id number] Univers 00:00:00 00:00:00 Only UnassignedBUDDY 350.1.13.10 ity of [place] [facility] 4.2.7.2.686 Deven as [phone] [facility] [address] 2020-06-25 2020-06-25 Patient Xander [facility] 1.2.840.114 [id number] Univers 00:00:00 00:00:00 Outreach Reji PRIMARY 350.1.13.10 i ty of [facility] 4.2.7.2.[place] [facility] [phone] Wa dical [address] 2020-05-17 2020-05-17 Nurse Therapy, c Covid Infusion [facility] 1.2.840.114 [id number] Univers 12:09:18 15:23:32 Visit Toni Bhakta SPECIALTY 350.1.13 .10 ity of [facility] 4.2.7.2.686 [facility] AT [phone] Wa delmigeoff [place]ERRA [address] [facility] 2020-05-17 2020-05-17 Outpatient Dominic BHAKTA [facility] [id number] Univers 13:00:00 13:00:00 TONI todd [facility] 2020-05-17 2020-05-17 Outpatient Dominic BHAKTA [facility] [id number] Univers 13:00:00 13:00:00 TONI [facility] 2020-05-17 2020-05-17 Outpatient R YONY [facility] [id number] Univers 13:00:00 13:00:00 TONI [facility] 2020-05-16 2020-05-16 Telephone Yony [facility] 1.2.071.134 [id number] Univers 00:00:00 00:00:00 Toni Arreguin MULTISPEC 350.1.13.10 ity of [place] 4.2.7.2.686 [facility] [id number] [facility] AND SHERLEY [address] [facility] 2020-05-16 2020-05-16 Orders Doctor SHERIF 1.2.840.114 [id number] Univers 00:00:00 00:00:00 Only Unassigned, BUDDY 350.1.13.10 ity of [place] [facility] 4.2.7.2.686 [facility] [phone] [facility] [address] 2020-05-15 2020-05-15 Laboratory Lab, Adc Fam Pob I [facility] 1.2. 840.114 [id number] Univers 09:28:08 09:48:08 Only Anene, [facility] 350.1.13.10 ity of [place] 4.2.7.2.686 [place] as Professio [phone] Me dical nal 044 [place] [address] 2020-05-15 2020-05-15 Outpatient R REGI [facility] [id number] Univers 09:40:00 09:40:00 LEON ittodd [facility] 2020-05-08 2020-05-[address] [facility] 1.2.840.114 [id number] Univers 00:00:00 00:00:00 Lety Bur[facility] 350.1.13.10 it y of Surgical 4.2.7.2.686 [place] Specialti [phone] Me dical es 198 [facility] 2020-05-03 2020-05-[address] [facility] 1.2.840.114 [id number] Univers 14:33:30 23:59:00 Encounter Lety Burleson [facility] 350.1.13.10 ity of Surgical 4.2.7.2.686 [place] Specialti [phone] Me dical es 809 [facility] 2020-05-03 2020-05-03 Outpatient [facility] [id number] Univers 14:33:30 23:59:00 LETY pinto [facility] 2020-05-03 2020-05-[address] [facility] 1.2.907.447 [id number] Univers 14:04:45 14:51:03 Visit Lety Burleson [facility] 350.1.13.10 it y of Surgical 4.2.7.2.686 [place] as Specialti [phone] Wa dical es 198 [facility] 2020-04-02 2020-04-02 Telephone [facility] 1.2.213.338 [id number] Univers 00:00:00 00:00:00 Toni Arreguin MULTISPEC 350.1.13.10 it[place] [phone] Neetu Lopez 085 [place] [facility] 2020-03-23 2020-03-23 Refill [facility] 1.2.840.114 [id number] Univers 00:00:00 00:00:00 Toni Arreguin MULTISPEC 350.1.13.10 ity of [place]AL[place] 4.2.7.2.686 [facility] [phone] [address] [facility]ES [facility] 2020-03-20 2020-03-20 Outpatient R YONY [facility] [id number] Univers 10:00:00 10:00:00 TONI ity [facility] 2020-03-20 2020-03-20 Orders Doctor SHERIF 1.2.840.114 [id number] Univers 00:00:00 00:00:00 Only Unassigned, BUDDY 350.1.13.10 ity of [place] [facility] 4.2.7.2.686 [place] as [phone] [facility] 009 [place] 2020-03-12 2020-03-12 [facility]an [facility] 1.2.840.114 [id number] Univers 00:00:00 00:00:00 Toni Arreguin MULTISPEC 350.1.13.10 ity of [place] 4.2.7.2.686 [facility] [phone] [address] [facility]ES [facility] 2020-02-20 2020-02-20 Office [facility] 1.2.840.114 [id number] Univers 14:46:17 15:01:17 [facility] 350.1.13.10 it y of Surgical 4.2.7.2.686 [place] Specialti [phone] Wa dical es 198 [facility] 2020-02-20 2020-02-20 Outpatient R [facility] [id number] Univers 14:45:00 14:45:00 ANAT pinto [facility] 2020-02-19 2020-02-19 [facility] 1.2.840.114 [id number] Univers 14:11:03 23:59:00 Encounter Rachel Celeste 350.1.13.10 ity of [place] 4.2.7.2.686 [facility] [phone] [facility] 807 [place] 2020-02-19 2020-02-19 Urgent Provider, [facility] Urgent Care [facility] 1.2.840.114 [id number] Univers 13:17:14 14:12:34 Care [facility] 350.1.13.10 ity of [place] 4.2.7.2.686 [place] as Professio [phone] Wa dical [address] Office Building One 2020-02-19 2020-02-19 Outpatient Dominic GORMAN [facility] [id number] Univers 13:20:00 13:20:00 RACHEL [facility] 2020-02-01 2020-02-01 Out[facility] [id number] Univers 08:30:00 08:30:00 TONI [facility] 2020-01-31 2020-01-31 Case [facility] 1.2.840.114 [id number] Univers 00:00:00 00:00:00 Management Toni JACOBPEC 350.1.13.10 ity of [place] [phone] [facility] AND [address] DIABETES [facility] 2019-12-15 2019-12-15 Outpatient Ajibade_O_A VFP VFP [phone] [facility] 03:26:00 03:26:00 H [address] Family Practic e 2019-07-27 2019-07-27 Telemedici [facility] 1.2.840.114 [id number] Univers 07:40:14 13:41:36 ne Visit Toni ROBLES 350.1.13.10 ity of [place].686 [place] [id number] [address] DIABETES [facility] 2019-07-27 2019-07-27 Telemedici [facility] 1.2.840.114 [id number] 07:40:14 13:41:36 ne Visit Toni JACOBPEC 350.1.13.10 IALTY 4.2.7.2.686 [place] [phone] [place] [address] DIABETES [facility] 2019-07-27 2019-07-27 Outpatient Dominic [facility] [id number] Univers 08:30:00 08:30:00 TONI [facility] 2019-07-20 2019-07-20 Telemedici [facility] 1.2.840.114 [id number] Univers 11:54:50 12:04:50 ne Visit Sherif SPECIALTY 350.1.13.10 ity of CARE [place].2.686 [place] AT [phone] Wa paul [place] 198 [facility] 2019-07-20 2019-07-20 Outpatient R [facility] [id number] Univers 09:40:00 09:40:00 SHERIF ity of [facility] 2019-06-17 2019-06-17 Orders Doctor SHERIF 1.2.840.114 [id number] Univers 00:00:00 00:00:00 Only Unassigned, BUDDY 350.1.13.10 ity of [place] [facility] 4.2.7.2.686 Deven [phone] [address] 2019-06-08 2019-06-08 Outpatient [facility] VF [phone] [facility] 07:13:00 07:13:00 _J_AH 50969 Family Practic e 2019-05-18 2019-05-18 Office [facility] 1.2.377.505 [id number] 6534 [facility] 13:43:07 14:15:52 Visit Sherif [facility] 350.1.13.10 it y of [place]2.7.2.686 [place] [facility] [id number] [address] 2019-05-06 2019-05-06 [facility] 1.2.840.114 [id number] Univers 10:25:00 14:42:00 [facility] 350.1.13.10 [place] of [place]2.7.2.686 [place] [facility] [phone] [address] ([facility]) 2019-05-06 2019-05-06 Anesthesia Belinda Rosado [facility] 1.2.84 0.114 [id number] Univers 12:39:00 14:05:00 [place] SPECIALTY 350.1.13.1 0 ity of CARE [place].2.7.2.686 [place] C[place] AT [id number] [place] paul [place] 020 [facility] 2019-05-06 2019-05-06 Orders Doctor GORMAN 1.2.840.114 [id number] Univers 00:00:00 00:00:00 Only Unassigned, BUDDY 350.1.13.10 ity of [place] [facility] 4.2.7.2.686 [place] as [phone] [address] 2019-05-04 2019-05-04 Orders Doctor SHERIF 1.2.840.114 [id number] Univers 00:00:00 00:00:00 Only Unassigned, BUDDY 350.1.13.10 ity of [place] [facility] 4.2.7.2.686 [place] as [phone] [address] 2019-05-03 2019-05-03 Orders Doctor SHERIF 1.2.840.114 [id number] Univers 00:00:00 00:00:00 Only Unassigned, BUDDY 350.1.13.10 ity of [place] [facility] 4.2.7.2.686 [place] as [phone] [address] 2019-04-28 2019-04-28 Orders Doctor GORMAN 1.2.840.114 [id number] Univers 00:00:00 00:00:00 Only Unassigned, BUDDY 350.1.13.10 ity of [place] [facility] 4.2.7.2.686 [place] as [id number] [address] 2018-12-29 2018-12-31 Outside nullFlavo MNA [id number] Memoria 20:08:24 04:59:59 Medical r Neurology 00 l Records [facility] [place] 2018-12-29 2018-12-31 Outside nullFlavo MNA [id number] Memoria 20:08:24 04:59:59 Medical r Neurology 00 l Records [facility] 2018-12-29 2018-12-30 Outpatient MHMISCHER MHMISCHER [id number] 15:08:24 23:59:59 00 2018-12-29 2018-12-29 Office Failcaoskar, [facility] 1.2.717.952 [id number] [facility] 14:55:05 16:23:00 Visit Sherif SIMPSON 350.1.13.10 it y of [place].2.[place] [phone] [address] 2018-12-29 2018-12-29 Orders Doctor SHERIF Navarrete.2.840.114 [id number] Univers 00:00:00 00:00:00 Only Unassigned, BUDDY 350.1.13.10 ity of [place] [facility] 4.2.7.2.686 [place] as [phone] [address] 2018-12-22 2018-12-23 Outpatient nullFlavo MNA [id number] Memoria 20:15:00 04:59:59 r Neurology 00 l Angélica [place] 2018-12-22 2018-12-23 Outpatient nullFlavo MNA [id number] Memoria 20:15:00 04:59:59 r Neurology 00 l Angélica [place] 2018-12-22 2018-12-22 Outpatient Jade, MHMISCHER MHMISCHER [id number] 15:15:00 23:59:59 Kurtis 00 Ar[place] 2018-12-22 2018-12-22 Outpatient MHIE MHIE [id number] Memoria 15:15:00 15:15:00 00 l [place] 2018-11-24 2018-11-25 Office [facility] [id number] [id number] Univers 10:12:43 09:02:51 Visit Sherif SPECIALTY 350.1.13.10 ity of CARE 4.2.7.2.686 [facility] s CENTER AT [phone] [facility] 198 [facility] 2018-11-24 2018-11-24 [facility] 1.2.840.114 [id number] Univers 10:54:02 23:59:00 Encounter Sherif SPECIALTY 350.1.13.10 ity of CARE 4.2.7.2.686 [place] C[place] AT [phone] [facility] ELVIA 809 [facility] 2018-11-24 2018-11-24 Orders Doctor SHERIF 1.2.840.114 [id number] Univers 00:00:00 00:00:00 Only Unassigned, BUDDY 350.1.13.10 ity of [place] [facility] 4.2.7.2.686 [place] as [phone] [address] 2018-11-21 2018-11-21 [facility] 1.2.840.114 [id number] Univers 00:00:00 00:00:00 [place] SPECIALTY 350.1.13.10 ity of [place] CARE [place].2.7.2.686 [place] AT [phone] [place] paul GUER[place] 198 [facility] 2018-11-11 2018-11-11 Orders Doctor SHERIF 1.2.840.114 [id number] 00:00:00 00:00:00 Only Unassigned, BUDDY 350.1.13.10 ity of [place] [facility] 4.2.7.2.686 Deven [phone] [address] 2017-11-27 2017-12-01 Inpatient nullFlavo [facility] [id number] [facility] 15:34:00 21:20:[address] 2017-11-27 2017-12-01 [facility] [id number] [facility] 15:34:00 21:20:[address] 2017-11-27 2017-12-01 Outpatient Hematpour, [facility] [id number] 10:34:00 16:20:00 Kacie Yousif Results Test Description Test Time Test Comments Results Result Comments Source ACT-ISTAT 2022-07-23 09:42:00 Test Item Value Reference Range Interpretation Comme nts ACT-ISTAT (test code = ACTI) 239 SEC 74-137 H Performed by certified canal structure operator at [facility] - XR CHEST 1 [id number] 00:00:00 [facility] : 1950 Sex: M FAX: Vikram Carias [phone] [place]: St: ADM FAX: Yoel Abbott MD [phone] Name: [facility] Hunter : 1950 Age/S: 72/M [address] [place] [address] Unit #: [id number] Loc: [place] [address] Phys: Yoel Raymundo MD Acct: [id number] Dis Date: Status: ADM IN PHONE #: [phone] Exam Date: 07/23/2022 1336 FAX #: [phone] Reason: S/P WATCHMAN EXAMS: CPT CODE: [id number] XR CHEST 1 V 88681 PROCEDURE INFORMATION: Exam: XR Chest Exam date and time: 07/23/2022 10:49 AM Age: 72 years old Clinical indication: Pre-operative exam; Respiratory screening exam; Additional info: S/P watchman TECHNIQUE: Imaging protocol: Radiologic exam of the chest. Views: 1 view. COMPARISON: DX XR CHEST 2 V 05/26/2022 10:15 AM FINDINGS: Lungs: Normal lung volumes. No consolidation. Pleural spaces: Unremarkable. No pleural effusion. No pneumothorax. Heart/Mediastinum: The cardiac silhouetteis enlarged. A Watchman device has been placed. There is prominent central pulmonary vasculature. Bones/joints: Unremarkable. IMPRESSION: Cardiomegaly with prominence of the central pulmonary vasculature. at 1551 Reported and signed by: Martell Rivera M.D. CC: Vikram Turner MD; Yoel Raymundo MD Technologist: RT Rekha(R) Trnscrd Date/Time/By: 07/23/2022 (2880) : By: Kimi Orig Print D/T: S: 07/23/2022 (6902) PAGE 1 Signed ReportBASIC METABOLIC [id number] 10:42:00 Test Item Value Reference Range Interpretation Comments SODIUM (test code = 140 mEq/L 134-147 N NA) POTASSIUM (test code 4.5 mEq/L 3.4-5.0 N = K) CHLORIDE (test code 108 mEq/L 100-108 N = CL) CARBON DIOXIDE (test 28 mEq/l 21-33 N code = CO2) ANION GAP (test code 8 0-20 N = GAP) GLUCOSE (test code = 146 mg/dL 70-110 H GLU) BLOOD UREA NITROGEN 27 mg/dL 7-18 H (test code = BUN) GLOMERULAR 79.0 70-80 N The Glomerular FILTRATION RATE Filtration R ate is a (test code = GFR) calculated parameterbased on serum Creatinine, pat ient age and sex. GFR va luesless than 60 mL/min/ 1.73 square meters a re indicative ofCh ronic Kidney Disease. Values less than 15 mL/min/1.73squa re meters indicate Kidney failure. The calculation forGFR is based on the CKD-EPI (2020) calculat ion. This formulais race indifferent and is the recommended for alina for GFRby the Natio nal Kidney Foundati on for Adults.The GFR will not calculate if th e sex is unknown or if thepatient's ag e is <18 years. CREATININE (test 1.0 mg/dL 0.6-1.3 N code = CREAT) CALCIUM (test code = 9.4 mg/dL 8.0-10.5 N CA) [id number] 10:42:00 Test Item Value Reference Range Interpretation Comments PREALBUMIN (test code = PREALB) 24.1 mg/dL 16.0-40.0 N PROTHROMBIN [id number] 10:36:00 Test Item Value Reference Range Interpretation Comments PROTHROMBIN TIME 14.6 SECONDS 9.3-12.9 H PATIENT (test code = PTP) INTERNATIONAL NORMAL 1.3 0.8-1.2 H TARGET INR BY RATIO (test code = INDICATIO N Indication INR) INR1. Prophylax is of venous thrombos is 2.0 - 3.0 (orthoped ic surgery), Proph ylaxis of venous throm bosis (other than hig h-risk surgery), Treat ment of Deep Vein Thrombosis/Pulm onary Embolism, Preve ntion of systemic emb olism - Tissue heart va lves, Acute Myocardia l Infarction (to prevent systemic emboli sm), Valvular heart disease, Atrial Fibrillation, Bileaflet mecha nical valve in aortic position.2. Mec hanical prosthetic valv es (high risk), 2. 5 - 3.5 Presence of Lup us Anticoagulant o r Antiphospholipi d Antibodies, Pre vention of systemic emb olism - Acute Myocardia l Infarction (to prevent recurrent infar ct). CBC W/AUTO [id number] 10:25:00 Test Item Value Reference Range Interpretation Comments WHITE BLOOD CELL (test code = 10.7 x10 3/uL 4.5-11.0 N WBC) RED BLOOD CELL (test code = 5.27 x10 6/uL 4.00-5.60 N RBC) HEMOGLOBIN (test code = HGB) 16.9 g/dL 12.5-16.9 N HEMATOCRIT (test code = HCT) 49.7 % 37.5-50.7 N MEAN CELL VOLUME (test code = 94.3 fL 81.0-99.0 N MCV) MEAN CELL HGB (test code = MCH) 32.1 pg 27.0-33.0 N MEAN CELL HGB CONCETRATION 34.0 g/dL 33.0-37.0 N (test code = MCHC) RED CELL DISTRIBUTION WIDTH CV 13.3 % 11.5-14.5 N (test code = RDW) RED CELL DISTRIBUTION WIDTH SD 45.8 fL 37.0-54.0 N (test code = RDW-SD) PLATELET COUNT (test code = 236 x10 3/uL 150-400 N PLT) MEAN PLATELET VOLUME (test code 10.1 fL 7.0-9.0 H = MPV) NEUTROPHIL % (test code = NT%) 76.2 % 56.0-77.0 N IMMATURE GRANULOCYTE % (test 1.1 % 0.0-2.0 N code = IG%) LYMPHOCYTE % (test code = LY%) 13.8 % 14.0-32.0 L MONOCYTE % (test code = MO%) 8.7 % 4.8-9.0 N EOSINOPHIL % (test code = EO%) 0.0 % 0.3-3.7 L BASOPHIL % (test code = BA%) 0.2 % 0.0-2.0 N NUCLEATED RBC % (test code = 0.0 % 0-0 N NRBC%) NEUTROPHIL # (test code = NT#) 8.18 x10 3/uL 2.0-7.6 H IMMATURE GRANULOCYTE # (test 0.12 x10 3/uL 0.00-0.03 H code = IG#) LYMPHOCYTE # (test code = LY#) 1.48 x10 3/uL 1.0-3.8 N MONOCYTE # (test code = MO#) 0.93 x10 3/uL 0.1-0.8 H EOSINOPHIL # (test code = EO#) 0.00 x10 3/uL 0.0-0.2 N BASOPHIL # (test code = BA#) 0.02 x10 3/uL 0.0-0.2 N NUCLEATED RBC # (test code = 0.00 x10 3/uL 0.0-0.1 N NRBC#) MANUAL DIFF REQUIRED (test code NO = MDIFF) CHEM [id number] 09:42:00 Test Item Value Reference Range Interpretation Comments Magnesium Lvl (test code = Magnesium 2.5 1.8-2.4 Lvl) [facility] [id number] 09:42:00 Test Item Value Reference Range Interpretation Comments Phosphorus (test code = Phosphorus) 3.3 2.5-4.5 [facility] [id number] 09:42:00 Test Item Value Reference Range Interpretation Comments AGAP (test code = AGAP) 13.2 10.0-20.0 [facility] Cen[id number] 09:42:00 Test Item Value Reference Range Interpretation Comments eGFR (test code = eGFR) 64 [facility] [id number] 09:42:00 Test Item Value Reference Range Interpretation Comments Chloride Lvl (test code = Chloride Lvl) 108 95-109 [facility] [id number] 09:42:00 Test Item Value Reference Range Interpretation Comments Potassium Lvl (test code = Potassium 4.2 3.5-5.1 Lvl) [facility] CenterVytdodqWAUXZHOWWQPE7217-60-59 09:42:00 Test Item Value Reference Range Interpretation Comments Glucose Lvl (test code = Glucose Lvl) 100 70-99 [facility] [id number] 09:42:00 Test Item Value Reference Range Interpretation Comments Sodium Lvl (test code = Sodium Lvl) 141 135-145 [facility] [id number] 09:42:00 Test Item Value Reference Range Interpretation Comments Creatinine Lvl (test code = Creatinine 1.16 0.50-1.40 Lvl) [facility] Ce[id number] 09:42:00 Test Item Value Reference Range Interpretation Comments BUN (test code = BUN) 22 7-22 [facility] [id number] 09:42:00 Test Item Value Reference Range Interpretation Comments Calcium Lvl (test code = Calcium Lvl) 8.8 8.5-10.5 [facility] Cen[id number] 09:42:00 Test Item Value Reference Range Interpretation Comments CO2 (test code = CO2) 24 24-32 [facility] CenterOczjfvbJPAREKGEYN9406-67-30 09:42:00 Test Item Value Reference Range Interpretation Comments MPV (test code = MPV) 8.8 7.4-10.4 [facility] [id number] 09:42:00 Test Item Value Reference Range Interpretation Comments RDW (test code = RDW) 16.2 11.5-14.5 [facility] C[id number] 09:42:00 Test Item Value Reference Range Interpretation Comments Platelet (test code = Platelet) 147 133-450 [facility] [id number] 09:42:00 Test Item Value Reference Range Interpretation Comments Hgb (test code = Hgb) 14.3 14.0-18.0 [facility] [id number] 09:42:00 Test Item Value Reference Range Interpretation Comments RBC (test code = RBC) 4.36 4.70-6.10 [facility] CenterHuqmpuxBIDRGPDJTU2067-29-72 09:42:00 Test Item Value Reference Range Interpretation Comments WBC (test code = WBC) 5.9 3.7-10.4 [facility] C[id number] 09:42:00 Test Item Value Reference Range Interpretation Comments MCH (test code = MCH) 32.9 pg 27.0-31.0 [facility] CenterBgnthhlWONSGHOQMV8241-33-45 09:42:00 Test Item Value Reference Range Interpretation Comments MCHC (test code = MCHC) 35.3 32.0-36.0 [facility] [id number] 09:42:00 Test Item Value Reference Range Interpretation Comments MCV (test code = MCV) 93.3 80.0-94.0 [facility] [id number] 09:42:00 Test Item Value Reference Range Interpretation Comments Hct (test code = Hct) 40.7 42.0-54.0 [facility] CenterUhiszvyGKHSYHFMPC2581-49-78 09:42:00 Test Item Value Reference Range Interpretation Comments Monocytes (test code = Monocytes) 10.0 2.0-12.0 [id number] 09:42:00 Test Item Value Reference Range Interpretation Comments Monocytes # (test code 0.6 See_Comment [Aut omated message] The = Monocytes #) system which generated this result tra nsmitted reference range : <=0.8. The reference r gasper was not used to int erpret this result as normal/abnormal . [facility]UpejbkbRZYRGNWBNI1669-72-30 09:42:00 Test Item Value Reference Range Interpretation Comments Lymphocytes # (test code = Lymphocytes 2.3 1.0-5.5 #) [facility]VgjtowdMVSCXWEYGU7350-25-15 09:42:00 Test Item Value Reference Range Interpretation Comments Neutrophils # (test code = Neutrophils 2.8 1.5-8.1 #) [id number] 09:42:00 Test Item Value Reference Range Interpretation Comments Basophils (test code = 0.7 See_Comment [Aut omated message] The Basophils) system which ge nerated this result tra nsmitted reference range : <=1.0. The reference r gasper was not used to int erpret this result as normal/abnormal . [facility] [id number] 09:42:00 Test Item Value Reference Range Interpretation Comments Eosinophils (test code = 2.8 See_Comment [A utomated message] The Eosinophils) system which ge nerated this result tra nsmitted reference range : <=4.0. The reference r gasper was not used to int erpret this result as normal/abnormal . [facility] Cent[id number] 09:42:00 Test Item Value Reference Range Interpretation Comments Eosinophils # (test code 0.2 See_Comment [A utomated message] The = Eosinophils #) system whic h generated this result tra nsmitted reference range : <=0.5. The reference r gasper was not used to int erpret this result as normal/abnormal . [facility]ItseuykSVHIWOQVUC2607-67-76 09:42:00 Test Item Value Reference Range Interpretation Comments Segs (test code = Segs) 47.1 45.0-75.0 [facility] CenterHdoorgpZBOZYVMICG8145-63-29 09:42:00 Test Item Value Reference Range Interpretation Comments Lymphocytes (test code = Lymphocytes) 39.4 20.0-40.[address] [facility]2018-08-14 09:42:00 Test Item Value Reference Range Interpretation Comments Magnesium Lvl (test code = Magnesium 2.5 1.8-2.4 Lvl) [facility]2018-08-14 09:42:00 Test Item Value Reference Range Interpretation Comments Phosphorus (test code = Phosphorus) 3.3 2.5-4.5 [facility] CenterRefgpwhRDEBJVVYHPNQ9613-80-75 09:42:00 Test Item Value Reference Range Interpretation Comments AGAP (test code = AGAP) 13.2 10.0-20.0 [facility] CenterUzvbyriFMSRPUBARHMM2050-90-70 09:42:00 Test Item Value Reference Range Interpretation Comments eGFR (test code = eGFR) 64 [facility] CenterLffqqewNZEEPZPJBNKL3736-20-07 09:42:00 Test Item Value Reference Range Interpretation Comments Chloride Lvl (test code = Chloride Lvl) 108 95-109 [facility] CenterQjokotsPLDSZYWSPQFF5564-55-02 09:42:00 Test Item Value Reference Range Interpretation Comments Potassium Lvl (test code = Potassium 4.2 3.5-5.1 Lvl) [facility] CenterEkckktxMNSMOZIUFKOP5906-49-88 09:42:00 Test Item Value Reference Range Interpretation Comments Glucose Lvl (test code = Glucose Lvl) 100 70-99 [facility] CenterKfzmaqgIDKYCROZZAIU6505-02-30 09:42:00 Test Item Value Reference Range Interpretation Comments Sodium Lvl (test code = Sodium Lvl) 141 135-145 [facility] CenterVorkcubIIOIUBQKTKBD7411-11-34 09:42:00 Test Item Value Reference Range Interpretation Comments Creatinine Lvl (test code = Creatinine 1.16 0.50-1.40 Lvl) [facility] CenterTfaonntTWDEBRIAXTTQ2959-64-47 09:42:00 Test Item Value Reference Range Interpretation Comments BUN (test code = BUN) 22 7-22 [facility] CenterMgmnrzeQDJWYZQBFYXS7455-37-29 09:42:00 Test Item Value Reference Range Interpretation Comments Calcium Lvl (test code = Calcium Lvl) 8.8 8.5-10.5 [facility] CenterRirpswtLUTWPRSPMLNW7019-80-80 09:42:00 Test Item Value Reference Range Interpretation Comments CO2 (test code = CO2) 24 24-32 [facility] CenterFwkmyyiTDRSYJUNJV8682-11-30 09:42:00 Test Item Value Reference Range Interpretation Comments MPV (test code = MPV) 8.8 7.4-10.4 [facility] CenterIjuvipoGURJQZHUZB3769-07-70 09:42:00 Test Item Value Reference Range Interpretation Comments RDW (test code = RDW) 16.2 11.5-14.5 [facility] CenterXrheuvwVCNXXNDVJT8128-94-50 09:42:00 Test Item Value Reference Range Interpretation Comments Platelet (test code = Platelet) 147 133-450 [facility] CenterZtssvyzAVQEYKLUMM7361-60-68 09:42:00 Test Item Value Reference Range Interpretation Comments Hgb (test code = Hgb) 14.3 14.0-18.0 [facility] CenterSdlonooNEIAJHSFXD5993-92-94 09:42:00 Test Item Value Reference Range Interpretation Comments RBC (test code = RBC) 4.36 4.70-6.10 [facility] CenterPbmwdrbMCCDOJASUI5071-28-96 09:42:00 Test Item Value Reference Range Interpretation Comments WBC (test code = WBC) 5.9 3.7-10.4 [facility] CenterUngjrspZFJBZXDRIB4220-20-34 09:42:00 Test Item Value Reference Range Interpretation Comments MCH (test code = MCH) 32.9 pg 27.0-31.0 [facility] CenterMhsteobYXWXJBPKTR0876-62-04 09:42:00 Test Item Value Reference Range Interpretation Comments MCHC (test code = MCHC) 35.3 32.0-36.0 [facility] CenterNhuvjslRPZNNVGQIS9313-18-61 09:42:00 Test Item Value Reference Range Interpretation Comments MCV (test code = MCV) 93.3 80.0-94.0 [facility] CenterPlwvutoLNHRBAXRWG6247-57-99 09:42:00 Test Item Value Reference Range Interpretation Comments Hct (test code = Hct) 40.7 42.0-54.0 [facility] CenterLtqjvftMTPQAXCPSW7966-10-41 09:42:00 Test Item Value Reference Range Interpretation Comments Monocytes (test code = Monocytes) 10.0 2.0-12.0 [facility] CenterGrinkogCUBXASVGTS4300-49-67 09:42:00 Test Item Value Reference Range Interpretation Comments Monocytes # (test code 0.6 See_Comment [Aut omated message] The = Monocytes #) system which generated this result tra nsmitted reference range : <=0.8. The reference r gasper was not used to int erpret this result as normal/abnormal . [facility] CenterDqissztXLHSXSUAAA3372-22-52 09:42:00 Test Item Value Reference Range Interpretation Comments Lymphocytes # (test code = Lymphocytes 2.3 1.0-5.5 #) [facility] CenterMjvnjmcULUDXHEKUW8172-79-04 09:42:00 Test Item Value Reference Range Interpretation Comments Neutrophils # (test code = Neutrophils 2.8 1.5-8.1 #) [facility] CenterZjgpovhJMHLJIKQZU1481-17-75 09:42:00 Test Item Value Reference Range Interpretation Comments Basophils (test code = 0.7 See_Comment [Aut omated message] The Basophils) system which ge nerated this result tra nsmitted reference range : <=1.0. The reference r gasper was not used to int erpret this result as normal/abnormal . [facility] CenterAxervksWQYKYFQBKJ8880-70-79 09:42:00 Test Item Value Reference Range Interpretation Comments Eosinophils (test code = 2.8 See_Comment [A utomated message] The Eosinophils) system which ge nerated this result tra nsmitted reference range : <=4.0. The reference r gasper was not used to int erpret this result as normal/abnormal . [facility] CenterNvouhrnNOKGTCERUM0605-35-85 09:42:00 Test Item Value Reference Range Interpretation Comments Eosinophils # (test code 0.2 See_Comment [A utomated message] The = Eosinophils #) system whic h generated this result tra nsmitted reference range : <=0.5. The reference r gasper was not used to int erpret this result as normal/abnormal . [facility] CenterRasqwcvHLZTIGRLRE9190-91-06 09:42:00 Test Item Value Reference Range Interpretation Comments Segs (test code = Segs) 47.1 45.0-75.0 [facility] CenterTpehiljXVODEVKAWF7918-42-48 09:42:00 Test Item Value Reference Range Interpretation Comments Lymphocytes (test code = Lymphocytes) 39.4 20.0-40.[address] [facility]2018-08-14 09:42:00 Test Item Value Reference Range Interpretation Comments Magnesium Lvl (test code = Magnesium 2.5 1.8-2.4 Lvl) [facility]2018-08-14 09:42:00 Test Item Value Reference Range Interpretation Comments Phosphorus (test code = Phosphorus) 3.3 2.5-4.5 [facility] CenterZvqdpamRYJJMYPAOQCF9103-69-58 09:42:00 Test Item Value Reference Range Interpretation Comments AGAP (test code = AGAP) 13.2 10.0-20.0 [facility] CenterCcrhulzVFDZRYKVULAS1619-47-54 09:42:00 Test Item Value Reference Range Interpretation Comments eGFR (test code = eGFR) 64 [facility] CenterUoiyjhkAHEBMZVYGHMY8505-18-44 09:42:00 Test Item Value Reference Range Interpretation Comments Chloride Lvl (test code = Chloride Lvl) 108 95-109 [facility] CenterHrjoyhwLEMKFYNDUGLO2003-09-16 09:42:00 Test Item Value Reference Range Interpretation Comments Potassium Lvl (test code = Potassium 4.2 3.5-5.1 Lvl) [facility] CenterQdirmxjJMPNNOYPZZVH7082-08-44 09:42:00 Test Item Value Reference Range Interpretation Comments Glucose Lvl (test code = Glucose Lvl) 100 70-99 [facility] CenterEfofuvlKSTDRSSPTGGT8437-01-67 09:42:00 Test Item Value Reference Range Interpretation Comments Sodium Lvl (test code = Sodium Lvl) 141 135-145 [facility] CenterOlkyhbzVDPDWSFNAUNT6348-75-70 09:42:00 Test Item Value Reference Range Interpretation Comments Creatinine Lvl (test code = Creatinine 1.16 0.50-1.40 Lvl) [facility] CenterActdaxnOVKAICJUKRUE5295-69-35 09:42:00 Test Item Value Reference Range Interpretation Comments BUN (test code = BUN) 22 7-22 [facility] CenterQersiimCPMASJEBPFRY8356-84-09 09:42:00 Test Item Value Reference Range Interpretation Comments Calcium Lvl (test code = Calcium Lvl) 8.8 8.5-10.5 [facility] CenterPphbdfvDSEXBLQQHPET1968-82-15 09:42:00 Test Item Value Reference Range Interpretation Comments CO2 (test code = CO2) 24 24-32 [facility] CenterTrhlwelRRQZYKIWWX4149-29-49 09:42:00 Test Item Value Reference Range Interpretation Comments MPV (test code = MPV) 8.8 7.4-10.4 [facility] CenterImbfzwiBUTYONICGV0142-20-76 09:42:00 Test Item Value Reference Range Interpretation Comments RDW (test code = RDW) 16.2 11.5-14.5 [facility] CenterJrerlvbPULTHPLTRO8584-41-49 09:42:00 Test Item Value Reference Range Interpretation Comments Platelet (test code = Platelet) 147 133-450 [facility] CenterCojdudcMQNZDWNOKL4688-10-75 09:42:00 Test Item Value Reference Range Interpretation Comments Hgb (test code = Hgb) 14.3 14.0-18.0 [facility] CenterYcnryfqLJCUQXTYNV4166-80-20 09:42:00 Test Item Value Reference Range Interpretation Comments RBC (test code = RBC) 4.36 4.70-6.10 [facility] CenterItbtgedJNXEEHLHFU1951-36-02 09:42:00 Test Item Value Reference Range Interpretation Comments WBC (test code = WBC) 5.9 3.7-10.4 [facility] CenterYhvaksjHNYQKGKIPP4216-75-87 09:42:00 Test Item Value Reference Range Interpretation Comments MCH (test code = MCH) 32.9 pg 27.0-31.0 [facility] CenterDzelolgWRAAHADASF4868-36-06 09:42:00 Test Item Value Reference Range Interpretation Comments MCHC (test code = MCHC) 35.3 32.0-36.0 [facility] CenterWkszevdRKIWNUMUVQ8428-26-49 09:42:00 Test Item Value Reference Range Interpretation Comments MCV (test code = MCV) 93.3 80.0-94.0 [facility] CenterBayyagmYFKFGZUEWK8295-61-14 09:42:00 Test Item Value Reference Range Interpretation Comments Hct (test code = Hct) 40.7 42.0-54.0 [facility] CenterJrhlnsdCBEDQFTIZS1108-69-14 09:42:00 Test Item Value Reference Range Interpretation Comments Monocytes (test code = Monocytes) 10.0 2.0-12.0 [facility] CenterOjgmwykZUIMJSIFSH3797-98-29 09:42:00 Test Item Value Reference Range Interpretation Comments Monocytes # (test code 0.6 See_Comment [Aut omated message] The = Monocytes #) system which generated this result tra nsmitted reference range : <=0.8. The reference r gasper was not used to int erpret this result as normal/abnormal . [facility] CenterArphmgfOPWJEWTSDP7522-36-02 09:42:00 Test Item Value Reference Range Interpretation Comments Lymphocytes # (test code = Lymphocytes 2.3 1.0-5.5 #) [facility] CenterIzezozkSLULVATEPO3988-97-35 09:42:00 Test Item Value Reference Range Interpretation Comments Neutrophils # (test code = Neutrophils 2.8 1.5-8.1 #) [facility] CenterQewyeasNKOQEHJTWG6423-00-09 09:42:00 Test Item Value Reference Range Interpretation Comments Basophils (test code = 0.7 See_Comment [Aut omated message] The Basophils) system which ge nerated this result tra nsmitted reference range : <=1.0. The reference r gasper was not used to int erpret this result as normal/abnormal . [facility] CenterXafycyuZFJGOGBTSS0737-41-17 09:42:00 Test Item Value Reference Range Interpretation Comments Eosinophils (test code = 2.8 See_Comment [A utomated message] The Eosinophils) system which ge nerated this result tra nsmitted reference range : <=4.0. The reference r gasper was not used to int erpret this result as normal/abnormal . [facility] CenterCvuyahrFFIEBWRVAE4206-39-46 09:42:00 Test Item Value Reference Range Interpretation Comments Eosinophils # (test code 0.2 See_Comment [A utomated message] The = Eosinophils #) system whic h generated this result tra nsmitted reference range : <=0.5. The reference r gasper was not used to int erpret this result as normal/abnormal . [facility] CenterBirfcttUHSGUNZOFT8597-57-93 09:42:00 Test Item Value Reference Range Interpretation Comments Segs (test code = Segs) 47.1 45.0-75.0 [facility] CenterFjbwdbrZGTOLYJKQM8034-27-50 09:42:00 Test Item Value Reference Range Interpretation Comments Lymphocytes (test code = Lymphocytes) 39.4 20.0-40.[address] [facility]2018-08-14 09:42:00 Test Item Value Reference Range Interpretation Comments Magnesium Lvl (test code = Magnesium 2.5 1.8-2.4 Lvl) [place] 737918-08-14 09:42:00 Test Item Value Reference Range Interpretation Comments Phosphorus (test code = Phosphorus) 3.3 2.5-4.5 [facility] CenterEqmaochKDPKQNWSCMOQ2607-71-94 09:42:00 Test Item Value Reference Range Interpretation Comments AGAP (test code = AGAP) 13.2 10.0-20.0 [facility] CenterTjanyzoMPACRQCKJXFE1838-73-41 09:42:00 Test Item Value Reference Range Interpretation Comments eGFR (test code = eGFR) 64 [facility] CenterUlhjwwaDXNEGPPBIAXD2436-85-99 09:42:00 Test Item Value Reference Range Interpretation Comments Chloride Lvl (test code = Chloride Lvl) 108 95-109 [facility] CenterGaixhzfTDHBPJPZMYEE4016-54-17 09:42:00 Test Item Value Reference Range Interpretation Comments Potassium Lvl (test code = Potassium 4.2 3.5-5.1 Lvl) [facility] CenterDvmscleNKRMJNHNSMQY6608-65-59 09:42:00 Test Item Value Reference Range Interpretation Comments Glucose Lvl (test code = Glucose Lvl) 100 70-99 [facility] CenterZufudbyMNYESCYHGHBW1750-87-86 09:42:00 Test Item Value Reference Range Interpretation Comments Sodium Lvl (test code = Sodium Lvl) 141 135-145 [facility] CenterMlgzyryCNDZFBDBBTOW2232-69-22 09:42:00 Test Item Value Reference Range Interpretation Comments Creatinine Lvl (test code = Creatinine 1.16 0.50-1.40 Lvl) [facility] CenterNtxwxgoGKOGRNDIHLCP1958-53-25 09:42:00 Test Item Value Reference Range Interpretation Comments BUN (test code = BUN) 22 7-22 [facility] CenterOecrkdrTMOWVQDXXMIS3047-56-36 09:42:00 Test Item Value Reference Range Interpretation Comments Calcium Lvl (test code = Calcium Lvl) 8.8 8.5-10.5 [facility] CenterLfgyjqxFUDEDJLJFAMM3460-71-01 09:42:00 Test Item Value Reference Range Interpretation Comments CO2 (test code = CO2) 24 24-32 [facility] CenterGjhujjsBCETKYPRMH8769-83-89 09:42:00 Test Item Value Reference Range Interpretation Comments MPV (test code = MPV) 8.8 7.4-10.4 [facility] CenterBgiilolZTHMIHEZJH3653-88-28 09:42:00 Test Item Value Reference Range Interpretation Comments RDW (test code = RDW) 16.2 11.5-14.5 [facility] GladwinLghxobhHFETKIUJJQ7474-50-79 09:42:00 Test Item Value Reference Range Interpretation Comments Platelet (test code = Platelet) 147 133-450 [facility] GladwinMaknrxzWVZLEKKEDE7991-56-25 09:42:00 Test Item Value Reference Range Interpretation Comments Hgb (test code = Hgb) 14.3 14.0-18.0 [facility] GladwinOhqymypUAIPMGQTRE5610-27-95 09:42:00 Test Item Value Reference Range Interpretation Comments RBC (test code = RBC) 4.36 4.70-6.10 [facility] GladwinNrtiilgBILLCXUVYP9932-15-76 09:42:00 Test Item Value Reference Range Interpretation Comments WBC (test code = WBC) 5.9 3.7-10.4 [facility] GladwinHchkromZUWLFBTEOR3691-46-36 09:42:00 Test Item Value Reference Range Interpretation Comments MCH (test code = MCH) 32.9 pg 27.0-31.0 [facility] GladwinOvvwwdhCTMPTHLPMJ0142-90-57 09:42:00 Test Item Value Reference Range Interpretation Comments MCHC (test code = MCHC) 35.3 32.0-36.0 [facility] GladwinTlgxjcmOTHTYESZIP7096-84-16 09:42:00 Test Item Value Reference Range Interpretation Comments MCV (test code = MCV) 93.3 80.0-94.0 [facility] GladwinSvavikkFZRGGWSGOQ7956-57-13 09:42:00 Test Item Value Reference Range Interpretation Comments Hct (test code = Hct) 40.7 42.0-54.0 [facility] GladwinIxqwbmkOXZPOQWRIS2790-37-23 09:42:00 Test Item Value Reference Range Interpretation Comments Monocytes (test code = Monocytes) 10.0 2.0-12.0 [facility] GAIVC4367-72-72 09:42:00 Test Item Value Reference Range Interpretation Comments Magnesium Lvl (test code = Magnesium 2.5 1.8-2.4 Lvl) [facility] BSOKK3418-42-27 09:42:00 Test Item Value Reference Range Interpretation Comments Phosphorus (test code = Phosphorus) 3.3 2.5-4.5 [facility]YwioaleIODJBUWQMAOY7655-48-45 09:42:00 Test Item Value Reference Range Interpretation Comments AGAP (test code = AGAP) 13.2 10.0-20.0 [facility] CenterWoyqmsdQKTSUZWQWZBQ6692-73-50 09:42:00 Test Item Value Reference Range Interpretation Comments eGFR (test code = eGFR) 64 [facility] CenterBgsookuGLURZDWSGENL4846-97-32 09:42:00 Test Item Value Reference Range Interpretation Comments Chloride Lvl (test code = Chloride Lvl) 108 95-109 [facility] CenterKnzwjctXLVCKNTOXKPE2260-56-94 09:42:00 Test Item Value Reference Range Interpretation Comments Potassium Lvl (test code = Potassium 4.2 3.5-5.1 Lvl) [facility] CenterPzynzpvXKVTFAGAEGFZ1381-41-55 09:42:00 Test Item Value Reference Range Interpretation Comments Glucose Lvl (test code = Glucose Lvl) 100 70-99 [facility] CenterByzidabMDGNSNDQWQDL0370-32-76 09:42:00 Test Item Value Reference Range Interpretation Comments Sodium Lvl (test code = Sodium Lvl) 141 135-145 [facility] CenterBugtavxIJNZPBCGNNUQ5756-94-27 09:42:00 Test Item Value Reference Range Interpretation Comments Creatinine Lvl (test code = Creatinine 1.16 0.50-1.40 Lvl) [facility] CenterFdfgumoCGDBTKUDPBIG5711-31-96 09:42:00 Test Item Value Reference Range Interpretation Comments BUN (test code = BUN) 22 7-22 [facility] CenterIpswfniIHBXSPBUFP3815-10-93 09:42:00 Test Item Value Reference Range Interpretation Comments Monocytes # (test code 0.6 See_Comment [Aut omated message] The = Monocytes #) system which generated this result tra nsmitted reference range : <=0.8. The reference r gasper was not used to int erpret this result as normal/abnormal . [facility] CenterLpssaxvMFCINUPXWXUE2100-52-94 09:42:00 Test Item Value Reference Range Interpretation Comments Calcium Lvl (test code = Calcium Lvl) 8.8 8.5-10.5 [facility] CenterSbfpuesWCHCDCMZJLUW0622-41-34 09:42:00 Test Item Value Reference Range Interpretation Comments CO2 (test code = CO2) 24 24-32 [facility] CenterXwbrqojAUFCIPVONA3246-28-77 09:42:00 Test Item Value Reference Range Interpretation Comments MPV (test code = MPV) 8.8 7.4-10.4 [facility] CenterWhdkusjGLJZPSKIOY5790-74-46 09:42:00 Test Item Value Reference Range Interpretation Comments RDW (test code = RDW) 16.2 11.5-14.5 [facility] CenterTzfjszgFJUPJURNUM2808-91-94 09:42:00 Test Item Value Reference Range Interpretation Comments Platelet (test code = Platelet) 147 133-450 [facility] CenterOnqjprkBTBVQQZIQD6476-39-86 09:42:00 Test Item Value Reference Range Interpretation Comments Hgb (test code = Hgb) 14.3 14.0-18.0 [facility] CenterRnhlynxRERTJTKZNJ2977-52-17 09:42:00 Test Item Value Reference Range Interpretation Comments RBC (test code = RBC) 4.36 4.70-6.10 [facility] CenterEbouagnJDRJGRWKGF0555-49-84 09:42:00 Test Item Value Reference Range Interpretation Comments WBC (test code = WBC) 5.9 3.7-10.4 [facility] CenterFlegcxsDWTXYBNAGI1271-10-71 09:42:00 Test Item Value Reference Range Interpretation Comments MCH (test code = MCH) 32.9 pg 27.0-31.0 [facility] CenterVbbdeivKKBDOQVUHP8480-76-53 09:42:00 Test Item Value Reference Range Interpretation Comments MCHC (test code = MCHC) 35.3 32.0-36.0 [facility] CenterRbhzqxjEPMRGSGQSQ7599-39-59 09:42:00 Test Item Value Reference Range Interpretation Comments Lymphocytes # (test code = Lymphocytes 2.3 1.0-5.5 #) [facility] CenterSkevdftKZQIBSCGKH7160-01-45 09:42:00 Test Item Value Reference Range Interpretation Comments MCV (test code = MCV) 93.3 80.0-94.0 [facility] CenterGjptfhyLVZTVSWGNN6765-29-61 09:42:00 Test Item Value Reference Range Interpretation Comments Hct (test code = Hct) 40.7 42.0-54.0 [facility] CenterRtnepahVHNARWSXEK6798-66-27 09:42:00 Test Item Value Reference Range Interpretation Comments Monocytes (test code = Monocytes) 10.0 2.0-12.0 [facility] CenterVtfcrnnBAWWVWUNTK7227-37-04 09:42:00 Test Item Value Reference Range Interpretation Comments Monocytes # (test code 0.6 See_Comment [Aut omated message] The = Monocytes #) system which generated this result tra nsmitted reference range : <=0.8. The reference r gasper was not used to int erpret this result as normal/abnormal . [facility] CenterRtldpaiLLWAEHRVCG9032-48-83 09:42:00 Test Item Value Reference Range Interpretation Comments Lymphocytes # (test code = Lymphocytes 2.3 1.0-5.5 #) [facility] CenterWzevrkgTTQYXSANBB0538-29-69 09:42:00 Test Item Value Reference Range Interpretation Comments Neutrophils # (test code = Neutrophils 2.8 1.5-8.1 #) [facility] CenterOcqenqxCCUYOEFDQA8715-18-13 09:42:00 Test Item Value Reference Range Interpretation Comments Basophils (test code = 0.7 See_Comment [Aut omated message] The Basophils) system which ge nerated this result tra nsmitted reference range : <=1.0. The reference r gasper was not used to int erpret this result as normal/abnormal . [facility] CenterUfarccmCBUMYNAJTO7594-15-21 09:42:00 Test Item Value Reference Range Interpretation Comments Eosinophils (test code = 2.8 See_Comment [A utomated message] The Eosinophils) system which ge nerated this result tra nsmitted reference range : <=4.0. The reference r gasper was not used to int erpret this result as normal/abnormal . [facility] CenterEamsrocIPIBPNQHUF5247-88-16 09:42:00 Test Item Value Reference Range Interpretation Comments Eosinophils # (test code 0.2 See_Comment [A utomated message] The = Eosinophils #) system whic h generated this result tra nsmitted reference range : <=0.5. The reference r gasper was not used to int erpret this result as normal/abnormal . [facility] CenterBvgsexdOIVZAGLVTC5309-03-28 09:42:00 Test Item Value Reference Range Interpretation Comments Segs (test code = Segs) 47.1 45.0-75.0 [facility] CenterMoicaxgMZBEDNRCVQ7962-05-20 09:42:00 Test Item Value Reference Range Interpretation Comments Neutrophils # (test code = Neutrophils 2.8 1.5-8.1 #) [facility] CenterOfvmhjpMNTWXPPHGO4969-69-51 09:42:00 Test Item Value Reference Range Interpretation Comments Lymphocytes (test code = Lymphocytes) 39.4 20.0-40.0 [facility] CenterJidcfncZQBKHUDDFT0702-62-23 09:42:00 Test Item Value Reference Range Interpretation Comments Basophils (test code = 0.7 See_Comment [Aut omated message] The Basophils) system which ge nerated this result tra nsmitted reference range : <=1.0. The reference r gasper was not used to int erpret this result as normal/abnormal . [facility] CenterAhbgkkjCEZANQFLQE9269-75-14 09:42:00 Test Item Value Reference Range Interpretation Comments Eosinophils (test code = 2.8 See_Comment [A utomated message] The Eosinophils) system which ge nerated this result tra nsmitted reference range : <=4.0. The reference r gasper was not used to int erpret this result as normal/abnormal . [facility] CenterVkulkvoBQLCNJZONU5316-19-81 09:42:00 Test Item Value Reference Range Interpretation Comments Eosinophils # (test code 0.2 See_Comment [A utomated message] The = Eosinophils #) system whic h generated this result tra nsmitted reference range : <=0.5. The reference r gasper was not used to int erpret this result as normal/abnormal . [facility] CenterJaiubluAAVPRREJKY2015-89-85 09:42:00 Test Item Value Reference Range Interpretation Comments Segs (test code = Segs) 47.1 45.0-75.0 [facility]FdovtcbYPEPXFBNGJ0845-90-35 09:42:00 Test Item Value Reference Range Interpretation Comments Lymphocytes (test code = Lymphocytes) 39.4 20.0-40.0 [facility] KJVLB5147-59-85 09:42:00 Test Item Value Reference Range Interpretation Comments Magnesium Lvl (test code = Magnesium 2.5 1.8-2.4 Lvl) [facility] TZQQE3886-31-57 09:42:00 Test Item Value Reference Range Interpretation Comments Phosphorus (test code = Phosphorus) 3.3 2.5-4.5 [facility] CenterMaugftaUIZUSYTLTTGQ5390-16-90 09:42:00 Test Item Value Reference Range Interpretation Comments AGAP (test code = AGAP) 13.2 10.0-20.0 [facility] CenterWwfdvciTDPABUGKQIRZ0927-06-20 09:42:00 Test Item Value Reference Range Interpretation Comments eGFR (test code = eGFR) 64 [facility] CenterEphemdcSOQWYAMMKCMT2581-55-49 09:42:00 Test Item Value Reference Range Interpretation Comments Chloride Lvl (test code = Chloride Lvl) 108 95-109 [facility] CenterChifzyeNMRCODYEHCZO7457-74-40 09:42:00 Test Item Value Reference Range Interpretation Comments Potassium Lvl (test code = Potassium 4.2 3.5-5.1 Lvl) [facility] CenterSllgkduVBKVULPLDQDM7512-18-84 09:42:00 Test Item Value Reference Range Interpretation Comments Glucose Lvl (test code = Glucose Lvl) 100 70-99 [facility] CenterObpnkrgOLKHWQYAHHBR1139-73-21 09:42:00 Test Item Value Reference Range Interpretation Comments Sodium Lvl (test code = Sodium Lvl) 141 135-145 [facility] CenterVpekdehJZKYJHAXVQZF4523-22-52 09:42:00 Test Item Value Reference Range Interpretation Comments Creatinine Lvl (test code = Creatinine 1.16 0.50-1.40 Lvl) [facility] CenterBeonelkIMYORFARFYMZ5679-03-57 09:42:00 Test Item Value Reference Range Interpretation Comments BUN (test code = BUN) 22 7-22 [facility] CenterZqeepzjDMLWOHSALVUX6478-12-32 09:42:00 Test Item Value Reference Range Interpretation Comments Calcium Lvl (test code = Calcium Lvl) 8.8 8.5-10.5 [facility] CenterRqyifjlTWQAFXNLNNIZ4861-40-60 09:42:00 Test Item Value Reference Range Interpretation Comments CO2 (test code = CO2) 24 24-32 [facility]EnwwdodNCTDQZQKCD8220-25-36 09:42:00 Test Item Value Reference Range Interpretation Comments MPV (test code = MPV) 8.8 7.4-10.4 [facility] CenterAcpodcpOFZPRZGKJO8514-43-00 09:42:00 Test Item Value Reference Range Interpretation Comments RDW (test code = RDW) 16.2 11.5-14.5 [facility] CenterJnmmhvgESIQZIZAPZ6146-66-57 09:42:00 Test Item Value Reference Range Interpretation Comments Platelet (test code = Platelet) 147 133-450 [facility] CenterCvwxlueBJKKJHGMTS1646-06-98 09:42:00 Test Item Value Reference Range Interpretation Comments Hgb (test code = Hgb) 14.3 14.0-18.0 [facility] CenterLgqyjrnTLNEHZIHSG2131-39-26 09:42:00 Test Item Value Reference Range Interpretation Comments RBC (test code = RBC) 4.36 4.70-6.10 [facility] CenterJvohcqvBESEGURUYM2383-69-48 09:42:00 Test Item Value Reference Range Interpretation Comments WBC (test code = WBC) 5.9 3.7-10.4 [facility] CenterZnrftnqAGVILZVZHF5625-88-27 09:42:00 Test Item Value Reference Range Interpretation Comments MCH (test code = MCH) 32.9 pg 27.0-31.0 [facility] CenterWalwpykZNDPHMIMPH7836-62-05 09:42:00 Test Item Value Reference Range Interpretation Comments MCHC (test code = MCHC) 35.3 32.0-36.0 [facility] CenterCsjfusaJREKBNFMRU0033-41-11 09:42:00 Test Item Value Reference Range Interpretation Comments MCV (test code = MCV) 93.3 80.0-94.0 [facility] CenterAbacicpXBMQFQWTUQ6762-22-31 09:42:00 Test Item Value Reference Range Interpretation Comments Hct (test code = Hct) 40.7 42.0-54.0 [facility] CenterEtsozynRLZPSUCGRL1920-52-80 09:42:00 Test Item Value Reference Range Interpretation Comments Monocytes (test code = Monocytes) 10.0 2.0-12.0 [facility] CenterYukaljgIPNALONNSB6386-75-57 09:42:00 Test Item Value Reference Range Interpretation Comments Monocytes # (test code 0.6 See_Comment [Aut omated message] The = Monocytes #) system which generated this result tra nsmitted reference range : <=0.8. The reference r gasper was not used to int erpret this result as normal/abnormal . [facility] CenterNgvztmqGBXKBMQJPM6981-69-02 09:42:00 Test Item Value Reference Range Interpretation Comments Lymphocytes # (test code = Lymphocytes 2.3 1.0-5.5 #) [facility] CenterXetnmjcRKTZMQLHFG4871-52-01 09:42:00 Test Item Value Reference Range Interpretation Comments Neutrophils # (test code = Neutrophils 2.8 1.5-8.1 #) [facility] CenterMvvwanuAGPXRABNNM8343-84-28 09:42:00 Test Item Value Reference Range Interpretation Comments Basophils (test code = 0.7 See_Comment [Aut omated message] The Basophils) system which ge nerated this result tra nsmitted reference range : <=1.0. The reference r gasper was not used to int erpret this result as normal/abnormal . [facility] CenterYgavuamNXPWNPRAVU3793-45-22 09:42:00 Test Item Value Reference Range Interpretation Comments Eosinophils (test code = 2.8 See_Comment [A utomated message] The Eosinophils) system which ge nerated this result tra nsmitted reference range : <=4.0. The reference r gasper was not used to int erpret this result as normal/abnormal . [facility] CenterOkhueufXNPXRQAHZS0640-48-93 09:42:00 Test Item Value Reference Range Interpretation Comments Eosinophils # (test code 0.2 See_Comment [A utomated message] The = Eosinophils #) system whic h generated this result tra nsmitted reference range : <=0.5. The reference r gasper was not used to int erpret this result as normal/abnormal . [facility] CenterFfzhexkEUFVVTHZRA6384-50-75 09:42:00 Test Item Value Reference Range Interpretation Comments Segs (test code = Segs) 47.1 45.0-75.0 [facility] CenterNaxtzzfMZKXGYVHYT7058-10-28 09:42:00 Test Item Value Reference Range Interpretation Comments Lymphocytes (test code = Lymphocytes) 39.4 20.0-40.[address] [facility]2018-08-14 09:42:00 Test Item Value Reference Range Interpretation Comments Magnesium Lvl (test code = Magnesium 2.5 1.8-2.4 Lvl) [facility]2018-08-14 09:42:00 Test Item Value Reference Range Interpretation Comments Phosphorus (test code = Phosphorus) 3.3 2.5-4.5 [facility] CenterLywkczfBWXSXLRHOTFU1072-61-45 09:42:00 Test Item Value Reference Range Interpretation Comments AGAP (test code = AGAP) 13.2 10.0-20.0 [facility] CenterJkalyumWJMQZTIRJTEL4187-38-32 09:42:00 Test Item Value Reference Range Interpretation Comments eGFR (test code = eGFR) 64 [facility] CenterXbfssdaXVSJHVLUCVEG5712-29-20 09:42:00 Test Item Value Reference Range Interpretation Comments Chloride Lvl (test code = Chloride Lvl) 108 95-109 [facility] CenterImcwqgmECVMYHLRDXRR5907-44-66 09:42:00 Test Item Value Reference Range Interpretation Comments Potassium Lvl (test code = Potassium 4.2 3.5-5.1 Lvl) [facility] CenterOyylcykOKINDMMGHVVX0135-72-81 09:42:00 Test Item Value Reference Range Interpretation Comments Glucose Lvl (test code = Glucose Lvl) 100 70-99 [facility] CenterAxidgoaPLRUNDMSLYVV6861-50-73 09:42:00 Test Item Value Reference Range Interpretation Comments Sodium Lvl (test code = Sodium Lvl) 141 135-145 [facility] CenterUyuvsdvCIGAATEIXZYU9555-46-82 09:42:00 Test Item Value Reference Range Interpretation Comments Creatinine Lvl (test code = Creatinine 1.16 0.50-1.40 Lvl) [facility] CenterTfuuptgOOCASWQXKCRQ4005-77-00 09:42:00 Test Item Value Reference Range Interpretation Comments BUN (test code = BUN) 22 7-22 [facility] CenterNhourkmQNYEIVEGITNI4957-25-41 09:42:00 Test Item Value Reference Range Interpretation Comments Calcium Lvl (test code = Calcium Lvl) 8.8 8.5-10.5 [facility] CenterIrgrypvRVFYYGYIRKMM2678-76-62 09:42:00 Test Item Value Reference Range Interpretation Comments CO2 (test code = CO2) 24 24-32 [facility] CenterChyrkjlNDBXIXIGQN2098-76-31 09:42:00 Test Item Value Reference Range Interpretation Comments MPV (test code = MPV) 8.8 7.4-10.4 [facility] CenterAknnbjgTOVJCTDLPJ7711-16-75 09:42:00 Test Item Value Reference Range Interpretation Comments RDW (test code = RDW) 16.2 11.5-14.5 [facility] CenterPievoirBOKAZAXLMT4720-64-67 09:42:00 Test Item Value Reference Range Interpretation Comments Platelet (test code = Platelet) 147 133-450 [facility] CenterOlgsiqcWSEYBHUXRT8701-71-41 09:42:00 Test Item Value Reference Range Interpretation Comments Hgb (test code = Hgb) 14.3 14.0-18.0 [facility] CenterUoyqbklIVETHUJGIW5799-21-53 09:42:00 Test Item Value Reference Range Interpretation Comments RBC (test code = RBC) 4.36 4.70-6.10 [facility] CenterZxpbzazUIBVROIVWQ5675-02-94 09:42:00 Test Item Value Reference Range Interpretation Comments WBC (test code = WBC) 5.9 3.7-10.4 [facility] CenterJougzitDUEDEQJEJF8712-88-88 09:42:00 Test Item Value Reference Range Interpretation Comments MCH (test code = MCH) 32.9 pg 27.0-31.0 [facility] CenterDilluynLBMTUSMLZB3267-12-86 09:42:00 Test Item Value Reference Range Interpretation Comments MCHC (test code = MCHC) 35.3 32.0-36.0 [facility] CenterVnsoicpVDQADRTMZN5002-92-63 09:42:00 Test Item Value Reference Range Interpretation Comments MCV (test code = MCV) 93.3 80.0-94.0 [facility] CenterPkrfnayICQFFWPRZU3445-80-17 09:42:00 Test Item Value Reference Range Interpretation Comments Hct (test code = Hct) 40.7 42.0-54.0 [facility] CenterSvdrwljHVJPUYVVRW0442-20-90 09:42:00 Test Item Value Reference Range Interpretation Comments Monocytes (test code = Monocytes) 10.0 2.0-12.0 [facility] CenterBmqcscjDFOWMYUMNR7561-73-25 09:42:00 Test Item Value Reference Range Interpretation Comments Monocytes # (test code 0.6 See_Comment [Aut omated message] The = Monocytes #) system which generated this result tra nsmitted reference range : <=0.8. The reference r gasper was not used to int erpret this result as normal/abnormal . [facility] CenterPgncfltSIFHXDEODD9938-04-25 09:42:00 Test Item Value Reference Range Interpretation Comments Lymphocytes # (test code = Lymphocytes 2.3 1.0-5.5 #) [facility] CenterKmarnszTIUMOOJRGL9282 09:42:00 Test Item Value Reference Range Interpretation Comments Neutrophils # (test code = Neutrophils 2.8 1.5-8.1 #) [facility] CenterDnnpkysKUROYITJBQ0460-83-41 09:42:00 Test Item Value Reference Range Interpretation Comments Basophils (test code = 0.7 See_Comment [Aut omated message] The Basophils) system which ge nerated this result tra nsmitted reference range : <=1.0. The reference r gasper was not used to int erpret this result as normal/abnormal . [facility] CenterHurxderFFFGIPFHZC2975-77-82 09:42:00 Test Item Value Reference Range Interpretation Comments Eosinophils (test code = 2.8 See_Comment [A utomated message] The Eosinophils) system which ge nerated this result tra nsmitted reference range : <=4.0. The reference r gasper was not used to int erpret this result as normal/abnormal . [facility] CenterBkpgpmtAIAOLDTHVV4283-58-29 09:42:00 Test Item Value Reference Range Interpretation Comments Eosinophils # (test code 0.2 See_Comment [A utomated message] The = Eosinophils #) system whic h generated this result tra nsmitted reference range : <=0.5. The reference r gasper was not used to int erpret this result as normal/abnormal . [facility] CenterGlpmvonBDGMAMPFBZ9592-42-64 09:42:00 Test Item Value Reference Range Interpretation Comments Segs (test code = Segs) 47.1 45.0-75.0 [facility] CenterSzkpdjpJITRZOGZHP4273-76-97 09:42:00 Test Item Value Reference Range Interpretation Comments Lymphocytes (test code = Lymphocytes) 39.4 20.0-40.[address] [facility]2018-08-14 09:42:00 Test Item Value Reference Range Interpretation Comments Magnesium Lvl (test code = Magnesium 2.5 1.8-2.4 Lvl) [facility]2018-08-14 09:42:00 Test Item Value Reference Range Interpretation Comments Phosphorus (test code = Phosphorus) 3.3 2.5-4.5 [facility] CenterLctvzinDOSTTTGHCIWY8468-67-00 09:42:00 Test Item Value Reference Range Interpretation Comments AGAP (test code = AGAP) 13.2 10.0-20.0 [facility] CenterOxjojbgIFTSYVQVBLBF7721-40-16 09:42:00 Test Item Value Reference Range Interpretation Comments eGFR (test code = eGFR) 64 [facility] CenterKrxwtsvJGRMHAAEKBSP4951-44-21 09:42:00 Test Item Value Reference Range Interpretation Comments Chloride Lvl (test code = Chloride Lvl) 108 95-109 [facility] CenterOzjpkprWQOMCSPRDDTH3548-63-13 09:42:00 Test Item Value Reference Range Interpretation Comments Potassium Lvl (test code = Potassium 4.2 3.5-5.1 Lvl) [facility] CenterUentkpzTFQMVMIFHFMT0688-56-27 09:42:00 Test Item Value Reference Range Interpretation Comments Glucose Lvl (test code = Glucose Lvl) 100 70-99 [facility] CenterPuhbqndDUANVRFUAIBA0867-34-11 09:42:00 Test Item Value Reference Range Interpretation Comments Sodium Lvl (test code = Sodium Lvl) 141 135-145 [facility] CenterRttohaiAKWJCRZFQESZ9217-09-39 09:42:00 Test Item Value Reference Range Interpretation Comments Creatinine Lvl (test code = Creatinine 1.16 0.50-1.40 Lvl) [facility] CenterWmxepqiNODRWYZUUTDE2997-78-83 09:42:00 Test Item Value Reference Range Interpretation Comments BUN (test code = BUN) 22 7-22 [facility] CenterCgtxzjoSKVPWGVMMKAJ0139-23-98 09:42:00 Test Item Value Reference Range Interpretation Comments Calcium Lvl (test code = Calcium Lvl) 8.8 8.5-10.5 [facility] CenterIvrdreaZQGWZWKXBKDV1195-29-66 09:42:00 Test Item Value Reference Range Interpretation Comments CO2 (test code = CO2) 24 24-32 [facility] CenterSffinbsWZEKCVPFKK0348-28-82 09:42:00 Test Item Value Reference Range Interpretation Comments MPV (test code = MPV) 8.8 7.4-10.4 [facility] CenterTthpunwBFUVLQTSJC6834-40-82 09:42:00 Test Item Value Reference Range Interpretation Comments RDW (test code = RDW) 16.2 11.5-14.5 [facility] CenterQfclhydOQPGRQDKCH2357-42-44 09:42:00 Test Item Value Reference Range Interpretation Comments Platelet (test code = Platelet) 147 133-450 [facility] CenterFyjzmfyYSMHQGGUKT8674-40-92 09:42:00 Test Item Value Reference Range Interpretation Comments Hgb (test code = Hgb) 14.3 14.0-18.0 [facility] CenterGonzudwLDPJBQFUUJ7577-81-34 09:42:00 Test Item Value Reference Range Interpretation Comments RBC (test code = RBC) 4.36 4.70-6.10 [facility] CenterYkwhvyrZWJAECOISL4454-50-59 09:42:00 Test Item Value Reference Range Interpretation Comments WBC (test code = WBC) 5.9 3.7-10.4 [facility] CenterNhbmjvtBUIWDBKPRX1859-93-48 09:42:00 Test Item Value Reference Range Interpretation Comments MCH (test code = MCH) 32.9 pg 27.0-31.0 [facility] CenterGnduammOFGSJOBLBX3976-41-90 09:42:00 Test Item Value Reference Range Interpretation Comments MCHC (test code = MCHC) 35.3 32.0-36.0 [facility] CenterOnhzmdjNXNFQJXEAQ8970-92-84 09:42:00 Test Item Value Reference Range Interpretation Comments MCV (test code = MCV) 93.3 80.0-94.0 [facility] CenterLacyoleYXJCHNAGVJ0693-04-93 09:42:00 Test Item Value Reference Range Interpretation Comments Hct (test code = Hct) 40.7 42.0-54.0 [facility] CenterUxwsgytFPZNBMZOYI1037-90-76 09:42:00 Test Item Value Reference Range Interpretation Comments Monocytes (test code = Monocytes) 10.0 2.0-12.0 [facility] CenterJukbdusCBUWYDGPBC9081-46-34 09:42:00 Test Item Value Reference Range Interpretation Comments Monocytes # (test code 0.6 See_Comment [Aut omated message] The = Monocytes #) system which generated this result tra nsmitted reference range : <=0.8. The reference r gasper was not used to int erpret this result as normal/abnormal . [facility] CenterYkjhqymPBWXFJSQIM2491-62-00 09:42:00 Test Item Value Reference Range Interpretation Comments Lymphocytes # (test code = Lymphocytes 2.3 1.0-5.5 #) [facility] CenterIwpeodeWQHKBHOEZP7905-90-72 09:42:00 Test Item Value Reference Range Interpretation Comments Neutrophils # (test code = Neutrophils 2.8 1.5-8.1 #) [facility] CenterAcmksaiJMOCPMVXGW6847-40-21 09:42:00 Test Item Value Reference Range Interpretation Comments Basophils (test code = 0.7 See_Comment [Aut omated message] The Basophils) system which ge nerated this result tra nsmitted reference range : <=1.0. The reference r gasper was not used to int erpret this result as normal/abnormal . [facility] CenterHtnixuqZEEEBPKKUS8955-74-94 09:42:00 Test Item Value Reference Range Interpretation Comments Eosinophils (test code = 2.8 See_Comment [A utomated message] The Eosinophils) system which ge nerated this result tra nsmitted reference range : <=4.0. The reference r gasper was not used to int erpret this result as normal/abnormal . [facility] CenterFztwkweVLMUSXKWOK9856-32-65 09:42:00 Test Item Value Reference Range Interpretation Comments Eosinophils # (test code 0.2 See_Comment [A utomated message] The = Eosinophils #) system whic h generated this result tra nsmitted reference range : <=0.5. The reference r gasper was not used to int erpret this result as normal/abnormal . [facility] CenterYktgqwbOYHIMRBFKZ8092-14-12 09:42:00 Test Item Value Reference Range Interpretation Comments Segs (test code = Segs) 47.1 45.0-75.0 [facility] GladwinIxdwuwdDSTILHTMLS4921-38-35 09:42:00 Test Item Value Reference Range Interpretation Comments Lymphocytes (test code = Lymphocytes) 39.4 20.0-40.[address] [facility]2018-08-12 09:54:00 Test Item Value Reference Range Interpretation Comments Phosphorus (test code = Phosphorus) 3.0 2.5-4.[address] [facility]2018-08-12 09:54:00 Test Item Value Reference Range Interpretation Comments Magnesium Lvl (test code = Magnesium 2.3 1.8-2.4 Lvl) [facility]2018-08-12 09:54:00 Test Item Value Reference Range Interpretation Comments BUN (test code = BUN) 19 7-[address] [facility]2018-08-12 09:54:00 Test Item Value Reference Range Interpretation Comments Glucose Lvl (test code = Glucose Lvl) 103 70-[address] [facility]2018-08-12 09:54:00 Test Item Value Reference Range Interpretation Comments Sodium Lvl (test code = Sodium Lvl) 143 135-[address] [facility]2018-08-12 09:54:00 Test Item Value Reference Range Interpretation Comments Creatinine Lvl (test code = Creatinine 1.08 0.50-1.40 Lvl) [facility]2018-08-12 09:54:00 Test Item Value Reference Range Interpretation Comments AGAP (test code = AGAP) 12.5 10.0-20.[address] [facility]2018-08-12 09:54:00 Test Item Value Reference Range Interpretation Comments Calcium Lvl (test code = Calcium Lvl) 8.3 8.5-10.[address] [facility]2018-08-12 09:54:00 Test Item Value Reference Range Interpretation Comments Potassium Lvl (test code = Potassium 3.5 3.5-5.1 Lvl) [facility]2018-08-12 09:54:00 Test Item Value Reference Range Interpretation Comments CO2 (test code = CO2) 25 24-[address] [facility]2018-08-12 09:54:00 Test Item Value Reference Range Interpretation Comments Chloride Lvl (test code = Chloride Lvl) 109 95-[address] [facility]2018-08-12 09:54:00 Test Item Value Reference Range Interpretation Comments eGFR (test code = eGFR) [address] [facility]2018-08-12 09:54:00 Test Item Value Reference Range Interpretation Comments Phosphorus (test code = Phosphorus) 3.0 2.5-4.[address] [facility]2018-08-12 09:54:00 Test Item Value Reference Range Interpretation Comments Magnesium Lvl (test code = Magnesium 2.3 1.8-2.4 Lvl) [facility]2018-08-12 09:54:00 Test Item Value Reference Range Interpretation Comments BUN (test code = BUN) 19 7-[address] [facility]2018-08-12 09:54:00 Test Item Value Reference Range Interpretation Comments Glucose Lvl (test code = Glucose Lvl) 103 70-[address] [facility]2018-08-12 09:54:00 Test Item Value Reference Range Interpretation Comments Sodium Lvl (test code = Sodium Lvl) 143 135-[address] [facility]2018-08-12 09:54:00 Test Item Value Reference Range Interpretation Comments Creatinine Lvl (test code = Creatinine 1.08 0.50-1.40 Lvl) [facility]2018-08-12 09:54:00 Test Item Value Reference Range Interpretation Comments AGAP (test code = AGAP) 12.5 10.0-20.[address] [facility]2018-08-12 09:54:00 Test Item Value Reference Range Interpretation Comments Calcium Lvl (test code = Calcium Lvl) 8.3 8.5-10.[address] [facility]2018-08-12 09:54:00 Test Item Value Reference Range Interpretation Comments Potassium Lvl (test code = Potassium 3.5 3.5-5.1 Lvl) [facility]2018-08-12 09:54:00 Test Item Value Reference Range Interpretation Comments CO2 (test code = CO2) 25 24-[address] [facility]2018-08-12 09:54:00 Test Item Value Reference Range Interpretation Comments Chloride Lvl (test code = Chloride Lvl) 109 95-[address] [facility]2018-08-12 09:54:00 Test Item Value Reference Range Interpretation Comments eGFR (test code = eGFR) [address] [facility]2018-08-12 09:54:00 Test Item Value Reference Range Interpretation Comments Phosphorus (test code = Phosphorus) 3.0 2.5-4.[address] [facility]2018-08-12 09:54:00 Test Item Value Reference Range Interpretation Comments Magnesium Lvl (test code = Magnesium 2.3 1.8-2.4 Lvl) [facility]2018-08-12 09:54:00 Test Item Value Reference Range Interpretation Comments BUN (test code = BUN) 19 7-[address] [facility]2018-08-12 09:54:00 Test Item Value Reference Range Interpretation Comments Glucose Lvl (test code = Glucose Lvl) 103 70-[address] [facility]2018-08-12 09:54:00 Test Item Value Reference Range Interpretation Comments Sodium Lvl (test code = Sodium Lvl) 143 135-[address] [facility]2018-08-12 09:54:00 Test Item Value Reference Range Interpretation Comments Creatinine Lvl (test code = Creatinine 1.08 0.50-1.40 Lvl) [facility]2018-08-12 09:54:00 Test Item Value Reference Range Interpretation Comments AGAP (test code = AGAP) 12.5 10.0-20.[address] [facility]2018-08-12 09:54:00 Test Item Value Reference Range Interpretation Comments Calcium Lvl (test code = Calcium Lvl) 8.3 8.5-10.[address] [facility]2018-08-12 09:54:00 Test Item Value Reference Range Interpretation Comments Potassium Lvl (test code = Potassium 3.5 3.5-5.1 Lvl) [facility]2018-08-12 09:54:00 Test Item Value Reference Range Interpretation Comments CO2 (test code = CO2) 25 24-[address] [facility]2018-08-12 09:54:00 Test Item Value Reference Range Interpretation Comments Chloride Lvl (test code = Chloride Lvl) 109 95-[address] [facility]2018-08-12 09:54:00 Test Item Value Reference Range Interpretation Comments eGFR (test code = eGFR) [address] [facility]2018-08-12 09:54:00 Test Item Value Reference Range Interpretation Comments Phosphorus (test code = Phosphorus) 3.0 2.5-4.[address] [facility]2018-08-12 09:54:00 Test Item Value Reference Range Interpretation Comments Magnesium Lvl (test code = Magnesium 2.3 1.8-2.4 Lvl) [facility]2018-08-12 09:54:00 Test Item Value Reference Range Interpretation Comments BUN (test code = BUN) 19 7-[address] [facility]2018-08-12 09:54:00 Test Item Value Reference Range Interpretation Comments Glucose Lvl (test code = Glucose Lvl) 103 70-[address] [facility]2018-08-12 09:54:00 Test Item Value Reference Range Interpretation Comments Sodium Lvl (test code = Sodium Lvl) 143 135-[address] [facility]2018-08-12 09:54:00 Test Item Value Reference Range Interpretation Comments Creatinine Lvl (test code = Creatinine 1.08 0.50-1.40 Lvl) [facility]2018-08-12 09:54:00 Test Item Value Reference Range Interpretation Comments AGAP (test code = AGAP) 12.5 10.0-20.[address] [facility]2018-08-12 09:54:00 Test Item Value Reference Range Interpretation Comments Calcium Lvl (test code = Calcium Lvl) 8.3 8.5-10.[address] [facility]2018-08-12 09:54:00 Test Item Value Reference Range Interpretation Comments Potassium Lvl (test code = Potassium 3.5 3.5-5.1 Lvl) [facility]2018-08-12 09:54:00 Test Item Value Reference Range Interpretation Comments CO2 (test code = CO2) 25 24-[address] [facility]2018-08-12 09:54:00 Test Item Value Reference Range Interpretation Comments Chloride Lvl (test code = Chloride Lvl) 109 95-[address] [facility]2018-08-12 09:54:00 Test Item Value Reference Range Interpretation Comments eGFR (test code = eGFR) [address] [facility]2018-08-12 09:54:00 Test Item Value Reference Range Interpretation Comments Phosphorus (test code = Phosphorus) 3.0 2.5-4.[address] [facility]2018-08-12 09:54:00 Test Item Value Reference Range Interpretation Comments Magnesium Lvl (test code = Magnesium 2.3 1.8-2.4 Lvl) [facility]2018-08-12 09:54:00 Test Item Value Reference Range Interpretation Comments BUN (test code = BUN) 19 7-[address] [facility]2018-08-12 09:54:00 Test Item Value Reference Range Interpretation Comments Glucose Lvl (test code = Glucose Lvl) 103 70-[address] [facility]2018-08-12 09:54:00 Test Item Value Reference Range Interpretation Comments Sodium Lvl (test code = Sodium Lvl) 143 135-[address] [facility]2018-08-12 09:54:00 Test Item Value Reference Range Interpretation Comments Creatinine Lvl (test code = Creatinine 1.08 0.50-1.40 Lvl) [facility]2018-08-12 09:54:00 Test Item Value Reference Range Interpretation Comments AGAP (test code = AGAP) 12.5 10.0-20.[address] [facility]2018-08-12 09:54:00 Test Item Value Reference Range Interpretation Comments Calcium Lvl (test code = Calcium Lvl) 8.3 8.5-10.[address] [facility]2018-08-12 09:54:00 Test Item Value Reference Range Interpretation Comments Potassium Lvl (test code = Potassium 3.5 3.5-5.1 Lvl) [facility]2018-08-12 09:54:00 Test Item Value Reference Range Interpretation Comments CO2 (test code = CO2) 25 24-[address] [facility]2018-08-12 09:54:00 Test Item Value Reference Range Interpretation Comments Chloride Lvl (test code = Chloride Lvl) 109 95-[address] [facility]2018-08-12 09:54:00 Test Item Value Reference Range Interpretation Comments eGFR (test code = eGFR) [address] [facility]2018-08-12 09:54:00 Test Item Value Reference Range Interpretation Comments Phosphorus (test code = Phosphorus) 3.0 2.5-4.[address] [facility]2018-08-12 09:54:00 Test Item Value Reference Range Interpretation Comments Magnesium Lvl (test code = Magnesium 2.3 1.8-2.4 Lvl) [facility]2018-08-12 09:54:00 Test Item Value Reference Range Interpretation Comments BUN (test code = BUN) 19 7- [facility]2018-08-12 09:54:00 Test Item Value Reference Range Interpretation Comments Glucose Lvl (test code = Glucose Lvl) 103 70-[address] [facility]2018-08-12 09:54:00 Test Item Value Reference Range Interpretation Comments Sodium Lvl (test code = Sodium Lvl) 143 135-[address] [facility]2018-08-12 09:54:00 Test Item Value Reference Range Interpretation Comments Creatinine Lvl (test code = Creatinine 1.08 0.50-1.40 Lvl) [facility]2018-08-12 09:54:00 Test Item Value Reference Range Interpretation Comments AGAP (test code = AGAP) 12.5 10.0-20.[address] [facility]2018-08-12 09:54:00 Test Item Value Reference Range Interpretation Comments Calcium Lvl (test code = Calcium Lvl) 8.3 8.5-10.[address] [facility]2018-08-12 09:54:00 Test Item Value Reference Range Interpretation Comments Potassium Lvl (test code = Potassium 3.5 3.5-5.1 Lvl) [facility]2018-08-12 09:54:00 Test Item Value Reference Range Interpretation Comments CO2 (test code = CO2) 25 24-[address] [facility]2018-08-12 09:54:00 Test Item Value Reference Range Interpretation Comments Chloride Lvl (test code = Chloride Lvl) 109 95-[address] [facility]2018-08-12 09:54:00 Test Item Value Reference Range Interpretation Comments eGFR (test code = eGFR) [address] [facility]2018-08-12 09:54:00 Test Item Value Reference Range Interpretation Comments Phosphorus (test code = Phosphorus) 3.0 2.5-4.[address] [facility]2018-08-12 09:54:00 Test Item Value Reference Range Interpretation Comments Magnesium Lvl (test code = Magnesium 2.3 1.8-2.4 Lvl) [facility]2018-08-12 09:54:00 Test Item Value Reference Range Interpretation Comments BUN (test code = BUN) 19 7- [facility]2018-08-12 09:54:00 Test Item Value Reference Range Interpretation Comments Glucose Lvl (test code = Glucose Lvl) 103 70-[address] [facility]2018-08-12 09:54:00 Test Item Value Reference Range Interpretation Comments Sodium Lvl (test code = Sodium Lvl) 143 135-[address] [facility]2018-08-12 09:54:00 Test Item Value Reference Range Interpretation Comments Creatinine Lvl (test code = Creatinine 1.08 0.50-1.40 Lvl) [facility]2018-08-12 09:54:00 Test Item Value Reference Range Interpretation Comments AGAP (test code = AGAP) 12.5 10.0-20.[address] [facility]2018-08-12 09:54:00 Test Item Value Reference Range Interpretation Comments Calcium Lvl (test code = Calcium Lvl) 8.3 8.5-10.[address] [facility]2018-08-12 09:54:00 Test Item Value Reference Range Interpretation Comments Potassium Lvl (test code = Potassium 3.5 3.5-5.1 Lvl) [facility]2018-08-12 09:54:00 Test Item Value Reference Range Interpretation Comments CO2 (test code = CO2) 25 24-[address] [facility]2018-08-12 09:54:00 Test Item Value Reference Range Interpretation Comments Chloride Lvl (test code = Chloride Lvl) 109 95-[address] [facility]2018-08-12 09:54:00 Test Item Value Reference Range Interpretation Comments eGFR (test code = eGFR) [address] [facility]2018-08-12 09:54:00 Test Item Value Reference Range Interpretation Comments Phosphorus (test code = Phosphorus) 3.0 2.5-4.[address] [facility]2018-08-12 09:54:00 Test Item Value Reference Range Interpretation Comments Magnesium Lvl (test code = Magnesium 2.3 1.8-2.4 Lvl) [facility]2018-08-12 09:54:00 Test Item Value Reference Range Interpretation Comments BUN (test code = BUN) 19 7-[address] [facility]2018-08-12 09:54:00 Test Item Value Reference Range Interpretation Comments Glucose Lvl (test code = Glucose Lvl) 103 70-[address] [facility]2018-08-12 09:54:00 Test Item Value Reference Range Interpretation Comments Sodium Lvl (test code = Sodium Lvl) 143 135-[address] [facility]2018-08-12 09:54:00 Test Item Value Reference Range Interpretation Comments Creatinine Lvl (test code = Creatinine 1.08 0.50-1.40 Lvl) [facility]2018-08-12 09:54:00 Test Item Value Reference Range Interpretation Comments AGAP (test code = AGAP) 12.5 10.0-20.[address] [facility]2018-08-12 09:54:00 Test Item Value Reference Range Interpretation Comments Calcium Lvl (test code = Calcium Lvl) 8.3 8.5-10.[address] [facility]2018-08-12 09:54:00 Test Item Value Reference Range Interpretation Comments Potassium Lvl (test code = Potassium 3.5 3.5-5.1 Lvl) [facility]2018-08-12 09:54:00 Test Item Value Reference Range Interpretation Comments CO2 (test code = CO2) - [facility]2018-08-12 09:54:00 Test Item Value Reference Range Interpretation Comments Chloride Lvl (test code = Chloride Lvl) 109 95-[address] [facility]2018-08-12 09:54:00 Test Item Value Reference Range Interpretation Comments eGFR (test code = eGFR) [address] [facility]2018-08-11 08:45:00 Test Item Value Reference Range Interpretation Comments eGFR (test code = eGFR) [address] [facility]2018-08-11 08:45:00 Test Item Value Reference Range Interpretation Comments CO2 (test code = CO2) 24 24-[address] [facility]2018-08-11 08:45:00 Test Item Value Reference Range Interpretation Comments Creatinine Lvl (test code = Creatinine 0.97 0.50-1.40 Lvl) [facility]2018-08-11 08:45:00 Test Item Value Reference Range Interpretation Comments Sodium Lvl (test code = Sodium Lvl) 141 135-[address] [facility]2018-08-11 08:45:00 Test Item Value Reference Range Interpretation Comments Potassium Lvl (test code = Potassium 4.4 3.5-5.1 Lvl) [facility]2018-08-11 08:45:00 Test Item Value Reference Range Interpretation Comments Chloride Lvl (test code = Chloride Lvl) 109 95-[address] [facility]2018-08-11 08:45:00 Test Item Value Reference Range Interpretation Comments Glucose Lvl (test code = Glucose Lvl) 114 70-[address] [facility]2018-08-11 08:45:00 Test Item Value Reference Range Interpretation Comments BUN (test code = BUN) 20 7-22 [facility]znawyNKQOVADPDE1040-92-05 08:45:00 Test Item Value Reference Range Interpretation Comments H/S Ratio (test code = H/S Ratio) 0.40 1 0.90-2.30 [facility]lakeCbgmitbHTJTNZLLNB4740-56-48 08:45:00 Test Item Value Reference Range Interpretation Comments Tot Lymph # (test code = Tot Lymph #) 2241 [facility]lakeRmyzktjIVJROSJUZU4873-04-16 08:45:00 Test Item Value Reference Range Interpretation Comments CD4 T [place] # (test code = CD4 T [phone] [place] #) [facility]lakeQjdpzqbHIDRVTLXUF1943-77-47 08:45:00 Test Item Value Reference Range Interpretation Comments CD4 [place] % (test code = CD4 [place] %) 23 31-61 [facility]lakeAltprfpKAYBGUNSOQ0803-29-34 08:45:00 Test Item Value Reference Range Interpretation Comments CD19 B Cell # (test code = CD19 B Cell 244 90-660 #) [facility]lakeOpptyuoIJGGZUNIDU6095-12-47 08:45:00 Test Item Value Reference Range Interpretation Comments CD19 B Cell % (test code = CD19 B Cell 11 6-25 %) [facility]lakeLuunashEXCFWAGCMB6237-21-06 08:45:00 Test Item Value Reference Range Interpretation Comments CD 16 56 NK # (test code = CD 16 56 NK 99 90-590 #) [facility]lakeLjmpcskTYGFUISXCF9244-75-40 08:45:00 Test Item Value Reference Range Interpretation Comments CD16 56 NK % (test code = CD16 56 NK %) 4 5-27 [facility]lakeCpdkpemDLHFXFSYMT5097-56-59 08:45:00 Test Item Value Reference Range Interpretation Comments CD3 T Cell # (test code = CD3 T Cell #) [phone] [facility]lakeRalmnllQBKTPAYGSW1919-29-95 08:45:00 Test Item Value Reference Range Interpretation Comments CD3 T Cell % (test code = CD3 T Cell %) 83 55-84 [facility] SouthlakeHyalalkWRAGPUJQHG7064-78-67 08:45:00 Test Item Value Reference Range Interpretation Comments CD8 Suppress # (test code = CD8 [phone] Suppress #) [facility]lakeAlmbnzdZTGZFCOKFG5545-17-68 08:45:00 Test Item Value Reference Range Interpretation Comments CD8 Suppress % (test code = CD8 58 13-41 Suppress %) [facility]2018-08-11 08:45:00 Test Item Value Reference Range Interpretation Comments Magnesium Lvl (test code = Magnesium 2.2 1.8-2.4 Lvl) [facility]2018-08-11 08:45:00 Test Item Value Reference Range Interpretation Comments Phosphorus (test code = Phosphorus) 3.3 2.5-4.[address] [facility]2018-08-11 08:45:00 Test Item Value Reference Range Interpretation Comments Calcium Lvl (test code = Calcium Lvl) 8.3 8.5-10.[address] [facility]2018-08-11 08:45:00 Test Item Value Reference Range Interpretation Comments AGAP (test code = AGAP) 12.4 10.0-20.[address] [facility]2018-08-11 08:45:00 Test Item Value Reference Range Interpretation Comments Magnesium Lvl (test code = Magnesium 2.2 1.8-2.4 Lvl) [facility]2018-08-11 08:45:00 Test Item Value Reference Range Interpretation Comments Phosphorus (test code = Phosphorus) 3.3 2.5-4.[address] [facility]2018-08-11 08:45:00 Test Item Value Reference Range Interpretation Comments Calcium Lvl (test code = Calcium Lvl) 8.3 8.5-10.[address] [facility]2018-08-11 08:45:00 Test Item Value Reference Range Interpretation Comments AGAP (test code = AGAP) 12.4 10.0-20.[address] [facility]2018-08-11 08:45:00 Test Item Value Reference Range Interpretation Comments eGFR (test code = eGFR) [address] [facility]2018-08-11 08:45:00 Test Item Value Reference Range Interpretation Comments CO2 (test code = CO2) 24 24-[address] [facility]2018-08-11 08:45:00 Test Item Value Reference Range Interpretation Comments Creatinine Lvl (test code = Creatinine 0.97 0.50-1.40 Lvl) [facility]2018-08-11 08:45:00 Test Item Value Reference Range Interpretation Comments Sodium Lvl (test code = Sodium Lvl) 141 135-[address] [facility]2018-08-11 08:45:00 Test Item Value Reference Range Interpretation Comments Potassium Lvl (test code = Potassium 4.4 3.5-5.1 Lvl) [facility]2018-08-11 08:45:00 Test Item Value Reference Range Interpretation Comments Chloride Lvl (test code = Chloride Lvl) 109 95-[address] [facility]2018-08-11 08:45:00 Test Item Value Reference Range Interpretation Comments Glucose Lvl (test code = Glucose Lvl) 114 70-[address] [facility]2018-08-11 08:45:00 Test Item Value Reference Range Interpretation Comments BUN (test code = BUN) 20 7-22 [facility]lakePwqbjpkRSTWQUQOTF3571-61-61 08:45:00 Test Item Value Reference Range Interpretation Comments H/S Ratio (test code = H/S Ratio) 0.40 1 0.90-2.30 [facility]lakeSjdgqepLOVRZJOHFE7002-53-68 08:45:00 Test Item Value Reference Range Interpretation Comments Tot Lymph # (test code = Tot Lymph #) 2241 [facility] SouthlakeIlheeoiEVBLMYEPAF6615-19-30 08:45:00 Test Item Value Reference Range Interpretation Comments CD4 T [place] # (test code = CD4 T [phone] [place] #) [facility]lakeQrvqzxbIHZOKHJHFZ6057-41-86 08:45:00 Test Item Value Reference Range Interpretation Comments CD4 [place] % (test code = CD4 [place] %) 23 31-61 [place] [address]-08-11 08:45:00 Test Item Value Reference Range Interpretation Comments CD19 B Cell # (test code = CD19 B Cell 244 90660 #) [facility]lakeGwtxkswHZEGDQUXPE0778-72-00 08:45:00 Test Item Value Reference Range Interpretation Comments CD19 B Cell % (test code = CD19 B Cell 11 6-25 %) [place] 303608-08-11 08:45:00 Test Item Value Reference Range Interpretation Comments CD 16 56 NK # (test code = CD 16 56 NK 99 90-590 #) [facility]lakeFyojklmINXUGJTUZZ5516-33-49 08:45:00 Test Item Value Reference Range Interpretation Comments CD16 56 NK % (test code = CD16 56 NK %) 4 5-27 [facility]lakePzxcyreRVEPRIUEGG4919-55-71 08:45:00 Test Item Value Reference Range Interpretation Comments CD3 T Cell # (test code = CD3 T Cell #) [phone] [facility]lakeRmljmiwVAYHVOPRAG4716-16-72 08:45:00 Test Item Value Reference Range Interpretation Comments CD3 T Cell % (test code = CD3 T Cell %) 83 55-84 [facility] SouthlakeKfribqaGPSJNPHACU1607-05-83 08:45:00 Test Item Value Reference Range Interpretation Comments CD8 Suppress # (test code = CD8 [phone] Suppress #) [facility]lakeFandirnERKVTVSFRD6502-64-32 08:45:00 Test Item Value Reference Range Interpretation Comments CD8 Suppress % (test code = CD8 58 13-41 Suppress %) [facility]2018-08-11 08:45:00 Test Item Value Reference Range Interpretation Comments Magnesium Lvl (test code = Magnesium 2.2 1.8-2.4 Lvl) [facility]2018-08-11 08:45:00 Test Item Value Reference Range Interpretation Comments Phosphorus (test code = Phosphorus) 3.3 2.5-4.[address] [facility]2018-08-11 08:45:00 Test Item Value Reference Range Interpretation Comments Calcium Lvl (test code = Calcium Lvl) 8.3 8.5-10.[address] [facility]2018-08-11 08:45:00 Test Item Value Reference Range Interpretation Comments AGAP (test code = AGAP) 12.4 10.0-20.[address] [facility]2018-08-11 08:45:00 Test Item Value Reference Range Interpretation Comments eGFR (test code = eGFR) [address] [facility]2018-08-11 08:45:00 Test Item Value Reference Range Interpretation Comments CO2 (test code = CO2) 24 24-[address] [facility]2018-08-11 08:45:00 Test Item Value Reference Range Interpretation Comments Creatinine Lvl (test code = Creatinine 0.97 0.50-1.40 Lvl) [place] 737918-08-11 08:45:00 Test Item Value Reference Range Interpretation Comments Sodium Lvl (test code = Sodium Lvl) 141 135-[address] [facility]2018-08-11 08:45:00 Test Item Value Reference Range Interpretation Comments Potassium Lvl (test code = Potassium 4.4 3.5-5.1 Lvl) [facility]2018-08-11 08:45:00 Test Item Value Reference Range Interpretation Comments Chloride Lvl (test code = Chloride Lvl) 109 95-[address] [facility]2018-08-11 08:45:00 Test Item Value Reference Range Interpretation Comments Glucose Lvl (test code = Glucose Lvl) 114 70-[address] [facility]2018-08-11 08:45:00 Test Item Value Reference Range Interpretation Comments BUN (test code = BUN) 20 7-22 [facility]lakeLkoxgnwAYHMPLOKTO2563-29-74 08:45:00 Test Item Value Reference Range Interpretation Comments H/S Ratio (test code = H/S Ratio) 0.40 1 0.90-2.30 [facility]lakeScivoqqEOJADUOLGQ9860-87-91 08:45:00 Test Item Value Reference Range Interpretation Comments Tot Lymph # (test code = Tot Lymph #) 2241 [facility] SouthlakeFlldnjaVVYIYRMNNG3740-50-94 08:45:00 Test Item Value Reference Range Interpretation Comments CD4 T [place] # (test code = CD4 T [phone] [place] #) [facility]lakeUsgxpfaMOQFBSPJWU5904-78-78 08:45:00 Test Item Value Reference Range Interpretation Comments CD4 [place] % (test code = CD4 [place] %) 23 31-61 [facility] SouthlakeXaulvxgURMXXUSUNN2582-53-51 08:45:00 Test Item Value Reference Range Interpretation Comments CD19 B Cell # (test code = CD19 B Cell 244 90-660 #) [facility]lakeMwznemaMCARUFXPYI4608-11-99 08:45:00 Test Item Value Reference Range Interpretation Comments CD19 B Cell % (test code = CD19 B Cell 11 6-25 %) [facility]lakeWhwzpfiPSIRUQHDAZ1295-42-25 08:45:00 Test Item Value Reference Range Interpretation Comments CD 16 56 NK # (test code = CD 16 56 NK 99 90-590 #) [place] 303608-08-11 08:45:00 Test Item Value Reference Range Interpretation Comments CD16 56 NK % (test code = CD16 56 NK %) 4 5-27 [facility]lakeYtcxmxbLFDVEFHQCT9741-43-87 08:45:00 Test Item Value Reference Range Interpretation Comments CD3 T Cell # (test code = CD3 T Cell #) [phone] [facility] SouthlakeZlsrukyDXRQMBXESB9908-87-60 08:45:00 Test Item Value Reference Range Interpretation Comments CD3 T Cell % (test code = CD3 T Cell %) 83 55-84 [facility] SouthlakeIpfwtsnQJMWNVSYYG1199-23-36 08:45:00 Test Item Value Reference Range Interpretation Comments CD8 Suppress # (test code = CD8 [phone] Suppress #) [facility] SouthlakeIuixkktGTGEATUKJT1344-33-22 08:45:00 Test Item Value Reference Range Interpretation Comments CD8 Suppress % (test code = CD8 58 13-41 Suppress %) [facility]2018-08-11 08:45:00 Test Item Value Reference Range Interpretation Comments Magnesium Lvl (test code = Magnesium 2.2 1.8-2.4 Lvl) [facility]2018-08-11 08:45:00 Test Item Value Reference Range Interpretation Comments Phosphorus (test code = Phosphorus) 3.3 2.5-4.[address] [facility]2018-08-11 08:45:00 Test Item Value Reference Range Interpretation Comments Calcium Lvl (test code = Calcium Lvl) 8.3 8.5-10.[address] [facility]2018-08-11 08:45:00 Test Item Value Reference Range Interpretation Comments AGAP (test code = AGAP) 12.4 10.0-20.[address] [facility]2018-08-11 08:45:00 Test Item Value Reference Range Interpretation Comments eGFR (test code = eGFR) [address] [facility]2018-08-11 08:45:00 Test Item Value Reference Range Interpretation Comments CO2 (test code = CO2) 24 24-[address] [facility]2018-08-11 08:45:00 Test Item Value Reference Range Interpretation Comments Creatinine Lvl (test code = Creatinine 0.97 0.50-1.40 Lvl) [facility]2018-08-11 08:45:00 Test Item Value Reference Range Interpretation Comments Sodium Lvl (test code = Sodium Lvl) 141 135-[address] [facility]2018-08-11 08:45:00 Test Item Value Reference Range Interpretation Comments Potassium Lvl (test code = Potassium 4.4 3.5-5.1 Lvl) [facility]2018-08-11 08:45:00 Test Item Value Reference Range Interpretation Comments Chloride Lvl (test code = Chloride Lvl) 109 95-[address] [facility]2018-08-11 08:45:00 Test Item Value Reference Range Interpretation Comments Glucose Lvl (test code = Glucose Lvl) 114 70-[address] [facility]2018-08-11 08:45:00 Test Item Value Reference Range Interpretation Comments BUN (test code = BUN) 20 7-22 [facility]jajffiAQUZUCTLUR3609-35-85 08:45:00 Test Item Value Reference Range Interpretation Comments H/S Ratio (test code = H/S Ratio) 0.40 1 0.90-2.30 [facility]lakeMznuqnyNDQGJAYVGY1463-24-88 08:45:00 Test Item Value Reference Range Interpretation Comments Tot Lymph # (test code = Tot Lymph #) 2241 [facility]lakeCzrmduwHJAHNGJAOA5675-41-40 08:45:00 Test Item Value Reference Range Interpretation Comments CD4 T [place] # (test code = CD4 T 825 473-5286 [place] #) [facility]lakeKtdjhfqBAFTXXZCQW7491-73-75 08:45:00 Test Item Value Reference Range Interpretation Comments CD4 [place] % (test code = CD4 [place] %) 23 31-61 [place] [address]-08-11 08:45:00 Test Item Value Reference Range Interpretation Comments CD19 B Cell # (test code = CD19 B Cell 244 90-660 #) [facility]lakeJsmdbrrBMQINYORIC2188-23-88 08:45:00 Test Item Value Reference Range Interpretation Comments CD19 B Cell % (test code = CD19 B Cell 11 6-25 %) [facility]lakeIibljxrMUICLGJJAQ8616-94-22 08:45:00 Test Item Value Reference Range Interpretation Comments CD 16 56 NK # (test code = CD 16 56 NK 99 90-590 #) [facility]lakeKqujgngXXSDCRMZVJ6592-38-85 08:45:00 Test Item Value Reference Range Interpretation Comments CD16 56 NK % (test code = CD16 56 NK %) 4 5-27 [place] [address]-08-11 08:45:00 Test Item Value Reference Range Interpretation Comments CD3 T Cell # (test code = CD3 T Cell #) [phone] [facility]lakeTfrzfynQAXWDLRLNP1246-87-98 08:45:00 Test Item Value Reference Range Interpretation Comments CD3 T Cell % (test code = CD3 T Cell %) 83 55-84 [facility]lakeZoqtvjuAKEELQPOZM8994-67-00 08:45:00 Test Item Value Reference Range Interpretation Comments CD8 Suppress # (test code = CD8 [phone] Suppress #) [facility]lakeCscvjkoTCOFLPKMDY0731-79-70 08:45:00 Test Item Value Reference Range Interpretation Comments CD8 Suppress % (test code = CD8 58 13-41 Suppress %) [facility]2018-08-11 08:45:00 Test Item Value Reference Range Interpretation Comments Magnesium Lvl (test code = Magnesium 2.2 1.8-2.4 Lvl) [facility]2018-08-11 08:45:00 Test Item Value Reference Range Interpretation Comments Phosphorus (test code = Phosphorus) 3.3 2.5-4.[address] [facility]2018-08-11 08:45:00 Test Item Value Reference Range Interpretation Comments Calcium Lvl (test code = Calcium Lvl) 8.3 8.5-10.[address] [facility]2018-08-11 08:45:00 Test Item Value Reference Range Interpretation Comments AGAP (test code = AGAP) 12.4 10.0-20.[address] [facility]2018-08-11 08:45:00 Test Item Value Reference Range Interpretation Comments eGFR (test code = eGFR) [address] [facility]2018-08-11 08:45:00 Test Item Value Reference Range Interpretation Comments CO2 (test code = CO2) 24 24-[address] [facility]2018-08-11 08:45:00 Test Item Value Reference Range Interpretation Comments Creatinine Lvl (test code = Creatinine 0.97 0.50-1.40 Lvl) [facility]2018-08-11 08:45:00 Test Item Value Reference Range Interpretation Comments Sodium Lvl (test code = Sodium Lvl) 141 135-[address] [facility]2018-08-11 08:45:00 Test Item Value Reference Range Interpretation Comments Potassium Lvl (test code = Potassium 4.4 3.5-5.1 Lvl) [facility]2018-08-11 08:45:00 Test Item Value Reference Range Interpretation Comments Chloride Lvl (test code = Chloride Lvl) 109 95-[address] [facility]2018-08-11 08:45:00 Test Item Value Reference Range Interpretation Comments Glucose Lvl (test code = Glucose Lvl) 114 70-[address] [facility]2018-08-11 08:45:00 Test Item Value Reference Range Interpretation Comments BUN (test code = BUN) 20 7-22 [facility]lakeBzlhyiaTHCORJUNDD3426-36-70 08:45:00 Test Item Value Reference Range Interpretation Comments H/S Ratio (test code = H/S Ratio) 0.40 1 0.90-2.30 [facility]lakeSltzkjlWFHKBYBQEL7687-51-78 08:45:00 Test Item Value Reference Range Interpretation Comments Tot Lymph # (test code = Tot Lymph #) 2241 [facility]lakePxflcioBHLKEPIMHT9094-41-23 08:45:00 Test Item Value Reference Range Interpretation Comments CD4 T [place] # (test code = CD4 T [phone] [place] #) [facility]lakeQctgxryAMFVSAOFJB5828-70-37 08:45:00 Test Item Value Reference Range Interpretation Comments CD4 [place] % (test code = CD4 [place] %) 23 31-61 [facility]lakeJqaecgcWYAEFMKKMJ6638-65-51 08:45:00 Test Item Value Reference Range Interpretation Comments CD19 B Cell # (test code = CD19 B Cell 244 90-660 #) [facility]lakeVelrtoeIYLXMLXXMP1094-16-71 08:45:00 Test Item Value Reference Range Interpretation Comments CD19 B Cell % (test code = CD19 B Cell 11 6-25 %) [facility]lakeJssguqiLOPOVNHOJD1079-24-88 08:45:00 Test Item Value Reference Range Interpretation Comments CD 16 56 NK # (test code = CD 16 56 NK 99 90-590 #) [facility]lakeDhldfnsZCBRTAZESM3077-95-67 08:45:00 Test Item Value Reference Range Interpretation Comments CD16 56 NK % (test code = CD16 56 NK %) 4 5-27 [facility] SouthlakeManicexQUUMNNMDZE4180-83-49 08:45:00 Test Item Value Reference Range Interpretation Comments CD3 T Cell # (test code = CD3 T Cell #) [phone] [facility]lakeJqspmpvJTBQYHGQRF4899-32-79 08:45:00 Test Item Value Reference Range Interpretation Comments CD3 T Cell % (test code = CD3 T Cell %) 83 55-84 [facility] SouthlakeRnuuzkgJNNFWBXHBP9663-78-63 08:45:00 Test Item Value Reference Range Interpretation Comments CD8 Suppress # (test code = CD8 [phone] Suppress #) [facility]lakeYjmaoujIKKFVCEVAP4254-51-56 08:45:00 Test Item Value Reference Range Interpretation Comments CD8 Suppress % (test code = CD8 58 13-41 Suppress %) [facility]2018-08-11 08:45:00 Test Item Value Reference Range Interpretation Comments Magnesium Lvl (test code = Magnesium 2.2 1.8-2.4 Lvl) [facility]2018-08-11 08:45:00 Test Item Value Reference Range Interpretation Comments Phosphorus (test code = Phosphorus) 3.3 2.5-4.[address] [facility]2018-08-11 08:45:00 Test Item Value Reference Range Interpretation Comments Calcium Lvl (test code = Calcium Lvl) 8.3 8.5-10.[address] [facility]2018-08-11 08:45:00 Test Item Value Reference Range Interpretation Comments AGAP (test code = AGAP) 12.4 10.0-20.[address] [facility]2018-08-11 08:45:00 Test Item Value Reference Range Interpretation Comments eGFR (test code = eGFR) [address] [facility]2018-08-11 08:45:00 Test Item Value Reference Range Interpretation Comments CO2 (test code = CO2) 24 24-[address] [facility]2018-08-11 08:45:00 Test Item Value Reference Range Interpretation Comments Creatinine Lvl (test code = Creatinine 0.97 0.50-1.40 Lvl) [facility]2018-08-11 08:45:00 Test Item Value Reference Range Interpretation Comments Sodium Lvl (test code = Sodium Lvl) 141 135-[address] [facility]2018-08-11 08:45:00 Test Item Value Reference Range Interpretation Comments Potassium Lvl (test code = Potassium 4.4 3.5-5.1 Lvl) [facility]2018-08-11 08:45:00 Test Item Value Reference Range Interpretation Comments Chloride Lvl (test code = Chloride Lvl) 109 95-[address] [facility]2018-08-11 08:45:00 Test Item Value Reference Range Interpretation Comments Glucose Lvl (test code = Glucose Lvl) 114 70-[address] [facility]2018-08-11 08:45:00 Test Item Value Reference Range Interpretation Comments BUN (test code = BUN) 20 7-22 [facility]lakeOpoybjpJMFYKTXKCO1209-17-66 08:45:00 Test Item Value Reference Range Interpretation Comments H/S Ratio (test code = H/S Ratio) 0.40 1 0.90-2.30 [facility]lakeYnwoxhnAXOMWSGUJA7503-54-99 08:45:00 Test Item Value Reference Range Interpretation Comments Tot Lymph # (test code = Tot Lymph #) 2241 [facility]lakeRohgscqGOBISOVBGS6536-26-57 08:45:00 Test Item Value Reference Range Interpretation Comments CD4 T [place] # (test code = CD4 T 192 254-6770 [place] #) [facility]lakeAkcdsqgTRKGZTGBTF9245-15-50 08:45:00 Test Item Value Reference Range Interpretation Comments CD4 [place] % (test code = CD4 [place] %) 23 31-61 [facility]lakeQgjdriqNIOUFPPIOX0230-20-25 08:45:00 Test Item Value Reference Range Interpretation Comments CD19 B Cell # (test code = CD19 B Cell 244 90-660 #) [facility]lakeCanlzphFDJYLUJQOG0520-21-79 08:45:00 Test Item Value Reference Range Interpretation Comments CD19 B Cell % (test code = CD19 B Cell 11 6-25 %) [facility]lakeMnfoodeUBGTYBFDVJ1040-01-88 08:45:00 Test Item Value Reference Range Interpretation Comments CD 16 56 NK # (test code = CD 16 56 NK 99 90-590 #) [facility]lakeUbxibmqNKMFKITXEP6710-51-46 08:45:00 Test Item Value Reference Range Interpretation Comments CD16 56 NK % (test code = CD16 56 NK %) 4 5-27 [facility]lakeWdpyfkdZXBUZHETUS5788-31-40 08:45:00 Test Item Value Reference Range Interpretation Comments CD3 T Cell # (test code = CD3 T Cell #) [phone] [facility]lakeUvqvxoaNGCEFPMWXG8081-53-63 08:45:00 Test Item Value Reference Range Interpretation Comments CD3 T Cell % (test code = CD3 T Cell %) 83 55-84 [facility] SouthlakeWhdrasfSDCNPKWGGW8831-87-33 08:45:00 Test Item Value Reference Range Interpretation Comments CD8 Suppress # (test code = CD8 [phone] Suppress #) [facility]Lys[facility]ubcSPOELLFMTI6684-58-00 08:45:00 Test Item Value Reference Range Interpretation Comments CD8 Suppress % (test code = CD8 58 13-41 Suppress %) [facility]2018-08-11 08:45:00 Test Item Value Reference Range Interpretation Comments Magnesium Lvl (test code = Magnesium 2.2 1.8-2.4 Lvl) [facility]2018-08-11 08:45:00 Test Item Value Reference Range Interpretation Comments Phosphorus (test code = Phosphorus) 3.3 2.5-4.[address] [facility]2018-08-11 08:45:00 Test Item Value Reference Range Interpretation Comments Calcium Lvl (test code = Calcium Lvl) 8.3 8.5-10.[address] [facility]2018-08-11 08:45:00 Test Item Value Reference Range Interpretation Comments AGAP (test code = AGAP) 12.4 10.0-20.[address] [facility]2018-08-11 08:45:00 Test Item Value Reference Range Interpretation Comments eGFR (test code = eGFR) [address] [facility]2018-08-11 08:45:00 Test Item Value Reference Range Interpretation Comments CO2 (test code = CO2) 24 24-[address] [facility]2018-08-11 08:45:00 Test Item Value Reference Range Interpretation Comments Creatinine Lvl (test code = Creatinine 0.97 0.50-1.40 Lvl) [facility]2018-08-11 08:45:00 Test Item Value Reference Range Interpretation Comments Sodium Lvl (test code = Sodium Lvl) 141 135-[address] [facility]2018-08-11 08:45:00 Test Item Value Reference Range Interpretation Comments Potassium Lvl (test code = Potassium 4.4 3.5-5.1 Lvl) [facility]2018-08-11 08:45:00 Test Item Value Reference Range Interpretation Comments Chloride Lvl (test code = Chloride Lvl) 109 95-[address] [facility]2018-08-11 08:45:00 Test Item Value Reference Range Interpretation Comments Glucose Lvl (test code = Glucose Lvl) 114 70-[address] [facility]2018-08-11 08:45:00 Test Item Value Reference Range Interpretation Comments BUN (test code = BUN) 20 7-22 [facility] HospitalTqteipcTUHLBJLMZY4477-45-73 08:45:00 Test Item Value Reference Range Interpretation Comments H/S Ratio (test code = H/S Ratio) 0.40 1 0.90-2.30 [facility]lakeAprnakwOIVVVTCLTY6559-69-71 08:45:00 Test Item Value Reference Range Interpretation Comments Tot Lymph # (test code = Tot Lymph #) 2241 [facility]lakeKjwqahwTCXELZRKTJ7115-60-48 08:45:00 Test Item Value Reference Range Interpretation Comments CD4 T [place] # (test code = CD4 T 093 985-1228 [place] #) [facility] SouthlakeBibvzmsUSFJNEUHUU0329-88-12 08:45:00 Test Item Value Reference Range Interpretation Comments CD4 [place] % (test code = CD4 [place] %) 23 31-61 [facility]lakeOddbfvwPGOAFNLFAE0392-41-37 08:45:00 Test Item Value Reference Range Interpretation Comments CD19 B Cell # (test code = CD19 B Cell 244 90660 #) [facility]lakeXzpjlxpBETVERNZKL2837-81-06 08:45:00 Test Item Value Reference Range Interpretation Comments CD19 B Cell % (test code = CD19 B Cell 11 6-25 %) [facility]lakeYizwgcxHYKPKDXOTO1452-92-67 08:45:00 Test Item Value Reference Range Interpretation Comments CD 16 56 NK # (test code = CD 16 56 NK 99 90-590 #) [facility] SouthlakeZouyoiaMKRZZDMJAJ5746-52-41 08:45:00 Test Item Value Reference Range Interpretation Comments CD16 56 NK % (test code = CD16 56 NK %) 4 5-27 [facility] HospitalJjtrdhmHYBOPMYWDT5483-49-97 08:45:00 Test Item Value Reference Range Interpretation Comments CD3 T Cell # (test code = CD3 T Cell #) [phone] [facility] HospitalHgofoytKMQJZWQMXA4863-24-07 08:45:00 Test Item Value Reference Range Interpretation Comments CD3 T Cell % (test code = CD3 T Cell %) 83 55-84 [facility]lakeHwwglrtXVJDOCDWJF4305-16-54 08:45:00 Test Item Value Reference Range Interpretation Comments CD8 Suppress # (test code = CD8 [phone] Suppress #) [facility]lakeGskkyqxZITEVFNAJF2638-13-13 08:45:00 Test Item Value Reference Range Interpretation Comments CD8 Suppress % (test code = CD8 58 13-41 Suppress %) [facility]2018-08-11 08:45:00 Test Item Value Reference Range Interpretation Comments Magnesium Lvl (test code = Magnesium 2.2 1.8-2.4 Lvl) [facility]2018-08-11 08:45:00 Test Item Value Reference Range Interpretation Comments Phosphorus (test code = Phosphorus) 3.3 2.5-4.[address] [facility]2018-08-11 08:45:00 Test Item Value Reference Range Interpretation Comments Calcium Lvl (test code = Calcium Lvl) 8.3 8.5-10.[address] [facility]2018-08-11 08:45:00 Test Item Value Reference Range Interpretation Comments AGAP (test code = AGAP) 12.4 10.0-20.[address] [facility]2018-08-11 08:45:00 Test Item Value Reference Range Interpretation Comments eGFR (test code = eGFR) [address] [facility]2018-08-11 08:45:00 Test Item Value Reference Range Interpretation Comments CO2 (test code = CO2) 24 24-[address] [facility]2018-08-11 08:45:00 Test Item Value Reference Range Interpretation Comments Creatinine Lvl (test code = Creatinine 0.97 0.50-1.40 Lvl) [facility]2018-08-11 08:45:00 Test Item Value Reference Range Interpretation Comments Sodium Lvl (test code = Sodium Lvl) 141 135-[address] [facility]2018-08-11 08:45:00 Test Item Value Reference Range Interpretation Comments Potassium Lvl (test code = Potassium 4.4 3.5-5.1 Lvl) [facility]2018-08-11 08:45:00 Test Item Value Reference Range Interpretation Comments Chloride Lvl (test code = Chloride Lvl) 109 95-[address] [facility]2018-08-11 08:45:00 Test Item Value Reference Range Interpretation Comments Glucose Lvl (test code = Glucose Lvl) 114 70-[address] [facility]2018-08-11 08:45:00 Test Item Value Reference Range Interpretation Comments BUN (test code = BUN) 20 7-22 [facility] HospitalEvxxakqPJPKJMBCFR2421-53-12 08:45:00 Test Item Value Reference Range Interpretation Comments H/S Ratio (test code = H/S Ratio) 0.40 1 0.90-2.30 [facility] HospitalTcljovxUHKNPGVNDW0399-82-76 08:45:00 Test Item Value Reference Range Interpretation Comments Tot Lymph # (test code = Tot Lymph #) 2241 [facility]lakeHbzcakwGVXUELHNLT9281-26-20 08:45:00 Test Item Value Reference Range Interpretation Comments CD4 T [place] # (test code = CD4 T [phone] [place] #) [facility] HospitalOfxdmasHIUWVSQRGO1379-80-39 08:45:00 Test Item Value Reference Range Interpretation Comments CD4 [place] % (test code = CD4 [place] %) 23 31-61 [facility] HospitalWwpvawbJDLFIXWFXC3749-36-42 08:45:00 Test Item Value Reference Range Interpretation Comments CD19 B Cell # (test code = CD19 B Cell 244 90-660 #) [facility] HospitalPyknhucSMPMDXPHSL0599-95-31 08:45:00 Test Item Value Reference Range Interpretation Comments CD19 B Cell % (test code = CD19 B Cell 11 6-25 %) [facility] HospitalMzgvovsOFFSOQKLDZ1128-82-95 08:45:00 Test Item Value Reference Range Interpretation Comments CD 16 56 NK # (test code = CD 16 56 NK 99 90-590 #) [facility] HospitalQcqtsdiXCWCJRNGTQ5483-89-62 08:45:00 Test Item Value Reference Range Interpretation Comments CD16 56 NK % (test code = CD16 56 NK %) 4 5-27 [facility] HospitalPhjewueTTTBLGDJXC1076-67-14 08:45:00 Test Item Value Reference Range Interpretation Comments CD3 T Cell # (test code = CD3 T Cell #) [phone] [facility] HospitalFufskbbQANGMPGEKC9521-72-38 08:45:00 Test Item Value Reference Range Interpretation Comments CD3 T Cell % (test code = CD3 T Cell %) 83 55-84 [facility] HospitalEmjttrcNPDSHKHLAS5967-08-38 08:45:00 Test Item Value Reference Range Interpretation Comments CD8 Suppress # (test code = CD8 [phone] Suppress #) [facility] HospitalZpqabrfAEFBBHHYSC9791-98-08 08:45:00 Test Item Value Reference Range Interpretation Comments CD8 Suppress % (test code = CD8 58 13-41 Suppress %) [facility] HospitalMszdgtiNFWGSHOLTN3807-41-17 20:57:00 Test Item Value Reference Range Interpretation Comments Retic Auto (test code = Retic Auto) 1.6 0.5-1.5 [facility] HospitalZijwgcoZNRLES3726-26-23 20:57:00 Test Item Value Reference Range Interpretation Comments Trig (test code = Trig) 279 [facility] HospitalEcbpmjrAANUXS0754-24-15 20:57:00 Test Item Value Reference Range Interpretation Comments HDL (test code = HDL) 35 [facility]MreexxaKXBNEQ3527-72-02 20:57:00 Test Item Value Reference Range Interpretation Comments LDL (Calculated) (test code = LDL 71 (Calculated)) [facility] HospitalXmlluyeTHCPHU9559-06-25 20:57:00 Test Item Value Reference Range Interpretation Comments VLDL (test code = VLDL) 56 1 [facility] HospitalGwzpyatJWWWQQ4567-68-60 20:57:00 Test Item Value Reference Range Interpretation Comments Chol (test code = Chol) 162 [facility]anoNbckkwlRCGXBQ8632-56-06 20:57:00 Test Item Value Reference Range Interpretation Comments CHD Risk (test code = CHD Risk) 4.63 1 4.00-7.30 [facility] AJVJIDN4363-40-47 20:57:00 Test Item Value Reference Range Interpretation Comments Ca Ion WB (test code = Ca Ion WB) 1.07 1.05-1.25 [facility] KXLOSXX8692-21-76 20:57:00 Test Item Value Reference Range Interpretation Comments Ca Norm WB (test code = Ca Norm WB) 1.03 1.05-1.25 [facility] NNEQTSVJY9342-76-28 20:57:00 Test Item Value Reference Range Interpretation Comments Hgb A1C (test code = Hgb A1C) 6.1 [facility] TMKWJ6902-18-52 20:57:00 Test Item Value Reference Range Interpretation Comments TIBC (test code = TIBC) 378 228-428 [facility] WXEQO9243-96-15 20:57:00 Test Item Value Reference Range Interpretation Comments Iron (test code = Iron) 112 45-160 [facility] BYEDF5227-98-56 20:57:00 Test Item Value Reference Range Interpretation Comments % Satur Fe (test code = % Satur Fe) 30 12-57 [facility] IVQRS7983-99-30 20:57:00 Test Item Value Reference Range Interpretation Comments UIBC (test code = UIBC) 266 110-370 [facility] FTVLW7765-71-19 20:57:00 Test Item Value Reference Range Interpretation Comments Ferritin Lvl (test code = Ferritin Lvl) 106 22-[address] [facility]2018-08-10 20:57:00 Test Item Value Reference Range Interpretation Comments Albumin Lvl (test code = Albumin Lvl) 4.2 3.5-5.[address] [facility]2018-08-10 20:57:00 Test Item Value Reference Range Interpretation Comments AST (test code = AST) 44 See_Comment [Auto mated message] The system which ge nerated this result transmit regino reference range : <=37. The reference range was not used to interpr et this result as hudson l/abnormal. [facility]2018-08-10 20:57:00 Test Item Value Reference Range Interpretation Comments ALT (test code = ALT) 33 See_Comment [Auto mated message] The system which ge nerated this result transmit regino reference range : <=65. The reference range was not used to interpr et this result as hudson l/abnormal. [facility]2018-08-10 20:57:00 Test Item Value Reference Range Interpretation Comments Bili Total (test code = Bili Total) 0.8 0.2-1.[address] [facility]2018-08-10 20:57:00 Test Item Value Reference Range Interpretation Comments Alk Phos (test code = Alk Phos) 76 39-[address] [facility]2018-08-10 20:57:00 Test Item Value Reference Range Interpretation Comments Bili Direct (test code 0.1 See_Comment [Aut omated message] The = Bili Direct) system which generated this result tra nsmitted reference range : <=0.3. The reference r gasper was not used to int erpret this result as hudson l/abnormal. [facility]2018-08-10 20:57:00 Test Item Value Reference Range Interpretation Comments Bili Indirect (test 0.7 See_Comment [Automa regino message] The code = Bili Indirect) system which generated this result tra nsmitted reference range : <=1.0. The reference r gasper was not used to int erpret this result as normal/abnormal . [facility]2018-08-10 20:57:00 Test Item Value Reference Range Interpretation Comments Total Protein (test code = Total 8.0 6.4-8.4 Protein) [facility]2018-08-10 20:57:00 Test Item Value Reference Range Interpretation Comments A/G Ratio (test code = A/G Ratio) 1.1 1 0.7-1.[address] [facility]2018-08-10 20:57:00 Test Item Value Reference Range Interpretation Comments Globulin (test code = Globulin) 3.8 2.7-4.2 [facility]IvvgqgiQGSFYPYKKW2595-74-49 20:57:00 Test Item Value Reference Range Interpretation Comments PTT (test code = PTT) 39.2 s 22.9-35.8 [facility] CenterIarxzghILWGOHDOXP5966-10-31 20:57:00 Test Item Value Reference Range Interpretation Comments INR (test code = INR) 1.31 1 0.85-1.17 [facility] CenterRneijkcFBOSMPXYCA8902-13-80 20:57:00 Test Item Value Reference Range Interpretation Comments PT (test code = PT) 16.4 s 12.0-14.7 [facility] CenterMcxuumxSQANCRBTIA2052-56-99 20:57:00 Test Item Value Reference Range Interpretation Comments MPV (test code = MPV) 9.5 7.4-10.4 [facility] CenterChqribqYOGAWTNHQG0019-79-75 20:57:00 Test Item Value Reference Range Interpretation Comments Platelet (test code = Platelet) 164 133-450 [facility] CenterCnlkjjtAJAAEZKVPH2169-66-70 20:57:00 Test Item Value Reference Range Interpretation Comments MCHC (test code = MCHC) 34.0 32.0-36.0 [facility] CenterZrximewPTPQBRACRS8680-84-36 20:57:00 Test Item Value Reference Range Interpretation Comments RDW (test code = RDW) 16.4 11.5-14.5 [facility] CenterHsqhgdyWFEWDQRWFA9189-85-04 20:57:00 Test Item Value Reference Range Interpretation Comments WBC (test code = WBC) 6.4 3.7-10.4 [facility] CenterVlnliarLCUUZXDUNE6707-22-00 20:57:00 Test Item Value Reference Range Interpretation Comments MCV (test code = MCV) 94.5 80.0-94.0 [facility] CenterTojvaboHMQLZXKXAO6220-67-30 20:57:00 Test Item Value Reference Range Interpretation Comments Hct (test code = Hct) 45.8 42.0-54.0 [facility] CenterNpqqqjjYPXSXCRSKD0720-36-10 20:57:00 Test Item Value Reference Range Interpretation Comments MCH (test code = MCH) 32.1 pg 27.0-31.0 [facility] CenterYvspvnlFVDCCAINQX2230-11-63 20:57:00 Test Item Value Reference Range Interpretation Comments RBC (test code = RBC) 4.85 4.70-6.10 [facility] CenterSvorfoiCHYPTUTAZE1761-27-05 20:57:00 Test Item Value Reference Range Interpretation Comments Hgb (test code = Hgb) 15.6 14.0-18.0 [facility] CenterDqmvzbpHXEBEMKYDS5032-41-66 20:57:00 Test Item Value Reference Range Interpretation Comments Monocytes # (test code 0.4 See_Comment [Aut omated message] The = Monocytes #) system which generated this result tra nsmitted reference range : <=0.8. The reference r gasper was not used to int erpret this result as normal/abnormal . [facility] CenterBxpdtyfPABMGQUHPC6368-77-59 20:57:00 Test Item Value Reference Range Interpretation Comments Eosinophils # (test code 0.2 See_Comment [A utomated message] The = Eosinophils #) system whic h generated this result tra nsmitted reference range : <=0.5. The reference r gasper was not used to int erpret this result as normal/abnormal . [facility] CenterBaczoekZQAKJMWKQD9036-27-54 20:57:00 Test Item Value Reference Range Interpretation Comments Eosinophils (test code = 3.2 See_Comment [A utomated message] The Eosinophils) system which ge nerated this result tra nsmitted reference range : <=4.0. The reference r gasper was not used to int erpret this result as normal/abnormal . [facility] CenterQwyssidAGNGGPVCEP3965-43-33 20:57:00 Test Item Value Reference Range Interpretation Comments Neutrophils # (test code = Neutrophils 3.1 1.5-8.1 #) [facility] CenterMbcxsfjNCPUMLWFEJ4142-96-85 20:57:00 Test Item Value Reference Range Interpretation Comments Basophils (test code = 0.7 See_Comment [Aut omated message] The Basophils) system which ge nerated this result tra nsmitted reference range : <=1.0. The reference r gasper was not used to int erpret this result as normal/abnormal . [facility] CenterDduvvimIYBBUKJTZI7985-37-37 20:57:00 Test Item Value Reference Range Interpretation Comments Lymphocytes (test code = Lymphocytes) 40.4 20.0-40.0 [facility]LdzbdisHCZFRSALAO3511-35-47 20:57:00 Test Item Value Reference Range Interpretation Comments Segs (test code = Segs) 49.3 45.0-75.0 [facility] GladwinOsijntlPUKGBQSFJB2593-05-36 20:57:00 Test Item Value Reference Range Interpretation Comments Monocytes (test code = Monocytes) 6.4 2.0-12.0 [facility] GladwinOagbxtbPSIOXBSUPI0742-54-37 20:57:00 Test Item Value Reference Range Interpretation Comments Lymphocytes # (test code = Lymphocytes 2.6 1.0-5.5 #) [facility] GladwinUotbmqgDFICOJAXBY5852-32-73 20:57:00 Test Item Value Reference Range Interpretation Comments Retic Auto (test code = Retic Auto) 1.6 0.5-1.5 [facility] HospitalQevclgtGQPMLR6061-14-91 20:57:00 Test Item Value Reference Range Interpretation Comments Trig (test code = Trig) 279 [facility] HospitalPqmzbnxZHAHCJ9011-79-41 20:57:00 Test Item Value Reference Range Interpretation Comments HDL (test code = HDL) 35 [facility] HospitalSycvmqkARVDUA0468-07-24 20:57:00 Test Item Value Reference Range Interpretation Comments LDL (Calculated) (test code = LDL 71 (Calculated)) [facility] HospitalMhnbripVVFQUZ0561-01-92 20:57:00 Test Item Value Reference Range Interpretation Comments VLDL (test code = VLDL) 56 1 [facility]ZboktpnQNWRLM0378-08-07 20:57:00 Test Item Value Reference Range Interpretation Comments Chol (test code = Chol) 162 [facility] HospitalCkigjkqHMIXBR7699-46-24 20:57:00 Test Item Value Reference Range Interpretation Comments CHD Risk (test code = CHD Risk) 4.63 1 4.00-7.30 [facility]annPARATHYROID YTUFSMF5240-96-55 20:57:00 Test Item Value Reference Range Interpretation Comments Ca Ion WB (test code = Ca Ion WB) 1.07 1.05-1.25 [facility] HospitalannPARATHYROID IHHMWVK6690-96-17 20:57:00 Test Item Value Reference Range Interpretation Comments Ca Norm WB (test code = Ca Norm WB) 1.03 1.05-1.25 [facility] HospitalSPECIAL ENUKXVWBV9590-22-82 20:57:00 Test Item Value Reference Range Interpretation Comments Hgb A1C (test code = Hgb A1C) 6.1 [facility]2018-08-10 20:57:00 Test Item Value Reference Range Interpretation Comments TIBC (test code = TIBC) 378 228-428 [facility]2018-08-10 20:57:00 Test Item Value Reference Range Interpretation Comments Iron (test code = Iron) 112 45-160 [facility]2018-08-10 20:57:00 Test Item Value Reference Range Interpretation Comments % Satur Fe (test code = % Satur Fe) 30 12-57 [facility]2018-08-10 20:57:00 Test Item Value Reference Range Interpretation Comments UIBC (test code = UIBC) 266 110-370 [facility]2018-08-10 20:57:00 Test Item Value Reference Range Interpretation Comments Ferritin Lvl (test code = Ferritin Lvl) 106 22-[address] [facility]2018-08-10 20:57:00 Test Item Value Reference Range Interpretation Comments Albumin Lvl (test code = Albumin Lvl) 4.2 3.5-5.[address] [facility]2018-08-10 20:57:00 Test Item Value Reference Range Interpretation Comments AST (test code = AST) 44 See_Comment [Auto mated message] The system which ge nerated this result transmit regino reference range : <=37. The reference range was not used to interpr et this result as hudson l/abnormal. [facility]2018-08-10 20:57:00 Test Item Value Reference Range Interpretation Comments ALT (test code = ALT) 33 See_Comment [Auto mated message] The system which ge nerated this result transmit regino reference range : <=65. The reference range was not used to interpr et this result as hudson l/abnormal. [facility]2018-08-10 20:57:00 Test Item Value Reference Range Interpretation Comments Bili Total (test code = Bili Total) 0.8 0.2-1.[address] [facility]2018-08-10 20:57:00 Test Item Value Reference Range Interpretation Comments Alk Phos (test code = Alk Phos) 76 39-[address] [facility]2018-08-10 20:57:00 Test Item Value Reference Range Interpretation Comments Bili Direct (test code 0.1 See_Comment [Aut omated message] The = Bili Direct) system which generated this result tra nsmitted reference range : <=0.3. The reference r gasper was not used to int erpret this result as hudson l/abnormal. [facility]2018-08-10 20:57:00 Test Item Value Reference Range Interpretation Comments Bili Indirect (test 0.7 See_Comment [Automa regino message] The code = Bili Indirect) system which generated this result tra nsmitted reference range : <=1.0. The reference r gasper was not used to int erpret this result as normal/abnormal . [facility]2018-08-10 20:57:00 Test Item Value Reference Range Interpretation Comments Total Protein (test code = Total 8.0 6.4-8.4 Protein) [facility]2018-08-10 20:57:00 Test Item Value Reference Range Interpretation Comments A/G Ratio (test code = A/G Ratio) 1.1 1 0.7-1.[address] [facility]2018-08-10 20:57:00 Test Item Value Reference Range Interpretation Comments Globulin (test code = Globulin) 3.8 2.7-4.2 [facility] CenterVblvhzyTSEFIVJANW0398-42-17 20:57:00 Test Item Value Reference Range Interpretation Comments PTT (test code = PTT) 39.2 s 22.9-35.8 [facility] CenterLqfwqixBFQNKQPTCY1687-71-41 20:57:00 Test Item Value Reference Range Interpretation Comments INR (test code = INR) 1.31 1 0.85-1.17 [facility] CenterLoqfsneMZAWYXQWLP2147-91-72 20:57:00 Test Item Value Reference Range Interpretation Comments PT (test code = PT) 16.4 s 12.0-14.7 [facility] CenterAvkikaaASPJUWNGSG5288-61-47 20:57:00 Test Item Value Reference Range Interpretation Comments MPV (test code = MPV) 9.5 7.4-10.4 [facility] CenterCffyflxCOAWRQVJHC5402-26-07 20:57:00 Test Item Value Reference Range Interpretation Comments Platelet (test code = Platelet) 164 133-450 [facility] CenterArmmvhnILLYJZEQGG0547-26-54 20:57:00 Test Item Value Reference Range Interpretation Comments MCHC (test code = MCHC) 34.0 32.0-36.0 [facility] CenterEskyiotVDUYIWLLFK5589-06-67 20:57:00 Test Item Value Reference Range Interpretation Comments RDW (test code = RDW) 16.4 11.5-14.5 [facility] CenterRjpuuqsGAOWEWLXEH0244-35-23 20:57:00 Test Item Value Reference Range Interpretation Comments WBC (test code = WBC) 6.4 3.7-10.4 [facility] CenterZawblvgZKSIXFEYVC5959-54-60 20:57:00 Test Item Value Reference Range Interpretation Comments MCV (test code = MCV) 94.5 80.0-94.0 [facility] CenterJlgjsywKUUZEFERPU9512-56-11 20:57:00 Test Item Value Reference Range Interpretation Comments Hct (test code = Hct) 45.8 42.0-54.0 [facility] CenterNpluhggJGDHJZSNPT3690-60-77 20:57:00 Test Item Value Reference Range Interpretation Comments MCH (test code = MCH) 32.1 pg 27.0-31.0 [facility] CenterLsukjrsMZPXORWPCK2671-29-32 20:57:00 Test Item Value Reference Range Interpretation Comments RBC (test code = RBC) 4.85 4.70-6.10 [facility] CenterCwrutxxVGMOAYGSAA7805-88-30 20:57:00 Test Item Value Reference Range Interpretation Comments Hgb (test code = Hgb) 15.6 14.0-18.0 [facility] CenterZajnyjoOUYYTUTHMF0020-87-08 20:57:00 Test Item Value Reference Range Interpretation Comments Monocytes # (test code 0.4 See_Comment [Aut omated message] The = Monocytes #) system which generated this result tra nsmitted reference range : <=0.8. The reference r gasper was not used to int erpret this result as normal/abnormal . [facility] CenterEwqrlvxNXFZIPHCRP5056-92-32 20:57:00 Test Item Value Reference Range Interpretation Comments Eosinophils # (test code 0.2 See_Comment [A utomated message] The = Eosinophils #) system whic h generated this result tra nsmitted reference range : <=0.5. The reference r gasper was not used to int erpret this result as normal/abnormal . [facility] CenterSiedftsFSMQKGYMTC8657-29-48 20:57:00 Test Item Value Reference Range Interpretation Comments Eosinophils (test code = 3.2 See_Comment [A utomated message] The Eosinophils) system which ge nerated this result tra nsmitted reference range : <=4.0. The reference r gasper was not used to int erpret this result as normal/abnormal . [facility] CenterXaqtoufQPLNHOPRHD5872-99-65 20:57:00 Test Item Value Reference Range Interpretation Comments Neutrophils # (test code = Neutrophils 3.1 1.5-8.1 #) [facility] CenterFgmpcjjNEOPZQDOCO6579-90-13 20:57:00 Test Item Value Reference Range Interpretation Comments Basophils (test code = 0.7 See_Comment [Aut omated message] The Basophils) system which ge nerated this result tra nsmitted reference range : <=1.0. The reference r gasper was not used to int erpret this result as normal/abnormal . [facility] CenterAvtdcxeDQFUXXGTHQ7640-10-10 20:57:00 Test Item Value Reference Range Interpretation Comments Lymphocytes (test code = Lymphocytes) 40.4 20.0-40.0 [facility] CenterItooiocRSKUTIEUOC9416-13-11 20:57:00 Test Item Value Reference Range Interpretation Comments Segs (test code = Segs) 49.3 45.0-75.0 [facility] CenterXaronwsNDGLCAOIMV1034-31-07 20:57:00 Test Item Value Reference Range Interpretation Comments Monocytes (test code = Monocytes) 6.4 2.0-12.0 [facility] CenterVovqxvvUEPNKDUYTG9321-39-46 20:57:00 Test Item Value Reference Range Interpretation Comments Lymphocytes # (test code = Lymphocytes 2.6 1.0-5.5 #) [facility] CenterNskayqcULTZJKPHOX4488-73-77 20:57:00 Test Item Value Reference Range Interpretation Comments Retic Auto (test code = Retic Auto) 1.6 0.5-1.5 [facility]ObieypvUBZBJH8680-30-17 20:57:00 Test Item Value Reference Range Interpretation Comments Trig (test code = Trig) 279 [facility]anoEornvqkDCAHZT2690-81-41 20:57:00 Test Item Value Reference Range Interpretation Comments HDL (test code = HDL) 35 [facility]anoJgncqnsOIEGAC6485-67-22 20:57:00 Test Item Value Reference Range Interpretation Comments LDL (Calculated) (test code = LDL 71 (Calculated)) [facility]anoFlcpophXKISCG9044-45-33 20:57:00 Test Item Value Reference Range Interpretation Comments VLDL (test code = VLDL) 56 1 [facility] HospitalNxlvsgbUWXIQL2722-07-71 20:57:00 Test Item Value Reference Range Interpretation Comments Chol (test code = Chol) 162 [facility] HospitalFcnokmnFNHLOM0260-66-03 20:57:00 Test Item Value Reference Range Interpretation Comments CHD Risk (test code = CHD Risk) 4.63 1 4.00-7.30 [facility]RO[facility] MCSQULZ4792-82-82 20:57:00 Test Item Value Reference Range Interpretation Comments Ca Ion WB (test code = Ca Ion WB) 1.07 1.05-1.25 [facility] CenterROID EVQWHUF1736-29-49 20:57:00 Test Item Value Reference Range Interpretation Comments Ca Norm WB (test code = Ca Norm WB) 1.03 1.05-1.25 [facility] ACJYYMEPA3734-13-42 20:57:00 Test Item Value Reference Range Interpretation Comments Hgb A1C (test code = Hgb A1C) 6.1 [facility] JVTXH6815-46-10 20:57:00 Test Item Value Reference Range Interpretation Comments TIBC (test code = TIBC) 378 228-428 [facility]2018-08-10 20:57:00 Test Item Value Reference Range Interpretation Comments Iron (test code = Iron) 112 45-160 [facility]2018-08-10 20:57:00 Test Item Value Reference Range Interpretation Comments % Satur Fe (test code = % Satur Fe) 30 12-57 [facility]2018-08-10 20:57:00 Test Item Value Reference Range Interpretation Comments UIBC (test code = UIBC) 266 110-370 [facility]2018-08-10 20:57:00 Test Item Value Reference Range Interpretation Comments Ferritin Lvl (test code = Ferritin Lvl) 106 22-275 [facility] HospitalWochacha GQAXI0887-17-86 20:57:00 Test Item Value Reference Range Interpretation Comments Albumin Lvl (test code = Albumin Lvl) 4.2 3.5-5.[address] [facility]2018-08-10 20:57:00 Test Item Value Reference Range Interpretation Comments AST (test code = AST) 44 See_Comment [Auto mated message] The system which ge nerated this result transmit regino reference range : <=37. The reference range was not used to interpr et this result as hudson l/abnormal. [facility]2018-08-10 20:57:00 Test Item Value Reference Range Interpretation Comments ALT (test code = ALT) 33 See_Comment [Auto mated message] The system which ge nerated this result transmit regino reference range : <=65. The reference range was not used to interpr et this result as hudson l/abnormal. [facility]2018-08-10 20:57:00 Test Item Value Reference Range Interpretation Comments Bili Total (test code = Bili Total) 0.8 0.2-1.[address] [facility]2018-08-10 20:57:00 Test Item Value Reference Range Interpretation Comments Alk Phos (test code = Alk Phos) 76 39-[address] [facility]2018-08-10 20:57:00 Test Item Value Reference Range Interpretation Comments Bili Direct (test code 0.1 See_Comment [Aut omated message] The = Bili Direct) system which generated this result tra nsmitted reference range : <=0.3. The reference r gasper was not used to int erpret this result as hudson l/abnormal. [facility]2018-08-10 20:57:00 Test Item Value Reference Range Interpretation Comments Bili Indirect (test 0.7 See_Comment [Automa regino message] The code = Bili Indirect) system which generated this result tra nsmitted reference range : <=1.0. The reference r gasper was not used to int erpret this result as normal/abnormal . [facility]2018-08-10 20:57:00 Test Item Value Reference Range Interpretation Comments Total Protein (test code = Total 8.0 6.4-8.4 Protein) [facility]2018-08-10 20:57:00 Test Item Value Reference Range Interpretation Comments A/G Ratio (test code = A/G Ratio) 1.1 1 0.7-1.6 [place] 737918-08-10 20:57:00 Test Item Value Reference Range Interpretation Comments Globulin (test code = Globulin) 3.8 2.7-4.2 [facility] CenterZadjqidGLDCAHSIGN2466-41-66 20:57:00 Test Item Value Reference Range Interpretation Comments PTT (test code = PTT) 39.2 s 22.9-35.8 [facility] CenterVbacxwkDHQDIDDIZA6006-29-13 20:57:00 Test Item Value Reference Range Interpretation Comments INR (test code = INR) 1.31 1 0.85-1.17 [facility] CenterEqqaxdwZYLAGNAVRF1296-86-01 20:57:00 Test Item Value Reference Range Interpretation Comments PT (test code = PT) 16.4 s 12.0-14.7 [facility] CenterYqbozcwTPHILVIUFG9977-06-55 20:57:00 Test Item Value Reference Range Interpretation Comments MPV (test code = MPV) 9.5 7.4-10.4 [facility] CenterTnbjubxDOFMGJZKER6079-44-84 20:57:00 Test Item Value Reference Range Interpretation Comments Platelet (test code = Platelet) 164 133-450 [facility] CenterIfxayfoGCTMPCHESM3338-98-12 20:57:00 Test Item Value Reference Range Interpretation Comments MCHC (test code = MCHC) 34.0 32.0-36.0 [facility] CenterNwdiwilHQQTDKJDHG3454-02-85 20:57:00 Test Item Value Reference Range Interpretation Comments RDW (test code = RDW) 16.4 11.5-14.5 [facility] CenterKbkqkuhAETGSUMKBM1450-22-84 20:57:00 Test Item Value Reference Range Interpretation Comments WBC (test code = WBC) 6.4 3.7-10.4 [facility] CenterBfoihapEWKGGAIJZC6505-72-95 20:57:00 Test Item Value Reference Range Interpretation Comments MCV (test code = MCV) 94.5 80.0-94.0 [facility] CenterJlafqzwXODGKWQYMN5233-61-47 20:57:00 Test Item Value Reference Range Interpretation Comments Hct (test code = Hct) 45.8 42.0-54.0 [facility] CenterTpzakgeWQBAPSQTPP6812-44-84 20:57:00 Test Item Value Reference Range Interpretation Comments MCH (test code = MCH) 32.1 pg 27.0-31.0 [facility] CenterLtnqdvhWFEJISLMEF8211-35-19 20:57:00 Test Item Value Reference Range Interpretation Comments RBC (test code = RBC) 4.85 4.70-6.10 [facility] CenterZbnwvjpESZNLVGLQW6955-52-89 20:57:00 Test Item Value Reference Range Interpretation Comments Hgb (test code = Hgb) 15.6 14.0-18.0 [facility] CenterXisigliVTLKKCBULT1824-42-47 20:57:00 Test Item Value Reference Range Interpretation Comments Monocytes # (test code 0.4 See_Comment [Aut omated message] The = Monocytes #) system which generated this result tra nsmitted reference range : <=0.8. The reference r gasper was not used to int erpret this result as normal/abnormal . [facility] CenterSwytvmgTDOWKJBCMC5406-42-97 20:57:00 Test Item Value Reference Range Interpretation Comments Eosinophils # (test code 0.2 See_Comment [A utomated message] The = Eosinophils #) system whic h generated this result tra nsmitted reference range : <=0.5. The reference r gasper was not used to int erpret this result as normal/abnormal . [facility] CenterMovhgtlHYJSOPPAGF5971-29-93 20:57:00 Test Item Value Reference Range Interpretation Comments Eosinophils (test code = 3.2 See_Comment [A utomated message] The Eosinophils) system which ge nerated this result tra nsmitted reference range : <=4.0. The reference r gasper was not used to int erpret this result as normal/abnormal . [facility] CenterCmklxtyYKSKYKJLOL7251-66-36 20:57:00 Test Item Value Reference Range Interpretation Comments Neutrophils # (test code = Neutrophils 3.1 1.5-8.1 #) [facility] CenterNepoocvJYBYTSBQUD5454-24-78 20:57:00 Test Item Value Reference Range Interpretation Comments Basophils (test code = 0.7 See_Comment [Aut omated message] The Basophils) system which ge nerated this result tra nsmitted reference range : <=1.0. The reference r gasper was not used to int erpret this result as normal/abnormal . [facility] CenterYtwtmvePQFUWGXZWM2497-03-83 20:57:00 Test Item Value Reference Range Interpretation Comments Lymphocytes (test code = Lymphocytes) 40.4 20.0-40.0 [facility] CenterYdyxcpzIMNYBXHEHU4969-39-37 20:57:00 Test Item Value Reference Range Interpretation Comments Segs (test code = Segs) 49.3 45.0-75.0 [facility] CenterGpotoxsQSYNWXLDBB7928-02-31 20:57:00 Test Item Value Reference Range Interpretation Comments Monocytes (test code = Monocytes) 6.4 2.0-12.0 [facility] CenterPvpfnhaHUWJBDNCNO1247-61-65 20:57:00 Test Item Value Reference Range Interpretation Comments Lymphocytes # (test code = Lymphocytes 2.6 1.0-5.5 #) [facility] GladwinAtkhmawUSOVYBXOLC0481-55-88 20:57:00 Test Item Value Reference Range Interpretation Comments Retic Auto (test code = Retic Auto) 1.6 0.5-1.5 [facility]UuwqzzmTLLOEC5808-44-84 20:57:00 Test Item Value Reference Range Interpretation Comments Trig (test code = Trig) 279 [facility] HospitalPqvwrgsAROHWJ6455-24-45 20:57:00 Test Item Value Reference Range Interpretation Comments HDL (test code = HDL) 35 [facility] HospitalNpxrnakATQBEV3524-32-95 20:57:00 Test Item Value Reference Range Interpretation Comments LDL (Calculated) (test code = LDL 71 (Calculated)) [facility] HospitalNaxjgyrEMEHCP4551-58-31 20:57:00 Test Item Value Reference Range Interpretation Comments VLDL (test code = VLDL) 56 1 [facility] HospitalVigenpeYGZHMG9239-88-64 20:57:00 Test Item Value Reference Range Interpretation Comments Chol (test code = Chol) 162 [facility] HospitalLrevhsbOLMRJG6303-67-05 20:57:00 Test Item Value Reference Range Interpretation Comments CHD Risk (test code = CHD Risk) 4.63 1 4.00-7.30 [facility] HospitalannPARATHYROID CRCRRAB1353-46-25 20:57:00 Test Item Value Reference Range Interpretation Comments Ca Ion WB (test code = Ca Ion WB) 1.07 1.05-1.25 [facility]ann[facility]ID [id number] 20:57:00 Test Item Value Reference Range Interpretation Comments Ca Norm WB (test code = Ca Norm WB) 1.03 1.05-1.25 [facility] [id number] 20:57:00 Test Item Value Reference Range Interpretation Comments Hgb A1C (test code = Hgb A1C) 6.1 [facility] [id number] 20:57:00 Test Item Value Reference Range Interpretation Comments TIBC (test code = TIBC) 378 228-428 [facility] [id number] 20:57:00 Test Item Value Reference Range Interpretation Comments Iron (test code = Iron) 112 45-160 [facility] [id number] 20:57:00 Test Item Value Reference Range Interpretation Comments % Satur Fe (test code = % Satur Fe) 30 12-57 [facility]2018-08-10 20:57:00 Test Item Value Reference Range Interpretation Comments UIBC (test code = UIBC) 266 110-370 [facility]2018-08-10 20:57:00 Test Item Value Reference Range Interpretation Comments Ferritin Lvl (test code = Ferritin Lvl) 106 22-[address] [facility]2018-08-10 20:57:00 Test Item Value Reference Range Interpretation Comments Albumin Lvl (test code = Albumin Lvl) 4.2 3.5-5.[address] [facility]2018-08-10 20:57:00 Test Item Value Reference Range Interpretation Comments AST (test code = AST) 44 See_Comment [Auto mated message] The system which ge nerated this result transmit regino reference range : <=37. The reference range was not used to interpr et this result as hudson l/abnormal. [facility]2018-08-10 20:57:00 Test Item Value Reference Range Interpretation Comments ALT (test code = ALT) 33 See_Comment [Auto mated message] The system which ge nerated this result transmit regino reference range : <=65. The reference range was not used to interpr et this result as hudson l/abnormal. [facility]2018-08-10 20:57:00 Test Item Value Reference Range Interpretation Comments Bili Total (test code = Bili Total) 0.8 0.2-1.[address] [facility]2018-08-10 20:57:00 Test Item Value Reference Range Interpretation Comments Alk Phos (test code = Alk Phos) 76 39-[address] [facility]2018-08-10 20:57:00 Test Item Value Reference Range Interpretation Comments Bili Direct (test code 0.1 See_Comment [Aut omated message] The = Bili Direct) system which generated this result tra nsmitted reference range : <=0.3. The reference r gasper was not used to int erpret this result as hudson l/abnormal. [place] [id number] 20:57:00 Test Item Value Reference Range Interpretation Comments Bili Indirect (test 0.7 See_Comment [Automa regino message] The code = Bili Indirect) system which generated this result tra nsmitted reference range : <=1.0. The reference r gasper was not used to int erpret this result as normal/abnormal . [facility]2018-08-10 20:57:00 Test Item Value Reference Range Interpretation Comments Total Protein (test code = Total 8.0 6.4-8.4 Protein) [facility]2018-08-10 20:57:00 Test Item Value Reference Range Interpretation Comments A/G Ratio (test code = A/G Ratio) 1.1 1 0.7-1.[address] [facility]2018-08-10 20:57:00 Test Item Value Reference Range Interpretation Comments Globulin (test code = Globulin) 3.8 2.7-4.2 [facility]TdqlfubJSYDEBHXMC8833-75-18 20:57:00 Test Item Value Reference Range Interpretation Comments PTT (test code = PTT) 39.2 s 22.9-35.8 [facility] CenterPpldfqhMMCRIEHVKN9111-54-91 20:57:00 Test Item Value Reference Range Interpretation Comments INR (test code = INR) 1.31 1 0.85-1.17 [facility] CenterRtxyhdzZQYDXTUYNM8919-83-61 20:57:00 Test Item Value Reference Range Interpretation Comments PT (test code = PT) 16.4 s 12.0-14.7 [facility] CenterPujjllhMMXNJDDPYH1997-54-47 20:57:00 Test Item Value Reference Range Interpretation Comments MPV (test code = MPV) 9.5 7.4-10.4 [facility] CenterHvohqigKKZZGSLBAT7500-09-30 20:57:00 Test Item Value Reference Range Interpretation Comments Platelet (test code = Platelet) 164 133-450 [facility] CenterOytalveZJTSINQOKT7709-47-86 20:57:00 Test Item Value Reference Range Interpretation Comments MCHC (test code = MCHC) 34.0 32.0-36.0 [facility] CenterOrszmdqYQBAVEBRPX7686-85-99 20:57:00 Test Item Value Reference Range Interpretation Comments RDW (test code = RDW) 16.4 11.5-14.5 [facility] CenterSlfitxnSRCPYCDUGJ0594-29-44 20:57:00 Test Item Value Reference Range Interpretation Comments WBC (test code = WBC) 6.4 3.7-10.4 [facility] CenterOwehhvjEHDUZUZOXX3602-68-32 20:57:00 Test Item Value Reference Range Interpretation Comments MCV (test code = MCV) 94.5 80.0-94.0 [facility] CenterGupryfePWMEHQEOHC4006-38-61 20:57:00 Test Item Value Reference Range Interpretation Comments Hct (test code = Hct) 45.8 42.0-54.0 [facility] CenterIquxhfbALXCFMFRRU8683-34-24 20:57:00 Test Item Value Reference Range Interpretation Comments MCH (test code = MCH) 32.1 pg 27.0-31.0 [facility] CenterKyrfmkmOSDXNIPJXX3637-97-78 20:57:00 Test Item Value Reference Range Interpretation Comments RBC (test code = RBC) 4.85 4.70-6.10 [facility] CenterHhkksgiQTSFEUXQGV5352-74-44 20:57:00 Test Item Value Reference Range Interpretation Comments Hgb (test code = Hgb) 15.6 14.0-18.0 [facility] CenterZdkneqaEEBFYJSYNQ0987-68-80 20:57:00 Test Item Value Reference Range Interpretation Comments Monocytes # (test code 0.4 See_Comment [Aut omated message] The = Monocytes #) system which generated this result tra nsmitted reference range : <=0.8. The reference r gasper was not used to int erpret this result as normal/abnormal . [facility] CenterFgvvjgtCDNHDAPUAV0088-61-84 20:57:00 Test Item Value Reference Range Interpretation Comments Eosinophils # (test code 0.2 See_Comment [A utomated message] The = Eosinophils #) system whic h generated this result tra nsmitted reference range : <=0.5. The reference r gasper was not used to int erpret this result as normal/abnormal . [facility] CenterNibguitOOJTRPAQGG6356-72-61 20:57:00 Test Item Value Reference Range Interpretation Comments Eosinophils (test code = 3.2 See_Comment [A utomated message] The Eosinophils) system which ge nerated this result tra nsmitted reference range : <=4.0. The reference r gasper was not used to int erpret this result as normal/abnormal . [facility] CenterWzkbpncQOIGKZTWOA6607-05-69 20:57:00 Test Item Value Reference Range Interpretation Comments Neutrophils # (test code = Neutrophils 3.1 1.5-8.1 #) [facility] CenterBfijqmqKBTQOMRNHC7658-53-78 20:57:00 Test Item Value Reference Range Interpretation Comments Basophils (test code = 0.7 See_Comment [Aut omated message] The Basophils) system which ge nerated this result tra nsmitted reference range : <=1.0. The reference r gasper was not used to int erpret this result as normal/abnormal . [facility] CenterNjnfnejMSEPIKUKSI2841-38-01 20:57:00 Test Item Value Reference Range Interpretation Comments Lymphocytes (test code = Lymphocytes) 40.4 20.0-40.0 [facility]winPjbzfgfCCFDCIQFHV5650-51-53 20:57:00 Test Item Value Reference Range Interpretation Comments Segs (test code = Segs) 49.3 45.0-75.0 [facility] GladwinDlpxambCXOCCMHDWY2391-74-79 20:57:00 Test Item Value Reference Range Interpretation Comments Monocytes (test code = Monocytes) 6.4 2.0-12.0 [facility] GladwinSyxvefhECQFPGGTVE8201-45-54 20:57:00 Test Item Value Reference Range Interpretation Comments Lymphocytes # (test code = Lymphocytes 2.6 1.0-5.5 #) [facility] GladwinEkveyfiHJZNCQLIWZ4884-66-26 20:57:00 Test Item Value Reference Range Interpretation Comments Retic Auto (test code = Retic Auto) 1.6 0.5-1.5 [facility] HospitalHfwpirnCFFBSA6991-58-95 20:57:00 Test Item Value Reference Range Interpretation Comments Trig (test code = Trig) 279 [facility]YpdqaqfUMGAUI0769-31-88 20:57:00 Test Item Value Reference Range Interpretation Comments HDL (test code = HDL) 35 [facility] HospitalIpnawtzKWMWXO2609-64-69 20:57:00 Test Item Value Reference Range Interpretation Comments LDL (Calculated) (test code = LDL 71 (Calculated)) [facility] HospitalBlvkfavOHBTMG7699-75-20 20:57:00 Test Item Value Reference Range Interpretation Comments VLDL (test code = VLDL) 56 1 [facility]LdgxngiAGKLXP6967-50-61 20:57:00 Test Item Value Reference Range Interpretation Comments Chol (test code = Chol) 162 [facility] HospitalRagnwwgCBETHI3783-87-53 20:57:00 Test Item Value Reference Range Interpretation Comments CHD Risk (test code = CHD Risk) 4.63 1 4.00-7.30 [facility] HospitalPARATHYROID QNJMBJK2177-69-13 20:57:00 Test Item Value Reference Range Interpretation Comments Ca Ion WB (test code = Ca Ion WB) 1.07 1.05-1.25 [facility] HospitalPARATHYROID IPRRTCG7916-22-16 20:57:00 Test Item Value Reference Range Interpretation Comments Ca Norm WB (test code = Ca Norm WB) 1.03 1.05-1.25 [facility]SPE[facility] EPFQIHMGB5293-21-10 20:57:00 Test Item Value Reference Range Interpretation Comments Hgb A1C (test code = Hgb A1C) 6.1 [facility]2018-08-10 20:57:00 Test Item Value Reference Range Interpretation Comments TIBC (test code = TIBC) 378 228-428 [facility]2018-08-10 20:57:00 Test Item Value Reference Range Interpretation Comments Iron (test code = Iron) 112 45-160 [facility]2018-08-10 20:57:00 Test Item Value Reference Range Interpretation Comments % Satur Fe (test code = % Satur Fe) 30 12-57 [facility]2018-08-10 20:57:00 Test Item Value Reference Range Interpretation Comments UIBC (test code = UIBC) 266 110-370 [facility]2018-08-10 20:57:00 Test Item Value Reference Range Interpretation Comments Ferritin Lvl (test code = Ferritin Lvl) 106 22-[address] [facility]2018-08-10 20:57:00 Test Item Value Reference Range Interpretation Comments Albumin Lvl (test code = Albumin Lvl) 4.2 3.5-5.[address] [facility]2018-08-10 20:57:00 Test Item Value Reference Range Interpretation Comments AST (test code = AST) 44 See_Comment [Auto mated message] The system which ge nerated this result transmit regino reference range : <=37. The reference range was not used to interpr et this result as hudson l/abnormal. [facility]2018-08-10 20:57:00 Test Item Value Reference Range Interpretation Comments ALT (test code = ALT) 33 See_Comment [Auto mated message] The system which ge nerated this result transmit regino reference range : <=65. The reference range was not used to interpr et this result as hudson l/abnormal. [facility]2018-08-10 20:57:00 Test Item Value Reference Range Interpretation Comments Bili Total (test code = Bili Total) 0.8 0.2-1.[address] [facility]2018-08-10 20:57:00 Test Item Value Reference Range Interpretation Comments Alk Phos (test code = Alk Phos) 76 39-[address] [facility]2018-08-10 20:57:00 Test Item Value Reference Range Interpretation Comments Bili Direct (test code 0.1 See_Comment [Aut omated message] The = Bili Direct) system which generated this result tra nsmitted reference range : <=0.3. The reference r gasper was not used to int erpret this result as hudson l/abnormal. [facility]2018-08-10 20:57:00 Test Item Value Reference Range Interpretation Comments Bili Indirect (test 0.7 See_Comment [Automa regino message] The code = Bili Indirect) system which generated this result tra nsmitted reference range : <=1.0. The reference r gasper was not used to int erpret this result as normal/abnormal . [facility]2018-08-10 20:57:00 Test Item Value Reference Range Interpretation Comments Total Protein (test code = Total 8.0 6.4-8.4 Protein) [facility]2018-08-10 20:57:00 Test Item Value Reference Range Interpretation Comments A/G Ratio (test code = A/G Ratio) 1.1 1 0.7-1.[address] [facility]2018-08-10 20:57:00 Test Item Value Reference Range Interpretation Comments Globulin (test code = Globulin) 3.8 2.7-4.2 [place] 341468-08-10 20:57:00 Test Item Value Reference Range Interpretation Comments PTT (test code = PTT) 39.2 s 22.9-35.8 [facility] CenterPzavyngLUKYJOQCTX2021-01-58 20:57:00 Test Item Value Reference Range Interpretation Comments INR (test code = INR) 1.31 1 0.85-1.17 [facility] CenterObjrmgrIKCQHANFRV4873-15-20 20:57:00 Test Item Value Reference Range Interpretation Comments PT (test code = PT) 16.4 s 12.0-14.7 [place] [address]-08-10 20:57:00 Test Item Value Reference Range Interpretation Comments MPV (test code = MPV) 9.5 7.4-10.4 [facility] CenterAprflujUSWCRSRHIB0204-05-13 20:57:00 Test Item Value Reference Range Interpretation Comments Platelet (test code = Platelet) 164 133-450 [facility] CenterVleqrwxKQTPXTIZXT9641-74-67 20:57:00 Test Item Value Reference Range Interpretation Comments MCHC (test code = MCHC) 34.0 32.0-36.0 [facility] CenterUjesvcuCTYPWWAIJZ6616-73-32 20:57:00 Test Item Value Reference Range Interpretation Comments RDW (test code = RDW) 16.4 11.5-14.5 [facility] CenterNutnezxAPKPSEZUIJ2509-77-08 20:57:00 Test Item Value Reference Range Interpretation Comments WBC (test code = WBC) 6.4 3.7-10.4 [facility] CenterMpaiabfISLRHJYFDS9886-54-69 20:57:00 Test Item Value Reference Range Interpretation Comments MCV (test code = MCV) 94.5 80.0-94.0 [facility] CenterEcinireYGWOMVSXHL6241-08-67 20:57:00 Test Item Value Reference Range Interpretation Comments Hct (test code = Hct) 45.8 42.0-54.0 [facility] CenterPjdeonfONLXCTWJFG9957-38-52 20:57:00 Test Item Value Reference Range Interpretation Comments MCH (test code = MCH) 32.1 pg 27.0-31.0 [facility] CenterZrcmdjaQWXJDKKNYY6746-96-72 20:57:00 Test Item Value Reference Range Interpretation Comments RBC (test code = RBC) 4.85 4.70-6.10 [facility] CenterHicodwhZGCRUTOWGM3760-42-03 20:57:00 Test Item Value Reference Range Interpretation Comments Hgb (test code = Hgb) 15.6 14.0-18.0 [facility] CenterCyibcbkYSKKIYXMNU2555-89-23 20:57:00 Test Item Value Reference Range Interpretation Comments Monocytes # (test code 0.4 See_Comment [Aut omated message] The = Monocytes #) system which generated this result tra nsmitted reference range : <=0.8. The reference r gasper was not used to int erpret this result as normal/abnormal . [facility] CenterDnkbndjFKSJFNQHBW3568-35-82 20:57:00 Test Item Value Reference Range Interpretation Comments Eosinophils # (test code 0.2 See_Comment [A utomated message] The = Eosinophils #) system whic h generated this result tra nsmitted reference range : <=0.5. The reference r gasper was not used to int erpret this result as normal/abnormal . [facility] CenterOyiiljvPFMABNLCNK2045-31-06 20:57:00 Test Item Value Reference Range Interpretation Comments Eosinophils (test code = 3.2 See_Comment [A utomated message] The Eosinophils) system which ge nerated this result tra nsmitted reference range : <=4.0. The reference r gasper was not used to int erpret this result as normal/abnormal . [facility] CenterCqjhikgRSBEKODSKX6111-24-65 20:57:00 Test Item Value Reference Range Interpretation Comments Neutrophils # (test code = Neutrophils 3.1 1.5-8.1 #) [facility] CenterMwquvkbSBFNXWSJGA3760-87-60 20:57:00 Test Item Value Reference Range Interpretation Comments Basophils (test code = 0.7 See_Comment [Aut omated message] The Basophils) system which ge nerated this result tra nsmitted reference range : <=1.0. The reference r gasper was not used to int erpret this result as normal/abnormal . [facility] CenterOvlpunfBYBVRFJVRE6191-56-49 20:57:00 Test Item Value Reference Range Interpretation Comments Lymphocytes (test code = Lymphocytes) 40.4 20.0-40.0 [facility] CenterFvldyqjPRIMHWEEGU3926-52-64 20:57:00 Test Item Value Reference Range Interpretation Comments Segs (test code = Segs) 49.3 45.0-75.0 [facility] CenterEsppwjqNALPCYJFQW9825-77-39 20:57:00 Test Item Value Reference Range Interpretation Comments Monocytes (test code = Monocytes) 6.4 2.0-12.0 [facility] CenterMqvftlyRJEEBXNOQU0003-64-45 20:57:00 Test Item Value Reference Range Interpretation Comments Lymphocytes # (test code = Lymphocytes 2.6 1.0-5.5 #) [facility] CenterZjoskppMILSTNCTZK2319-61-61 20:57:00 Test Item Value Reference Range Interpretation Comments Retic Auto (test code = Retic Auto) 1.6 0.5-1.5 [facility]anoWiczfsqEFTJUH5320-23-74 20:57:00 Test Item Value Reference Range Interpretation Comments Trig (test code = Trig) 279 [facility]IclxfsvQKSYBM7301-49-17 20:57:00 Test Item Value Reference Range Interpretation Comments HDL (test code = HDL) 35 [facility] HospitalIqcewahBSAWVH7218-48-77 20:57:00 Test Item Value Reference Range Interpretation Comments LDL (Calculated) (test code = LDL 71 (Calculated)) [facility] HospitalQilmlcfHZVPXV0075-08-02 20:57:00 Test Item Value Reference Range Interpretation Comments VLDL (test code = VLDL) 56 1 [facility] HospitalFpiluvmGDIVUM3614-84-17 20:57:00 Test Item Value Reference Range Interpretation Comments Chol (test code = Chol) 162 [facility] HospitalEaqruxqSUGZKE9347-26-60 20:57:00 Test Item Value Reference Range Interpretation Comments CHD Risk (test code = CHD Risk) 4.63 1 4.00-7.30 [facility] HospitalPARATHYROID TDEUMCT4933-84-55 20:57:00 Test Item Value Reference Range Interpretation Comments Ca Ion WB (test code = Ca Ion WB) 1.07 1.05-1.25 [facility]annPARATHYROID ZCOTHFF8758-44-03 20:57:00 Test Item Value Reference Range Interpretation Comments Ca Norm WB (test code = Ca Norm WB) 1.03 1.05-1.25 [facility] SKWLJJJEF5576-79-18 20:57:00 Test Item Value Reference Range Interpretation Comments Hgb A1C (test code = Hgb A1C) 6.1 [facility] XTJYD0471-58-25 20:57:00 Test Item Value Reference Range Interpretation Comments TIBC (test code = TIBC) 378 228-428 [facility] KXXJZ1705-82-24 20:57:00 Test Item Value Reference Range Interpretation Comments Iron (test code = Iron) 112 45-160 [facility] FKPSZ7333-65-05 20:57:00 Test Item Value Reference Range Interpretation Comments % Satur Fe (test code = % Satur Fe) 30 12-57 [facility] SDZGC8962-10-20 20:57:00 Test Item Value Reference Range Interpretation Comments UIBC (test code = UIBC) 266 110-370 [facility] LUBRO0535-43-16 20:57:00 Test Item Value Reference Range Interpretation Comments Ferritin Lvl (test code = Ferritin Lvl) 106 22-[address] [facility]2018-08-10 20:57:00 Test Item Value Reference Range Interpretation Comments Albumin Lvl (test code = Albumin Lvl) 4.2 3.5-5.0 [place] 737918-08-10 20:57:00 Test Item Value Reference Range Interpretation Comments AST (test code = AST) 44 See_Comment [Auto mated message] The system which ge nerated this result transmit regino reference range : <=37. The reference range was not used to interpr et this result as hudson l/abnormal. [facility]2018-08-10 20:57:00 Test Item Value Reference Range Interpretation Comments ALT (test code = ALT) 33 See_Comment [Auto mated message] The system which ge nerated this result transmit regino reference range : <=65. The reference range was not used to interpr et this result as hudson l/abnormal. [place] 737918-08-10 20:57:00 Test Item Value Reference Range Interpretation Comments Bili Total (test code = Bili Total) 0.8 0.2-1.[address] [facility]2018-08-10 20:57:00 Test Item Value Reference Range Interpretation Comments Alk Phos (test code = Alk Phos) 76 39-[address] [facility]2018-08-10 20:57:00 Test Item Value Reference Range Interpretation Comments Bili Direct (test code 0.1 See_Comment [Aut omated message] The = Bili Direct) system which generated this result tra nsmitted reference range : <=0.3. The reference r gasper was not used to int erpret this result as hudson l/abnormal. [facility]2018-08-10 20:57:00 Test Item Value Reference Range Interpretation Comments Bili Indirect (test 0.7 See_Comment [Automa regino message] The code = Bili Indirect) system which generated this result tra nsmitted reference range : <=1.0. The reference r gasper was not used to int erpret this result as normal/abnormal . [place] 737918-08-10 20:57:00 Test Item Value Reference Range Interpretation Comments Total Protein (test code = Total 8.0 6.4-8.4 Protein) [facility]2018-08-10 20:57:00 Test Item Value Reference Range Interpretation Comments A/G Ratio (test code = A/G Ratio) 1.1 1 0.7-1.[address] [facility]2018-08-10 20:57:00 Test Item Value Reference Range Interpretation Comments Globulin (test code = Globulin) 3.8 2.7-4.2 [facility] CenterQzsyrqsLXNGNKIPEA5945-48-89 20:57:00 Test Item Value Reference Range Interpretation Comments PTT (test code = PTT) 39.2 s 22.9-35.8 [facility] CenterSahvzxxQKUAQZMTTJ4343-01-65 20:57:00 Test Item Value Reference Range Interpretation Comments INR (test code = INR) 1.31 1 0.85-1.17 [facility] CenterDtljmewSIAPCBHLPS5120-02-91 20:57:00 Test Item Value Reference Range Interpretation Comments PT (test code = PT) 16.4 s 12.0-14.7 [facility] CenterElsjyixFRUFKIRMUT2321-45-61 20:57:00 Test Item Value Reference Range Interpretation Comments MPV (test code = MPV) 9.5 7.4-10.4 [facility] CenterZuiijxoMHDGFGAFTW0644-97-66 20:57:00 Test Item Value Reference Range Interpretation Comments Platelet (test code = Platelet) 164 133-450 [facility] CenterAdttknqUEXJNDSPFV6932-48-22 20:57:00 Test Item Value Reference Range Interpretation Comments MCHC (test code = MCHC) 34.0 32.0-36.0 [facility] CenterNkejwyeQCNGGNZFEB0601-34-66 20:57:00 Test Item Value Reference Range Interpretation Comments RDW (test code = RDW) 16.4 11.5-14.5 [facility] CenterXmihrwmWLSNDCIARS9825-56-08 20:57:00 Test Item Value Reference Range Interpretation Comments WBC (test code = WBC) 6.4 3.7-10.4 [facility] CenterKgbuvjzMUIVBUGCHP0886-80-27 20:57:00 Test Item Value Reference Range Interpretation Comments MCV (test code = MCV) 94.5 80.0-94.0 [facility] CenterWouflhmJCBDVTDCJI0461-26-95 20:57:00 Test Item Value Reference Range Interpretation Comments Hct (test code = Hct) 45.8 42.0-54.0 [facility] CenterLrmgkbyWROVFJOSLA3633-97-58 20:57:00 Test Item Value Reference Range Interpretation Comments MCH (test code = MCH) 32.1 pg 27.0-31.0 [facility] CenterIfovapbDLLZEQHBEX4928-17-45 20:57:00 Test Item Value Reference Range Interpretation Comments RBC (test code = RBC) 4.85 4.70-6.10 [facility] CenterXckjtelHUOHSHCJZQ2898-76-58 20:57:00 Test Item Value Reference Range Interpretation Comments Hgb (test code = Hgb) 15.6 14.0-18.0 [facility] CenterKqdlubxURQHGUXDWF6009-46-98 20:57:00 Test Item Value Reference Range Interpretation Comments Monocytes # (test code 0.4 See_Comment [Aut omated message] The = Monocytes #) system which generated this result tra nsmitted reference range : <=0.8. The reference r gasper was not used to int erpret this result as normal/abnormal . [facility] CenterJseewvvRGJYIBDMJN0132-59-00 20:57:00 Test Item Value Reference Range Interpretation Comments Eosinophils # (test code 0.2 See_Comment [A utomated message] The = Eosinophils #) system [facility] h generated this result tra nsmitted reference range : <=0.5. The reference r gasper was not used to int erpret this result as normal/abnormal . [facility] CenterVgusqoyZMRYNVFVFU7568-49-82 20:57:00 Test Item Value Reference Range Interpretation Comments Eosinophils (test code = 3.2 See_Comment [A utomated message] The Eosinophils) system which ge nerated this result tra nsmitted reference range : <=4.0. The reference r gasper was not used to int erpret this result as normal/abnormal . [facility] CenterFvaqpnaMJZYNJGMIQ3199-76-42 20:57:00 Test Item Value Reference Range Interpretation Comments Neutrophils # (test code = Neutrophils 3.1 1.5-8.1 #) [facility] CenterEendepnFLOVYUMLAS7828-83-01 20:57:00 Test Item Value Reference Range Interpretation Comments Basophils (test code = 0.7 See_Comment [Aut omated message] The Basophils) system which ge nerated this result tra nsmitted reference range : <=1.0. The reference r gasper was not used to int erpret this result as normal/abnormal . [facility] CenterNjfapozEXFWYOQADR3049-13-91 20:57:00 Test Item Value Reference Range Interpretation Comments Lymphocytes (test code = Lymphocytes) 40.4 20.0-40.0 [facility]yt[facility]ivaESXMGMNYBZ9362-57-05 20:57:00 Test Item Value Reference Range Interpretation Comments Segs (test code = Segs) 49.3 45.0-75.0 [facility] GladwinRkfzljpDLRALLTZWO3916-24-70 20:57:00 Test Item Value Reference Range Interpretation Comments Monocytes (test code = Monocytes) 6.4 2.0-12.0 [facility] GladwinYoassnoHVZIUZVFGO0674-46-23 20:57:00 Test Item Value Reference Range Interpretation Comments Lymphocytes # (test code = Lymphocytes 2.6 1.0-5.5 #) [facility]IfxagvnXYITGRDSJJ9830-24-14 20:57:00 Test Item Value Reference Range Interpretation Comments Retic Auto (test code = Retic Auto) 1.6 0.5-1.5 [facility]XhcisdiWSSHZB3698-18-84 20:57:00 Test Item Value Reference Range Interpretation Comments Trig (test code = Trig) 279 [facility] HospitalRrclpicSAPQUH3953-48-71 20:57:00 Test Item Value Reference Range Interpretation Comments HDL (test code = HDL) 35 [facility] HospitalZbfrndpQLZWFI6081-20-33 20:57:00 Test Item Value Reference Range Interpretation Comments LDL (Calculated) (test code = LDL 71 (Calculated)) [facility] HospitalCvarqcaTDNMFA3833-93-10 20:57:00 Test Item Value Reference Range Interpretation Comments VLDL (test code = VLDL) 56 1 [facility] HospitalEfdpopyXVSXXN4290-61-89 20:57:00 Test Item Value Reference Range Interpretation Comments Chol (test code = Chol) 162 [facility] HospitalLgxljxiJMTGZP9156-67-34 20:57:00 Test Item Value Reference Range Interpretation Comments CHD Risk (test code = CHD Risk) 4.63 1 4.00-7.30 [facility] HospitalannPARATHYROID YBIQMWH5178-19-98 20:57:00 Test Item Value Reference Range Interpretation Comments Ca Ion WB (test code = Ca Ion WB) 1.07 1.05-1.25 [facility] HospitalannPARATHYROID XKYHMVW7778-92-14 20:57:00 Test Item Value Reference Range Interpretation Comments Ca Norm WB (test code = Ca Norm WB) 1.03 1.05-1.25 [facility] HospitalSPECIAL MINWSSROQ2538-71-08 20:57:00 Test Item Value Reference Range Interpretation Comments Hgb A1C (test code = Hgb A1C) 6.1 [facility]2018-08-10 20:57:00 Test Item Value Reference Range Interpretation Comments TIBC (test code = TIBC) 378 228-428 [facility]2018-08-10 20:57:00 Test Item Value Reference Range Interpretation Comments Iron (test code = Iron) 112 45-160 [facility]2018-08-10 20:57:00 Test Item Value Reference Range Interpretation Comments % Satur Fe (test code = % Satur Fe) 30 12-57 [facility]2018-08-10 20:57:00 Test Item Value Reference Range Interpretation Comments UIBC (test code = UIBC) 266 110-370 [facility]2018-08-10 20:57:00 Test Item Value Reference Range Interpretation Comments Ferritin Lvl (test code = Ferritin Lvl) 106 22-[address] [facility]2018-08-10 20:57:00 Test Item Value Reference Range Interpretation Comments Albumin Lvl (test code = Albumin Lvl) 4.2 3.5-5.[address] [facility]2018-08-10 20:57:00 Test Item Value Reference Range Interpretation Comments AST (test code = AST) 44 See_Comment [Auto mated message] The system which ge nerated this result transmit regino reference range : <=37. The reference range was not used to interpr et this result as hudson l/abnormal. [facility]2018-08-10 20:57:00 Test Item Value Reference Range Interpretation Comments ALT (test code = ALT) 33 See_Comment [Auto mated message] The system which ge nerated this result transmit regino reference range : <=65. The reference range was not used to interpr et this result as hudson l/abnormal. [facility]2018-08-10 20:57:00 Test Item Value Reference Range Interpretation Comments Bili Total (test code = Bili Total) 0.8 0.2-1.[address] [facility]2018-08-10 20:57:00 Test Item Value Reference Range Interpretation Comments Alk Phos (test code = Alk Phos) 76 39-[address] [facility]2018-08-10 20:57:00 Test Item Value Reference Range Interpretation Comments Bili Direct (test code 0.1 See_Comment [Aut omated message] The = Bili Direct) system which generated this result tra nsmitted reference range : <=0.3. The reference r gasper was not used to int erpret this result as hudson l/abnormal. [facility]2018-08-10 20:57:00 Test Item Value Reference Range Interpretation Comments Bili Indirect (test 0.7 See_Comment [Automa regino message] The code = Bili Indirect) system which generated this result tra nsmitted reference range : <=1.0. The reference r gasper was not used to int erpret this result as normal/abnormal . [facility]2018-08-10 20:57:00 Test Item Value Reference Range Interpretation Comments Total Protein (test code = Total 8.0 6.4-8.4 Protein) [facility]2018-08-10 20:57:00 Test Item Value Reference Range Interpretation Comments A/G Ratio (test code = A/G Ratio) 1.1 1 0.7-1.[address] [facility]2018-08-10 20:57:00 Test Item Value Reference Range Interpretation Comments Globulin (test code = Globulin) 3.8 2.7-4.2 [facility] CenterNchrtcgTZDDGPUBGV1312-59-31 20:57:00 Test Item Value Reference Range Interpretation Comments PTT (test code = PTT) 39.2 s 22.9-35.8 [place] 341468-08-10 20:57:00 Test Item Value Reference Range Interpretation Comments INR (test code = INR) 1.31 1 0.85-1.17 [facility] CenterRvsifioEANTROSFQC4852-00-58 20:57:00 Test Item Value Reference Range Interpretation Comments PT (test code = PT) 16.4 s 12.0-14.7 [place] 341468-08-10 20:57:00 Test Item Value Reference Range Interpretation Comments MPV (test code = MPV) 9.5 7.4-10.4 [facility] CenterVbawoucYJWMFVIMWF7334-24-86 20:57:00 Test Item Value Reference Range Interpretation Comments Platelet (test code = Platelet) 164 133-450 [facility] CenterVfpfqjsFPYAYAPCPR9679-63-69 20:57:00 Test Item Value Reference Range Interpretation Comments MCHC (test code = MCHC) 34.0 32.0-36.0 [facility] CenterAorxyxrPUJCHRKPUF9893-08-71 20:57:00 Test Item Value Reference Range Interpretation Comments RDW (test code = RDW) 16.4 11.5-14.5 [facility] CenterZhntcnuKQJFUTDPIB1268-52-70 20:57:00 Test Item Value Reference Range Interpretation Comments WBC (test code = WBC) 6.4 3.7-10.4 [facility] CenterKqxrayeIZWVWVONWX3378-05-67 20:57:00 Test Item Value Reference Range Interpretation Comments MCV (test code = MCV) 94.5 80.0-94.0 [facility] CenterIpjtjmyNODXRNZSAP9579-27-96 20:57:00 Test Item Value Reference Range Interpretation Comments Hct (test code = Hct) 45.8 42.0-54.0 [facility] CenterHkmogpmAUEBSWCWEJ4772-71-38 20:57:00 Test Item Value Reference Range Interpretation Comments MCH (test code = MCH) 32.1 pg 27.0-31.0 [facility] CenterYpzzufyZTOIWJHDUY5405-60-44 20:57:00 Test Item Value Reference Range Interpretation Comments RBC (test code = RBC) 4.85 4.70-6.10 [facility] CenterVackpkhQODZAYXRJS2382-49-61 20:57:00 Test Item Value Reference Range Interpretation Comments Hgb (test code = Hgb) 15.6 14.0-18.0 [facility] CenterTvgxpasKBADUUNKRS5257-15-17 20:57:00 Test Item Value Reference Range Interpretation Comments Monocytes # (test code 0.4 See_Comment [Aut omated message] The = Monocytes #) system which generated this result tra nsmitted reference range : <=0.8. The reference r gasper was not used to int erpret this result as normal/abnormal . [facility] CenterXkmojdtAREGKBLQAF3427-37-80 20:57:00 Test Item Value Reference Range Interpretation Comments Eosinophils # (test code 0.2 See_Comment [A utomated message] The = Eosinophils #) system whic h generated this result tra nsmitted reference range : <=0.5. The reference r gasper was not used to int erpret this result as normal/abnormal . [facility] CenterPuwugycBENVSTKXKW4128-24-44 20:57:00 Test Item Value Reference Range Interpretation Comments Eosinophils (test code = 3.2 See_Comment [A utomated message] The Eosinophils) system which ge nerated this result tra nsmitted reference range : <=4.0. The reference r gasper was not used to int erpret this result as normal/abnormal . [facility] CenterQdxmteoOJWICEQKOB9798-05-97 20:57:00 Test Item Value Reference Range Interpretation Comments Neutrophils # (test code = Neutrophils 3.1 1.5-8.1 #) [facility] CenterEbyzwecGKYMTSAGZD6627-10-23 20:57:00 Test Item Value Reference Range Interpretation Comments Basophils (test code = 0.7 See_Comment [Aut omated message] The Basophils) system which ge nerated this result tra nsmitted reference range : <=1.0. The reference r gasper was not used to int erpret this result as normal/abnormal . [facility] CenterCdlpprtLMFKUINTKG5340-44-64 20:57:00 Test Item Value Reference Range Interpretation Comments Lymphocytes (test code = Lymphocytes) 40.4 20.0-40.0 [facility] CenterGcowaxgKUQRQCHEEF6220-81-01 20:57:00 Test Item Value Reference Range Interpretation Comments Segs (test code = Segs) 49.3 45.0-75.0 [facility] CenterPzapebyMRIPOGZJAS0874-20-55 20:57:00 Test Item Value Reference Range Interpretation Comments Monocytes (test code = Monocytes) 6.4 2.0-12.0 [facility] CenterZfyrqceUJLOWTKYGP7251-04-06 20:57:00 Test Item Value Reference Range Interpretation Comments Lymphocytes # (test code = Lymphocytes 2.6 1.0-5.5 #) [facility] CenterQzspwgmMIRLQVMAQW9469-19-21 20:57:00 Test Item Value Reference Range Interpretation Comments Retic Auto (test code = Retic Auto) 1.6 0.5-1.5 [facility]CwhuhejFEDAWY7752-11-59 20:57:00 Test Item Value Reference Range Interpretation Comments Trig (test code = Trig) 279 [facility]anoPdloyaqMXQWUH7907-15-31 20:57:00 Test Item Value Reference Range Interpretation Comments HDL (test code = HDL) 35 [facility]anoVpbcwcbRJHJVM5021-47-43 20:57:00 Test Item Value Reference Range Interpretation Comments LDL (Calculated) (test code = LDL 71 (Calculated)) [facility] PlanoKulnoadKGCTKG4915-47-38 20:57:00 Test Item Value Reference Range Interpretation Comments VLDL (test code = VLDL) 56 1 [facility] HospitalSjjdyubDKMXKE4429-29-76 20:57:00 Test Item Value Reference Range Interpretation Comments Chol (test code = Chol) 162 [facility] HospitalUokaekaHPMGLE6034-09-25 20:57:00 Test Item Value Reference Range Interpretation Comments CHD Risk (test code = CHD Risk) 4.63 1 4.00-7.30 [facility] CenterROID KSXBRYF6586-58-04 20:57:00 Test Item Value Reference Range Interpretation Comments Ca Ion WB (test code = Ca Ion WB) 1.07 1.05-1.25 [facility] CenterROID BNXXJBX9921-56-60 20:57:00 Test Item Value Reference Range Interpretation Comments Ca Norm WB (test code = Ca Norm WB) 1.03 1.05-1.25 [facility] PAVQGIENU9012-73-56 20:57:00 Test Item Value Reference Range Interpretation Comments Hgb A1C (test code = Hgb A1C) 6.1 [facility] GFIUD0670-97-71 20:57:00 Test Item Value Reference Range Interpretation Comments TIBC (test code = TIBC) 378 228-428 [facility] GZULL3221-98-01 20:57:00 Test Item Value Reference Range Interpretation Comments Iron (test code = Iron) 112 45-160 [facility]2018-08-10 20:57:00 Test Item Value Reference Range Interpretation Comments % Satur Fe (test code = % Satur Fe) 30 12-57 [facility]2018-08-10 20:57:00 Test Item Value Reference Range Interpretation Comments UIBC (test code = UIBC) 266 110-370 [facility] YHXSS7720-25-84 20:57:00 Test Item Value Reference Range Interpretation Comments Ferritin Lvl (test code = Ferritin Lvl) 106 22-275 [facility] HospitalWochacha EZMIM8977-60-96 20:57:00 Test Item Value Reference Range Interpretation Comments Albumin Lvl (test code = Albumin Lvl) 4.2 3.5-5.0 [facility] ALWDK5924-82-19 20:57:00 Test Item Value Reference Range Interpretation Comments AST (test code = AST) 44 See_Comment [Auto mated message] The system which ge nerated this result transmit regino reference range : <=37. The reference range was not used to interpr et this result as hudson l/abnormal. [facility]2018-08-10 20:57:00 Test Item Value Reference Range Interpretation Comments ALT (test code = ALT) 33 See_Comment [Auto mated message] The system which ge nerated this result transmit regino reference range : <=65. The reference range was not used to interpr et this result as hudson l/abnormal. [facility]2018-08-10 20:57:00 Test Item Value Reference Range Interpretation Comments Bili Total (test code = Bili Total) 0.8 0.2-1.[address] [facility]2018-08-10 20:57:00 Test Item Value Reference Range Interpretation Comments Alk Phos (test code = Alk Phos) 76 39-[address] [facility]2018-08-10 20:57:00 Test Item Value Reference Range Interpretation Comments Bili Direct (test code 0.1 See_Comment [Aut omated message] The = Bili Direct) system which generated this result tra nsmitted reference range : <=0.3. The reference r gasper was not used to int erpret this result as hudson l/abnormal. [facility]2018-08-10 20:57:00 Test Item Value Reference Range Interpretation Comments Bili Indirect (test 0.7 See_Comment [Automa regino message] The code = Bili Indirect) system which generated this result tra nsmitted reference range : <=1.0. The reference r gasper was not used to int erpret this result as normal/abnormal . [facility]2018-08-10 20:57:00 Test Item Value Reference Range Interpretation Comments Total Protein (test code = Total 8.0 6.4-8.4 Protein) [facility]2018-08-10 20:57:00 Test Item Value Reference Range Interpretation Comments A/G Ratio (test code = A/G Ratio) 1.1 1 0.7-1.[address] [facility]2018-08-10 20:57:00 Test Item Value Reference Range Interpretation Comments Globulin (test code = Globulin) 3.8 2.7-4.2 [facility] CenterUvyeuxlRUNLUYKLYE9672-68-15 20:57:00 Test Item Value Reference Range Interpretation Comments PTT (test code = PTT) 39.2 s 22.9-35.8 [facility] CenterJyqpmmpSOEIVLBOMJ5916-64-01 20:57:00 Test Item Value Reference Range Interpretation Comments INR (test code = INR) 1.31 1 0.85-1.17 [facility] CenterOuvcvrvNPCJUVDFJL1376-91-14 20:57:00 Test Item Value Reference Range Interpretation Comments PT (test code = PT) 16.4 s 12.0-14.7 [facility] CenterHlpocgsWXGAGOMCMW6276-06-12 20:57:00 Test Item Value Reference Range Interpretation Comments MPV (test code = MPV) 9.5 7.4-10.4 [facility] CenterTfblqsmOIBKRSYKJF1574-91-20 20:57:00 Test Item Value Reference Range Interpretation Comments Platelet (test code = Platelet) 164 133-450 [facility] CenterDquvbuuCYCTUKZXVM6370-14-63 20:57:00 Test Item Value Reference Range Interpretation Comments MCHC (test code = MCHC) 34.0 32.0-36.0 [facility] CenterMoixzcaTTPJVXYUJA7999-72-68 20:57:00 Test Item Value Reference Range Interpretation Comments RDW (test code = RDW) 16.4 11.5-14.5 [facility] CenterPorypddALGPYOOKXA0877-01-27 20:57:00 Test Item Value Reference Range Interpretation Comments WBC (test code = WBC) 6.4 3.7-10.4 [facility] CenterLcccuauTKIMJTIUIH7658-75-09 20:57:00 Test Item Value Reference Range Interpretation Comments MCV (test code = MCV) 94.5 80.0-94.0 [facility] CenterMebrneuFSMMJUCCEZ5008-23-01 20:57:00 Test Item Value Reference Range Interpretation Comments Hct (test code = Hct) 45.8 42.0-54.0 [facility] CenterEzaoqyvFPHITGCWNP1330-36-43 20:57:00 Test Item Value Reference Range Interpretation Comments MCH (test code = MCH) 32.1 pg 27.0-31.0 [facility] CenterUnxmqxaFWPOCFEEFA0108-08-60 20:57:00 Test Item Value Reference Range Interpretation Comments RBC (test code = RBC) 4.85 4.70-6.10 [facility] CenterKllascnGFJFXDFNXQ8582-89-44 20:57:00 Test Item Value Reference Range Interpretation Comments Hgb (test code = Hgb) 15.6 14.0-18.0 [facility] CenterKxgxaoyHRAXSFVIEB1647-77-29 20:57:00 Test Item Value Reference Range Interpretation Comments Monocytes # (test code 0.4 See_Comment [Aut omated message] The = Monocytes #) system which generated this result tra nsmitted reference range : <=0.8. The reference r gasper was not used to int erpret this result as normal/abnormal . [facility] CenterRfpulygEGHKSPGWEH3142-90-40 20:57:00 Test Item Value Reference Range Interpretation Comments Eosinophils # (test code 0.2 See_Comment [A utomated message] The = Eosinophils #) system whic h generated this result tra nsmitted reference range : <=0.5. The reference r gasper was not used to int erpret this result as normal/abnormal . [facility] CenterDkggmpmKWWUHRLGJH8071-38-26 20:57:00 Test Item Value Reference Range Interpretation Comments Eosinophils (test code = 3.2 See_Comment [A utomated message] The Eosinophils) system which ge nerated this result tra nsmitted reference range : <=4.0. The reference r gasper was not used to int erpret this result as normal/abnormal . [facility] CenterVcstdbbGMSXVBRJZK4463-50-87 20:57:00 Test Item Value Reference Range Interpretation Comments Neutrophils # (test code = Neutrophils 3.1 1.5-8.1 #) [facility] CenterEyeibtuMULUHESDWD4616-10-32 20:57:00 Test Item Value Reference Range Interpretation Comments Basophils (test code = 0.7 See_Comment [Aut omated message] The Basophils) system which ge nerated this result tra nsmitted reference range : <=1.0. The reference r gasper was not used to int erpret this result as normal/abnormal . [facility] CenterKlenedvZRHPGZIQYN1788-06-92 20:57:00 Test Item Value Reference Range Interpretation Comments Lymphocytes (test code = Lymphocytes) 40.4 20.0-40.0 [facility] CenterFfzyybsUAPRMZIYUD9997-82-45 20:57:00 Test Item Value Reference Range Interpretation Comments Segs (test code = Segs) 49.3 45.0-75.0 [facility] CenterLbulkklKBIUHJDQJT4316-64-47 20:57:00 Test Item Value Reference Range Interpretation Comments Monocytes (test code = Monocytes) 6.4 2.0-12.0 [facility] CenterQwqblngCUNRYYRFOU4208-25-09 20:57:00 Test Item Value Reference Range Interpretation Comments Lymphocytes # (test code = Lymphocytes 2.6 1.0-5.5 #) Prince Arizmendi Notes Date/Time Note Provider Source 2022-07-23 14:20:00-00:00 THIS REPORT HAS BEEN APPENDED [facility] [id number] [place] [address] PATIENT NAME: ARSEN AMARO ADMIT DATE: 07/23/22 ACCOUNT NO: [id number] ROOM NO: MARCELINO AGE: 72 REPORT TYPE: eECHOCARDIOGRAM REPORT SEX: M ADMITTING PHYSICIAN:Yoel Raymundo MD ATTENDING PHYSICIAN:Yoel Raymundo MD *[place] [address] Limited Transthoracic Echocardiogram Patient: Arsen Amaro Study Date: 07/23/2022 BP: 108 / 62 Location: [facility] URN: [id number] : 1950 Age: 72 Height: 73 in / 185.4 cm Gender: M Weight: 194 .6 lb / 88.5 kg BMI/BSA: 25.7 kg/m 2 / 2.13 m 2 *Ordering Physician: * Quinton [place] *Interpreting Physician: * Pily Perez MD *Maintenance Mechanic 2Nd Shift: * Danna Mccoy Indications: Rule out pericardial effusion. Study data: Transthoracic echocardiogram, limite d study. Procedure: Transthoracic echocardiography was performed. Im age quality was adequate. Limited 2D and limited spectral Dopple r. Location: [facility]. Patient status: Outpatient. Patient room number: DIVYA 22. Study status: [place]. Rhythm: Tachycardia. Findings Left ventricle: The cavity size is normal. Wall thickness is moderately increased. Systolic function is at the lower bowser its of normal. The estimated ejection fraction is 50-54%. Regional wall motion PATIENT NAME: ARSEN AMARO abnormalities: Cannot exclude . Left ventricular diastolic function parameters are indeterminate due to tachycardia. Right ventricle: The cavity size is dilated. Sys tolic pressure is severely increased. Ventricular septum: There is diastolic flattenin g. Left atrium: The atrium is normal in size. Right atrium: The atrium is dilated. Aorta: Aortic root: The aortic root is normal in size. Aortic valve: The valve is trileaflet. The leafl ets are severely calcified. The findings are consistent with mode rate stenosis; however, may be well underestimated due to tachycardic rh ythm. There is mild regurgitation. Mitral valve: The valve is structurally normal. There is no evidence of stenosis. There is mild regurgitatio n. Tricuspid valve: Estimated right ventricular sys tolic pressure is 74 mmHg. The valve is structurally normal. There is moderate-severe regurgitation. Pulmonic valve: The valve is structurally normal . There is no regurgitation. Pericardium: A small pericardial effusion is maynor ntified anterior to the heart. Pulmonary arteries: The main pulmonary artery is normal-sized. Systemic veins: Inferior vena cava: The vessel is normal in size . Measurements Left ventricle Value Ref DORYS, LAX 3.4 cm 4.2 - 5.8 ESD, LAX 2.7 cm 2.5 - 4.0 ESD/bsa, LAX 1.3 cm/m 2 1.3 - 2.1 FS, LAX 6 % 25 - 43 PW, ED 1.2 cm 0.6 - 1.0 IVS/PW, ED 1.42 --------- EF 14 % 52 - 72 LVOT Value Ref Diam, S 1.94 cm --------- Area 3.0 cm 2 --------- Ventricular septum Value Ref IVS, ED 1.7 cm 0.6 - 1.0 Right ventricle Value Ref DORYS, LAX 4.3 cm --------- Left atrium Value Ref Vol/bsa, ES, 1-p A4C 30 ml/m 2 12 - 37 Vol, ES, 2-p 61 ml --------- Vol/bsa, ES, 2-p 29 ml/m 2 16 - 34 Vol/bsa, ES, A/L 32 ml/m 2 16 - 34 PATIENT NAME: ARSEN AMARO Right atrium Value Ref Area, ES 32 cm 2 10 - 18 SI dim, ES, A4C 6.6 cm 3.4 - 5.3 SI dim/bsa, ES, A4C 3.1 cm/m 2 1.8 - 3.0 Vol, ES, A/L 131 ml --------- Vol, ES, 1-p A4C 121 ml --------- Vol/bsa, ES, 1-p A4C 57 ml/m 2 11 - 39 Aortic valve Value Ref Peak v, S 2.9 m/sec --------- Mean v, S 1.95 m/sec --------- VTI, S 49.1 cm --------- Mean grad, S 17.3 mm Hg --------- Peak grad, S 33.6 mm Hg --------- AR peak v 3.21 m/sec --------- AR decel 138 cm/s 2 --------- AR decel time 2327 ms --------- AR PHT 675 ms --------- AR peak grad 41 mm Hg --------- Tricuspid valve Value Ref TR peak v 3.73 m/sec <=2.8 Peak RV-RA grad, S 56 mm Hg --------- Conclusions Summary: 1. Left ventricle: The cavity size is normal. Wa ll thickness is moderately increased. Systolic function is at t he lower limits of normal. The estimated ejection fraction is 50-5 4%. Cannot exclude . Left ventricular diastolic function parameters are indeterminate due to tachycardia. 2. Right ventricle: The cavity size is dilated. Systolic pressure is severely increased. 3. Right atrium: The atrium is dilated. 4. Aortic valve: The findings are moderate steno sis; however, may be well understimated due to tachycardic rhythm. T here is mild regurgitation. 5. Mitral valve: There is mild regurgitation. 6. Tricuspid valve: Estimated right ventricular systolic pressure is 74 mmHg. There is moderate-severe regurgitation. 7. Pericardium, extracardiac: A small pericardia l effusion is identified anterior to the heart. Prepared and electronically signed by Pily Perez MD 07/23/2022 14:20 PATIENT NAME: ARSEN AMARO Electronically Signed by Pily Perez MD on 0 07/23/22 at 1420 SECTION 2 ADDENDUM 1: 07/23/22 1422 [facility] *[address] [place] [address] Limited Transthoracic Echocardiogram (Report amended [id number]) Patient: Arsen Amaro Study Date: 07/23/2022 BP: 108 / 62 Location: [facility] URN: [id number] : 1950 Age: 72 Height: 73 in / 185.4 cm Gender: M Weight: 194 .6 lb / 88.5 kg BMI/BSA: 25.7 kg/m 2 / 2.13 m 2 *Ordering Physician: * Quinton Montanap *Interpreting Physician: * Pily Perez MD *Maintenance Mechanic 2Nd Shift: * Danna Mccoy Indications: Rule out pericardial effusion. Study data: Transthoracic echocardiogram, limite d study. Procedure: Transthoracic echocardiography was performed. Im age quality was adequate. Limited 2D and limited spectral Dopple r. Location: [facility]. Patient status: Outpatient. Patient room number: BAY 22. Study status: [facility]. Rhythm: Tachycardia. Findings Left ventricle: The cavity size is normal. Wall thickness is moderately increased. Systolic function is at the lower bowser its of normal. The estimated ejection fraction is 50-54%. Regional wall motion abnormalities: Cannot exclude . Left ventricular diastolic function parameters are indeterminate due to tachycardia. Right ventricle: The cavity size is dilated. Sys tolic pressure is severely increased. Ventricular septum: There is diastolic flattenin g. Left atrium: The atrium is normal in size. Right atrium: The atrium is dilated. Aorta: Aortic root: The aortic root is normal in size. PATIENT NAME: ARSEN AMARO Aortic valve: The valve is trileaflet. The leafl ets are severely calcified. The findings are consistent with mode rate stenosis; however, may be well underestimated due to tachycardic rh ythm. There is mild regurgitation. Mitral valve: The valve is structurally normal. There is no evidence of stenosis. There is mild regurgitatio n. Tricuspid valve: Estimated right ventricular sys tolic pressure is 74 mmHg. The valve is structurally normal. There is moderate-severe regurgitation. Pulmonic valve: The valve is structurally normal . There is no regurgitation. Pericardium: A trivial pericardial effusion is i dentified anterior to the heart. Pulmonary arteries: The main pulmonary artery is normal-sized. Systemic veins: Inferior vena cava: The vessel is normal in size . Measurements Left ventricle Value Ref DORYS, LAX 3.4 cm 4.2 - 5.8 ESD, LAX 2.7 cm 2.5 - 4.0 ESD/bsa, LAX 1.3 cm/m 2 1.3 - 2.1 FS, LAX 6 % 25 - 43 PW, ED 1.2 cm 0.6 - 1.0 IVS/PW, ED 1.42 --------- EF 14 % 52 - 72 LVOT Value Ref Diam, S 1.94 cm --------- Area 3.0 cm 2 --------- Ventricular septum Value Ref IVS, ED 1.7 cm 0.6 - 1.0 Right ventricle Value Ref DORYS, LAX 4.3 cm --------- Left atrium Value Ref Vol/bsa, ES, 1-p A4C 30 ml/m 2 12 - 37 Vol, ES, 2-p 61 ml --------- Vol/bsa, ES, 2-p 29 ml/m 2 16 - 34 Vol/bsa, ES, A/L 32 ml/m 2 16 - 34 Right atrium Value Ref Area, ES 32 cm 2 10 - 18 SI dim, ES, A4C 6.6 cm 3.4 - 5.3 SI dim/bsa, ES, A4C 3.1 cm/m 2 1.8 - 3.0 Vol, ES, A/L 131 ml --------- Vol, ES, 1-p A4C 121 ml --------- Vol/bsa, ES, 1-p A4C 57 ml/m 2 11 - 39 PATIENT NAME: ARSEN AMARO Aortic valve Value Ref Peak v, S 2.9 m/sec --------- Mean v, S 1.95 m/sec --------- VTI, S 49.1 cm --------- Mean grad, S 17.3 mm Hg --------- Peak grad, S 33.6 mm Hg --------- AR peak v 3.21 m/sec --------- AR decel 138 cm/s 2 --------- AR decel time 2327 ms --------- AR PHT 675 ms --------- AR peak grad 41 mm Hg --------- Tricuspid valve Value Ref TR peak v 3.73 m/sec <=2.8 Peak RV-RA grad, S 56 mm Hg --------- Conclusions Summary: 1. Left ventricle: The cavity size is normal. Wa ll thickness is moderately increased. Systolic function is at t he lower limits of normal. The estimated ejection fraction is 50-5 4%. Cannot exclude . Left ventricular diastolic function parameters are indeterminate due to tachycardia. 2. Right ventricle: The cavity size is dilated. Systolic pressure is severely increased. 3. Right atrium: The atrium is dilated. 4. Aortic valve: The findings are moderate steno sis; however, may be well understimated due to tachycardic rhythm. T here is mild regurgitation. 5. Mitral valve: There is mild regurgitation. 6. Tricuspid valve: Estimated right ventricular systolic pressure is 74 mmHg. There is moderate-severe regurgitation. 7. Pericardium, extracardiac: A trivial pericard ial effusion is identified anterior to the heart. Amended Pily Perez MD 07/23/2022 14:22 Electronically Signed by Pily Perez MD on 0 07/23/22 at 1422 PATIENT NAME: ARSEN AMARO 2022-07-23 11:12:00-00:00 [facility] REPORT#:[id number] REPORT STATUS: Signed DATE:07/23/22 TIME: 1112 PATIENT: ARSEN AMARO UNIT #: [id number] ROOM/BED: [place] [id number] : 48 AGE: 72 SEX: M ATTEND: Mary Carmen Raymundo MD ADM AUTHOR: Quinton Montana * ALL edits or amendments must be made on the [employer] ([place] IT/computer document * PCP PCP Discharge to: home General Information Discharge date: 07/23/22 Discharge diagnosis: AFIB Hospital course: Patient with long standing p ersistent atrial fibrillation, CHADSVASC score of 3, and intolerance to long-term anticoagulation due to GI bleeding. Patient is s/p successful implantation of a 27mm Watchman device in the left atrial appendage. Patient tolerated the procedure without post-op complications. No thrombus was identified in the pre-/intra-op MARY ANN. Postoperatively, chest x-ray is negative for any acute process. Post-op echo did show a small pericardial effusion. Patient ambulated without an y difficulty, and heart rate and blood pressure are stable. Right groin suture removed by this ASSEMBLER FINGER BUFFS. No infect ion, bleeding, or hematoma. Dermabond applied and intact. Patient was provided with post-Watchman discharg e instructions. Patient is to follow up with PCP and dye stand loader in 1 to 2 we eks post discharge. Patient is to follow up with dye stand loader for th e 45-day MARY ANN, and for anticoagulation recommendation. Patient is to continue pradaxa for 6 weeks, then transition to aspirin and Plavix. Duration of aspirin is lifelong. Duration of Plavix is 6 months post 45-day MARY ANN. Post-Watchman discharge instructions given to th e patient who verbalized understanding, and patient w as instructed to report any complaints of chest pain , shortness of breath, lightheadedness, or dizzi ness to the dye stand loader. Dispo: It is medically necessary that patients u ndergoing percutaneous left atrial appendage occlusion are admitted as an in patient. This patient had a recovery that was earlier than expected and can be discharged today. Med Rec PCP PCP: PCP: Vikram Turner MD Med Rec Discharge meds: Continue taking these medications: AMBRISENTAN (LETAIRIS) 10 MG TAB 10 MILLIGRAM ORAL DAILY. PREGABALIN (LYRICA) 100 MG CAP 100 MILLIGRAM ORAL THREE TIMES A DAY. [SYMTUZA ] 1 TABLET ORAL DAILY. Instructions: TAKES 800-150--200-10MG BY MOUTH DAILY. FUROSEMIDE (LASIX) 40 MG TAB 40 MILLIGRAM ORAL TWICE DAILY. valACYclovir (VALTREX) 1,000 MG TAB 1,000 MILLIGRAM ORAL DAILY. as needed for FEVER BLISTERS DABIGATRAN (PRADAXA) 150 MG CAP 150 MILLIGRAM ORAL TWICE DAILY. Start taking the following new medications: AMIODARONE (PACERONE) 200 MG TAB 200 MILLIGRAM ORAL DAILY. Days = 30 Qty = 30 Refills = 3 Objective VS/I O Last Documented: Result Date Time O2 Delivery Simple mask 07/23 1058 O2 Flow Rate 10 07/23 1058 Pulse Ox 95 07/23 0857 B/P 130/98 07/23 0857 Temp 36.4 07/23 0857 Pulse 114 / 0857 PATIENT WEIGHT: Weight (lb): 195 Weight (oz): 6.54 Weight (kg): 88.636 General appearance: alert, awake, oriented Cardiovascular: irregular rhythm Respiratory: clear to auscultation, no distress GI: soft, non-tender Extremities: moves all Neuro/NON FOOD RECEIVING CLERK: alert, oriented X 3 Skin: dry Wound/incision: Location: Right groin suture removed by this ASSEMBLER FINGER BUFFS. No infect ion, bleeding, or hematoma. Dermabond applied and intact. Results Findings/Data: Laboratory Tests: 07/24 927 Coagulation Activated Coag Time (74 - 137 SEC) 239 H Treatments Procedures Treatments Procedures: Left atrial appendage closure using a 27 mm Watc hman FLX closure device. Discharge Instructions PCP PCP: PCP: Vikram Turner MD )( Discharge to: Home/Self Care Discharge Instructions Additional Discharge Routines: Attending Follow- Up )( Diet: Cardiac )( Activity: As Tolerated Follow-up Appointments Attending Physician: Attending Physician: Yoel Raymundo MD Attending physician follow up timeframe: In 1-2 weeks Quality: Discharge Advanced Care Plan 65 or Older Discussed with: patient Electronically Signed by Quinton Montana 07/24/22 at 0718 RPT #:[id number] END OF REPORT 2022-07-23 10:00:00-00:00 [id number] [place] [address] PATIENT NAME: ARSEN AMARO ADMIT DATE: 07/23/22 ACCOUNT NO: [id number] ROOM NO: [facility] AGE: 72 REPORT TYPE: eELECTROCARDIOGRAM REPORT SEX: M ADMITTING PHYSICIAN:Yoel Raymundo MD ATTENDING PHYSICIAN:Yoel Raymundo MD Order: [id number] Test Reason : S/P WATCHMAN Test Date/Time Stamp: ThuJul 23 2022 10:00:06 Blood Pressure : / mmHG Vent. Rate : 138 BPM Atrial Rate : 131 BPM P-R Int : 000 ms QRS Dur : 134 ms QT Int : 304 ms P-R-T Axes : 000 268 079 degree s QTc Int : 460 ms Atrial fibrillation with rapid ventricular respo nse Right bundle branch block Abnormal ECG When compared with ECG of 21-JUL-2022 10:14, Significant changes have occurred Confirmed by MILLIE OCHOA ([id number]) on 07/25/2022 4:36:27 PM Referred By: Self Referred Confirmed by:MILLIE OCHOA at 1636 PATIENT NAME: ARSEN AMARO 2022-07-23 09:37:00-00:00 [id number] [address] PATIENT NAME: ARSEN AMARO ADMIT DATE: 07/23/22 ACCOUNT NO: [id number] ROOM NO: [place] AGE: 72 REPORT TYPE: CARDIAC CATHETERIZATION REPORT SEX: M ADMITTING PHYSICIAN:Yoel Raymundo MD ATTENDING PHYSICIAN:Yoel Raymundo MD PROCEDURE DATE: 07/23/2022 PROCEDURE PERFORMED: Left atrial appendage closu re using a 27 mm Watchman FLX closure device. INDICATION: Atrial fibrillation with high CHADS- VASc score and intolerant of anticoagulants. ACCESS: Right femoral vein. A 16-Comoran closed w ith rarlae-lt-oglou suture. COMPLICATIONS: None. BLEEDING: Less than 50 mL. DESCRIPTION OF PROCEDURE: After risks, benefits and alternatives were explained, the patient agreed to proceed and sig carolyn informed consent. The patient was brought into the cardiac catheteriza tion laboratory, prepped and draped in usual sterile fashion. After anesthesi a was applied by anesthesia team and MARY ANN was performed preprocedure and the appendage was deemed to be suitable for closure, then using micropuncture k it and ultrasound guidance, accessed right femoral vein using a micropuncture kit, placed 8-Comoran [place] sheath, then upgraded to a 1 6-Comoran Cook sheath and I took SL1 sheath into the SVC over the wire and with the [place] needle ins maynor, descended into the interatrial septum and in the low mid position, transseptal puncture was performed and then LA pressu re was measured at 70 mmHg and sent a ProTrack wire into the left atrium. At this time, a fu ll dose of heparin was given to assure ACT level above 250 throughout the procedure and then we exchanged the SL1 sheath for the Watchman double curve she ath and then I took a pigtail into the left atrium, navigated that into the appendage and advanced the Watchman double curve sheath over it into the appendage and did an appendage angiogram and determined a 27 mm device will be suitab le for closure. The device was prepped and de-aired in the usual sterile fashion. Then, I removed the pigtail, introduced the Watchman deli very system into the left atrial appendage and then device was deployed under th e fluoroscopy and MARY ANN guidance with no difficulties and then PASS criteria were evaluated and met, t hen device was released in position and removed the Watchman sheath and del milena system and the Cook sheath. A otskna-iq-rjmds estrada ture for closure was used and the patient tolerated the procedure very well and sent to recovery in stable condition. CONCLUSION: Successful left atrial appendage closure using a 27 mm Watchman FLX closure device. Dictated By: Yoel Raymundo MD PATIENT NAME: ARSEN AMARO Date Dictated: 07/23/2022 09:37:42 Date Transcribed: 07/23/2022 11:49:54 /JOSEPH Receipt ID: [id number] Authenticated by Yoel Raymundo MD On 07/23/2022 02:26:33 PM Electronically Signed by Yoel Raymundo MD on at 0226 PATIENT NAME: ARSEN AMARO 2022-07-21 10:55:00-00:00 [facility]) Hospitalist History Physical REPORT#:[id number] REPORT STATUS: Signed DATE:07/21/22 TIME: 1055 PATIENT: ARSEN AMARO UNIT #: [id number] ROOM/BED: : 48 AGE: 72 SEX: M ATTEND: Mary Carmen Raymundo MD ADM AUTHOR: Scott Harris MD * ALL edits or amendments must be made on the [employer]/computer document * History of Present Illness HPI Chief complaint: HERE FOR WATCHMAN PREOP EVAL PCP: PCP: Vikram Turner MD HPI: 72 WM WITH CHRONIC A.FIB, ON PRADAXA WITH H/O GI BLEED, HTN,CAD/STENT, PULM HTN, HIV SINCE 1979, ON MEDS, , PVD. HE WAS SEEN HERE ON 09/08 AND 06/12 FOR WATCHMAN PREOP EVAL BUT HIS INSURANCE DIDN 'T APPROVE DUE TO AGE CRITERIA, NOW HE'S 72 AND QULIFIES FOR IT. HE HAS OCCASIONAL MARTINEZ WALKING AROUND HIS HOUSE, AND SEEN BY CARD AND CLEAR FOR WATCHMAN. NO N/V/COUGH/F/C/GI SX/ SICK CONTACT. Informant/historian: patient, prior records, ref erring physician History Past Medical Surgical Hx Additional medical history: HIV Aortic stenosis Pulmonary hypertension Additional surgical history: Cardiac stents Family History Additional family history: NO CAD/DM Social History Alcohol use: Denies EtOH use Drug use: Denies recreational drugs Smoking status for patients 13 years old or olde r: Never Smoker Additional social history: , RETIRED FROM [employer]. HE HAS A LIVING WILL , AND POA, AND WISHES FULL CODE. Medication/Allergy-Vaccine Hx Medications: Home Medications: AMBRISENTAN (LETAIRIS) 10 MG PO DAILY PREGABALIN (LYRICA) 100 MG PO TID [SYMTUZA ] 1 TAB PO DAILY FUROSEMIDE (LASIX) 40 MG PO BID valACYclovir (VALTREX) 1,000 MG PO DAILY PRN FEV ER BLISTERS DABIGATRAN (PRADAXA) 150 MG PO BID Allergies: Coded Allergies: Sulfa (Sulfonamide Antibiotics) (Severe, RASH ) abacavir (Severe, HEART PROBLEMS 09/02/21) diphenhydramine (From BENADRYL) (Severe, HEART F LUTTERS 09/02/21) iron (Severe, IRON IV INFUSION- HOT FLASHES, OLGA H, DYSPNEA 07/21/22) metoprolol (Severe, SHORTNESS OF BREATH 09/02/21 ) niacin (Severe, REDNESS, DYSPNEA 07/21/22) sotalol (From BETAPACE) (Severe, SHORTNESS OF BR EATH 09/02/21) NSAIDS (Non-Steroidal Anti-Inflamma (UNKNOWN 10/10) Review of Systems Free Text ROS Notes Free Text ROS Notes: 12 POINT ROS WERE REVIEWED AND NEGATIVE. OBJECTIVE VS/I O: Patient Weight and BMI Weight (kg): 88.700 BMI: 25.1 General appearance: chronically ill appearing, a lert, awake, oriented Neck: no JVD Cardiovascular: irregularly irregular, no murmur Respiratory: aerating well, clear to auscultatio n Abdomen: non-tender, normal bowel sounds, soft Extremities: no edema Musculoskeletal: normal inspection Neuro/NON FOOD RECEIVING CLERK: alert, oriented X 3, normal speech, n o motor deficits Skin: normal color Psychiatry: normal affect, normal judgment/insig ht Results Findings/Data: Laboratory Tests: 07/21 0950 Chemistry Sodium (134 - 147 mEq/L) 140 Potassium (3.4 - 5.0 mEq/L) 4.5 Chloride (100 - 108 mEq/L) 108 Carbon Dioxide (21 - 33 mEq/l) 28 Anion Gap (0 - 20) 8 BUN (7 - 18 mg/dL) 27 H Creatinine (0.6 - 1.3 mg/dL) 1.0 Glomerular Filtr Rate (70 - 80) 79.0 Glucose (70 - 110 mg/dL) 146 H Calcium (8.0 - 10.5 mg/dL) 9.4 Prealbumin (16.0 - 40.0 mg/dL) 24.1 Coagulation INR (0.8 - 1.2) 1.3 H PT Patient/Control Mix (9.3 - 12.9 SECONDS) 14. 6 H Hematology WBC (4.5 - 11.0 x10 3/uL) 10.7 RBC (4.00 - 5.60 x10 6/uL) 5.27 Hgb (12.5 - 16.9 g/dL) 16.9 Hct (37.5 - 50.7 %) 49.7 MCV (81.0 - 99.0 fL) 94.3 MCH (27.0 - 33.0 pg) 32.1 MCHC (33.0 - 37.0 g/dL) 34.0 RDW (11.5 - 14.5 %) 13.3 Plt Count (150 - 400 x10 3/uL) 236 MPV (7.0 - 9.0 fL) 10.1 H Neut % (Auto) (56.0 - 77.0 %) 76.2 Lymph % (Auto) (14.0 - 32.0 %) 13.8 L [place] % (Auto) (4.8 - 9.0 %) 8.7 Eos % (Auto) (0.3 - 3.7 %) 0.0 L Baso % (Auto) (0.0 - 2.0 %) 0.2 Neut # (Auto) (2.0 - 7.6 x10 3/uL) 8.18 H Lymph # (Auto) (1.0 - 3.8 x10 3/uL) 1.48 [place] # (Auto) (0.1 - 0.8 x10 3/uL) 0.93 H Eos # (Auto) (0.0 - 0.2 x10 3/uL) 0.00 Baso # (Auto) (0.0 - 0.2 x10 3/uL) 0.02 Abs Immat Gran (auto) (0.00 - 0.03 x10 3/uL) 0. 12 H Add Manual Diff NO Immature Gran % (0.0 - 2.0 %) 1.1 Nucleated RBC % (0 - 0 %) 0.0 Nucleated RBCs # (Man) (0.0 - 0.1 x10 3/uL) 0. 00 Laboratory Tests 07/21/22 0950: [Embedded Image Not Available] Diagnosis, Assessment Plan Free Text A P: CHRONIC A.FIB, ON PRADAXA, H /O GI BLEED - PLAN FOR WATCHMAN, SEEN CARD AND CLEAR CAD/STENT - STABLE, ON MED THP, HAS OCCASIONAL D OE H/O HIV - ON MEDS - POSSIBLE CHRONIC MARTINEZ DVT PX - ON PRADAXA NOW Quality: Gen Med Crit Care VTE Prophylaxis VTE prophylaxis initiated: yes Advanced Care Plan 65 or Older Discussed with: patient Discussion included: living will, power of attor harley, code status, FULL CODE Electronically Signed by Scott Harris MD on 07/21 at 1102 RPT #:[id number] END OF REPORT 2022-07-21 10:14:00-00:00 [id number] [place] [address] PATIENT NAME: ARSEN AMARO ADMIT DATE: ACCOUNT NO: [id number] ROOM NO: AGE: 72 REPORT TYPE: eELECTROCARDIOGRAM REPORT SEX: M ADMITTING PHYSICIAN:Yoel Raymundo MD ATTENDING PHYSICIAN:Yoel Raymundo MD Order: [id number] Test Reason : PAT Test Date/Time Stamp: ThuJul 21 2022 10:14:49 Blood Pressure : / mmHG Vent. Rate : 099 BPM Atrial Rate : 101 BPM P-R Int : 000 ms QRS Dur : 156 ms QT Int : 380 ms P-R-T Axes : 000 241 052 degree s QTc Int : 487 ms Atrial fibrillation Right bundle branch block Anteroseptal infarct (cited on or before 2021) Abnormal ECG When compared with ECG of 26-MAY-2022 10:09, Significant changes have occurred Confirmed by MILLIE OCHOA ([id number]) on 07/21/2022 11:05:55 AM Referred By: Self Referred Confirmed by:MILLIE OCHOA at 1105 PATIENT NAME: ARSEN AMARO 2021-09-02 21:39:00-00:00 [facility] - Brief REPORT#:[id number] REPORT STATUS: Signed DATE:09/02/21 TIME: 2138 PATIENT: ARSEN AMARO UNIT #: [id number] ROOM/BED: : 48 AGE: 71 SEX: M ATTEND: Mary Carmen Raymundo MD ADM AUTHOR: Karlos Young MD * ALL edits or amendments must be made on the [employer] ([place] IT/computer document * History of Present Illness HPI Requesting Clinician: Dr. Raymundo Reason for consult: Watchman shared decision Chief complaint: Patient here for preop testing and shared decisi on for watchman insertion. PCP: PCP: Vikram Turner MD History of present illness: 71-year-old man with past medical history of HIV , CAD, paroxysmal atrial fibrillation, hypertension, cor pulmonal e and aortic valve stenosis here today for preop testing and has been scheduled for tavares chman insertion in 2 days. Currently denies any complaint. Patient has been cardioverted to normal sinus rhythm twice. History - Adult longitudinal Past medical history: Reports: Atrial fibrillation (paroxismal), Coron demetri artery disease, Hypertension. Additional medical history: HIV Aortic stenosis Pulmonary hypertension Additional surgical history: Cardiac stents Alcohol use: Denies EtOH use Drug use: Denies recreational drugs Smoking status: Smoking status for patients 13 years old or old er: Never Smoker Medications: Home Medications: Medication Dose/Rte/Freq Days Qty Entered Last Max Daily Dose Reviewed AMBRISENTAN (LETAIRIS) 10 MG PO DAILY 09/02/21 Strength: 10 MG TAB 1800 PREGABALIN (LYRICA) 100 MG PO TID 09/02/21 Strength: 100 MG CAP 1800 [VALAC] 09/02/21 Strength: 1802 [SYMTUZA ] 09/02/21 Strength: 1803 [MAJOR DEEP SEA NASAL] 09/02/21 Strength: 1803 FLUTICASONE PROPIONATE (Unknown Dose) 09/02/21 (FLONASE 50 MCG/ACT PRN ALLERGIES 180 NASAL) Strength: (Unknown Strength) SPRAY FUROSEMIDE (LASIX) 40 MG PO BID 09/02/21 Strength: 40 MG TAB 1804 [PRADAXA ] (Unknown Dose) BID 09/02/21 Strength: (Unknown 1805 Strength) FERROUS SULFATE (Unknown Dose) 09/02/21 (FEOSOL) 1805 Strength: (Unknown Strength) TAB Allergies: Coded Allergies: Sulfa (Sulfonamide Antibiotics) (Severe, RASH ) abacavir (Severe, HEART PROBLEMS 09/02/21) diphenhydramine (From BENADRYL) (Severe, HEART F LUTTERS 09/02/21) iron (Severe, HOT FLASHES, RASH 09/02/21) metoprolol (Severe, SHORTNESS OF BREATH 09/02/21 ) sotalol (From BETAPACE) (Severe, SHORTNESS OF BR EATH 09/02/21) Ambulatory status: Independent Brief Consult Note Physical Exam Vitals: V/S/S General appearance: alert, awake, oriented HEENT: anicteric, sclera clear Neck: full range of motion, no bruit/NL carotids , no JVD Cardiovascular: regular rate rhythm, normal hear t sounds Respiratory: clear to auscultation, no d istress, no tenderness, aerating well, symmetric expansion Abdomen: soft, non-tender, no guarding, no rebou nd, no distention Neuro/NON FOOD RECEIVING CLERK: alert, oriented X 3, normal speech, n o motor deficits, no sensory deficits Extremities: Bilat moves all, Bilat no edema Skin: dry, intact, no gross abnormalities, hudson l color Findings/Data: Recent Impressions: RADIOLOGY - XR CHEST 2 V 09/02 1615 Report Impression - Status: SIGNED Entered: 09/02/2021 1648 IMPRESSION: 1. There are prominent bilateral interstitial margot ng markings. This may be due to pulmonary edema or atypical pneumo nitis. 2. There are bilateral hilar masslike opacities. These may be due to pulmonary vessels or lymphadenopathy. Conside r CT correlation. Impression By: [email or web address] - Arsen Saldaña M.D. Laboratory Tests 09/02/21 1605: [Embedded Image Not Available] Free Text A P: Patient meets criteria for watchman insertion NICE questionnaire was done with the patient [id number].VASc score- 3 Has bled score - 2. Time spent: Time spent on patient care (minutes): 15 at 4943 RPT #:[id number] END OF REPORT 2021-09-02 16:21:00-00:00 [id number] [place] [address] PATIENT NAME: ARSEN AMARO ADMIT DATE: ACCOUNT NO: [id number] ROOM NO: AGE: 71 REPORT TYPE: eELECTROCARDIOGRAM REPORT SEX: M ADMITTING PHYSICIAN: ATTENDING PHYSICIAN:Yoel Raymundo MD Order: [id number] Test Reason : PREOP Test Date/Time Stamp: ThuSep 02 2021 16:21:55 Blood Pressure : / mmHG Vent. Rate : 060 BPM Atrial Rate : 060 BPM P-R Int : 204 ms QRS Dur : 166 ms QT Int : 498 ms P-R-T Axes : 059 259 037 degree s QTc Int : 498 ms Normal sinus rhythm Right bundle branch block Anteroseptal infarct , age undetermined Abnormal ECG No previous ECGs available Confirmed by ALLYSSA ROQUE ([id number]) on 09/02/2021 6: 18:40 PM Referred By: Yoel Raymundo Confirmed by:ALLYSSA HANNON Electronically Signed by Allyssa Roque MD on at 5860 PATIENT NAME: ARSEN AMARO
[2022-09-03] MEDS ORDERED: MORPHINE 4 MG/ML SYR ONE (12:18)
[2022-09-03] MEDS ORDERED: dilTIAZem HCL 25 MG/5 ML VIAL IV ONE (12:18)
[2022-09-03 12:37] LABS: Absolute Lymphocytes (CBC) 1.9 K/uL (0.7-4.9); Lymphocytes % 17.1 % (15.3-44.8); MCV 95.3 fL (80-100); RBC Red Blood Cell Count 4.72 M/uL (4.33-5.43)
--- NOTE | 2022-09-03 12:51 | RAD REPORT ---
EXAM DESCRIPTION: RAD - Chest Single View - 09/03/2022 12:21 pm CLINICAL HISTORY: CHEST PAIN Chest pain. COMPARISON: Chest Single View dated 07/28/2022; Chest Pa And Lat (2 Views) dated 06/21/2021; Chest Pa A nd Lat (2 Views) dated 09/23/2019; Chest Single View dated 10/18/2017; Ribs Left dated 09/03/2022 FINDINGS: Portable technique limits examination quality. There is a moderate airspace opacity in the left lung base associated with a left pleural effusion. T his may represent infiltrate/ pneumonia. Both jarvis appear significantly enlarged which may be related to pulmonary arterial hypertension. Lymphadenopathy cannot be completely ruled out, however. The hea rt is mildly enlarged in size.A displaced rib fracture is not seen. IMPRESSION: Moderate left base airspace infiltrate and pleural effusion noted. This could be related to pneumonia. Both jarvis are enlarged likely related to pulmonary arterial hypertension. Lymphadenopathy would be po ssible but less likely. Recommend CT chest for followup assessment.
--- NOTE | 2022-09-03 12:52 | RAD REPORT ---
EXAM DESCRIPTION: RAD - Ribs Left - 09/03/2022 12:21 pm CLINICAL HISTORY: PAIN COMPARISON: Chest Single View dated 09/03/2022 FINDINGS: No displaced rib fracture seen. No pneumothorax identified. Moderate airspace opacity in t he left base with pleural fluid suspected, fully detailed on dedicated chest radiograph.
[2022-09-03 14:13] LABS: Albumin 2.8 g/dL (3.4-5.0); Bilirubin Total 1.3 mg/dL (0.2-1.0); Magnesium 2.3 mg/dL (1.6-2.4); Potassium 3.9 mEq/L (3.5-5.1); Protein, Total 6.7 g/dL (6.4-8.2); Thyroid Stimulating Hormone 1.21 uIU/mL (0.358-3.740); Troponin High Sensitivity 29.3 pg/mL (<58.9)
--- NOTE | 2022-09-03 15:02 | ER ---
Nurse's Notes [facility] Name: Arsen Espinoza Age: 72 yrs Sex: Male : 1950 Arrival Date: 09/03/2022 Time: 11:15 Bed 18 Private MD: Veena Schuster Diagnosis: Pneumonia, unspecified organism;Unspecified atrial fibrillation;Acute respiratory failure with hypoxia Presentation: 09/03 11:21 Chief complaint: Patient states: Fall about a week ago, complaining of left rib pain, nj1 unable to get comfortable, makes it hard to breath at times. Has not taken anything for pain. Coronavirus screen: Vaccine status: Patient reports being unvaccinated. Ebola Screen: Patient denies travel to an Ebola-affected area in the 21 days before illness onset. Initial Sepsis Screen: Does the patient meet any 2 criteria? No. Patient's initial sepsis screen is negative. Does the patient have a suspected source of infection? No. Patient's initial sepsis screen is negative. Risk Assessment: Do you want to hurt yourself or someone else? Patient reports no desire to harm self or others. Onset of symptoms was August 22, 2022. 11:21 Method Of Arrival: Ambulatory [facility] 11:21 Acuity: JAZMIN 3 nj1 Triage Assessment: 11:25 General: Appears in no apparent distress. Behavior is calm, cooperative, appropriate bp for age. Pain: Complains of pain in chest. EENT: No deficits noted. Neuro: No deficits noted. Cardiovascular: Rhythm is atrial fibrillation with rapid ventricular response. Respiratory: No deficits noted. GI: No signs and/or symptoms were reported involving the gastrointestinal system. : No signs and/or symptoms were reported regarding the genitourinary system. Derm: No deficits noted. Musculoskeletal: No deficits noted. Historical: - Allergies: 11:25 Sulfa (Sulfonamide Antibiotics); nj1 11:25 abacavir; nj1 11:34 Amiodarone; nj1 11:34 Bactrim; nj1 11:34 Metoprolol Tartrate; nj1 11:34 NSAIDS; nj1 11:34 Ibuprofen; nj1 11:34 Benadryl; nj1 11:34 Niacin; nj1 11:34 Iron, IV; nj1 - Home Meds: 11:34 Pradaxa 150 mg oral capsule 1 cap 2 times per day [Active]; pregabalin 100 mg Oral nj1 capsule 1 cap 3 times per day [Active]; ambrisentan 10 mg oral tablet 1 tab daily [Active]; Symtuza [id number] mg oral tablet 1 tab daily [Active]; furosemide 40 mg Oral tablet 1 tab 2 times per day [Active]; valacyclovir 1 gram Oral tablet 1 tab daily [Active]; - PMHx: 11:25 Atrial Fib; PULMONARY HYPERTENSION; HIV; nj1 - Immunization history:: Client reports having NOT received the Covid vaccine. - Social history:: Smoking status: Patient denies any tobacco usage or history of. - Family history:: not pertinent. Screenin:25 [facility] ED Fall Risk Assessment (Adult) History of falling in the last 3 months, bp including since admission No falls in past 3 months (0 pts). Abuse screen: Denies threats or abuse. Denies injuries from another. Nutritional screening: No deficits noted. Tuberculosis screening: No symptoms or risk factors identified. Assessment: 11:25 General: SEE TRIAGE NOTE. bp 16:08 Reassessment: Patient appears in no apparent distress at this time. Patient and/or sg5 family updated on plan of care and expected duration. Pain level reassessed. Patient is alert, oriented x 3, equal unlabored respirations, skin warm/dry/pink. Patient states symptoms have improved. Vital Signs: 11:21 BP 107 / 84; Pulse 54; Resp 20; Temp 99(TE); Pulse Ox 94% ; Weight 81.65 kg; Height 6 nj1 ft. 2 in. ; Pain 8/10; 12:54 BP 155 / 120; Pulse 115; Resp 22; Pulse Ox 92% ; bp 13:50 BP 130 / 78; Pulse 115; Resp 18; Pulse Ox 95% on NC; Pain 0/10; sg5 14:31 BP 128 / 93; Pulse 120; Resp 18; Pulse Ox 94% on NC; Pain 0/10; sg5 15:30 BP 120 / 75; Pulse 115; Resp 16; Pulse Ox 94% on NC; sg5 19:38 BP 126 / 71; Pulse 111; Resp 21 S; Temp 98.3(O); Pulse Ox 95% on 3 lpm NC; as6 11:21 Body Mass Index 23.11 (81.65 kg, 187.96 cm) nj1 11:21 Pain Scale: Adult nj1 13:50 Pain Scale: Adult sg5 14:31 Pain Scale: Adult sg5 ED Course: 11:17 Patient arrived in ED. mr 11:18 Veena Schuster DO is Private Physician. mr 11:21 Calixto Redding MD is Attending Physician. rt 11:25 Triage completed. nj1 11:25 Patient has correct armband on for positive identification. Bed in low position. Call bp light in reach. Side rails up X2. Adult w/ patient. 11:27 Arm band placed on left wrist. nj1 11:29 Marcelino Dupont, RN is Primary Nurse. bp 12:23 Ribs Left XRAY In Process Unspecified. EDMS 12:23 Chest Single View XRAY In Process Unspecified. EDMS 12:30 Inserted saline lock: 20 gauge in right antecubital area, using aseptic technique. bp Blood collected. 14:55 CT Chest W/ Con In Process Unspecified. EDMS 15:00 Brody Hernandez is Hospitalizing Provider. rt 19:38 No provider procedures requiring assistance completed. Patient admitted, IV remains in as6 place. Administered Medications: 12:29 Drug: morphine IVP or IV 4 mg Route: IVP; Infused Over: 4 mins; Site: right antecubital;bp 19:54 Follow up: Response: No adverse reaction as6 12:29 Drug: Diltiazem IVP 10 mg Route: IVP; Site: right antecubital; bp 19:54 Follow up: Response: No adverse reaction as6 15:17 Drug: Diltiazem IVP 10 mg Route: IVP; Site: right antecubital; sg5 19:54 Follow up: Response: No adverse reaction as6 15:45 Drug: Rocephin IV 2 grams Route: IV; Rate: calculated rate; Site: right antecubital; sg5 19:54 Follow up: Response: No adverse reaction; IV Status: Completed infusion; IV Intake: as6 100ml 15:52 Drug: AZITHromycin IVPB 500 mg Route: IVPB; Infused Over: 1 hrs; Site: right sg5 antecubital; 17:03 Follow up: IV Status: Completed infusion sg5 Medication: 11:25 VIS not applicable for this client. bp Intake: 19:54 IV: 100ml; Total: 100ml. as6 Outcome: 15:01 Decision to Hospitalize by Provider. rt 19:38 Condition: stable as6 19:38 Instructed on the need for admit. 19:41 Admitted to Med/surg accompanied by tech, via stretcher, room 230, with oxygen, with as6 chart. 20:33 Patient left the ED. vc1 Signatures: Dispatcher [employer] EDNE Khushboo CruzMarcelino, RN RN bp Matt Barrett, RN RN as6 Izabel Avery RN RN vc1 Calixto Redding MD MD rt Malou Soares RN RN sg5 Addis Boateng RN RN nj1 Corrections: (The following items were deleted from the chart) 11: 11:21 Onset of symptoms was August 29, 2022 [place] [id number] 11:27 11:21 Pulse 54bpm; Resp 20bpm; Pulse Ox 94%; Temp 99F Temporal; 81.65 kg; Height 6 ft. nj1 2 in.; BMI: 23.1; Pain 8/10, Adult; nj1 14:33 13:50 BP 129 / 86; Pulse 78bpm; Resp 16bpm; Pulse Ox 99% RA; Pain 3/10, Adult; sg5 sg5 14:33 14:31 BP 131 / 82; Pulse 79bpm; Resp 16bpm; Pulse Ox 97% RA; Pain 3/10, Adult; sg5 sg5
--- NOTE | 2022-09-03 15:02 | EDPHYS ---
Physician Documentation [facility] Name: Arsen Espinoza Age: 72 yrs Sex: Male : 1950 Arrival Date: 09/03/2022 Time: 11:15 Bed 18 Private MD: Veena Schuster ED Physician Calixto Redding HPI: 09/03 15:17 This 72 yrs old Male presents to ER via Ambulatory with complaints of Fall Injury, Rib rt pain. 15:17 Patient presents to the ED 2 weeks after a fall. Patient states that he tripped and rt fell on to his left side. Reports pain to that area, worse with deep inspiration, as he had a shortness of breath which he associates with the pain. The symptoms have worsened since then. Denies other acute complaints at this time, symptoms are moderate in severity, no other aggravating or alleviating factors.. Historical: - Allergies: 11:25 Sulfa (Sulfonamide Antibiotics); nj1 11:25 abacavir; nj1 11:34 Amiodarone; nj1 11:34 Bactrim; nj1 11:34 Metoprolol Tartrate; nj1 11:34 NSAIDS; nj1 11:34 Ibuprofen; nj1 11:34 Benadryl; nj1 11:34 Niacin; nj1 11:34 Iron, IV; nj1 - Home Meds: 11:34 Pradaxa 150 mg oral capsule 1 cap 2 times per day [Active]; pregabalin 100 mg Oral nj1 capsule 1 cap 3 times per day [Active]; ambrisentan 10 mg oral tablet 1 tab daily [Active]; Symtuza [id number] mg oral tablet 1 tab daily [Active]; furosemide 40 mg Oral tablet 1 tab 2 times per day [Active]; valacyclovir 1 gram Oral tablet 1 tab daily [Active]; - PMHx: 11:25 Atrial Fib; PULMONARY HYPERTENSION; HIV; nj1 - Immunization history:: Client reports having NOT received the Covid vaccine. - Social history:: Smoking status: Patient denies any tobacco usage or history of. - Family history:: not pertinent. ROS: 15:17 Constitutional: Negative for fever, chills, and weight loss, Eyes: Negative for injury, rt pain, redness, and discharge, Abdomen/GI: Negative for abdominal pain, nausea, vomiting, diarrhea, and constipation, MS/Extremity: Negative for injury and deformity, Skin: Negative for injury, rash, and discoloration, Neuro: Negative for headache, weakness, numbness, tingling, and seizure. 15:17 Cardiovascular: Positive for chest pain, Negative for edema. 15:17 Respiratory: Positive for cough, shortness of breath. Exam: 15:17 Constitutional: This is a well developed, well nourished patient who is awake, alert, rt and in no acute distress. Head/Face: Normocephalic, atraumatic. Neck: Trachea midline, no thyromegaly or masses palpated, and no cervical lymphadenopathy. Supple, full range of motion without nuchal rigidity, or vertebral point tenderness. No Meningismus. Cardiovascular: Regular rate and rhythm with a normal S1 and S2. No gallops, murmurs, or rubs. Normal PMI, no JVD. No pulse deficits. Respiratory: Lungs have equal breath sounds bilaterally, clear to auscultation and percussion. No rales, rhonchi or wheezes noted. No increased work of breathing, no retractions or nasal flaring. Abdomen/GI: Soft, non-tender, with normal bowel sounds. No distension or tympany. No guarding or rebound. No evidence of tenderness throughout. Skin: Warm, dry with normal turgor. Normal color with no rashes, no lesions, and no evidence of cellulitis. MS/ Extremity: Pulses equal, no cyanosis. Neurovascular intact. Full, normal range of motion. Neuro: Awake and alert, GCS 15, oriented to person, place, time, and situation. Cranial nerves II-XII grossly intact. Motor strength 5/5 in all extremities. Sensory grossly intact. Cerebellar exam normal. Normal gait. Psych: Awake, alert, with orientation to person, place and time. Behavior, mood, and affect are within normal limits. 15:17 Chest/axilla: Palpation over left anterior chest wall reproduces chest pain.. 15:17 ECG was reviewed by the Attending Physician. Vital Signs: 11:21 BP 107 / 84; Pulse 54; Resp 20; Temp 99(TE); Pulse Ox 94% ; Weight 81.65 kg; Height 6 nj1 ft. 2 in. ; Pain 8/10; 12:54 BP 155 / 120; Pulse 115; Resp 22; Pulse Ox 92% ; bp 13:50 BP 130 / 78; Pulse 115; Resp 18; Pulse Ox 95% on NC; Pain 0/10; sg5 14:31 BP 128 / 93; Pulse 120; Resp 18; Pulse Ox 94% on NC; Pain 0/10; sg5 15:30 BP 120 / 75; Pulse 115; Resp 16; Pulse Ox 94% on NC; sg5 19:38 BP 126 / 71; Pulse 111; Resp 21 S; Temp 98.3(O); Pulse Ox 95% on 3 lpm NC; as6 11:21 Body Mass Index 23.11 (81.65 kg, 187.96 cm) nj1 11:21 Pain Scale: Adult nj1 13:50 Pain Scale: Adult sg5 14:31 Pain Scale: Adult sg5 MDM: 11:30 Patient medically screened. rt 15:20 Differential diagnosis: Rib fracture, pulmonary contusion, pneumonia, pneumothorax, rt A-fib, a flutter, ventricular dysrhythmia. Data reviewed: vital signs, nurses notes, lab test result(s), EKG, radiologic studies. Consideration of Admission/Observation Patient was admitted/placed on observation. Management of patient was discussed with the following: Hospitalist: Agrees to admit. I considered the following discharge prescriptions or medication management in the emergency department Medications were administered in the Emergency Department. See MAR. Independent interpretation of the following test(s) in the Emergency Department X-Ray: My interpretation is Consolidation seen on interpretation of the x-ray images. Care significantly affected by the following chronic conditions: Atrial fibrillation, HIV. Counseling: I had a detailed discussion with the patient and/or guardian regarding: the historical points, exam findings, and any diagnostic results supporting the discharge/admit diagnosis, lab results, radiology results, the need for further work-up and treatment in the hospital. 09/03 11:38 Order name: CBC with Diff; Complete Time: 12:53 rt 09/03 11:38 Order name: CMP; Complete Time: 14:24 rt 09/03 11:38 Order name: Troponin High Sensitivity; Complete Time: 14:24 rt 09/03 11:38 Order name: BNP; Complete Time: 14:24 rt 09/03 11:38 Order name: Magnesium; Complete Time: 14:24 rt 09/03 11:38 Order name: TSH; Complete Time: 14:24 rt 09/03 17:13 Order name: Magnesium EDNY 09/03 17:13 Order name: Phosphorus EDNY 09/03 17:13 Order name: Urinalysis w/ reflexes EDNY 09/03 17:13 Order name: CBC with Automated Diff EDMS 09/03 17:13 Order name: CBC with Automated Diff EDMS 09/03 17:13 Order name: Comprehensive Metabolic Panel EDNY 09/03 17:13 Order name: Comprehensive Metabolic Panel EDNY 09/03 17:13 Order name: NT PRO-BNP EDNY 09/03 17:13 Order name: NT PRO-BNP EDNY 09/03 11:38 Order name: Ribs Left XRAY; Complete Time: 12:53 rt 09/03 11:38 Order name: Chest Single View XRAY; Complete Time: 12:53 rt 09/03 14:36 Order name: CT Chest W/ Con; Complete Time: 15:40 rt 09/03 11:38 Order name: EKG; Complete Time: 11:39 rt 09/03 17:12 Order name: CONS Physician Consult EDNY 09/03 17:12 Order name: Heart Healthy EDNY 09/03 11:38 Order name: EKG - Nurse/Tech; Complete Time: 13:51 rt 09/03 12:59 Order name: Labs - recollect needed: recollect green top; Complete Time: 13:51 bd EC:17 Rate is 110 beats/min. Rhythm is irregularly irregular, V fib with No ectopy, Left rt bundle branch block. Left axis deviation noted. QT interval is prolonged at 506 msec. No Q waves. Interpreted by me. Administered Medications: 12:29 Drug: morphine IVP or IV 4 mg Route: IVP; Infused Over: 4 mins; Site: right antecubital;bp 19:54 Follow up: Response: No adverse reaction as6 12:29 Drug: Diltiazem IVP 10 mg Route: IVP; Site: right antecubital; bp 19:54 Follow up: Response: No adverse reaction as6 15:17 Drug: Diltiazem IVP 10 mg Route: IVP; Site: right antecubital; sg5 19:54 Follow up: Response: No adverse reaction as6 15:45 Drug: Rocephin IV 2 grams Route: IV; Rate: calculated rate; Site: right antecubital; sg5 19:54 Follow up: Response: No adverse reaction; IV Status: Completed infusion; IV Intake: as6 100ml 15:52 Drug: AZITHromycin IVPB 500 mg Route: IVPB; Infused Over: 1 hrs; Site: right sg5 antecubital; 17:03 Follow up: IV Status: Completed infusion sg5 Disposition Summary: 09/03/22 15:01 Hospitalization Ordered Hospitalization Status: Observation rt Provider: Brody Hernandez rt [facility] rt Condition: Stable rt Problem: new rt Symptoms: have improved rt Bed/Room Type: Standard rt Room Assignment: 230(09/03/22 18:51) dw Diagnosis - Pneumonia, unspecified organism rt - Unspecified atrial fibrillation rt - Acute respiratory failure with hypoxia rt Forms: - Medication Reconciliation Form rt - SBAR form rt Critical care time excluding procedures: 15:20 Critical care time: Bedside Care: 30 minutes, Consultation: 5 minutes. Total time: 35 rt minutes Signatures: Dispatcher [employer] EDVeronica Redman Diana RN RN dw Marcelino Dupont, RN RN bp Calixto Redding MD MD rt Malou Soares RN RN sg5 Addis Boateng RN RN nj1 Matt Barrett RN as6 Corrections: (The following items were deleted from the chart) 18:51 15:01 rt dw
--- NOTE | 2022-09-03 15:28 | RAD REPORT ---
EXAM DESCRIPTION: CT - Thorax W/ Con - 09/03/2022 2:54 pm CLINICAL HISTORY: CHEST PAIN COMPARISON: No comparisons TECHNIQUE: Axial thin cut images of the chest were obtained following intravenous administration of 100 mL Isovue-300. Multiplanar reformats were generated and reviewed. All CT scans are performed using dose optimization technique as appropriate and may include automated exposure control or mA/KV adjustment according to patient size. FINDINGS: No mass or infiltrate in the lung parenchyma. Small to moderate left layering pleural effu brad. Patchy alveolar consolidative and ground-glass opacities in the left lower lobe, as well as sub segmental opacification in the posterior aspect of the left lingula. No pneumothorax. No abnormal mediastinal or hilar masses or lymphadenopathy seen. No significant aortic findings. Prom inent caliber of the main pulmonary artery, could relate to ongoing pulmonary hypertension. Mild cardiomegaly. Mild pericardial effusion. No chest wall mass or abnormal axillary lymphadenopathy . Evaluation of the solid abdominal structures reveals no suspicious findings. Elevation of the left he midiaphragm, which could be related to atelectasis. IMPRESSION: Patchy left lower lobe alveolar and ground-glass opacities, concerning for pneumonia. Sm all to moderate left layering pleural effusion. Mild cardiomegaly and mild pericardial effusion. Prominent caliber of the main pulmonary artery, could relate to mild pulmonary hypertension.
[2022-09-03] MEDS ORDERED: CEFTRIAXONE 2000 MG/VIAL ONE (15:40)
[2022-09-03] MEDS ORDERED: AZITHROMYCIN 500 MG INJ IVPB ONE (15:40)
[2022-09-03] MEDS ORDERED: NA CHLORIDE 0.9% 250 ML ONE (15:41)
[2022-09-03] MEDS ORDERED: TRAMADOL HCL 50 MG TAB PO PRN (17:07)
[2022-09-03] MEDS ORDERED: ACETAMINOPHEN 325 MG TABLET PO PRN (17:07)
[2022-09-03] MEDS ORDERED: ONDANSETRON 4 MG/2 ML VIAL IV PRN (17:10)
--- NOTE | 2022-09-03 17:21 | P.HP ---
Certification for Inpatient Patient admitted to: Inpatient With expected LOS: >2 Midnights Patient will require the following post-hospital care: None Practitioner: I am a practitioner with admitting privileges, knowledge of patient current condition, hospital course, and medical plan of care. Services: Services provided to patient in accordance with Admission requirements found in Title 42 Section 412.3 of the Code of Federal Regulations Patient History Date of Service: 09/03/22 Reason for admission: Left rib cage pain, shortness of breath History of Present Illness: Patient is 72 year old male with a past medical history significant for chronic atrial fibrillation s/p cardioversion and Watchman procedure, coronary artery disease s/p PCI, CHF, HIV infection, pulmonary hypertension, hypertension who presents with complaint of left rib Cage. Patient reported that he fell 2 weeks ago and felt pain on his left side. Patient reported that he felt pain initially but pain resolved after a couple of days. Patient started having pain again 3 days ago. Patient rated pain as 10/10 in severity and described pain as sharp in quality. Patient reported associated signs and symptoms of shortness of breath, cough and palpitations. Patient denies any other signs and symptoms. Symptoms are aggravated or relieved by nothing. Patient decided to present to the hospital due to worsening symptoms. Allergies diphenhydramine [From Benadryl] Allergy (Intermediate, Verified 06/21/21 13:24) Hives/Rash abacavir Allergy (Verified 05/31/17 03:04) Anaphylaxis Sulfa (Sulfonamide Antibiotics) Allergy (Verified 05/31/17 03:04) Hives metoprolol Adverse Reaction (Verified 06/21/21 13:24) Nausea/Vomiting sotalol Adverse Reaction (Verified 06/21/21 13:24) Nausea/Vomiting Home Medications: Ambrisentan [Letairis] 10 mg PO DAILY 08/14/14 Pregabalin [Lyrica*] 100 mg PO TID 08/14/14 Valacyclovir HCl [Valtrex] 1,000 mg PO SEECOM PRN 05/31/17 Dabigatran Etexilate Mesylate [Pradaxa] 150 mg PO BID 07/28/22 Cefdinir [Cefdinir*] 300 mg PO BID 5 Days #10 cap 07/29/22 Darunavir/Cob/Emtri/Tenof Alaf [Symtuza [id number] mg Tab] 1 tab PO NOON 07/29/22 Furosemide [Lasix*] 40 mg PO BID 07/29/22 - Past Medical/Surgical History Diabetic: No -: HIV -: Pulmonary HTN -: HTN -: atrial fib -: rt knee scope -: cardioversion - Social History Smoking Status: Never smoker Alcohol use: No CD- Drugs: No Caffeine use: No Place of Residence: Home Review of Systems General: Unremarkable Eyes: Unremarkable ENT: Unremarkable Respiratory: Cough, Shortness of Breath Cardiovascular: Palpitations Gastrointestinal: Unremarkable Genitourinary: Unremarkable Musculoskeletal: Other (left rib cage pain ) Integumentary: Unremarkable Neurological: Unremarkable Lymphatics: Unremarkable Physical Examination - Physical Exam General: Alert, In no apparent distress, Oriented x3, Cooperative HEENT: Atraumatic, PERRLA, Mucous membr. moist/pink, EOMI, Sclerae nonicteric Neck: Supple, 2+ carotid pulse no bruit, No LAD, Without JVD or thyroid abnormality Respiratory: Diminished Cardiovascular: No edema, Normal S1 S2, Irregular heart rate/rhythm Capillary refill: <2 Seconds Gastrointestinal: Normal bowel sounds, No tenderness, Distended Musculoskeletal: No clubbing, No tenderness Integumentary: No rashes, No breakdown Neurological: Normal speech, Normal tone, Normal affect Lymphatics: No axilla or inguinal lymphadenopathy - Studies Laboratory Data (last 24 hrs) 09/03/22 13:30: Sodium 133 L, Potassium 3.9, BUN 23 H, Creatinine 1.04, Glucose 111 H, Magnesium 2.3, Total Bilirubin 1.3 H, AST 22, ALT 41, Alkaline Phosphatase 88 09/03/22 12:28: WBC 11.10 H, Hgb 15.1, Hct 45.0, Plt Count 196 Assessment and Plan - Plan --Pneumonia. CT chest indicates Patchy left lower lobe alveolar and ground- glass opacities, concerning for pneumonia. Small to moderate left layering pleural effusion. Mild cardiomegaly and mild pericardial effusion. Prominent caliber of the main pulmonary artery, could relate to mild pulmonary hypertension Continue antibiotics, neb treatment with albuterol\Atrovent. Continue O2 therapy. --A-fib with RVR. Status post conversion and watchman procedure. Patient was given Cardizem in the ER. Rate more controlled. Continue Pradaxa. Cardiology consulted. Will await further recommendations. --Acute on chronic diastolic CHF exacerbation. Patient placed on diuresis with Lasix. Daily weight and strict I/O. Further management per talent acquisition operations manager. --Acute pain. Patient complained of left rib cage pain. Repeat x-ray does not indicate any rib fracture. Continue current pain medication regimen. --Hypertension. Poorly controlled. Continue home medications and labetalol as needed. --HIV. Continue home medications. --Leukocytosis. Likely secondary to pneumonia. Blood cultures pending. Continue antibiotics. --CKD 2. Stable. We will continue to monitor renal functions. --CAD status post PCI. Continue aspirin. --DVT prophylaxis with Pradaxa. Discharge Plan: Home Plan to discharge in: Greater than 2 days - Advance Directives Does patient have a Living Will: Yes Does patient have a Durable POA for Healthcare: No - Code Status/Comfort Care Code Status Assessed: Yes Physician Review: Patient Assessed, Agree with Above Assessment and Plan Critical Care: No
[2022-09-03] MEDS ORDERED: LABETALOL 20 MG/4ML SYRINGE IV PRN (17:32)
[2022-09-03] MEDS ORDERED: ALBUTEROL 2.5 MG/3 ML NEB SOL NEB PRN (19:26)
[2022-09-03] MEDS ORDERED: ALBUTEROL 2.5 MG/3 ML NEB SOL NEB SCH (20:00)
[2022-09-03] MEDS: IPRATROPIUM BROM 0.5MG/2.5ML NEB SCH (20:00)
[2022-09-03] MEDS: DABIGATRAN 75 MG CAP PO SCH (20:51)
[2022-09-03 21:22] LABS: Magnesium 2.3 mg/dL (1.6-2.4); Phosphorus 2.6 mg/dL (2.5-4.9)
[2022-09-03 22:03] VITALS: BMI 23.1
[2022-09-03] MEDS: PREGABALIN 50 MG CAP PO PRN (22:25)
[2022-09-03] MEDS: BENZONATATE 100 MG CAP PO PRN (22:29)
[2022-09-04 01:22] LABS: Renal Epithelial <5 /HPF (None Seen); Specific Gravity > 1.030 (1.005-1.030); Urine Bacteria <20 /HPF (<20); Urine Bilirubin NEGATIVE (Negative); Urine Blood Negative (Negative); Urine Clarity Clear (Clear); Urine Color Yellow (Yellow); Urine Glucose NEGATIVE (Negative); Urine Mucus Slight /HPF (None Seen); Urine Protein 1+ (Negative); Urine RBC None Seen /HPF (None Seen); Urine Urobilinogen Normal (Normal); Urine pH 5.5 (5.0-7.0)
[2022-09-04] MEDS: IPRATROPIUM BROM 0.5MG/2.5ML NEB SCH ×3 (02:00→14:00)
[2022-09-04 03:06] LABS: Absolute Lymphocytes (CBC) 1.7 K/uL (0.7-4.9); Hematocrit 41.6 % (39.6-49.0); Lymphocytes % 15.6 % (15.3-44.8); MCV 94.5 fL (80-100)
[2022-09-04 03:25] LABS: Albumin 2.6 g/dL (3.4-5.0); Bilirubin Total 0.8 mg/dL (0.2-1.0); Magnesium 2.3 mg/dL (1.6-2.4); Phosphorus 2.4 mg/dL (2.5-4.9); Potassium 3.8 mEq/L (3.5-5.1); Protein, Total 6.2 g/dL (6.4-8.2)
[2022-09-04] MEDS: CEFTRIAXONE 1,000 MG in NA CHLORIDE 0.9% 50 ML IVPB SCH (08:20)
[2022-09-04] MEDS: ASPIRIN 81 MG CHEWABLE TABLET PO SCH (08:25)
[2022-09-04] MEDS: FUROSEMIDE 40 MG/4 ML VIAL IV SCH ×2 (08:25→16:24)
[2022-09-04] MEDS ORDERED: VALACYCLOVIR 500 MG TAB PO PRN (08:29)
[2022-09-04] MEDS: AMBRISENTAN 10 MG PO SCH (09:00)
[2022-09-04] MEDS ORDERED: POTASSIUM PHOS IN 0.9 % NACL 15 MMOL/250 ML BAG IV ONE (09:00)
[2022-09-04] MEDS: AZITHROMYCIN IV 500 MG in NA CHLORIDE 0.9% 250 ML IVPB SCH (09:09)
[2022-09-04] MEDS: DABIGATRAN 75 MG CAP PO SCH ×2 (10:59→20:24)
[2022-09-04] MEDS: POLYETHYL GLY 3350 17 GM/DOSE PO PRN (10:59)
--- NOTE | 2022-09-04 11:23 | EKG ---
Test Date: 2022-09-03 Test Time: 13:01:01 Industrial Relations Manager: BP MEASUREMENT RESULTS: Intervals: Rate: 110 IA: QRSD: 154 QT: 374 QTc: 506 Davidson: P: IA: QRS: 264 T: 55 INTERPRETIVE STATEMENTS: Atrial fibrillation Right bundle branch block Septal infarct, age undetermined Abnormal ECG Compared to ECG 07/28/2022 04:57:21 No significant changes Electronically Signed On 09-04-22 11:20:21 CDT by Adam Silvestre
[2022-09-04] MEDS: [UNRECOGNIZED DRUG - OTHER] PO SCH (12:00)
--- NOTE | 2022-09-04 14:09 | CON ---
Date of Consultation: 09/04/[address] Hernandez and Dr. Hernandez on 09/03/2022. I saw the patient on 09/04/2022. Reason For Consultation: Atrial fibrillation. History Of Present Illness: Mr. Espinoza is 72. He is known to have atrial fibrillation. He has fail ed sotalol, amiodarone. He is intolerant to beta-carlos. Has had ablation by Dr. Angulo before. Has had a Watchman recently. Comes in with left lower pneumonia, atrial fibrillation at a rate of 86, was faster when he first came in. Has known moderate aortic stenosis, diastolic dysfunction with normal ejection fraction. He is asymptomatic right now. He is still having issues with his pneumon ia. He is on antibiotics. There is a plan for him to see Dr. Angulo for next week for possibly s econd ablation versus AV anupam ablation and pacemaker. Past Medical History: Positive for anemia, dyslipidemia, atrial fibrillation, neuropathy, diastolic congestive heart failure, and moderate aortic stenosis. Allergies: HE IS ALLERGIC TO IRON, NIACIN, AMIODARONE, AND BENADRYL. Review of Systems: Negative. Social History: Negative. Family History: Negative. Medications: At home include Lasix, Lyrica, and Pradaxa. Physical Examination: Vital Signs: He was in AFib at rate of 86. HEENT: Negative. No JVD, thyromegaly, or bruit. Chest: Revealed some crackles in left base. Cardiac: Revealed atrial fibrillation and aortic stenosis murmur. Abdomen: Benign. Extremities: Revealed no clubbing, cyanosis, or edema. Diagnostic Data: As stated earlier. His white count is 11,000, BNP is 2019. He is in AFib. Impression And Plan: Atrial fibrillation, recurrent, failed ablation, failed beta-carlos, failed am iodarone, failed sotalol. He does have a Watchman. He is on Pradaxa, so his risk for stroke is very low. He is having some minor symptoms with atrial fibrillation, but still bothers him. He is seein g Dr. Angulo soon. He may have another ablation or AV node ablation and pacemaker. He has modera te aortic stenosis that we need to follow on a regular basis. He has diastolic dysfunction for which he takes Lasix. Continue antibiotics. Continue present regimen. We will continue to follow. NB/MODL Voice ID: [id number] Report ID: [id number]
[2022-09-04] MEDS: BENZONATATE 100 MG CAP PO PRN (15:08)
[2022-09-04] MEDS: PREGABALIN 50 MG CAP PO PRN (15:11)
--- NOTE | 2022-09-04 15:26 | P.PN ---
Subjective Date of Service: 09/04/22 Chief Complaint: Left rib cage pain, shortness of breath Patient states he feels much better. He denies shortness of breath. He states his left-sided rib pain is better. He is maintained on 3 L oxygen by nasal cannula. Heart rate has been in the low 100s. Physical Examination - Vital Signs Temperature: 98.9 F Blood Pressure: 120/85 Pulse: 103 Respirations: 16 Pulse Ox (%): 95 - Studies Laboratory Data (last 24 hrs) 09/03/22 13:30: Phosphorus 2.6, Magnesium 2.3 Assessment And Plan - Plan Physical Exam General: Alert, In no apparent distress, Oriented x3, Cooperative Neck: Supple, No LAD, no elevated JVD Respiratory: Diminished on the left, clear to auscultation bilaterally. Cardiovascular: No edema, Normal S1 S2, Irregular heart rate/rhythm Gastrointestinal: Normal bowel sounds, No tenderness, Distended Musculoskeletal: No clubbing, No tenderness Integumentary: No rashes, No breakdown Neurological: Normal speech, Normal tone, Normal affect Lymphatics: No axilla or inguinal lymphadenopathy Diagnosis Acute respiratory failure with hypoxia Pneumonia Rapid atrial fibrillation Acute on chronic diastolic heart failure Hypertension Coronary artery disease HIV Plan: Pneumonia/acute respiratory failure with hypoxia Patient with recent fall with left rib pain. Imaging shows no displaced rib fracture. Patient currently requiring 3 L of oxygen by nasal cannula. Continue current antibiotics Pain management for pleurisy Incentive spirometer Wean oxygen. Rapid atrial fibrillation/CAD Status post Watchman procedure Status post cardioversion Patient seen by cardiology-Dr. Silvestre who stated patient is scheduled for evaluation for cardiac ablation as outpatient. Dr. Silvestre recommended no rate control medications or antiarrhythmic for now as patient has not tolerated them in the past. Continue telemetry. Continue aspirin and Pradaxa. HIV Continue home antiretrovirals. DVT prophylaxis with Pradaxa. Disposition: Home
[2022-09-04] MEDS: DILTIAZEM HCL 60 MG TAB PO PRN (18:00)
[2022-09-04] MEDS: PREGABALIN 50 MG CAP PO SCH (20:24)
[2022-09-05 04:18] LABS: Absolute Lymphocytes (CBC) 1.5 K/uL (0.7-4.9); Hematocrit 38.2 % (39.6-49.0); Lymphocytes % 14.5 % (15.3-44.8); MCV 95.4 fL (80-100); MPV 8.5 fL (7.6-11.3)
[2022-09-05 04:33] LABS: Potassium 3.6 mEq/L (3.5-5.1)
[2022-09-05] MEDS ORDERED: POTASSIUM CL SA 10 MEQ TAB PO ONE (09:00)
[2022-09-05] MEDS: AMBRISENTAN 10 MG PO SCH (09:00)
[2022-09-05] MEDS: POLYETHYL GLY 3350 17 GM/DOSE PO PRN (09:11)
[2022-09-05] MEDS: AZITHROMYCIN IV 500 MG in NA CHLORIDE 0.9% 250 ML IVPB SCH (09:13)
[2022-09-05] MEDS: PREGABALIN 50 MG CAP PO SCH ×3 (09:13→20:50)
[2022-09-05] MEDS: FUROSEMIDE 40 MG/4 ML VIAL IV SCH ×2 (09:13→17:41)
[2022-09-05] MEDS: CEFTRIAXONE 1,000 MG in NA CHLORIDE 0.9% 50 ML IVPB SCH (09:14)
[2022-09-05] MEDS: DILTIAZEM HCL 60 MG TAB PO PRN ×2 (09:14→19:43)
[2022-09-05] MEDS: ASPIRIN 81 MG CHEWABLE TABLET PO SCH (09:15)
[2022-09-05] MEDS: DABIGATRAN 75 MG CAP PO SCH ×2 (09:15→20:50)
[2022-09-05] MEDS: BENZONATATE 100 MG CAP PO PRN ×2 (09:33→17:40)
[2022-09-05] MEDS: [UNRECOGNIZED DRUG - OTHER] PO SCH (12:00)
--- NOTE | 2022-09-05 12:44 | P.CNS ---
Date of Consult: 09/05/22 Reason for Consult: SOB Chief Complaint: Left rib cage pain, shortness of breath History of Present Illness: Age 72 AW SOB and left sided chest pain. Worsening SOB hypoxic. Never smoked Hx of CHF and Afib No fever or chills Allergies diphenhydramine [From Benadryl] Allergy (Intermediate, Verified 06/21/21 13:24) Hives/Rash abacavir Allergy (Verified 05/31/17 03:04) Anaphylaxis amiodarone Allergy (Verified 09/03/22 21:47) Anaphylaxis iron Allergy (Verified 09/03/22 21:47) Nausea/Vomiting niacin Allergy (Verified 09/03/22 21:47) Hives/Rash NSAIDS (Non-Steroidal Anti-Inflamma Allergy (Verified 09/03/22 21:47) Nausea/Vomiting Sulfa (Sulfonamide Antibiotics) Allergy (Verified 05/31/17 03:04) Hives sulfamethoxazole [From Bactrim] Allergy (Verified 09/03/22 21:47) Rash trimethoprim [From Bactrim] Allergy (Verified 09/03/22 21:47) Rash metoprolol Adverse Reaction (Verified 09/03/22 21:47) Anaphylaxis sotalol Adverse Reaction (Verified 06/21/21 13:24) Nausea/Vomiting Home Medications: Ambrisentan [Letairis] 10 mg PO DAILY 08/14/14 Pregabalin [Lyrica*] 100 mg PO TID 08/14/14 Valacyclovir HCl [Valtrex] 1,000 mg PO SEECOM PRN 05/31/17 Dabigatran Etexilate Mesylate [Pradaxa] 150 mg PO BID 07/28/22 Darunavir/Cob/Emtri/Tenof Alaf [Symtuza [id number] mg Tab] 1 tab PO NOON 07/29/22 Furosemide [Lasix*] 40 mg PO BID 07/29/22 Metformin ER [Glucophage ER*] 500 mg PO DAILY 09/04/22 - Past Medical/Surgical History Diabetic: No -: HIV -: Pulmonary HTN -: HTN -: atrial fib -: rt knee scope -: cardioversion - Social History Alcohol use: No CD- Drugs: No Caffeine use: No Place of Residence: Home Review of Systems 10-point ROS is otherwise unremarkable General: Weakness Respiratory: Shortness of Breath Cardiovascular: Chest Pain Physical Examination Temp Pulse Resp BP Pulse Ox 98.3 F 132 H 18 125/74 93 09/05/22 08:00 09/05/22 09:14 09/05/22 08:00 09/05/22 09:14 09/05/22 08:00 General: Alert, Oriented x3, Mild distress HEENT: Other Respiratory: Diminished (Left base) Cardiovascular: No edema, Irregular heart rate/rhythm - Problems (1) Pleural effusion Current Visit: Yes Status: Acute Plan: Age 72 Hx of HIV, Pulm HTN,Diastolic heart failure, fall couple of week ago AW Left sided chest pain and SOB. Ct Left sided effusion, Nprmal WBC BNP elevated. LAbs reviewed. CW diuresis for now/ Doubt infecion. PT anticoagulated with pradexa, Atelectasis ? Hypoxic
--- NOTE | 2022-09-05 13:06 | P.PN ---
Subjective Date of Service: 09/05/22 Chief Complaint: Left rib cage pain, shortness of breath Patient reports significant shortness of breath after moving to and from bathroom this morning. He is currently requiring 4 L oxygen by nasal canula. He states his left-sided rib pain is better. Heart rate has been fluctuating. Physical Examination - Vital Signs Temperature: 98.3 F Blood Pressure: 125/74 Pulse: 132 Respirations: 18 Pulse Ox (%): 93 Assessment And Plan - Plan Physical Exam General: Alert, In no apparent distress, Oriented x3, Cooperative Neck: Supple, No LAD, no elevated JVD Respiratory: Diminished on the left, clear to auscultation bilaterally. Cardiovascular: No edema, Normal S1 S2, Irregular heart rate/rhythm Gastrointestinal: Normal bowel sounds, No tenderness, Distended Musculoskeletal: No clubbing, No tenderness Integumentary: No rashes, No breakdown Neurological: Normal speech, Normal tone, Normal affect Lymphatics: No axilla or inguinal lymphadenopathy Diagnosis Acute respiratory failure with hypoxia Pneumonia Rapid atrial fibrillation Acute on chronic diastolic heart failure Hypertension Coronary artery disease HIV Plan: Pneumonia/acute respiratory failure with hypoxia/atelectasis Patient with recent fall with left rib pain. Imaging shows no displaced rib fracture. Patient currently requiring 4 L of oxygen by nasal cannula. Continue current antibiotics Pain management for pleurisy Incentive spirometer Wean oxygen. Pulmonary consulted to assist with management. Patient has been seen by Dr. Rosado. Rapid atrial fibrillation/CAD Status post Watchman procedure Status post cardioversion Patient seen by cardiology-Dr. Silvestre who stated patient is scheduled for evaluation for cardiac ablation as outpatient. Dr. Silvestre recommended no rate control medications or antiarrhythmic for now as patient has not tolerated them in the past. Continue telemetry. Continue aspirin and Pradaxa. Low-dose Cardizem ordered as needed for heart rate greater than 120. Acute diastolic heart failure Secondary to rapid atrial fibrillation. Diuresis with Lasix. Most recent echocardiogram was about 1 month ago and shows normal EF, moderate aortic stenosis. HIV Continue home antiretrovirals. DVT prophylaxis with Pradaxa. Disposition: Home
--- NOTE | 2022-09-05 14:01 | RAD REPORT ---
EXAM DESCRIPTION: CT - Chest For Pe Angio - 09/05/2022 1:51 pm CLINICAL HISTORY: Chest pain. Hypoxia COMPARISON: Thorax W/ Con dated 09/03/2022 TECHNIQUE: CT angiogram of the pulmonary arteries was performed with MIP. All CT scans are performed using dose optimization technique as appropriate and may include automated exposure control or mA/KV adjustment according to patient size. FINDINGS: No evidence of pulmonary thromboembolism. The pulmonary arterial tree is significantly enl arged. The thoracic aorta is not adequately opacified for assessment. Significant airspace opacity is present in the left lung base. Mild interstitial pulmonary edema also present. Moderate left pleural effusion. No concerning bony finding. IMPRESSION: No evidence of pulmonary thromboembolism. Pulmonary arterial tree is enlarged suggesting pulmonary arterial hypertension. Moderate airspace consolidation noted in the left lung base with left pleural effusion again seen, an d has progressed moderately since 09/03/2022 and is favored to represent pneumonia.
[2022-09-06] MEDS: BENZONATATE 100 MG CAP PO PRN ×3 (00:10→17:13)
[2022-09-06] MEDS: IPRATROPIUM BROM 0.5MG/2.5ML NEB PRN ×2 (01:55→13:30)
[2022-09-06 03:09] LABS: Absolute Lymphocytes (CBC) 1.7 K/uL (0.7-4.9); Hematocrit 39.4 % (39.6-49.0); Lymphocytes % 17.1 % (15.3-44.8); MPV 8.1 fL (7.6-11.3); RBC Red Blood Cell Count 4.19 M/uL (4.33-5.43)
[2022-09-06 03:31] LABS: Potassium 3.9 mEq/L (3.5-5.1)
[2022-09-06 06:54] LABS: Phosphorus 3.2 mg/dL (2.5-4.9)
[2022-09-06] MEDS: ASPIRIN 81 MG CHEWABLE TABLET PO SCH (08:04)
[2022-09-06] MEDS: FUROSEMIDE 40 MG/4 ML VIAL IV SCH ×2 (08:04→17:10)
[2022-09-06] MEDS: PREGABALIN 50 MG CAP PO SCH ×3 (08:04→20:16)
[2022-09-06] MEDS: AZITHROMYCIN 250 MG TAB PO SCH (08:04)
[2022-09-06] MEDS: DABIGATRAN 75 MG CAP PO SCH ×2 (08:05→20:17)
[2022-09-06] MEDS: CEFTRIAXONE 1,000 MG in NA CHLORIDE 0.9% 50 ML IVPB SCH (08:05)
[2022-09-06] MEDS: AMBRISENTAN 10 MG PO SCH (08:05)
[2022-09-06] MEDS ORDERED: POTASSIUM CL SA 10 MEQ TAB PO ONE (09:00)
--- NOTE | 2022-09-06 10:04 | P.PN ---
Subjective Date of Service: 09/06/22 Chief Complaint: Left rib cage pain, shortness of breath Subjective: Improving (Patient is improving chest pain has improved shortness of breath is also improved nebulizers help) Review of Systems General: Weakness Respiratory: Shortness of Breath Physical Examination - Vital Signs Temperature: 97.4 F Blood Pressure: 146/80 Pulse: 113 Respirations: 20 Pulse Ox (%): 90 - Physical Exam General: Alert, In no apparent distress, Oriented x3 Respiratory: Clear to auscultation bilaterally, Diminished (The left side) Cardiovascular: No edema, Regular rate/rhythm Assessment And Plan - Current Problems (Diagnosis) (1) Pleural effusion Current Visit: Yes Status: Acute Plan: Patient admitted with shortness of breath left-sided chest pain left-sided pleural effusion not sure about the etiology of pleural effusion there is no thromboemboli patient is on anticoagulants pain has improved change to p.o. antibiotics Augmentin and Zithromax for now consolidation noticed on the CT scan conditions seem to have improved repeat another x-ray pulmonary sat is 92% ambulate Labs reviewed possible discharge on antibiotics patient does take 40 mg twice daily p.o. twice daily of Lasix resume p.o. Lasix possible discharge Physician Review: Patient Assessed, Agree with Above Assessment and Plan
[2022-09-06] MEDS: SPIRONOLACTONE 25 MG TABLET PO SCH ×2 (10:56→20:17)
[2022-09-06] MEDS: DILTIAZEM HCL 60 MG TAB PO PRN ×2 (10:56→20:32)
[2022-09-06] MEDS: [UNRECOGNIZED DRUG - OTHER] PO SCH (11:49)
--- NOTE | 2022-09-06 12:10 | RAD REPORT ---
EXAM DESCRIPTION: Evangelista Pa And Lat (2 Views)09/06/2022 11:41 am CLINICAL HISTORY: Pleural effusion COMPARISON: CT chest September 05, 2022 FINDINGS: No change in the opacity lower left hemithorax Remainder lungs appear clear. Pulmonary artery enlargement centrally. Heart remains enlarged IMPRESSION: No change in the opacity left lower hemithorax. CT demonstrates that this represents a combination of left lower lobe pneumonia and small to moderate pleural effusion
--- NOTE | 2022-09-06 12:56 | P.PN ---
Subjective Date of Service: 09/06/22 Chief Complaint: Left rib cage pain, shortness of breath Patient feeling much better today. He tolerated room air brief, later found to desaturate to 88% on room air and placed back on oxygen. Left rib/flank pain resolved. No recorded fever. Physical Examination - Vital Signs Temperature: 97.5 F Blood Pressure: 136/79 Pulse: 108 Respirations: 22 Pulse Ox (%): 90 Assessment And Plan - Plan Physical Exam General: Alert, In no apparent distress, Oriented x3, Cooperative Neck: Supple, No LAD, no elevated JVD Respiratory: Diminished on the left, clear to auscultation bilaterally. Cardiovascular: No edema, Normal S1 S2, Irregular heart rate/rhythm Gastrointestinal: Normal bowel sounds, No tenderness, Distended Musculoskeletal: No clubbing, No tenderness Integumentary: No rashes, No breakdown Neurological: Normal speech, Normal tone, Normal affect Lymphatics: No axilla or inguinal lymphadenopathy Diagnosis Acute respiratory failure with hypoxia Pneumonia Rapid atrial fibrillation Acute on chronic diastolic heart failure Hypertension Coronary artery disease HIV Plan: Pneumonia/acute respiratory failure with hypoxia/atelectasis Patient with recent fall with left rib pain. Imaging shows no displaced rib fracture. Continue current antibiotics Wean oxygen Pain management for pleurisy Incentive spirometer Pulmonary Dr. Rosado is following and assisting with management. Rapid atrial fibrillation/CAD Status post Watchman procedure Status post cardioversion Patient seen by cardiology-Dr. Silvestre who stated patient is scheduled for evaluation for cardiac ablation as outpatient. Dr. Silvestre recommended no rate control medications or antiarrhythmic for now as patient has not tolerated them in the past. Continue telemetry. Continue aspirin and Pradaxa. Low-dose Cardizem as needed for heart rate greater than 120. Acute diastolic heart failure Secondary to rapid atrial fibrillation. Continue IV Lasix Most recent echocardiogram was about 1 month ago and shows normal EF, moderate aortic stenosis. HIV Continue home antiretrovirals. DVT prophylaxis with Pradaxa. Disposition: Home
--- NOTE | 2022-09-06 14:55 | PN ---
Date of Progress Note: 09/06/2022 Reason For Consultation: Atrial fibrillation with rapid ventricular response. Subjective: Seen by bedside. He is short of breath still. Heart rate is fast and it goes up to 150 . He has shortness of breath. No chest pain. No nausea, vomiting, or diarrhea. No abdominal pain. No dysuria, polyuria, or urinary urgency. All other systems reviewed and they were negative. Physical Examination: Vital Signs: Reviewed. Head and Neck: Pupils are equal, reactive to light. Intact eye movements. No JVD. No cervical lym phadenopathy. Neck is supple. Thyroid is not enlarged. Lungs: There are faint crackles in bases. No accessory muscle use or muscle retraction. Heart: Irregularly irregular. No extra sounds. Abdomen: Soft, nontender. Bowel sounds positive. No organomegaly. No masses or hernia. No rigidi ty or rebound. Extremities: No clubbing or cyanosis. Intact pulses. Skin: No rash noted. Neurological: Alert, awake, and oriented x3. No acute focal deficits appreciated. Investigations: His BUN is 25, creatinine 0.8, and hemoglobin is 13.5. Assessment And Recommendations: 1.Atrial fibrillation with rapid ventricular response. I will load him with IV amiodarone overnight and if he goes into severe bradycardia or heart block, we will transfer for a pacemaker implantation . 2.Acute on chronic diastolic heart failure. Recommend to continue Lasix and Aldactone. Monitor cli nically. This patient likely will need AV node ablation and the pacemaker implantation, for which he has an appointment with an EP spec ialist. SR/MODL Voice ID: [id number] Report ID: [id number]
[2022-09-06] MEDS ORDERED: AMIODARONE HCL 450 MG in D5W 241 ML IV SCH (16:00)
[2022-09-06] MEDS: AMOX/K CLAV 500 MG TAB PO SCH (20:17)
[2022-09-06] MEDS ORDERED: AMOX/K CLAV 500 MG TAB PO SCH (21:00)
[2022-09-06] MEDS ORDERED: MELATONIN 5 MG TABLET PO PRN (21:23)
[2022-09-07] MEDS: IPRATROPIUM BROM 0.5MG/2.5ML NEB PRN ×3 (02:20→20:45)
[2022-09-07] MEDS: ASPIRIN 81 MG CHEWABLE TABLET PO SCH (08:47)
[2022-09-07] MEDS: PREGABALIN 50 MG CAP PO SCH ×3 (08:47→21:17)
[2022-09-07] MEDS: FUROSEMIDE 40 MG/4 ML VIAL IV SCH ×2 (08:47→16:46)
[2022-09-07] MEDS: AMBRISENTAN 10 MG PO SCH (08:47)
[2022-09-07] MEDS: DABIGATRAN 75 MG CAP PO SCH ×2 (08:47→21:17)
[2022-09-07] MEDS: AZITHROMYCIN 250 MG TAB PO SCH (08:47)
[2022-09-07] MEDS: SPIRONOLACTONE 25 MG TABLET PO SCH ×2 (08:47→21:18)
[2022-09-07] MEDS: AMOX/K CLAV 500 MG TAB PO SCH ×3 (08:47→21:17)
[2022-09-07] MEDS: ARFORMOTEROL TARTRATE 15 MCG/2 ML VIAL.NEB NEB SCH ×2 (08:55→20:45)
[2022-09-07] MEDS: [UNRECOGNIZED DRUG - OTHER] PO SCH (11:20)
--- NOTE | 2022-09-07 13:27 | P.PN ---
Subjective Date of Service: 09/07/22 Chief Complaint: Left rib cage pain, shortness of breath Patient reports no changes from yesterday. He still requiring 3 L of oxygen by nasal cannula. No recorded fever. Physical Examination - Vital Signs Temperature: 97.6 F Blood Pressure: 109/69 Pulse: 83 Respirations: 22 Pulse Ox (%): 91 Assessment And Plan - Plan Physical Exam General: Alert, In no apparent distress, Oriented x3, Cooperative Respiratory: Diminished on the left, clear to auscultation bilaterally. Cardiovascular: No edema, Normal S1 S2, Irregular heart rate/rhythm Gastrointestinal: Normal bowel sounds, No tenderness, Distended Integumentary: No rashes, No breakdown Neurological: Normal speech, Normal tone, Normal affect Lymphatics: No axilla or inguinal lymphadenopathy Diagnosis Acute respiratory failure with hypoxia Pneumonia Rapid atrial fibrillation Acute on chronic diastolic heart failure Hypertension Coronary artery disease HIV Plan: Pneumonia/acute respiratory failure with hypoxia/atelectasis Patient with recent fall with left rib pain. Imaging shows no displaced rib fracture. Patient is still hypoxic despite multiple days of antibiotics. Could be a component of CHF given intermittent rapid A-fib. CTA thorax shows progressive pneumonia, pleural effusion. It also reports pulmonary hypertension. Continue antibiotics per pulmonary recommended Pain management for pleurisy as needed IV Lasix Wean oxygen Incentive spirometer Pulmonary Dr. Rosado is following and assisting with management. Rapid atrial fibrillation/CAD Status post Watchman procedure Status post cardioversion Patient seen by cardiology-Dr. Silvestre who stated patient is scheduled for e valuation for cardiac ablation as outpatient. Dr. Silvestre recommended no rate control medications or antiarrhythmic for now as patient has not tolerated them in the past. Due to intermittent rapid A-fib, Dr. Raymundo recommended amiodarone drip but patient has allergy to amiodarone with anaphylaxis. Heart rate is better today. Continue Cardizem as needed. Dr. Raymundo is planning cardioversion next week. Continue telemetry. Continue aspirin and Pradaxa. Acute diastolic heart failure Secondary to rapid atrial fibrillation. Continue IV Lasix Most recent echocardiogram was about 1 month ago and shows normal EF, moderate aortic stenosis. HIV Continue home antiretrovirals. DVT prophylaxis with Pradaxa. Disposition: Home
[2022-09-07] MEDS: DILTIAZEM HCL 60 MG TAB PO PRN (16:46)
--- NOTE | 2022-09-07 18:14 | PN ---
Date of Progress Note: 09/07/2022 Subjective: Seen by bedside. Could not tolerate amiodarone because of significant heart block that happens and the patient continues to run on the fast side along with some shortness of breath. Review of Systems: There is shortness of breath and orthopnea, lower extremity edema, and palpitations. No nausea, vomi ting, diarrhea. All other systems reviewed and they were negative. Physical Examination: Vital Signs: Reviewed. Head and Neck: Pupils are equal, reactive to light. Intact eye movements. No JVD. No cervical lym phadenopathy. Neck is supple. Thyroid is not enlarged. Lungs: Clear to auscultation bilaterally. No rhonchi, wheezing, or crackles. No accessory muscle u se. Heart: Irregularly irregular. No extra sounds. Abdomen: Soft, nontender. Bowel sounds positive. No organomegaly. No masses or hernia. No rigidi ty or rebound. Extremities: No edema, clubbing, or cyanosis. Intact pulses. Skin: No rash. Neurologic: Alert, awake, oriented x3. No acute focal deficits appreciated. Investigations: BUN 25, creatinine 0.82, hemoglobin is 13.5. Assessment And Recommendations: 1.Acute on chronic diastolic heart failure exacerbation, improving with diuretics. Continue current management. Monitor BUN, creatinine, electrolytes. 2.Atrial fibrillation with significant heart block and fast heart rate. Any medications we used, th e patient goes into full heart block. At this point, I recommend AV node ablation and pacemaker impl antation. We will plan for transfer as the patient is not getting symptoms free to be able to discha rge him home. We will plan for a transfer for an ablation as above and pacemaker implantation. SR/MODL Voice ID: [id number] Report ID: [id number]
[2022-09-08] MEDS: BENZONATATE 100 MG CAP PO PRN (01:32)
[2022-09-08] MEDS ORDERED: POTASSIUM CL SA 10 MEQ TAB PO ONE (06:00)
[2022-09-08] MEDS: ARFORMOTEROL TARTRATE 15 MCG/2 ML VIAL.NEB NEB SCH ×2 (08:00→20:10)
[2022-09-08] MEDS: AMBRISENTAN 10 MG PO SCH (09:00)
[2022-09-08] MEDS: AZITHROMYCIN 250 MG TAB PO SCH (09:21)
[2022-09-08] MEDS: SPIRONOLACTONE 25 MG TABLET PO SCH ×2 (09:22→21:21)
[2022-09-08] MEDS: ASPIRIN 81 MG CHEWABLE TABLET PO SCH (09:22)
[2022-09-08] MEDS: AMOX/K CLAV 500 MG TAB PO SCH ×3 (09:22→21:21)
[2022-09-08] MEDS: PREGABALIN 50 MG CAP PO SCH ×3 (09:22→21:21)
[2022-09-08] MEDS: FUROSEMIDE 40 MG/4 ML VIAL IV SCH ×2 (09:23→16:14)
[2022-09-08] MEDS: DABIGATRAN 75 MG CAP PO SCH ×2 (09:24→21:21)
[2022-09-08] MEDS: [UNRECOGNIZED DRUG - OTHER] PO SCH (12:00)
--- NOTE | 2022-09-08 13:07 | P.PN ---
Subjective Date of Service: 09/08/22 Chief Complaint: Left rib cage pain, shortness of breath Patient has no new complaint. Heart rate has been in the low 100s Oxygen weaned down to 2 L by nasal canula. Physical Examination - Vital Signs Temperature: 97 F Blood Pressure: 125/76 Pulse: 106 Respirations: 20 Pulse Ox (%): 90 Assessment And Plan - Plan Physical Exam General: Alert, In no apparent distress, Oriented x3, Cooperative Respiratory: Diminished on the left, clear to auscultation bilaterally. Cardiovascular: No edema, Normal S1 S2, Irregular heart rate/rhythm Gastrointestinal: Normal bowel sounds, No tenderness, Distended Integumentary: No rashes, No breakdown Neurological: Normal speech, Normal tone, Normal affect Lymphatics: No axilla or inguinal lymphadenopathy Diagnosis Acute respiratory failure with hypoxia Pneumonia Rapid atrial fibrillation Acute on chronic diastolic heart failure Hypertension Coronary artery disease HIV Plan: Pneumonia/acute respiratory failure with hypoxia/atelectasis Patient with recent fall with left rib pain. Imaging shows no displaced rib fracture. Patient is still hypoxic despite multiple days of antibiotics. Could be a component of CHF given intermittent rapid A-fib. CTA thorax shows progressive pneumonia, pleural effusion. It also reports pulmonary hypertension. Continue antibiotics per pulmonary recommended Pain management for pleurisy as needed Continue IV Lasix. Wean oxygen Incentive spirometer Pulmonary Dr. Rosado is following and assisting with management. Rapid atrial fibrillation/CAD Status post Watchman procedure Status post cardioversion Patient seen by cardiology-Dr. Silvestre who stated patient is scheduled for evaluation for cardiac ablation as outpatient. Dr. Silvsetre recommended no rate control medications or antiarrhythmic for now as patient has not tolerated them in the past. Due to intermittent rapid A-fib, Dr. Raymundo recommended amiodarone drip but patient has allergy to amiodarone with anaphylaxis. Continue Cardizem as needed. Dr. Raymundo is recommending transfer to tertiary Center for evaluation for cardiac ablation and pacemaker. He is planning cardioversion this week if patient is still here and not yet transferred. Continue telemetry. Continue aspirin and Pradaxa. Acute diastolic heart failure Secondary to rapid atrial fibrillation. Continue IV Lasix Most recent echocardiogram was about 1 month ago and shows normal EF, moderate aortic stenosis. HIV Continue home antiretrovirals. DVT prophylaxis with Pradaxa. Disposition: Home
[2022-09-09 04:01] LABS: Absolute Lymphocytes (CBC) 2.5 K/uL (0.7-4.9); Hematocrit 43.2 % (39.6-49.0); Lymphocytes % 28.4 % (15.3-44.8); MCV 96.1 fL (80-100); MPV 7.8 fL (7.6-11.3)
--- NOTE | 2022-09-09 07:13 | P.PN ---
Date of Service: 09/09/22 Subjective: Feeling much better this morning tolerating room air, not needing oxygen this morning no acute events overnight still in afib, HR 90s when asleep, up to 130s intermittently, mostly 110s-120s waiting for transfer ROS: 10 point ROS as noted above, otherwise negative Physical Exam: GEN: Alert, oriented, NAD HEENT: Normal conjunctiva, sclera anicteric CV: Irregularly irregular rate and rhythm, no edema, V/ systolic murmur Pulm: Nonlabored respirations on room air; diminished at bases bilaterally ABD: Soft, nontender, nondistended Neuro: Normal speech, normal affect vitals reviewed Problem List: Acute respiratory failure with hypoxia acute on chronic diastolic CHF (HFpEF) secondary to rapid afib / AoS Pneumonia, suspected afib with RVR; h/o chronic afib moderate aortic stenosis Hypertension Coronary artery disease HIV Acute respiratory failure with hypoxia acute on chronic diastolic CHF (HFpEF) secondary to rapid afib / AoS Pneumonia, suspected Patient with recent fall with left rib pain Imaging shows non displaced rib fracture Patient is still hypoxic despite multiple days of antibiotics. suspected component of CHF given intermittent rapid Afib / AoS TTE (07/2022): diastolic dysfunction, moderate AoS (1.1cm2), LVH, EF: 69% CTA chest - No evidence of pulmonary thromboembolism. increased lower lobe consolidation CXR 09/09 - Mild CHF, Stable moderate left pleural effusion, Pulmonary arterial hypertension. Pulmonology consulted - continue augmentin Pain medication as needed Continue IV Lasix Incentive spirometer afib with RVR; h/o chronic afib; with heart block moderate aortic stenosis CAD s/p Watchman procedure, s/p cardioversion previously cardiology consulted - Dr. Silvestre stated patient is scheduled for evaluation for cardiac ablation as outpatient. Dr. Silvestre and Zackary recommended no rate control medications or antiarrhythmic for now as patient has not tolerated them in the past / developed heart block continue cardizem as needed, monitor on telemetry anaphylaxis reaction to amio in past Dr. Raymundo is recommending transfer to tertiary Center for evaluation for cardiac ablation and pacemaker given difficulty to control afib and heart block Continue aspirin and Pradaxa HIV Continue home antiretrovirals VTE: Pradaxa Code: Full Dispo: pending transfer (initiated 09/09)
[2022-09-09] MEDS: ASPIRIN 81 MG CHEWABLE TABLET PO SCH (08:29)
[2022-09-09] MEDS: SPIRONOLACTONE 25 MG TABLET PO SCH (08:29)
[2022-09-09] MEDS: FUROSEMIDE 40 MG/4 ML VIAL IV SCH ×2 (08:30→16:10)
[2022-09-09] MEDS: PREGABALIN 50 MG CAP PO SCH ×2 (08:30→13:04)
[2022-09-09] MEDS: AMOX/K CLAV 500 MG TAB PO SCH ×2 (08:30→13:04)
[2022-09-09] MEDS: DABIGATRAN 75 MG CAP PO SCH (08:30)
[2022-09-09] MEDS: AMBRISENTAN 10 MG PO SCH (08:31)
[2022-09-09] MEDS: ARFORMOTEROL TARTRATE 15 MCG/2 ML VIAL.NEB NEB SCH (09:01)
--- NOTE | 2022-09-09 09:15 | RAD REPORT ---
EXAM DESCRIPTION: RAD - Chest Single View - 09/09/2022 8:42 am CLINICAL HISTORY: f/u opacties, effusion; hypoxic/SOB Chest pain. COMPARISON: Chest Pa And Lat (2 Views) dated 09/06/2022; Chest Single View dated 09/03/2022; Chest Sin gle View dated 07/28/2022; Chest Pa And Lat (2 Views) dated 06/21/2021; Chest For Pe Angio dated 09/06/19 FINDINGS: Portable technique limits examination quality. Since 09/06/2022 study, no real change has occurred in the moderate left pleural effusion with atelec tasis in both lung bases. Interstitial markings are slightly prominent which may indicate mild inters titial pulmonary edema. The heart is moderately enlarged. Pulmonary arterial tree is enlarged. IMPRESSION: Mild CHF suspected. Stable moderate left pleural effusion. Pulmonary arterial hypertension.
[2022-09-09] MEDS: [UNRECOGNIZED DRUG - OTHER] PO SCH (11:38)
--- NOTE | 2022-09-09 14:26 | P.DS ---
Admission Date: 09/03/22 Discharge Date: 09/09/22 Disposition: TRANSFER TO [facility] Reason for Admission: Left rib cage pain, shortness of breath Consultations: Cardiology - Dr. Silvestre / Dr. Raymundo Pulmonology - Dr. Rosado Brief History of Present Illness: 72yo M, PMH: chronic atrial fibrillation s/p cardioversion and Watchman procedure, coronary artery disease s/p PCI, CHF, HIV infection, pulmonary hypertension, hypertension Patient presents with complaint of left rib Cage. Patient reported that he fell 2 weeks ago and felt pain on his left side. Patient reported that he felt pain initially but pain resolved after a couple of days. Patient started having pain again 3 days ago. Patient rated pain as 10/10 in severity and described pain as sharp in quality. Patient reported associated signs and symptoms of shortness of breath, cough and palpitations. Patient denies any other signs and symptoms. Symptoms are aggravated or relieved by nothing. Patient decided to present to the hospital due to worsening symptoms. Hospital Course: Problem List: Acute respiratory failure with hypoxia acute on chronic diastolic CHF (HFpEF) secondary to rapid afib / AoS Pneumonia, suspected afib with RVR moderate aortic stenosis Hypertension Coronary artery disease HIV Acute respiratory failure with hypoxia acute on chronic diastolic CHF (HFpEF) secondary to rapid afib / AoS Pneumonia, suspected Patient with recent fall with left rib pain, Imaging shows non displaced rib fracture Remained hypoxix despite multiple days of antibiotics. Suspected component of CHF given intermittent rapid Afib / AoS TTE (07/2022): diastolic dysfunction, moderate AoS (1.1cm2), LVH, EF: 69% CTA chest - No evidence of pulmonary thromboembolism. increased lower lobe consolidation CXR 09/09 - Mild CHF, Stable moderate left pleural effusion, Pulmonary arterial hypertension. Pulmonology was consulted and recommended breathing treatments and Augmentin Continued on IV Lasix 40mg BID Incentive spirometer afib with RVR; h/o chronic afib; with heart block moderate aortic stenosis CAD s/p Watchman procedure, s/p cardioversion previously Dr. Silvestre and Zackary recommended no rate control medications or antiarrhythmic for now as patient has not tolerated them in the past / developed heart block patient was managed with PRN cardizem, monitored on telemetry history of anaphylaxis reaction to amio in past Dr. Raymundo recommended transfer to tertiary Center for evaluation for cardiac ablation and pacemaker given difficulty to control afib, prior reactions/side effects from AV anupam blocking agents and anaphylaxis to amiodarone Continued aspirin and Pradaxa Physical Exam: GEN: Alert, oriented, NAD HEENT: Normal conjunctiva, sclera anicteric CV: Irregularly irregular rate and rhythm, no edema, V/ systolic murmur Pulm: Nonlabored respirations on room air at rest; diminished at bases bilaterally ABD: Soft, nontender, nondistended Neuro: Normal speech, normal affect Vital Signs/Physical Exam: Temp Pulse Resp BP Pulse Ox 97.8 F 86 18 126/77 93 09/09/22 12:00 09/09/22 12:00 09/09/22 12:00 09/09/22 12:00 09/09/22 12:00 Laboratory Data at Discharge: WBC 8.70 thou/uL (4.3-10.9) 09/09/22 03:04 Hgb 14.3 g/dL (13.6-17.9) 09/09/22 03:04 Hct 43.2 % (39.6-49.0) 09/09/22 03:04 Plt Count 350 thou/uL (152-406) 09/09/22 03:04 Sodium 141 mEq/L (136-145) 09/09/22 03:04 Potassium 4.0 mEq/L (3.5-5.1) 09/09/22 03:04 BUN 28 mg/dL (7-18) H 09/09/22 03:04 Creatinine 0.98 mg/dL (0.70-1.30) 09/09/22 03:04 Glucose 204 mg/dL (74-106) H 09/09/22 03:04 Phosphorus 3.2 mg/dL (2.5-4.9) 09/06/22 02:30 Magnesium 2.3 mg/dL (1.6-2.4) 09/04/22 02:33 Total Bilirubin 0.8 mg/dL (0.2-1.0) 09/04/22 02:33 AST 29 U/L (15-37) 09/04/22 02:33 ALT 40 U/L (16-61) 09/04/22 02:33 Alkaline Phosphatase 92 U/L (45-117) 09/04/22 02:33 Home Medications: Ambrisentan [Letairis] 10 mg PO DAILY 08/14/14 Pregabalin [Lyrica*] 100 mg PO TID 08/14/14 Valacyclovir HCl [Valtrex] 1,000 mg PO SEECOM PRN 05/31/17 Dabigatran Etexilate Mesylate [Pradaxa] 150 mg PO BID 07/28/22 Darunavir/Cob/Emtri/Tenof Alaf [Symtuza [id number] mg Tab] 1 tab PO NOON 07/29/22 Furosemide [Lasix*] 40 mg PO BID 07/29/22 Metformin ER [Glucophage ER*] 500 mg PO DAILY 09/04/22 Physician Discharge Instructions: Patient presented with left rib cage pain. Initial imaging showed no displaced rib fracture. Chest xray showed "Mild CHF, Stable moderate left pleural effusion, Pulmonary arterial hypertension." Repeat CT noted interval increase in basilar consolidation concerning for possible pneumonia. Pulmonology was consulted. Patient was given lasix and antibiotics (Augmentin since 09/06). Cardiology was consulted due to rapid afib with h/o heart block. Patient reportedly had prior reactions / side effects from AV anupam blocking agents and anaphylaxis to amiodarone. He was maintained on aspirin and pradaxa. He received PRN cardizem cautiously during his hospitalization. Patient remained with intermittent rapid afib with rates up to 130s at times, mostly in 100-110s. Dr. Raymundo, scale tester, recommended transfer to tertiary care center for evaluation for cardiac ablation and pacemaker. Followup: Veena Schuster DO [Primary Care Provider] - Time spent managing pt's care (in minutes): 45
[2022-09-09 16:13] VITALS: BP 118/70
[2022-09-09] MEDS: DILTIAZEM HCL 60 MG TAB PO PRN (16:53)
[2022-09-09 17:40] VITALS: TEMP 97.3
[2022-09-09 19:50] VITALS: O2SAT 91
--- NOTE | 2022-09-10 11:40 | PN ---
Date of Progress Note: 09/05/2022 Mr. Espinoza is known to us. We have been following him for atrial fibrillation. Came in with pneumon ia. Remains hypoxic and short of breath. He is on IV antibiotics. The patient's atrial fibrillatio n has been difficult to control. He has had an ablation before. He is unable to take beta-blockers, sotalol, or amiodarone. He has plan to see Dr. Angulo and examine next week for a consideration for another ablation or an AV node ablation and a pacemaker. Continue present regimen. We will sign off his case for now. BRENNAN/GARY Voice ID: [id number] Report ID: [id number]
== END 2022-09-09 17:30 | disposition short-term general hospital (02) | DRG 193 ==
LOC: ER 11:15 → ERHOLD 17:06 → 2ND 19:34
PROVIDERS: ADMIT Internal Medicine; ATTEND Hospitalist
DX: J18.9 Pneumonia, unspecified organism (principal); I50.33 Acute on chronic diastolic (congestive) heart failure; J96.01 Acute respiratory failure with hypoxia; I31.39 Other pericardial effusion (noninflammatory); I48.20 Chronic atrial fibrillation, unspecified; I13.0 Hypertensive heart and chronic kidney disease with heart failure and stage 1 through stage 4 chronic kidney disease, or unspecified chronic kidney disease; N18.2 Chronic kidney disease, stage 2 (mild); I35.0 Nonrheumatic aortic (valve) stenosis; I27.20 Pulmonary hypertension, unspecified; I25.10 Atherosclerotic heart disease of native coronary artery without angina pectoris; R07.81 Pleurodynia; Z21 Asymptomatic human immunodeficiency virus [HIV] infection status; Z88.1 Allergy status to other antibiotic agents; Z88.5 Allergy status to narcotic agent; Z88.8 Allergy status to other drugs, medicaments and biological substances; Z79.82 Long term (current) use of aspirin; Z28.310 Unvaccinated for COVID-19; Z79.899 Other long term (current) drug therapy; W01.0XXA Fall on same level from slipping, tripping and stumbling without subsequent striking against object, initial encounter; Y93.9 Activity, unspecified; Y92.9 Unspecified place or not applicable
CPT/HCPCS: 36415; 71045; 71046; 71260; 71275; 80048; 80053; 81001; 83735; 83880; 84100; 84443; 84484; 85025; 87040; 93005; 94010; 94640; 96365; 96366; 96375; 99285; J0282; J0696; J1940; J7050; J7060; J7605; J7613; J7644; Q9967

== ENCOUNTER 2022-11-27 06:34 | Day surgery (SDC) | payer OTHER ==
[2022-11-27] MEDS ORDERED: NA CHLORIDE 0.9% IVPB SCH (07:00)
[2022-11-27] MEDS ORDERED: GENTAMICIN IVPB SCH (07:00)
[2022-11-27] MEDS ORDERED: Meropenem 1,000 MG in NA CHLORIDE 0.9% 100 ML IV SCH (07:00)
[2022-11-27 09:05] VITALS: BP 128/77; TEMP 97.8; O2SAT 96; BMI 3291.9
== END 2022-11-27 09:10 | disposition home or self-care (01) ==
LOC: DS 06:34
PROVIDERS: ATTEND Urology
DX: R97.20 Elevated prostate specific antigen [PSA] (principal)
CPT/HCPCS: 96365; J1580; J2185

== ENCOUNTER 2023-02-17 11:05 | Day surgery (SDC) | payer OTHER ==
[2023-02-16 14:07] LABS: Absolute Lymphocytes (CBC) 2.6 K/uL (0.7-4.9); Hematocrit 43.9 % (39.6-49.0); Lymphocytes % 40.8 % (15.3-44.8); MCV 94.3 fL (80-100); MPV 7.9 fL (7.6-11.3); Platelets 169 thou/uL (152-406); RBC Red Blood Cell Count 4.65 M/uL (4.33-5.43)
[2023-02-16 14:08] LABS: Specific Gravity 1.011 (1.005-1.030); Urine Bacteria None Seen /HPF (<20); Urine Bilirubin NEGATIVE (Negative); Urine Blood Negative (Negative); Urine Clarity Clear (Clear); Urine Color Light-Yellow (Yellow); Urine Glucose NEGATIVE (Negative); Urine Protein NEGATIVE (Negative); Urine RBC <5 /HPF (None Seen); Urine Urobilinogen Normal (Normal)
[2023-02-16 14:18] LABS: Potassium 3.7 mEq/L (3.5-5.1); Protime INR 1.11
--- NOTE | 2023-02-16 14:46 | RAD REPORT ---
EXAM DESCRIPTION: RAD - Chest Pa And Lat (2 Views) - 02/16/2023 2:06 pm CLINICAL HISTORY: PREPROCEDURE SCREENING. Hypertension COMPARISON: Chest Single View dated 09/09/2022; Chest Pa And Lat (2 Views) dated 09/06/2022; Chest Sin gle View dated 09/03/2022; Chest Single View dated 07/28/2022 TECHNIQUE: PA and lateral views of the chest were obtained. FINDINGS: The lungs are clear, with interval complete improvement of left pleural effusion. Lobulate d masslike hilar opacities, could prominent vasculature or lymph nodes, stable in appearance. Heart s ize is normal and central vasculature is otherwise within normal limits. No pleural effusion or pneum othorax seen. No acute bony finding noted. IMPRESSION: No acute cardiopulmonary process. Stable mediastinal bilateral prominence, may relate to prominent vasculature or lymph nodes.
[2023-02-17] MEDS ORDERED: Ringers Lactate 1,000 ML IV ONE (11:54)
[2023-02-17] MEDS ORDERED: CEFAZOLIN SODIUM 2 GM/VIAL ONE (14:37)
[2023-02-17] MEDS ORDERED: MIDAZOLAM HCL 2 MG/2 ML INJ ONE (14:41)
[2023-02-17] MEDS ORDERED: propofoL 200 MG/20 ML VIAL IV ONE (14:48)
[2023-02-17] MEDS ORDERED: LIDOCAINE 1% MPF 5 ML VIAL ONE (14:49)
[2023-02-17] MEDS ORDERED: FENTANYL CITR 100 MCG/2 ML ONE (14:49)
[2023-02-17] MEDS ORDERED: ONDANSETRON 4 MG/2 ML VIAL ONE ×2 (14:49→15:19)
[2023-02-17] MEDS ORDERED: NS 0.9% VIAL 20 ML ONE (15:05)
[2023-02-17] MEDS ORDERED: Phenylephrine HCl 10 MG/ML 1 ML VIAL ONE (15:05)
[2023-02-17] MEDS ORDERED: dexAMETHasone 10 MG/ML VIAL ONE (15:19)
[2023-02-17 16:18] VITALS: BP 119/81; O2SAT 96
[2023-02-17 16:19] VITALS: TEMP 97
--- NOTE | 2023-02-17 20:49 | OP ---
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 Patient elected ra diation therapy plus androgen deprivation therapy. 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 Patient elected r adiation therapy plus androgen deprivation therapy. Principal Procedure: 1.Transrectal ultrasound-guided placement of fiducial markers, markers placed. 2.Transrectal ultrasound-guided SpaceOAR gel insertion. Indication For Procedure: Mr. Espinoza is a 72-year-old gentleman with multiple medical comorbidities, who was found to have an elevated PSA of 77.6 and underwent biopsy of the prostate revealing high ri sk Raul 4 + 4 adenocarcinoma of the prostate in the setting of a 34.51 g gland. He was counseled about the options for management and elected to proceed with radiation therapy plus androgen deprivat ion therapy. He was started on Orgovyx by Dr. Houston, the radiation oncologist. He presents today for placement of SpaceOAR gel and fiducial markers. Procedure In Detail: The patient was consented in the preoperative holding area before being transfe rred to the operative suite where general anesthesia was induced using an LMA. He was given Ancef 2 g IV antimicrobial prophylaxis, and pneumo boots were provided for DVT prophylaxis. He was placed in the high lithotomy position, padded and secured to the table appropriately. His genitalia were elev ated out of the operative field using an Ioban drape, and the perineum was prepped using Betadine. T he transrectal ultrasound probe was inserted via his anus into his rectum with ease, and the prostate was visualized in its entirety. The stepper device was used to hold the transrectal ultrasound prob e in place and survey it from the perineal region all the way to the seminal vesicles and the bladder . The case was begun using a fiducial marker, which was placed via the perineum into the left yeni-p rostate mid gland region laterally. Once this was successfully placed as verified via ultrasound, I then utilized ultrasound to target the right yeni-prostate in the mid gland region laterally and stephanie n placed a second fiducial marker. Of note, there were multiple calcifications within the prostate g land. I then utilized the SpaceOAR gel insertion needle along with a syringe of saline and with the bevel appropriately positioned, I inserted the needle via the perineum and into the prerectal fat suki ne as evidenced ultrasonographically by the presence of the white stripe. I navigated the needle car efully into the mid base zone of the prostate and ensured it was indeed in the center on axial imagin g. I then aspirated to confirm absence of any blood or succus, and I then injected saline to hydrodi ssect the area, and the hydrodissection did generate a beautiful centrally located plane. I thus con nected the SpaceOAR gel components to the needle and then slowly and carefully injected the gel creat ing a beautiful buffer between the rectum and the base of the prostate. That buffer did extend from the base to the apex beneath the peripheral zone. As a result, I removed the needle under direct vis ion, and applied some pressure to the perineum for slight degree of oozing that was occurring from th at site from the needle sticks. I then cleansed away the Betadine before taking the patient out of t he lithotomy position. He was then awakened from general anesthesia, transferred to a stretcher, and then transferred to the recovery room in good condition. Complications: None. Discharge Disposition: He should call and schedule with the radiation oncologist, Dr. Houston, to b egin initiation of radiation therapy within the next few weeks. Subsequent followup should be establ ished with me in about 6 months' time or he may be seen sooner if his urinary symptoms are persistent ly bothersome during the radiation therapeutic phase. WILIAN/GARY Voice ID: [id number] Report ID: [id number]
--- NOTE | 2023-02-18 18:08 | EKG ---
Test Date: 2023-02-16 Test Time: 13:52:18 Grounds Manager: STEVE MEASUREMENT RESULTS: Intervals: Rate: 70 MT: QRSD: 188 QT: 498 QTc: 537 [place]: P: MT: QRS: 132 T: 71 INTERPRETIVE STATEMENTS: Electronic ventricular pacemaker Compared to ECG 09/03/2022 13:01:01 Atrial fibrillation no longer present Right bundle-branch block no longer present Myocardial infarct finding no longer present Electronically Signed On 02-18-23 18:04:28 CDT by Yoel Raymundo
== END 2023-02-17 16:25 | disposition home or self-care (01) ==
LOC: OR 11:05
PROVIDERS: ATTEND Urology
PROC: 0VH43YZ Insertion of Other Device into Prostate and Seminal Vesicles, Percutaneous Approach (ICD-10-PCS; principal; 2023-02-17 13:00)
DX: C61 Malignant neoplasm of prostate (principal)
CPT/HCPCS: 93005; 87088; 85025; 81001; 87086; 80048; 36415; 85610; 71046; 55874; A4216; J2704; J2001; J2371; J2250; J3010; J1100; J2405 ×2; J7120